=== PATIENT | male | born 1945 | race Caucasian/White ===

== ENCOUNTER 2017-08-14 16:03 | Inpatient (IN) ==
[2017-08-14] MEDS ORDERED: Ipratropium/Albuterol Neb 3 ML IH ONE (16:11)
--- NOTE | 2017-08-14 16:12 | Emergency Department Note ---
Disposition Clinical Impression: Elevated troponin Congestive heart failure Qualifiers: Congestive heart failure type: unspecified congestive heart failure type Congestive heart failure chronicity: acute Qualified Code(s): I50.9 - Heart failure, unspecified Dyspnea Qualifiers: Dyspnea type: unspecified Qualified Code(s): R06.00 - Dyspnea, unspecified Disposition: Admitted As Inpatient Condition: Fair Time of Disposition: 20:35 General Adult HPI - General Chief complaint: ED Shortness of Breath/Dyspnea Stated complaint: SOB Time Seen by Provider: 08/14/17 16:10 Nursing Notes Reviewed: Yes Vital Signs Reviewed: Yes - History of Present Illness HPI Narrative: 72-year-old male with past medical history of interstitial pulmonary fibrosis reports the emergency department worsening shortness of breath over the last few days. Patient denies any history of CHF or myocardial infarctions. Patient denies any chest pain pressure, or tightness. He does admit to worsening shortness of breath on exertion. Patient also states that he is having some pain behind his right eye that started when he was having issues with shortness of breath. Patient states that his dizzy I will bit blurry, but when he applied his oxygen, the blurriness of his vision went away. Patient also states that he is a chronic alcoholic. - Related Data Home Medications Medication Instructions Recorded Confirmed Aspirin 81 mg PO DAILY 05/23/17 08/14/17 Mv-Mn/FA/Vit K/Lycop/Lut/Coq10 1 tab PO DAILY 05/23/17 08/14/17 [Daily Multivitamin Capsule] Folic Acid 1 mg PO DAILY 08/14/17 08/14/17 Oxygen 4 l NS AD 08/14/17 08/14/17 Allergies Allergy/AdvReac Type Severity Reaction Status Date / Time No Known Allergies Allergy Verified 05/23/17 08:24 All systems ED: reviewed and negative except as stated. Review of Systems: As Per HPI Constitutional: Reports: fever Eyes: Reports: eye pain, vision change Cardiovascular: Reports: dyspnea on exertion. Denies: chest pain, syncope Respiratory: Reports: cough, dyspnea, sputum production Gastrointestinal: Denies: nausea Musculoskeletal: Denies: back pain Integumentary: Denies: rash Neurological: Reports: headache. Denies: weakness, numbness, paresthesias Past Medical History - Past Medical History Medical history: Reports: arthritis, GERD Surgical history: Reports: non-contributory Psychiatric history: Reports: no psych history - Social History Smoking Status: Former smoker Smokeless Tobacco Status: No Alcohol use: Reports: occasionally Drug use: Reports: none Physical Exam General: 72-year-old male on 4 L of oxygen via nasal cannula, appearing comfortably. Head: autraumatic, EOMI, no conjuncitval pallor, no scleral icterus, Mouth: oral mucous membranes moist, no tenderness to the right temporal artery Neck: neck soft, trachea midline Chest:: Equal chest wall rise Lungs: Diminished lung sounds bilaterally, no wheezes, no respiratory distress Heart: normal heart sounds, normal rate and rhythm, Abdomen: soft, non-tender, no rigidity, no guarding, no rebdound tenderness Lower Extremities: no pedal edema, calves non-tender Integumentary: Skin warm, dry, and intact Neuro: Alert and oriented to person place and time, GCS 15, cranial nerves II through XII grossly intact. Strength in the upper and lower extremities 5 out of 5 bilaterally. Sensory intact in the upper or lower extremities. Negative pronator drift. Psych: normal affect, normal mood Course Vital Signs Temperature 97.7 F 08/14/17 16:09 Pulse Rate 57 08/14/17 16:09 Respiratory Rate 14 08/14/17 16:09 Blood Pressure 137/78 08/14/17 16:09 O2 Sat by Pulse Oximetry 96 08/14/17 16:09 Temperature 97.7 F 08/14/17 16:09 Pulse Rate 63 08/14/17 20:22 Respiratory Rate 16 08/14/17 20:22 Blood Pressure 112/77 08/14/17 20:22 O2 Sat by Pulse Oximetry 100 08/14/17 20:22 Oxygen Delivery Oxygen Delivery Nasal Cannula Medical Decision Making - [facility] Narrative Medical decision making narrative: 72-year-old male presents to the emergency department with cough, shortness of breath, sputum production which is initially concerning for pneumonia. Patient is a chronic alcoholic. Electrocardiogram revealed new diffuse T-wave inversions that were not obtainable previous EKGs. Chest x-ray did not reveal evidence of pneumonia, but clinically, the patient's cough and sputum production were concerning for it. Due to patient's known history of alcoholism , there was concern for aspiration pneumonia. Patient was given vancomycin and Zosyn in the emergency department. Patient did have an elevated BNP of 873. Patient also had a troponin of 0.08. A repeat electrocardiogram was obtained, and a symptom recheck was also taken. Patient denied any chest pain, pressure, or tightness. Cardiology was consulted and they recommended to start a heparin drip. Due to the patient's elevated BNP, patient patient was given 40 mg of Lasix IV in the emergency department. Patient was complaining of having a headache behind his right eye. This was concerning for possibility of hemorrhagic stroke. CT scan of the head was negative for an acute intracranial abnormality. Patient was given Reglan, Benadryl in the emergency department. Patient was still complaining of headache after the administration of these medications. Given further analgesia. Temporal artery was palpated and was not tender. Intraocular pressures were obtained and they were 19 and 23 respectively. There was no evidence of glaucoma. We discussed admission with the hospitalist and he agreed to accept admission of the patient. All labs and tests were discussed with family members at bedside as well as patient. They agreed with the plan for admission. Heparin drip was started prior to admission to the floor. Chest X-Ray 08/14/17 16:11 IMPRESSION: 1. No acute cardiopulmonary abnormality. 2. Stable findings of chronic interstitial lung disease. D/ / Patrick Sandy MD / Patrick Sandy MD Interpreting Provider: Patrick Sandy MD Head CT 08/14/17 16:38 IMPRESSION: No acute intracranial abnormality. D/ / Patrick Sandy MD / Patrick Sandy MD Interpreting Provider: Patrick Sandy MD - Medical Records Medical records reviewed: Yes I reviewed the patient's medical records. - Lab Data Lab results reviewed: Yes I reviewed the patient's lab results. Result diagrams: 08/14/17 16:26 08/14/17 16:26 Lab Results 08/14/17 08/14/17 08/14/17 Range/Units 16:26 16:26 16:26 WBC 6.8 (4.3-11.1) K/mcL RBC 5.74 H (4.19-5.50) M/mcL Hgb 19.0 H (12.9-16.9) g/dL Hct 57.2 H (37.5-50.1) % MCV 99.7 (83.0-100.0) fL MCH 33.1 (28.0-33.3) pg MCHC 33.2 (31.6-35.5) g/dL RDW 13.3 (11.5-14.5) % Plt Count 135 L (140-400) K/mcL MPV 9.5 (9.4-12.4) fL Immature Gran % 0.3 (0-4) % Seg Neutrophils % 69.5 % Lymphocytes % 15.9 % Monocytes % 7.4 % Eosinophils % 6.0 % Basophils % 0.9 % Neutrophils # 4.7 (1.6-8.9) K/mcL Lymphocytes # 1.1 (0.6-4.6) K/mcL Monocytes # 0.5 (0.0-1.3) K/mcL Eosinophils # 0.4 (0.0-0.6) K/mcL Basophils # 0.1 (0.0-0.2) K/mcL Sodium 141 (136-145) mEq/L Potassium 4.3 (3.5-4.5) mEq/L Chloride 107 (98-109) mEq/L Carbon Dioxide 26 (19-29) mEq/L BUN 25 (8-26) mg/dL Creatinine 0.91 (0.72-1.25) mg/dL Est GFR ( Amer) > 60 (> 60) Est GFR (Non-Af Amer) > 60 (> 60) BUN/Creatinine Ratio 27 H (6-26) Glucose 91 (70-99) mg/dL Calculated Osmolality 296 (280-300) Calcium 9.3 (8.6-10.8) mg/dL Troponin I 0.08 H* (0-0.03) ng/mL B-Natriuretic Peptide (0-100) pg/mL 08/14/17 Range/Units 16:26 WBC (4.3-11.1) K/mcL RBC (4.19-5.50) M/mcL Hgb (12.9-16.9) g/dL Hct (37.5-50.1) % MCV (83.0-100.0) fL MCH (28.0-33.3) pg MCHC (31.6-35.5) g/dL RDW (11.5-14.5) % Plt Count (140-400) K/mcL MPV (9.4-12.4) fL Immature Gran % (0-4) % Seg Neutrophils % % Lymphocytes % % Monocytes % % Eosinophils % % Basophils % % Neutrophils # (1.6-8.9) K/mcL Lymphocytes # (0.6-4.6) K/mcL Monocytes # (0.0-1.3) K/mcL Eosinophils # (0.0-0.6) K/mcL Basophils # (0.0-0.2) K/mcL Sodium (136-145) mEq/L Potassium (3.5-4.5) mEq/L Chloride (98-109) mEq/L Carbon Dioxide (19-29) mEq/L BUN (8-26) mg/dL Creatinine (0.72-1.25) mg/dL Est GFR ( Amer) (> 60) Est GFR (Non-Af Amer) (> 60) BUN/Creatinine Ratio (6-26) Glucose (70-99) mg/dL Calculated Osmolality (280-300) Calcium (8.6-10.8) mg/dL Troponin I (0-0.03) ng/mL B-Natriuretic Peptide 873 H (0-100) pg/mL - Radiology Data Radiology results reviewed: Yes I reviewed the patient's radiology results. - EKG Data EKG #1 EKG attestation: Yes I reviewed and interpreted this EKG. EKG results narrative: EKG #1 16:23 Ventricular rate 69 bpm, ND interval 170 ms, QRS duration 120 ms, QTC 427 ms, QTC 446 ms, normal axis T-wave inversions in the inferior leads and anterior septal leads that are new from an electrocardiogram performed on September 19, 2013 18:52 EKG #2 This electrocardiogram is unchanged from the one performed at 16:23 today Critical Care Time Critical Care Time: Yes Total Critical Care Time: 35 Attestation: Critical care performed: Time is exclusive of separately billable procedures. Time includes: direct patient care, patient reassessment, coordination of patient care, interpretation of data (laboratory data, radiology data, and respiratory data), review of patient's medical records, medical consultation and documentation of patient care. Procedures included in critical care time: Procedures excluded from critical care time: Attestation Statement - Attestation Attestation: I, Flaco Cabrera DO, examined this patient [id number] and my medical decision-making was reviewed with Dr. Mynor Anderson, Resident Physician. I agree with the documented findings, disposition and treatment plan as described except to the extent set forth below. Please see my progress notes for details. 72-year-old male presents emergency room with shortness of breath. He has a long-standing history of pulmonary fibrosis and is on oxygen at home. Over the last several days she has had productive sputum sinus congestion and pain around his right eye similar to when he gets sinus infections. Currently is denying chest pain fevers chills nausea vomiting or diarrhea. Denies headache or vision change. He does have generalized myalgias diffusely across the body. EKG does show diffuse T-wave inversions and no specific signs of ST segment elevation or depression. His morphology appears to be stable. Patient had chest x-ray as well as laboratory workup completed looking for cardiac related issues as well as pulmonary infection. Concern is noted for infectious etiology based on the symptoms history and presentation. Patient also is a chronic alcoholic. Thiamine and folate will be given to him boluses here as well to help with symptom control on fluid hydration. Patient will most likely need admission to the hospital. His pulse ox is been stable here after receiving breathing treatments. Will continue monitoring his treatment course. Otherwise patient is resting in the bed with significant resolution of his increased work of breathing that he presented with. Patient is otherwise stable this time. Family is at the bedside and comfortable with our plan patient to get CT imaging of the head as well considering he had what he described as a focal vision change at the onset of the shortness of breath here today. Disposition to be completed. See detailed documentation of physical exam, medical intervention, medical decision-making and resident physician's note [id number] Chest x-ray shows changes and interstitial presentation concerning for pulmonary edema. BNP is elevated. Troponin is elevated. Patient also has cardiac strain secondary to fluid overload at this time. This could be causing shortness of breath. Otherwise EKG is stable except for diffuse T-wave inversion. Patient will be admitted for definitive evaluation treatment. He still complaining of the headache and pain on the right eye. She describes being on the right eye identical to all his other sinus infections. He has no acute changes in vision or extraocular muscle entrapment at this time. Intra- ocular pressure to be evaluated in the admission process to be completed. Multivitamin about covered with concern for aspiration as well as pulmonary coverage. 1800 Cardiology to be consult at this time at the request of the hospitalist. Patient does have diffuse T-wave inversions with possible depressions in 3, aVF , V1 to V3. Patient has continued to deny chest pain throughout the course of care here in the emergency room. 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 Patient denies any other symptoms this time. Repeat EKG to be collected at this time just for further evaluation. Admission to be completed at this point
[2017-08-14] MEDS ORDERED: Tetracaine 0.5% OPTH 80 DROP/4 ML BOTTLE RIGHT EYE ONE (16:24)
[2017-08-14 16:34] LABS: Basophils # 0.1 K/mcL (0.0-0.2); Basophils % 0.9 %; Eosinophils # 0.4 K/mcL (0.0-0.6); Immature Granulocytes % 0.3 % (0-4); Lymphocytes # 1.1 K/mcL (0.6-4.6); Lymphocytes % 15.9 %; Mean Corpuscular HGB Conc 33.2 g/dL (31.6-35.5); Mean Corpuscular Hemoglobin 33.1 pg (28.0-33.3); Mean Corpuscular Volume 99.7 fL (83.0-100.0); Mean Platelet Volume 9.5 fL (9.4-12.4); Monocytes # 0.5 K/mcL (0.0-1.3); Monocytes % 7.4 %; Neutrophils # 4.7 K/mcL (1.6-8.9); Platelet Count 135 K/mcL (140-400); Red Blood Count 5.74 M/mcL (4.19-5.50); Red Cell Distribution Width 13.3 % (11.5-14.5); Segmented Neutrophils % 69.5 %
[2017-08-14 16:42] LABS: Hematocrit 57.2 % (37.5-50.1)
[2017-08-14 17:05] LABS: BUN/Creatinine Ratio 27 (6-26); Blood Urea Nitrogen 25 mg/dL (8-26); Calcium 9.3 mg/dL (8.6-10.8); Carbon Dioxide 26 mEq/L (19-29); Chloride 107 mEq/L (98-109); Glucose 91 mg/dL (70-99); Osmolality,Calculated 296 (280-300); Potassium 4.3 mEq/L (3.5-4.5); Sodium 141 mEq/L (136-145); eGFR For African Americans > 60 (> 60); eGFR For Non-African Americans > 60 (> 60)
[2017-08-14] MEDS ORDERED: Vancomycin 1,250 MG in D5% in Water 250 ML IVPB ONE (17:38)
[2017-08-14] MEDS ORDERED: Piperacillin/Tazobactam 4.5 GM in D5% in Water (Mini-Bag+) 100 ML IVPB ONE (17:42)
[2017-08-14] MEDS ORDERED: Metoclopramide 10 MG/2 ML VIAL IVP ONE (17:53)
[2017-08-14] MEDS ORDERED: Aspirin 325 MG TABLET PO ONE (18:14)
[2017-08-14] MEDS ORDERED: Furosemide 40 MG/4 ML VIAL IVP ONE (18:15)
[2017-08-14] MEDS ORDERED: *HR* Heparin 5,000 UNIT/ML VIAL IVP ONE (18:25)
[2017-08-14] MEDS ORDERED: *HR* Heparin 5,000 UNIT/ML VIAL IVP PRN ×2 (18:25)
[2017-08-14] MEDS ORDERED: Heparin 25,000 UNIT/500 ML D5W 25,000 UNIT/500 ML MLS IVC SCH (18:30)
[2017-08-14] MEDS ORDERED: *HR* HYDROmorphone (PF) 1 MG/ML SYRINGE IVP ONE (19:31)
[2017-08-14 22:38] LABS: INR 1.5; Prothrombin Time 15.9 Seconds (9.4-12.1)
[2017-08-14 22:57] LABS: Activated Partial Thrombo Time 187.3 Seconds (26.0-36.0)
[2017-08-14] MEDS ORDERED: Naloxone 0.4 MG/ML INJ IVP PRN (22:57)
[2017-08-14] MEDS ORDERED: Ondansetron ODT 4 MG TAB.RAPDIS SL PRN (22:57)
[2017-08-14] MEDS ORDERED: Nitroglycerin 0.4 MG TAB.SUBL SL PRN (23:02)
[2017-08-14] MEDS ORDERED: Albuterol 2.5 MG/3 ML NEBULIZER IH PRN (23:02)
[2017-08-14 23:13] LABS: Heparin anti-factor XA UFH 0.82 IU/mL (0.30-0.70)
[2017-08-14] MEDS: Ipratropium/Albuterol Neb 3 ML IH SCH (23:14)
[2017-08-14] MEDS ORDERED: NON-FORMULARY MEDICATION 1 EACH EACH (Oxygen [Oxygen] 4 L) NS SCH (23:15)
[2017-08-15] MEDS: methylPREDNISolone 125 MG/2 ML VIAL IVP SCH ×2 (00:32→09:50)
[2017-08-15] MEDS: Furosemide 40 MG/4 ML VIAL IVP SCH ×3 (00:33→20:47)
[2017-08-15] MEDS: *HR* Morphine 2 MG/ML SYRINGE IVP PRN ×2 (00:37→09:50)
[2017-08-15] MEDS: Levofloxacin 500 MG/100 ML 500 MG/100 ML BAG IVPB SCH ×2 (00:38→22:56)
--- NOTE | 2017-08-15 03:24 | Internal Med History&Physical ---
Date of Encounter: 08/15/17 Time of Encounter: 21:00 Assessment and Plan (1) Pneumonia Current visit: Yes Status: Acute Blood culture drawn patient is on IV Levaquin Qualifiers: Pneumonia type: due to unspecified organism Laterality: unspecified laterality Lung location: unspecified part of lung Qualified Code(s): J18.9 - Pneumonia, unspecified organism (2) COPD (chronic obstructive pulmonary disease) Current visit: Yes Status: Acute Add IV steroid nebulizers S Mucinex Qualifiers: COPD type: COPD with acute exacerbation Qualified Code(s): J44.1 - Chronic obstructive pulmonary disease with (acute) exacerbation (3) Pulmonary fibrosis Current visit: Yes Status: Acute Known diagnosis 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 Patient has been started on IV Lasix and an echocardiogram ordered. Serial cardiac enzymes ordered as well as aspirin beta faustino will be started. Cardiology consult pending per cardiology recommendation patient is on IV nitroglycerin and heparin drip. Qualifiers: Congestive heart failure type: unspecified congestive heart failure type Congestive heart failure chronicity: unspecified congestive heart failure chronicity Qualified Code(s): I50.9 - Heart failure, unspecified Internal Medicine - H&P: HPI Chief complaint: sob Admitted From: Home Plans for Post Hospital Care: Home History of present illness: Mr. [place] is a 72 year old male past medical history significant for alcoholism, pulmonary fibrosis, COPD. Patient presented with cough and worsening dyspnea. However no chest pain. No fever chills headache neck pain abdominal pain nausea vomiting diarrhea dysuria urgency frequency hematuria medically Z hematemesis melena. In the ER EKG showed diffuse T-wave inversion with positive troponin. Cardiology was consulted who recommended IV nitroglycerin and IV heparin. Chest x-ray showed pneumonia and on clinical examination COPD exacerbation is present. Patient admits that he drinks regularly. Past Med Surg Social Fam HX - Past Medical History Medical history: arthritis, GERD Psychiatric history: no psych history - Past Surgical History Surgical History: non-contributory - Social History Smoking Status: Former smoker Smokeless Tobacco Status: No Alcohol use: occasionally Drug use: none - Family History Father Adopted: Yes Living Status: Hx Family Neuromuscular Disorders: Yes (CVA) Internal Medicine - H&P: Meds Aspirin 81 mg PO DAILY 05/23/17 [History] Mv-Mn/FA/Vit K/Lycop/Lut/Coq10 [Daily Multivitamin Capsule] 1 tab PO DAILY 05/23 [History] Folic Acid 1 mg PO DAILY 08/14/17 [History] Oxygen 4 l NS AD 08/14/17 [History] 3 Allergy/AdvReac Type Severity Reaction Status Date / Time No Known Allergies Allergy Verified 05/23/17 08:24 All Systems PM: A 10-system review of systems was performed and is negative for pertinent findings except as documented above in the HPI. - Constitutional Constitutional: no chills, no fever(s), no night sweats - EENT Eyes: no change in vision, no discharge, no pain, no photophobia Ears: no ear discharge, no ear pain, no tinnitus Nose, mouth and throat: no dysphagia, no nasal discharge, no neck pain, no sore throat - Cardiovascular Cardiovascular ROS IM: no chest pain, no diaphoresis, no dyspnea, no lightheadedness, no palpitations, no syncope - Respiratory Respiratory: cough, dyspnea, no wheezing, no excessive phlegm production - Gastrointestinal Gastrointestinal: no abdominal pain, no diarrhea, no hematemesis, no hematochezia, no melena, no nausea, no vomiting - Musculoskeletal Musculoskeletal ROS IM: no numbness, no tingling - Integumentary Integumentary IM: no rash, no unusual bruising - Neurological Neurological ROS: no confusion, no convulsions, no focal weakness, no numbness, no tingling, no tremor(s) - Hematologic/Lymphatic Hematologic/Lymphatic: no easy bruising - Constitutional Vitals: Temp Pulse Resp BP Pulse Ox 97.5 F L 61 16 99/65 99 08/14/17 23:55 08/14/17 23:55 08/14/17 23:55 08/14/17 23:55 08/14/17 23:55 General appearance: Present: A&O X 3, pleasant, no acute distress, answers questions appropriately - Head Head exam: Present: atraumatic, normocephalic - Eye Eye exam: Present: PERRL, conjuntiva pink, sclera anicteric Pupils: Present: PERRL - Neck Neck exam general surgery: Present: supple, trachea midline. Absent: lymphadenopathy - Respiratory Respiratory exam: Present: decreased breath sounds, wheezes. Absent: accessory muscle use, rales, rhonchi - Cardiovascular Cardiovascular exam: Present: RRR, +S1, +S2. Absent: diastolic murmur, gallop, rubs, systolic murmur - GI/Abdominal GI/Abdominal exam: Present: normal bowel sounds, soft, no peritoneal signs. Absent: distended, tenderness - Extremities Exam Extremities exam: Present: warm, radial pulses palpable and symmetrical. Absent : calf tenderness, cyanotic, pedal edema - Neurological Exam Neurological exam: Present: CN II-XII intact, oriented X3, no focal deficits. Absent: pronater drift, facial droop, speech deficit - Skin Skin exam: Present: dry, intact Internal Med - H&P Results - Labs CBC & Chem 7: 08/14/17 16:26 08/14/17 16:26 Labs: Cardiac Enzymes 08/14/17 Range/Units 23:44 Troponin I 0.11 H* (0-0.03) ng/mL
[2017-08-15] MEDS: Ipratropium/Albuterol Neb 3 ML IH SCH ×4 (04:14→21:31)
[2017-08-15 06:15] LABS: Basophils % 0.5 %; Eosinophils # 0.1 K/mcL (0.0-0.6); Eosinophils % 0.9 %; Hematocrit 55.3 % (37.5-50.1); Hemoglobin 18.3 g/dL (12.9-16.9); Immature Granulocytes % 0.4 % (0-4); Lymphocytes # 0.3 K/mcL (0.6-4.6); Lymphocytes % 5.9 %; Mean Corpuscular HGB Conc 33.1 g/dL (31.6-35.5); Mean Corpuscular Hemoglobin 32.9 pg (28.0-33.3); Mean Corpuscular Volume 99.3 fL (83.0-100.0); Mean Platelet Volume 9.8 fL (9.4-12.4); Monocytes # 0.1 K/mcL (0.0-1.3); Platelet Count 133 K/mcL (140-400); Red Blood Count 5.57 M/mcL (4.19-5.50); Red Cell Distribution Width 13.2 % (11.5-14.5); Segmented Neutrophils % 90.3 %
[2017-08-15 06:26] LABS: Alanine Aminotransferase 11 Units/L (0-55); Albumin 3.2 g/dL (3.5-5.0); Alkaline Phosphatase 92 Units/L (38-126); Aspartate Amino Transferase 22 Units/L (5-34); BUN/Creatinine Ratio 29 (6-26); Bilirubin,Total 1.4 mg/dL (0.2-1.2); Blood Urea Nitrogen 24 mg/dL (8-26); Calcium 9.1 mg/dL (8.6-10.8); Carbon Dioxide 26 mEq/L (19-29); Chloride 103 mEq/L (98-109); Globulin 3.3 g/dL (2.4-3.5); Glucose 143 mg/dL (70-99); Osmolality,Calculated 293 (280-300); Potassium 4.6 mEq/L (3.5-4.5); Sodium 138 mEq/L (136-145); Total Protein 6.5 g/dL (6.0-8.3); eGFR For African Americans > 60 (> 60); eGFR For Non-African Americans > 60 (> 60)
[2017-08-15] MEDS: Folic Acid 1 MG TABLET PO SCH (09:51)
[2017-08-15] MEDS: Multivit/Ca/Min/Fe/FA 1 TAB TABLET PO SCH (09:51)
[2017-08-15] MEDS: Aspirin 81 MG TAB.CHEW PO SCH (09:51)
--- NOTE | 2017-08-15 09:58 | Cardiology Consult Note ---
Date of Encounter: 08/15/17 Time of Encounter: 09:57 Assessment and Plan (1) Congestive heart failure Current Visit: Yes Status: Acute Most likley 2/2 pneumonia/COPD/Idiopathic pulmonary fibrosis vs possibly new diastolic CHF (HFpEF) w/ excessive chronic EtOH as a contributing factor. Patient has increased SOB on exertion, and inability to lay flat, but denies PND , chest pain or diaphoresis. Clinically dry and warm. CXR showed no acute cardiopulmonary abnormality. Trop 0.07, 011, and 0.08. BNP 873, with no hx or present renal dysfunction. echo from 2012 showed LVEF 55-60%. echo 08/15/2017 LVEF 50-55% mild MVP prolapse and mil-derate mitral regurg. Patient does not have a cardiac history. - Fluid restrictions <2L/day, and <2Na/day - continue lasix 40 BID, morphine PRN, Nitrates PRN, O2, and patient sitting up. - can stop heparin, at this time will hold off cardiac intervention - B-faustino hold for now due to decreased BP and HR - advised patient to quit drinking, as this is a contributive factor for CHF Qualifiers: Congestive heart failure type: unspecified congestive heart failure type Congestive heart failure chronicity: unspecified congestive heart failure chronicity Qualified Code(s): I50.9 - Heart failure, unspecified (2) Nevus Current Visit: Yes Status: Acute 3 cm left Nevus on ear, appears ulcerated. highly suspicious of basal Cell Carcinoma. Please setup follow up with breakfast supervisor on discharge. (3) Pneumonia Current Visit: Yes Status: Acute per management of medicine team Qualifiers: Pneumonia type: due to unspecified organism Laterality: unspecified laterality Lung location: unspecified part of lung Qualified Code(s): J18.9 - Pneumonia, unspecified organism (4) COPD (chronic obstructive pulmonary disease) Current Visit: Yes Status: Acute per management of medicine team Qualifiers: COPD type: COPD with acute exacerbation Qualified Code(s): J44.1 - Chronic obstructive pulmonary disease with (acute) exacerbation (5) Alcoholism Current Visit: Yes Status: Acute per management of medicine team Discussion w patient/family: The assessment and plan as outlined above was discussed with the patient and/or family members who expressed understanding and agreement. All questions were answered. Thank you for involving us in the care of your patient. Please call with any questions. History of Present Illness Consult date: 08/15/17 Requesting physician: Flaco Cabrera Consult reason: new CHF Chief complaint: SOB on exertion History of present illness: Mr. Canada is a 72 year old male who presented to the ED yesterday with increased SOB on exertion. Patient has a history of Interstitial lung disease diagnosed in 11/01, and COPD which he does not take medications at home for, and hx of chronic EtOH use. In ED patient was started on Vanc and zosyn to treat PNA and was switched to levaquin once admitted 2/2 hx of lung disease. BNP was found to be 873 and trop 0.08, and EKG with ST inversions. Patient was then started on nitro, heparin drip, O2, ASA81, and lasix 40 for treatment of CHF. When patient was seen today he reported "I feel awful" and "feels like i have the flu " because he ached all over. Patent denies chest pain or diaphoresis. He's had increasing difficulty laying flat and increased SOB on exertion. Patient denies PND. On chart review, patient had an echo in 2012 w/ LVEF of 55-60%, patient was unsure of the reason for echo. Patient denies any previous cardiac medical history. Past Med Surg Social Fam HX - Past Medical History Medical history: arthritis, GERD Psychiatric history: no psych history - Past Surgical History Surgical History: non-contributory - Social History Smoking Status: Former smoker Smokeless Tobacco Status: No Alcohol use: occasionally Drug use: none - Family History Father Adopted: Yes Living Status: Hx Family Neuromuscular Disorders: Yes (CVA) Medications and Allergies Aspirin 81 mg PO DAILY 05/23/17 [History] Mv-Mn/FA/Vit K/Lycop/Lut/Coq10 [Daily Multivitamin Capsule] 1 tab PO DAILY 05/23 [History] Folic Acid 1 mg PO DAILY 08/14/17 [History] Oxygen 4 l NS AD 08/14/17 [History] 3 Allergy/AdvReac Type Severity Reaction Status Date / Time No Known Allergies Allergy Verified 05/23/17 08:24 All Systems Review: A 10-system review of systems was performed and is negative for pertinent findings except as documented above in the HPI. - Constitutional Constitutional: malaise, weakness, no night sweats - EENT Eyes: no blurred vision, no loss of vision - Cardiovascular Cardiovascular: as per HPI - Respiratory Respiratory: cough, dyspnea (n exertion), no hemoptysis, no wheezing - Gastrointestinal Gastrointestinal: no abdominal pain, no coffee ground emesis, no constipation, no diarrhea, no dysphagia, no hematemesis, no hematochezia, no melena - Genitourinary Genitourinary: no dysuria, no hematuria, no nocturia - Musculoskeletal Musculoskeletal: muscle cramps, muscle weakness, no back pain - Neurological Neurological: no abnormal speech, no loss of vision, no memory loss, no numbness - Psychiatric Psychiatric: no anxiety, no depression, no hallucinations, no panic attacks - Hematological/Lymphatic Hematologic/Lymphatic: no easy bleeding, no easy bruising Physical Examination Vital Signs, Last 4 Hours Temp Pulse Resp BP Pulse Ox 08/15/17 06:46 97.5 F L 61 16 111/68 97 General: Conversant, No Apparent Distress HEENT: Atraumatic, Normocephaly, Mucus Membranes Moist Neck: No JVD, Normal carotid pulses, Other (no carotid bruits bilaterally) Cardiac: Reg Rate and Rhythm, Normal S1 and S2, No Murmur Lungs: Normal Breath Sounds, No Wheeze, Rales, Rhonchi Neuro: Alert and responsive, No focal deficits noted Abdomen: Soft, Non-Tender Skin: No rashes noted on visualized skin Musculoskeletal: No Chest Wall Tenderness Extremities: No Clubbing, No Cyanosis, No Edema (0/4 UE and LE bilaterally), Normal Pulses (radial, posterior tibia, and dorsalis pedis) Results 08/15/17 05:41 08/15/17 05:41 Lab Results 08/14/17 08/15/17 08/15/17 23:44 05:41 05:41 WBC 5.6 Hgb 18.3 H Hct 55.3 H Plt Count 133 L APTT Sodium 138 Potassium 4.6 H Chloride 103 Carbon Dioxide 26 BUN 24 Creatinine 0.84 Glucose 143 H Calcium 9.1 Total Bilirubin 1.4 H AST 22 ALT 11 Alkaline Phosphatase 92 Troponin I 0.11 H* 08/15/17 08/15/17 05:41 06:40 WBC Hgb Hct Plt Count APTT 34.9 D Sodium Potassium Chloride Carbon Dioxide BUN Creatinine Glucose Calcium Total Bilirubin AST ALT Alkaline Phosphatase Troponin I 0.07 H* Consult Discharge Plan - Plan Referrals: Jorge Ferrera MD [Primary Care Provider] -
[2017-08-15] MEDS: Acetaminophen 325 MG TABLET PO PRN (10:45)
[2017-08-15] MEDS ORDERED: *HR* LORazepam 2 MG/ML VIAL IVP PRN ×2 (12:02)
[2017-08-15] MEDS: *HR* LORazepam 2 MG/ML VIAL IVP PRN (12:34)
[2017-08-15] MEDS: MethylPREDNISolone 40 MG/ML VIAL IVP SCH (14:23)
--- NOTE | 2017-08-15 17:14 | Internal Med Progress Note ---
Date of Encounter: 08/15/17 Time of Encounter: 12:30 - Assessment and plan (1) Congestive heart failure Current Visit: Yes Status: Acute Assessment and plan: Patient admitted with shortness of breath and noted to have elevated BNP. Started on IV Lasix, continue urine output monitoring, fluid restriction, telemetry monitoring. Noted to have mild troponin elevation, flat around 0.1. Cardiology consult appreciated-agree with current management, unclear if his symptoms are all attributed to congestive heart failure, could be due to underlying pulmonary fibrosis. Followup Echocardiogram. Qualifiers: Congestive heart failure type: unspecified congestive heart failure type Congestive heart failure chronicity: acute on chronic Qualified Code(s): I50.9 - Heart failure, unspecified (2) Elevated troponin Current Visit: Yes Status: Acute Assessment and plan: continue Telemetry monitoring. Likely related to underlying hypoxia and respiratory failure. Plan as above. (3) Pulmonary fibrosis Current Visit: Yes Status: Chronic Assessment and plan: continue supplemental O2; follows with Pulmonology as outpatient; (4) Alcoholism Current Visit: Yes Status: Chronic Assessment and plan: Discussed alcohol abstinence. Continue supportive care and CIWA protocol. No overt signs of withdrawal at this time. - Subjective Interval history: Feels better. Reports no chest pain, shortness of breath, anxiety or tremors. No nausea or vomiting. Tolerates oral diet. - Constitutional Vitals: Temp Pulse Resp BP Pulse Ox 97.6 F 66 16 93/63 93 08/15/17 15:16 08/15/17 15:16 08/15/17 15:38 08/15/17 15:16 08/15/17 15:38 General appearance: Present: A&O X 3, answers questions appropriately - Respiratory Respiratory exam: Present: CTAB (Coarse breath sounds bilaterally), rales ( Bibasal crepts). Absent: accessory muscle use, rhonchi, wheezes - Cardiovascular Cardiovascular exam: Present: RRR, +S1, +S2. Absent: diastolic murmur, gallop, rubs, systolic murmur - GI/Abdominal GI/Abdominal exam: Present: normal bowel sounds, soft, no peritoneal signs. Absent: distended, tenderness - Extremities Exam Extremities exam: Present: full ROM, warm, radial pulses palpable and symmetrical. Absent: calf tenderness, cyanotic, pedal edema Internal Medicine: Result - Labs CBC & Chem 7: 08/15/17 05:41 08/15/17 05:41 Labs: Short CBC 08/15/17 Range/Units 05:41 WBC 5.6 (4.3-11.1) K/mcL Hgb 18.3 H (12.9-16.9) g/dL Hct 55.3 H (37.5-50.1) % Plt Count 133 L (140-400) K/mcL Neutrophils # 5.0 (1.6-8.9) K/mcL BMP 08/15/17 05:41 Sodium 138 Potassium 4.6 H Chloride 103 Carbon Dioxide 26 BUN 24 Creatinine 0.84 Glucose 143 H Calcium 9.1 Cardiac Enzymes 08/14/17 08/15/17 08/15/17 Range/Units 23:44 05:41 10:45 Troponin I 0.11 H* 0.07 H* 0.05 H* (0-0.03) ng/mL Liver Function 08/15/17 Range/Units 05:41 Total Bilirubin 1.4 H (0.2-1.2) mg/dL AST 22 (5-34) Units/L ALT 11 (0-55) Units/L Alkaline Phosphatase 92 (38-126) Units/L Albumin 3.2 L (3.5-5.0) g/dL - ABG Interpretation ABG results: PT/INR, D-dimer PT 15.9 Seconds (9.4-12.1) H 08/14/17 21:38 - Impressions Impressions Echocardiogram 08/15/17 23:22 Impressions: LVEF 50-55%. Mild left ventricular diastolic dysfunction. Normal right ventricular structure and function. Mild mitral valve bileaflet prolapse with mild-moderate mitral regurgitation. No pulmonary hypertension. Left Ventricular Wall Motion: Rest Echo Findings All wall segments showed normal motion. Findings: Study Quality * Technically adequate exam. ECG Findings * Normal sinus rhythm. Left Ventricle * Mild left ventricular diastolic dysfunction. * Normal LV size and wall thickness. * LVEF 50-55%. Right Ventricle * Normal right ventricular structure and function. Left Atrium * Moderate-severely dilated left atrium. Right Atrium * Normal right atrial size. Aortic Valve * No aortic regurgitation. * Trileaflet aortic valve. * No aortic stenosis. Tricuspid Valve * Normal tricuspid valve structure. * Trace tricuspid regurgitation. * Estimated RA pressure is 3 mmHg. * Estimated RVSP is 19 mmHg. * No pulmonary hypertension. Pulmonic Valve * Normal pulmonic valve structure. * No pulmonic stenosis. * Trace pulmonic regurgitation. Pulmonary Artery * Normal visualized portions of the main pulmonary artery. Aorta * Normally sized aortic root. Pericardium * There is no pericardial effusion present. Mitral Valve * Mild-moderate mitral regurgitation. * No mitral stenosis. * Mild bileaflet prolapse. Interatrial Septum * No evidence of PFO by color Doppler. IVC * Normal IVC dimensions and inspiratory collapse. Consult Discharge Plan - Plan Referrals: Jorge Ferrera MD [Primary Care Provider] -
--- NOTE | 2017-08-15 17:26 | Electrocardiograph Report ---
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
[2017-08-15] MEDS: Thiamine (B-1) 100 MG, Folic Acid 1 MG in 0.9 % Sodium Chloride 50 ML IVPB SCH (17:40)
[2017-08-15] MEDS ORDERED: Temazepam 15 MG CAPSULE PO ONE (22:15)
[2017-08-16] MEDS: MethylPREDNISolone 40 MG/ML VIAL IVP SCH ×2 (01:32→14:35)
[2017-08-16] MEDS: Ipratropium/Albuterol Neb 3 ML IH SCH ×4 (05:04→22:22)
--- NOTE | 2017-08-16 09:58 | Internal Med Progress Note ---
Date of Encounter: 08/16/17 Time of Encounter: 09:30 - Assessment and plan (1) Congestive heart failure Current Visit: Yes Status: Acute Assessment and plan: Patient admitted with shortness of breath and noted to have elevated BNP. Improving. We will change Lasix to by mouth Lasix twice daily. continue urine output monitoring, fluid restriction, telemetry monitoring. Noted to have mild troponin elevation, flat around 0.1. Cardiology consult appreciated-agree with current management, unclear if his symptoms are all attributed to congestive heart failure, could be due to underlying pulmonary fibrosis. Echocardiogram reviewed-shows 50-55% ejection fraction, mild left ventricular diastolic dysfunction, mild mitral valve bileaflet prolapse with mild to moderate mitral regurgitation. Qualifiers: Congestive heart failure type: unspecified congestive heart failure type Congestive heart failure chronicity: acute on chronic Qualified Code(s): I50.9 - Heart failure, unspecified (2) Elevated troponin Current Visit: Yes Status: Resolved (3) Pulmonary fibrosis Current Visit: Yes Status: Chronic Assessment and plan: Improving symptoms. Taper down IV steroids as tolerated. Oxygen requirements currently at baseline. continue supplemental O2; follows with Pulmonology as outpatient; (4) Alcoholism Current Visit: Yes Status: Chronic Assessment and plan: Discussed alcohol abstinence. Continue supportive care and CIWA protocol. No overt signs of withdrawal at this time. (5) Chronic respiratory failure with hypoxia Current Visit: Yes Status: Chronic Assessment and plan: Due to idiopathic pulmonary fibrosis. Continue supplemental oxygen. - Subjective Interval history: Feels better. No chest pain, shortness of breath, nausea, vomiting; tolerates oral diet; has good urine output; - Constitutional Vitals: Temp Pulse Resp BP Pulse Ox 97.6 F 70 16 96/60 96 08/16/17 07:50 08/16/17 07:50 08/16/17 07:50 08/16/17 07:50 08/16/17 07:50 General appearance: Present: A&O X 3 (flushed face), answers questions appropriately - Respiratory Respiratory exam: Present: rales (coarse crepts B/L). Absent: accessory muscle use, rhonchi, wheezes - Cardiovascular Cardiovascular exam: Present: RRR, +S1, +S2. Absent: diastolic murmur, gallop, rubs, systolic murmur - GI/Abdominal GI/Abdominal exam: Present: normal bowel sounds, soft, no peritoneal signs. Absent: distended, tenderness - Extremities Exam Extremities exam: Present: full ROM, warm, radial pulses palpable and symmetrical. Absent: calf tenderness, cyanotic, pedal edema - Neurological Exam Neurological exam: Present: CN II-XII intact, oriented X3, no focal deficits. Absent: pronater drift, facial droop, speech deficit Internal Medicine: Result - Labs CBC & Chem 7: 08/15/17 05:41 08/15/17 05:41 Labs: Cardiac Enzymes 08/15/17 Range/Units 10:45 Troponin I 0.05 H* (0-0.03) ng/mL - ABG Interpretation ABG results: PT/INR, D-dimer PT 15.9 Seconds (9.4-12.1) H 08/14/17 21:38 Consult Discharge Plan - Plan Referrals: Jorge Ferrera MD [Primary Care Provider] -
[2017-08-16] MEDS: Aspirin 81 MG TAB.CHEW PO SCH (11:21)
[2017-08-16] MEDS: Furosemide 40 MG/4 ML VIAL IVP SCH (11:21)
[2017-08-16] MEDS: Multivit/Ca/Min/Fe/FA 1 TAB TABLET PO SCH (11:21)
[2017-08-16] MEDS: Folic Acid 1 MG TABLET PO SCH (11:21)
[2017-08-16] MEDS: Acetaminophen 325 MG TABLET PO PRN (14:35)
[2017-08-16] MEDS: *HR* LORazepam 2 MG/ML VIAL IVP PRN (14:36)
[2017-08-16] MEDS: Thiamine (B-1) 100 MG, Folic Acid 1 MG in 0.9 % Sodium Chloride 50 ML IVPB SCH (18:31)
[2017-08-16] MEDS: Furosemide 40 MG TABLET PO SCH (18:32)
[2017-08-16] MEDS: *HR* Morphine 2 MG/ML SYRINGE IVP PRN (22:52)
[2017-08-16] MEDS: Levofloxacin 500 MG/100 ML 500 MG/100 ML BAG IVPB SCH (23:45)
[2017-08-17] MEDS: Ipratropium/Albuterol Neb 3 ML IH SCH ×2 (04:19→10:37)
[2017-08-17] MEDS: Furosemide 40 MG TABLET PO SCH (08:40)
[2017-08-17] MEDS: Folic Acid 1 MG TABLET PO SCH (08:40)
[2017-08-17] MEDS: Acetaminophen 325 MG TABLET PO PRN (08:40)
[2017-08-17] MEDS: Multivit/Ca/Min/Fe/FA 1 TAB TABLET PO SCH (08:40)
[2017-08-17] MEDS: Aspirin 81 MG TAB.CHEW PO SCH (08:40)
[2017-08-17] MEDS ORDERED: MethylPREDNISolone 40 MG/ML VIAL IVP SCH (09:00)
[2017-08-17 11:42] VITALS: BP 97/69
--- NOTE | 2017-08-17 12:40 | Discharge Summary ---
Date of Encounter: 08/17/17 Time of Encounter: 12:36 - Discharge Diagnosis (1) Congestive heart failure Priority: Primary Status: Acute Qualifiers: Congestive heart failure type: diastolic Congestive heart failure chronicity: acute on chronic Qualified Code(s): I50.33 - Acute on chronic diastolic (congestive) heart failure (2) Elevated troponin Priority: Primary Status: Resolved (3) Pulmonary fibrosis Priority: Secondary Status: Chronic (4) Alcoholism Priority: Secondary Status: Chronic (5) Acute on chronic respiratory failure Status: Acute - Discharge Medications Prescriptions: Furosemide [Lasix] 40 mg PO DAILY #30 tablet levoFLOXacin [Levaquin] 500 mg PO DAILY #5 tablet PredniSONE [Deltasone] 40 mg PO DAILY 5 Days tablet Home Medications: Aspirin 81 mg PO DAILY 05/23/17 [History] Mv-Mn/FA/Vit K/Lycop/Lut/Coq10 [Daily Multivitamin Capsule] 1 tab PO DAILY 05/23 [History] Folic Acid 1 mg PO DAILY 08/14/17 [History] Oxygen 4 l NS AD 08/14/17 [History] Furosemide [Lasix] 40 mg PO DAILY #30 tablet 08/17/17 [Rx] PredniSONE [Deltasone] 40 mg PO DAILY 5 Days tablet 08/17/17 [Rx] levoFLOXacin [Levaquin] 500 mg PO DAILY #5 tablet 08/17/17 [Rx] Allergies/Adverse Reactions: 3 Allergy/AdvReac Type Severity Reaction Status Date / Time No Known Allergies Allergy Verified 05/23/17 08:24 Procedures/tests Complete & Pending: Procedures Performed prior 72 hours Category Date Time Status EV echocardiogram Routine Y 08/15/17 23:22 Completed Date of admission: 08/14/17 22:57 Primary care physician: Jorge Ferrera MD Discharging clinician: Марина Portillo Anticipated date of discharge: 08/17/17 - Patient Status Disposition: Home, Self-Care Condition: Fair Functional capacity at discharge: independent ambulation Overall status at discharge: patient is progressing back to baseline - Discharge Instructions Instructions: Furosemide (By mouth), Prednisone (By mouth), Levofloxacin (By mouth), Heart Failure (DC), Chronic Obstructive Pulmonary Disease (DC), Pneumonia (DC) Follow Up With: Travis Kaplan MD [Partnered Physician] - 09/28/17 10:00 am Jorge Ferrera MD [Primary Care Provider] - 08/25/17 10:00 am Additional Instructions: F/up with Pulmonology as scheduled - Diet and Activity Activity: resume usual activities as tolerated, wear oxygen at all times Diet: low fat, low cholesterol, low salt diet Hospital course: Mr. Canada is a 72 year old male with idiopathic pulmonary fibrosis and alcohol abuse, was admitted with acute on chronic hypoxic respiratory failure and dyspnea. He was noted to have elevated BNP and slight Troponin leak and was treated for acute CHF with IV diuresis, fluid restriction, urine output monitoring. Cardiology was consulted and agreed with diuresis although his symptoms may have a significant component of pulmonary etiology. He does have 3- 4L/min home O2 and was continued on the same. Echocardiogram showed - Time Spent with Patient Total time spent providing and/or coordinating discharge services: Greater than 30 minutes (40 min) - Constitutional Vitals: Temp Pulse Resp BP Pulse Ox 97.8 F 59 18 97/69 95 08/17/17 11:42 08/17/17 11:42 08/17/17 11:42 08/17/17 11:42 08/17/17 11:42 General appearance: Present: A&O X 3, answers questions appropriately - Respiratory Respiratory exam: Present: CTAB, rales (bibasal fine crepts+). Absent: accessory muscle use, rhonchi, wheezes
[2017-08-17] MEDS ORDERED: Thiamine (B-1) 100 MG TABLET PO SCH (21:00)
== END 2017-08-17 17:14 | disposition home or self-care (01) | DRG 190 ==
LOC: EMEROO 16:03 → 2NENU 16:03 → SUATTDRO 22:57
PROVIDERS: ADMIT Internal Medicine; ATTEND Internal Medicine

== ENCOUNTER 2017-08-27 22:26 | Inpatient (IN) ==
--- NOTE | 2017-08-27 22:44 | Emergency Department Note ---
Disposition Clinical Impression: Dyspnea Qualifiers: Dyspnea type: unspecified Qualified Code(s): R06.00 - Dyspnea, unspecified Congestive heart failure Qualifiers: Congestive heart failure type: unspecified congestive heart failure type Congestive heart failure chronicity: unspecified congestive heart failure chronicity Qualified Code(s): I50.9 - Heart failure, unspecified Disposition: Admitted As Inpatient Condition: Good Time of Disposition: 01:55 SOB HPI - General Chief Complaint: ED Shortness of Breath/Dyspnea Stated Complaint: DWAYNE Time Seen by Provider: 08/27/17 22:28 Source: patient, family, EMS Limitations: no limitations Nursing Notes Reviewed: Yes Vital Signs Reviewed: Yes - History of Present Illness Pt Subjective Complaint: shortness of breath Onset (ago): hour(s) Context: recent illness Consistency/Duration: gradually worsening Improves with: nothing Worsens with: lying flat Known history of: recurrent pneumonia Associated symptoms: Reports: cough, sputum production, orthopnea, diaphoresis. Denies: chest pain, pain with inspiration, fever, wheezing, lower extremity pain, polyuria, polydipsia, parasthesias, palpitations, hemoptysis, nausea/ vomiting, syncope, abdominal pain, rash Treatment prior to arrival: oxygen Cough present: Yes Cough Description: Voluntary Cough Frequency: Intermittent Sputum production: Yes Sputum Amount: Scant - Related Data Home oxygen amount: 4 liters Home Medications Medication Instructions Recorded Confirmed Aspirin 81 mg PO DAILY 05/23/17 08/14/17 Mv-Mn/FA/Vit K/Lycop/Lut/Coq10 1 tab PO DAILY 05/23/17 08/14/17 [Daily Multivitamin Capsule] Folic Acid 1 mg PO DAILY 08/14/17 08/14/17 Oxygen 4 l NS AD 08/14/17 08/14/17 Previous Rx's Medication Instructions Recorded Furosemide [Lasix] 40 mg PO DAILY #30 tablet 08/17/17 PredniSONE [Deltasone] 40 mg PO DAILY 5 Days tablet 08/17/17 levoFLOXacin [Levaquin] 500 mg PO DAILY #5 tablet 08/17/17 Allergies Allergy/AdvReac Type Severity Reaction Status Date / Time No Known Allergies Allergy Verified 05/23/17 08:24 All systems ED: reviewed and negative except as stated. Constitutional: Reports: chills Eyes: Denies: eye discharge Cardiovascular: Reports: as per HPI Respiratory: Reports: as per HPI Gastrointestinal: Denies: abdominal pain Genitourinary: Denies: dysuria Musculoskeletal: Denies: back pain Integumentary: Denies: rash Neurological: Denies: headache Psychiatric: Denies: anxiety Endocrine: Denies: fatigue Hematological/Lymphatic: Denies: easy bleeding Allergic/Immunologic: Denies: facial swelling Past Medical History - Past Medical History Medical history: Reports: arthritis, GERD Surgical history: Reports: non-contributory Psychiatric history: Reports: no psych history - Social History Smoking Status: Former smoker Smokeless Tobacco Status: No Alcohol use: Reports: occasionally, heavy Drug use: Reports: none Physical Exam - General Limitations: no limitations General appearance: alert - Head Head exam: normocephalic - Eye Eye exam: Present: EOMI. Absent: conjunctival injection - ENT ENT exam: mucous membranes moist - Neck Neck exam: Present: full ROM - Chest Chest inspection: Present: normal inspection, symmetric chest wall rise - Respiratory Respiratory exam: Present: normal lung sounds bilaterally. Absent: respiratory distress, wheezes, stridor, accessory muscle use - Cardiovascular Cardiovascular exam: Present: regular rate, normal rhythm - Extremities Exam Extremities exam: Present: normal inspection, full ROM, normal capillary refill - Back Exam Back exam: Present: full ROM - Neurological Exam Neurological exam: Present: alert, oriented X3 - Psychiatric Psychiatric exam: Present: normal affect, normal mood - Skin Skin exam: Present: warm, dry, intact, normal color. Absent: rash, cyanosis, diaphoresis Course Course Narrative: 72-year-old male who arrives via squad with [place] dyspnea. He mentions a history of COPD, and normally utilizes 4 L of home oxygen on a condenser. He states approximately 2 hours prior to his arrival he had some worsening dyspnea while he was on the couch. Earlier today he he describes as hot flashes. He does describe the past few months, dyspnea worse with exertion. His dyspnea is worse when he lies down. Nothing is making it better. He denies any chest pain , nausea, vomiting, radiation to his neck or extremities. Patient seen and examined. currently on 4 L oxygen. Does not look in distress. Lungs clear to auscultation. Workup initiated. - Reevaluation(s) Reevaluation #1: Patient is becoming anxious, and Ativan has been ordered. Workup does show increased BNP. I discussed patient with Dr. Pierre also had face time with pt and agreed with admission for worsening dyspnea and CHF. Time: 00:13 Reevaluation #2: Pt discussed with and accepted by hospitalists Dr. Dunham Time: 01:55 Vital Signs Temperature 97.5 F L 08/27/17 22:33 Pulse Rate 61 08/27/17 22:33 Respiratory Rate 22 08/27/17 22:33 Blood Pressure 117/42 08/27/17 22:33 O2 Sat by Pulse Oximetry 93 08/27/17 22:33 Temperature 97.3 F L 08/28/17 02:55 Pulse Rate 55 08/28/17 02:55 Respiratory Rate 17 08/28/17 02:55 Blood Pressure 93/66 08/28/17 02:55 O2 Sat by Pulse Oximetry 96 08/28/17 02:55 Oxygen Delivery Oxygen Delivery Nasal Cannula Shortness of Breath/Dyspnea - MDM Narrative Medical decision making narrative: Patient is a 72-year-old male former smoker, with past medical history of idiopathic pulmonary fibrosis, COPD, and recent hospital admission for dyspnea , CHF, pneumonia. He presents tonight with worsening dyspnea. He denies any chest pain, nausea, diaphoresis. He has recently finished a course of prednisone and Levaquin, and is currently taking Lasix at home. Despite this as well as his home oxygen his dyspnea has been recently worsening. Workup tonight showed worsening of his CHF, with a increased BNP. No acute changes on EKG. Chest x-ray unremarkable. He was anxious upon his arrival, but responded well to Ativan. He is accompanied by family members, who describes patient does get anxious when at the hospital. Patient was discussed with Dr. Pierre, also face time patient and agreed with admission. Patient was accepted by the hospitalist for further inpatient evaluation and stabilization. - Lab Data Lab results reviewed: Yes I reviewed the patient's lab results. Result diagrams: 08/27/17 23:20 08/27/17 23:20 Lab Results 08/27/17 08/27/17 08/27/17 Range/Units 23:20 23:20 23:20 WBC 9.1 (4.3-11.1) K/mcL RBC 5.48 (4.19-5.50) M/mcL Hgb 18.1 H (12.9-16.9) g/dL Hct 52.7 H (37.5-50.1) % MCV 96.2 (83.0-100.0) fL MCH 33.0 (28.0-33.3) pg MCHC 34.3 (31.6-35.5) g/dL RDW 12.5 (11.5-14.5) % Plt Count 144 (140-400) K/mcL MPV 9.7 (9.4-12.4) fL Immature Gran % 0.3 (0-4) % Seg Neutrophils % 76.6 % Lymphocytes % 9.8 % Monocytes % 7.2 % Eosinophils % 5.5 % Basophils % 0.6 % Neutrophils # 7.0 (1.6-8.9) K/mcL Lymphocytes # 0.9 (0.6-4.6) K/mcL Monocytes # 0.7 (0.0-1.3) K/mcL Eosinophils # 0.5 (0.0-0.6) K/mcL Basophils # 0.1 (0.0-0.2) K/mcL Sodium 137 (136-145) mEq/L Potassium 4.0 (3.5-4.5) mEq/L Chloride 103 (98-109) mEq/L Carbon Dioxide 25 (19-29) mEq/L BUN 18 (8-26) mg/dL Creatinine 0.77 (0.72-1.25) mg/dL Est GFR ( Amer) > 60 (> 60) Est GFR (Non-Af Amer) > 60 (> 60) BUN/Creatinine Ratio 23 (6-26) Glucose 107 H (70-99) mg/dL Calculated Osmolality 286 (280-300) Calcium 9.1 (8.6-10.8) mg/dL Troponin I 0.04 H* (0-0.03) ng/mL B-Natriuretic Peptide (0-100) pg/mL 08/27/17 Range/Units 23:20 WBC (4.3-11.1) K/mcL RBC (4.19-5.50) M/mcL Hgb (12.9-16.9) g/dL Hct (37.5-50.1) % MCV (83.0-100.0) fL MCH (28.0-33.3) pg MCHC (31.6-35.5) g/dL RDW (11.5-14.5) % Plt Count (140-400) K/mcL MPV (9.4-12.4) fL Immature Gran % (0-4) % Seg Neutrophils % % Lymphocytes % % Monocytes % % Eosinophils % % Basophils % % Neutrophils # (1.6-8.9) K/mcL Lymphocytes # (0.6-4.6) K/mcL Monocytes # (0.0-1.3) K/mcL Eosinophils # (0.0-0.6) K/mcL Basophils # (0.0-0.2) K/mcL Sodium (136-145) mEq/L Potassium (3.5-4.5) mEq/L Chloride (98-109) mEq/L Carbon Dioxide (19-29) mEq/L BUN (8-26) mg/dL Creatinine (0.72-1.25) mg/dL Est GFR ( Amer) (> 60) Est GFR (Non-Af Amer) (> 60) BUN/Creatinine Ratio (6-26) Glucose (70-99) mg/dL Calculated Osmolality (280-300) Calcium (8.6-10.8) mg/dL Troponin I (0-0.03) ng/mL B-Natriuretic Peptide 1047 H (0-100) pg/mL - Radiology Data Radiology results reviewed: Yes I reviewed the patient's radiology results. - EKG Data EKG attestation: Yes I reviewed and interpreted this EKG.
[2017-08-27] MEDS ORDERED: Aspirin 81 MG TAB.CHEW PO ONE (23:01)
[2017-08-27 23:28] LABS: Basophils # 0.1 K/mcL (0.0-0.2); Basophils % 0.6 %; Eosinophils # 0.5 K/mcL (0.0-0.6); Eosinophils % 5.5 %; Hematocrit 52.7 % (37.5-50.1); Hemoglobin 18.1 g/dL (12.9-16.9); Immature Granulocytes % 0.3 % (0-4); Lymphocytes # 0.9 K/mcL (0.6-4.6); Lymphocytes % 9.8 %; Mean Corpuscular HGB Conc 34.3 g/dL (31.6-35.5); Mean Corpuscular Volume 96.2 fL (83.0-100.0); Mean Platelet Volume 9.7 fL (9.4-12.4); Monocytes # 0.7 K/mcL (0.0-1.3); Monocytes % 7.2 %; Platelet Count 144 K/mcL (140-400); Red Blood Count 5.48 M/mcL (4.19-5.50); Red Cell Distribution Width 12.5 % (11.5-14.5); Segmented Neutrophils % 76.6 %
[2017-08-27 23:41] LABS: BUN/Creatinine Ratio 23 (6-26); Blood Urea Nitrogen 18 mg/dL (8-26); Calcium 9.1 mg/dL (8.6-10.8); Carbon Dioxide 25 mEq/L (19-29); Chloride 103 mEq/L (98-109); Glucose 107 mg/dL (70-99); Osmolality,Calculated 286 (280-300); Sodium 137 mEq/L (136-145); eGFR For African Americans > 60 (> 60); eGFR For Non-African Americans > 60 (> 60)
[2017-08-27] MEDS ORDERED: *HR* LORazepam 2 MG/ML VIAL IVP ONE (23:58)
--- NOTE | 2017-08-28 00:14 | Emergency Department Note ---
Disposition Clinical Impression: Dyspnea, Congestive heart failure Disposition: Admitted As Inpatient Condition: Good General Adult HPI - General Chief complaint: ED Shortness of Breath/Dyspnea Stated complaint: DWAYNE Time Seen by Provider: 08/27/17 22:28 Source: patient, family, EMS Limitations: no limitations - History of Present Illness Pain Scale: 0 - Related Data Home Medications Medication Instructions Recorded Confirmed Aspirin 81 mg PO DAILY 05/23/17 08/14/17 Mv-Mn/FA/Vit K/Lycop/Lut/Coq10 1 tab PO DAILY 05/23/17 08/14/17 [Daily Multivitamin Capsule] Folic Acid 1 mg PO DAILY 08/14/17 08/14/17 Oxygen 4 l NS AD 08/14/17 08/14/17 Previous Rx's Medication Instructions Recorded Furosemide [Lasix] 40 mg PO DAILY #30 tablet 08/17/17 PredniSONE [Deltasone] 40 mg PO DAILY 5 Days tablet 08/17/17 levoFLOXacin [Levaquin] 500 mg PO DAILY #5 tablet 08/17/17 Allergies Allergy/AdvReac Type Severity Reaction Status Date / Time No Known Allergies Allergy Verified 05/23/17 08:24 Constitutional: Reports: chills Eyes: Denies: eye discharge Cardiovascular: Reports: as per HPI Respiratory: Reports: as per HPI Gastrointestinal: Denies: abdominal pain Genitourinary: Denies: dysuria Musculoskeletal: Denies: back pain Integumentary: Denies: rash Neurological: Denies: headache Psychiatric: Denies: anxiety Endocrine: Denies: fatigue Hematological/Lymphatic: Denies: easy bleeding Allergic/Immunologic: Denies: facial swelling Past Medical History - Past Medical History Medical history: Reports: arthritis, GERD Surgical history: Reports: non-contributory Psychiatric history: Reports: no psych history - Social History Smoking Status: Former smoker Smokeless Tobacco Status: No Alcohol use: Reports: occasionally, heavy Drug use: Reports: none Physical Exam - General Limitations: no limitations General appearance: alert Course Vital Signs Temperature 97.5 F L 08/27/17 22:33 Pulse Rate 61 08/27/17 22:33 Respiratory Rate 22 08/27/17 22:33 Blood Pressure 117/42 08/27/17 22:33 O2 Sat by Pulse Oximetry 93 08/27/17 22:33 Temperature 97.3 F L 08/28/17 02:55 Pulse Rate 55 08/28/17 02:55 Respiratory Rate 17 08/28/17 02:55 Blood Pressure 93/66 08/28/17 02:55 O2 Sat by Pulse Oximetry 96 08/28/17 02:55 Oxygen Delivery Oxygen Delivery Nasal Cannula Medical Decision Making - Lab Data Result diagrams: 08/27/17 23:20 08/27/17 23:20 Lab Results 08/27/17 08/27/17 08/27/17 Range/Units 23:20 23:20 23:20 WBC 9.1 (4.3-11.1) K/mcL RBC 5.48 (4.19-5.50) M/mcL Hgb 18.1 H (12.9-16.9) g/dL Hct 52.7 H (37.5-50.1) % MCV 96.2 (83.0-100.0) fL MCH 33.0 (28.0-33.3) pg MCHC 34.3 (31.6-35.5) g/dL RDW 12.5 (11.5-14.5) % Plt Count 144 (140-400) K/mcL MPV 9.7 (9.4-12.4) fL Immature Gran % 0.3 (0-4) % Seg Neutrophils % 76.6 % Lymphocytes % 9.8 % Monocytes % 7.2 % Eosinophils % 5.5 % Basophils % 0.6 % Neutrophils # 7.0 (1.6-8.9) K/mcL Lymphocytes # 0.9 (0.6-4.6) K/mcL Monocytes # 0.7 (0.0-1.3) K/mcL Eosinophils # 0.5 (0.0-0.6) K/mcL Basophils # 0.1 (0.0-0.2) K/mcL Sodium 137 (136-145) mEq/L Potassium 4.0 (3.5-4.5) mEq/L Chloride 103 (98-109) mEq/L Carbon Dioxide 25 (19-29) mEq/L BUN 18 (8-26) mg/dL Creatinine 0.77 (0.72-1.25) mg/dL Est GFR ( Amer) > 60 (> 60) Est GFR (Non-Af Amer) > 60 (> 60) BUN/Creatinine Ratio 23 (6-26) Glucose 107 H (70-99) mg/dL Calculated Osmolality 286 (280-300) Calcium 9.1 (8.6-10.8) mg/dL Troponin I 0.04 H* (0-0.03) ng/mL B-Natriuretic Peptide (0-100) pg/mL 08/27/17 Range/Units 23:20 WBC (4.3-11.1) K/mcL RBC (4.19-5.50) M/mcL Hgb (12.9-16.9) g/dL Hct (37.5-50.1) % MCV (83.0-100.0) fL MCH (28.0-33.3) pg MCHC (31.6-35.5) g/dL RDW (11.5-14.5) % Plt Count (140-400) K/mcL MPV (9.4-12.4) fL Immature Gran % (0-4) % Seg Neutrophils % % Lymphocytes % % Monocytes % % Eosinophils % % Basophils % % Neutrophils # (1.6-8.9) K/mcL Lymphocytes # (0.6-4.6) K/mcL Monocytes # (0.0-1.3) K/mcL Eosinophils # (0.0-0.6) K/mcL Basophils # (0.0-0.2) K/mcL Sodium (136-145) mEq/L Potassium (3.5-4.5) mEq/L Chloride (98-109) mEq/L Carbon Dioxide (19-29) mEq/L BUN (8-26) mg/dL Creatinine (0.72-1.25) mg/dL Est GFR ( Amer) (> 60) Est GFR (Non-Af Amer) (> 60) BUN/Creatinine Ratio (6-26) Glucose (70-99) mg/dL Calculated Osmolality (280-300) Calcium (8.6-10.8) mg/dL Troponin I (0-0.03) ng/mL B-Natriuretic Peptide 1047 H (0-100) pg/mL Attestation Statement - Attestation Attestation: For this encounter, I have reviewed the ELECTR[employer]ARDIOGRAPH REPAIRER or PA documentation, treatment plan, and medical decision making; and I have had face to face time with this patient. [id number] time provided Patient presented with dyspnea. History of CHF with recent admission. Appears in no acute distress at the time of my evaluation. I did review his EKG and labs
[2017-08-28] MEDS ORDERED: Furosemide 20 MG/2 ML VIAL IVP ONE (01:47)
[2017-08-28 06:17] LABS: Magnesium 1.6 mg/dL (1.6-2.6); Potassium 3.8 mEq/L (3.5-4.5)
[2017-08-28] MEDS ORDERED: Naloxone 0.4 MG/ML INJ IVP PRN (07:40)
[2017-08-28] MEDS ORDERED: NON-FORMULARY MEDICATION 1 EACH EACH (Oxygen [Oxygen] 4 L) NS SCH (07:45)
--- NOTE | 2017-08-28 07:49 | Internal Med History&Physical ---
Date of Encounter: 08/28/17 Time of Encounter: 07:49 Assessment and Plan (1) Elevated troponin Current visit: No Status: Resolved Patient is known to have elevated troponin which is likely secondary to his right-sided heart failure. Patient denies chest pain. Patient's echocardiogram which was done on 08/15/2017 is suggestive of a EF 50-55%. Mitral valve prolapse, mild mitral regurgitation. A ECHO did not reveal any evidence of pulmonary hypertension. First troponin was elevated but second troponin was negative. Patient's CK was within normal limits. This elevated troponin does not come from the heart. Patient was recently seen by cardiology. cardiology of opinion that the reason for elevated BNP/troponin is likely pulmonary. (2) COPD (chronic obstructive pulmonary disease) Current visit: No Status: Acute Patient has advanced COPD/interstitial fibrosis. Patient underwent bronchoscopy and transbronchial biopsy along with the bronchoalveolar lavage in a month of May. All the above tests were inconclusive in terms of diagnosis of interstitial fibrosis.. Qualifiers: COPD type: COPD with acute exacerbation Qualified Code(s): J44.1 - Chronic obstructive pulmonary disease with (acute) exacerbation (3) Pulmonary fibrosis Current visit: No Status: Chronic Please see above (4) Chronic respiratory failure with hypoxia Current visit: No Status: Chronic Patient is a chronic respiratory failure likely secondary to advanced pulmonary fibrosis. (5) DVT prophylaxis Current visit: Yes Status: Acute Heparin Medical decision making: This patient has a moderate to severe risk of worsening in spite of being on appropriate treatment due to the underlying complex comorbid conditions. Internal Medicine - H&P: HPI Chief complaint: Shortness of breath Admitted From: Emergency Dept Plans for Post Hospital Care: Home History of present illness: PCP: Jorge Mcknight HPI: Interstitial lung fibrosis, COPD hypertension, History of present medical illness: Is known to have a COPD. He usually was on a 4 L of oxygen. Last night, around midnight it was noted that patient has worsening shortness of breath. Patient also experiences that hot flashes. Patient described that he is having shortness of breath for past few months but in past couple of weeks it is getting worse. Noted that patient was recently hospitalized and discharged. Patient's dyspnea is getting worse since discharge. Last night patient failed that he had a choking sensation and he was extremely difficult to breathe in spite of his being on oxygen and that is the reason he decided to call EMS. Patient denies chest pain, nausea, vomiting, headache, abdominal pain, dizziness and diarrhea. Workup in the ER: Patient was evaluated in the emergency room chest x-ray was done which was suggestive of interstitial fibrosis. Basic labs were drawn. Noted that patient's troponin was mildly elevated. Patient's BNP is extremely elevated. Reason for hospitalization: Positive troponin/elevated BNP/CHF, right-sided heart failure. Family history: Noncontributory Past Med Surg Social Fam HX - Past Medical History Medical history: arthritis, GERD Psychiatric history: no psych history - Past Surgical History Surgical History: non-contributory - Social History Smoking Status: Former smoker Smokeless Tobacco Status: No Alcohol use: occasionally, heavy Drug use: none - Family History Father Adopted: Yes Living Status: Hx Family Neuromuscular Disorders: Yes (CVA) Internal Medicine - H&P: Meds Aspirin 81 mg PO DAILY 05/23/17 [History] Mv-Mn/FA/Vit K/Lycop/Lut/Coq10 [Daily Multivitamin Capsule] 1 tab PO DAILY 05/23 [History] Folic Acid 1 mg PO DAILY 08/14/17 [History] Oxygen 4 l NS AD 08/14/17 [History] Furosemide [Lasix] 40 mg PO DAILY #30 tablet 08/17/17 [Rx] 3 Allergy/AdvReac Type Severity Reaction Status Date / Time No Known Allergies Allergy Verified 08/28/17 07:35 All Systems PM: A 10-system review of systems was performed and is negative for pertinent findings except as documented above in the HPI. - Constitutional Constitutional: no chills, no fever(s), no night sweats - EENT Eyes: no change in vision, no discharge, no pain, no photophobia Ears: no ear discharge, no ear pain, no tinnitus Nose, mouth and throat: no dysphagia, no nasal discharge, no neck pain, no sore throat - Cardiovascular Cardiovascular ROS IM: diaphoresis, dyspnea, lightheadedness, no chest pain, no palpitations, no syncope - Respiratory Respiratory: no cough, no dyspnea, no wheezing, no excessive phlegm production - Gastrointestinal Gastrointestinal: no abdominal pain, no diarrhea, no hematemesis, no hematochezia, no melena, no nausea, no vomiting - Musculoskeletal Musculoskeletal ROS IM: no numbness, no tingling - Integumentary Integumentary IM: no rash, no unusual bruising - Neurological Neurological ROS: no confusion, no convulsions, no focal weakness, no numbness, no tingling, no tremor(s) - Hematologic/Lymphatic Hematologic/Lymphatic: no easy bruising - Constitutional Vitals: Temp Pulse Resp BP Pulse Ox 97.6 F 49 16 93/54 95 08/28/17 06:32 08/28/17 06:32 08/28/17 06:32 08/28/17 06:32 08/28/17 06:32 General appearance: Present: A&O X 3, pleasant, no acute distress, answers questions appropriately - Head Head exam: Present: atraumatic, normocephalic - Eye Eye exam: Present: PERRL, conjuntiva pink, sclera anicteric Pupils: Present: PERRL - Neck Neck exam general surgery: Present: supple, trachea midline. Absent: lymphadenopathy - Respiratory Respiratory exam: Present: CTAB. Absent: accessory muscle use, rales, rhonchi, wheezes - Cardiovascular Cardiovascular exam: Present: RRR, +S1, +S2. Absent: diastolic murmur, gallop, rubs, systolic murmur - GI/Abdominal GI/Abdominal exam: Present: normal bowel sounds, soft, no peritoneal signs. Absent: distended, tenderness - Extremities Exam Extremities exam: Present: warm, radial pulses palpable and symmetrical. Absent : calf tenderness, cyanotic, pedal edema - Neurological Exam Neurological exam: Present: CN II-XII intact, oriented X3, no focal deficits. Absent: pronater drift, facial droop, speech deficit - Skin Skin exam: Present: dry, intact Internal Med - H&P Results - Labs CBC & Chem 7: 08/27/17 23:20 08/28/17 05:50 Labs: BMP 08/28/17 05:50 Potassium 3.8 Cardiac Enzymes 08/28/17 Range/Units 05:50 Troponin I 0.02 (0-0.03) ng/mL
[2017-08-28] MEDS: Folic Acid 1 MG TABLET PO SCH (09:33)
[2017-08-28] MEDS: Aspirin 81 MG TAB.CHEW PO SCH (09:33)
[2017-08-28] MEDS: Furosemide 20 MG/2 ML VIAL IVP SCH ×2 (09:33→16:59)
[2017-08-28] MEDS: Acetaminophen 325 MG TABLET PO PRN ×2 (12:37→21:59)
--- NOTE | 2017-08-28 15:13 | Electrocardiograph Report ---
[address] [address] Test Date: 2017-08-27 Pat Name: Juan Canada Department: 103 Room: 3B41 Gender: M [employer] Installer: [facility] 1945 Requested By: Abraham Solo Order Number: [id number] Reading MD: Chaparro Sheikh MD Measurements Intervals [place] Rate: 62 P: 64 CO: 174 QRS: -11 QRSD: 117 T: -63 QT: 488 QTc: 494 Interpretive Statements SINUS RHYTHM WITH OCCASIONAL VENTRICULAR PREMATURE COMPLEXES WITH OCCASIONAL SUPRAVENTRICULAR PREMATURE COMPLEXES DIFFUSE ISCHEMIA, MOST PROMINENTLY ANTEROLATERAL Electronically Signed On 08-28-2017 15:11:39 EST by Chaparro Sheikh MD
[2017-08-28] MEDS: *HR* Heparin 5,000 UNIT/ML VIAL SQ SCH (16:59)
[2017-08-28] MEDS: Famotidine 20 MG TABLET PO SCH ×2 (17:04→22:14)
[2017-08-28] MEDS: clonazePAM 0.5 MG TABLET PO SCH (23:30)
[2017-08-29 00:53] LABS: Basophils # 0.1 K/mcL (0.0-0.2); Basophils % 0.9 %; Eosinophils # 0.4 K/mcL (0.0-0.6); Eosinophils % 7.6 %; Immature Granulocytes % 0.5 % (0-4); Lymphocytes # 0.8 K/mcL (0.6-4.6); Lymphocytes % 13.1 %; Mean Corpuscular HGB Conc 33.7 g/dL (31.6-35.5); Mean Corpuscular Hemoglobin 32.5 pg (28.0-33.3); Mean Corpuscular Volume 96.5 fL (83.0-100.0); Monocytes # 0.4 K/mcL (0.0-1.3); Monocytes % 7.4 %; Neutrophils # 4.1 K/mcL (1.6-8.9); Platelet Count 134 K/mcL (140-400); Red Blood Count 5.08 M/mcL (4.19-5.50); Red Cell Distribution Width 12.4 % (11.5-14.5); Segmented Neutrophils % 70.5 %
[2017-08-29 00:54] LABS: Hemoglobin 16.5 g/dL (12.9-16.9)
[2017-08-29 00:58] LABS: INR 1.2; Prothrombin Time 13.4 Seconds (9.4-12.1)
[2017-08-29 01:01] LABS: Activated Partial Thrombo Time 28.1 Seconds (26.0-36.0)
[2017-08-29 01:09] LABS: Alanine Aminotransferase 24 Units/L (0-55); Albumin 2.8 g/dL (3.5-5.0); Alkaline Phosphatase 96 Units/L (38-126); Aspartate Amino Transferase 27 Units/L (5-34); BUN/Creatinine Ratio 29 (6-26); Bilirubin,Total 0.6 mg/dL (0.2-1.2); Blood Urea Nitrogen 21 mg/dL (8-26); Calcium 9.1 mg/dL (8.6-10.8); Carbon Dioxide 26 mEq/L (19-29); Chloride 99 mEq/L (98-109); Globulin 2.9 g/dL (2.4-3.5); Glucose 135 mg/dL (70-99); Magnesium 1.3 mg/dL (1.6-2.6); Osmolality,Calculated 285 (280-300); Phosphorous 3.8 mg/dL (2.3-4.7); Potassium 3.4 mEq/L (3.5-4.5); Sodium 135 mEq/L (136-145); Total Protein 5.7 g/dL (6.0-8.3); eGFR For African Americans > 60 (> 60); eGFR For Non-African Americans > 60 (> 60)
[2017-08-29] MEDS: *HR* Heparin 5,000 UNIT/ML VIAL SQ SCH ×2 (05:39→18:38)
[2017-08-29] MEDS: Famotidine 20 MG TABLET PO SCH ×2 (09:59→23:00)
[2017-08-29] MEDS: Folic Acid 1 MG TABLET PO SCH (09:59)
[2017-08-29] MEDS: Aspirin 81 MG TAB.CHEW PO SCH (09:59)
[2017-08-29] MEDS: Furosemide 20 MG/2 ML VIAL IVP SCH (09:59)
--- NOTE | 2017-08-29 11:51 | Pulmonology Consult Note ---
Date of Encounter: 08/29/17 Time of Encounter: 11:51 Assessment and Plan (1) Pulmonary fibrosis Current Visit: No Status: Chronic In conclusion this is a 72-year-old, past medical history of pulmonary fibrosis COPD and chronic respiratory failure requiring 4LNC o2 who presents with acute on chronic dyspnea. I suspect that the etiology of his dyspnea is underlying pulmonary fibrosis which has progressed I do not think this represents an acute flare or COPD exacerbation I think this is complicated significantly by elevated left sided heart pressures (diastolic heart failure) and this is likely a reflection of underlying elevation in troponin and BNP. Unfortunately could not entirely exclude possibility of pulmonary embolus which could also presents a similar findings I think this is less likely but given the chronicity of presentation I would exclude this as a possibility. Radiographically his images are consistent with classic features of usual interstitial pneumonia which is the radiographic hallmark of IPF. Based on my discussion today I do not feel he has any exposures that would necessarily predispose him to developing scarring within the lungs however he has not had a full rheumatological workup although clinically he does not have a significant joint pain synovitis or rash. The treatment for his dyspnea will be challenging as if this is mostly related to his diastolic heart failure then the treatment would be blood pressure control which is already on the low side and diuresis as tolerated these symptoms are most likely pronounced with exertion which is notably difficult to treat and would likely need ongoing evaluation by cardiology for this. The standpoint of his underlying poorly fibrosis or measures that can improve his dyspnea outside of enrollment in pulmonary rehabilitation program and starting the anti-inflammatory medication such Pirfenidone and well this medication is not expected to cure the disease that can slow the rate of lung function loss. For underlying features of chronic bronchitis (COPD) I would prescribe a long- acting muscarinic antagonist. Of note based upon recent echocardiograms I do not see any clear evidence of right-sided heart failure as an explanation for his symptoms. Recs: -Start Spiriva 18mcg daily with LUCRECIA (albuterol) as needed. RT to show patient proper inhaler technique. -Rheumatological serologies including anti CCP, RF, ANNETTE, ANCA, CRP, ESR. -CTPE -Hold antibiotics and steroids acutely -cont supplemental O2 to keep 02 sat >88%-92% -PT/OT evaluation -Outpatient Pulmonary Rehab -Outpatient pulmonary f/u within 2-4 weeks at discharge. Pulmonary will cont to follow. (2) (HFpEF) heart failure with preserved ejection fraction Current Visit: Yes Status: Acute (3) Elevated troponin Current Visit: No Status: Resolved (4) Pneumonia Current Visit: No Status: Acute Qualifiers: Pneumonia type: due to unspecified organism Laterality: unspecified laterality Lung location: unspecified part of lung Qualified Code(s): J18.9 - Pneumonia, unspecified organism (5) COPD (chronic obstructive pulmonary disease) Current Visit: No Status: Acute Qualifiers: COPD type: COPD with acute exacerbation Qualified Code(s): J44.1 - Chronic obstructive pulmonary disease with (acute) exacerbation (6) Chronic respiratory failure with hypoxia Current Visit: No Status: Chronic History of Present Illness Consult date: 08/29/17 Requesting physician: Emily Kirkpatrick Reason for consult: pulmonary fibrosis Chief complaint: Shortness of Breath History of present illness: This is a 72-year-old woman with a past medical history of recent diagnosed pulmonary fibrosis thought to be idiopathic he has been in 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 Patient has chronic features of productive cough that has not been worse than baseline denies any wheezing he does notice shortness of breath especially with exertion such as walking or going up hills he is been admitted twice in last 2 weeks for similar symptoms on both occasions troponin has been elevated modestly and BNP has also been elevated. Such with a case on this admission. He denies any active chest pain when he is walking about he has been seen by cardiology in the past and thought this might be related to some underlying diastolic dysfunction and elevated right-sided heart pressures He smoked from the age of 19 up until about 25 years ago but only smoked about a quarter of a pack a day. 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 Possible exposure to asbestos and possible but less likely exposure to agent orange in [employer]. He denies any exotic pets although he does keep Adoxa and he does not have any hobbies that would result in significant exposures No family history of pulmonary fibrosis that he knows of No recent sick contacts or travel He is joined by his at bedside Data: WBC WNL Trop 0.04 BNP 1047 CXR: Chronic interstitial changes without evidence of pneumonia CT peripheral based honeycombing with reticulations traction bronchiectasis predominantly lower lobe some underlying emphysematous changes. PFTs Moderate Reduction in TLC and marked reduction in DLCO Past Med Surg Social Fam HX - Past Medical History Medical history: arthritis, GERD Psychiatric history: no psych history - Past Surgical History Surgical History: non-contributory - Social History Smoking Status: Former smoker Smokeless Tobacco Status: No Alcohol use: occasionally, heavy Drug use: none - Family History Father Adopted: Yes Living Status: Hx Family Neuromuscular Disorders: Yes (CVA) Medications and Allergies Aspirin 81 mg PO DAILY 05/23/17 [History] Mv-Mn/FA/Vit K/Lycop/Lut/Coq10 [Daily Multivitamin Capsule] 1 tab PO DAILY 05/23 [History] Folic Acid 1 mg PO DAILY 08/14/17 [History] Oxygen 4 l NS AD 08/14/17 [History] Furosemide [Lasix] 40 mg PO DAILY #30 tablet 08/17/17 [Rx] clonazePAM [Klonopin] 0.5 mg PO HS 08/28/17 [History] 3 Allergy/AdvReac Type Severity Reaction Status Date / Time No Known Allergies Allergy Verified 08/28/17 07:35 All Systems: A 10-system review of systems was performed and is negative for pertinent findings except as documented above in the HPI. Physical Examination Vital Signs: Vital Signs, Last 4 Hours Temp Pulse Resp BP Pulse Ox 08/29/17 11:40 98.1 F 62 17 91/58 96 08/29/17 07:58 97.7 F 52 16 97/60 95 General appearance: no acute distress Eyes: nonicteric ENT: oropharynx moist Neck: supple Auscultation: bilateral: rales (Coarse inspiratory crackles) Cardiovascular: regular rate and rhythm Gastrointestinal: normoactive bowel sounds Integumentary: normal Extremities: no cyanosis, no edema Musculoskeletal: no deformities normal mental status, non-focal exam mood appropriate Results - Laboratory Findings CBC and BMP: 08/29/17 00:20 08/29/17 00:20 PT/INR, D-dimer PT 13.4 Seconds (9.4-12.1) H 08/29/17 00:20 Abnormal lab findings: Abnormal lab results Plt Count 134 K/mcL (140-400) L 08/29/17 00:20 PT 13.4 Seconds (9.4-12.1) H 08/29/17 00:20 Sodium 135 mEq/L (136-145) L 08/29/17 00:20 Potassium 3.4 mEq/L (3.5-4.5) L 08/29/17 00:20 BUN/Creatinine Ratio 29 (6-26) H 08/29/17 00:20 Glucose 135 mg/dL (70-99) H 08/29/17 00:20 POC Glucose 96 (58-89) H 08/28/17 19:59 Magnesium 1.3 mg/dL (1.6-2.6) L 08/29/17 00:20 Creatine Kinase 17 Units/L (30-200) L 08/28/17 05:50 B-Natriuretic Peptide 320 pg/mL (0-100) H 08/29/17 00:20 Serum Total Protein 5.7 g/dL (6.0-8.3) L 08/29/17 00:20 Albumin 2.8 g/dL (3.5-5.0) L 08/29/17 00:20 Albumin/Globulin Ratio 1.0 (1.1-2.2) L 08/29/17 00:20 - Diagnostic Findings Chest x-ray: report reviewed, image reviewed CT scan - chest: report reviewed, image reviewed PFT's: report reviewed - Clinical Findings Intake & Output: Intake & Output 08/28/17 08/29/17 08/29/17 23:59 07:59 15:59 Intake Total 360 / 360 Balance 360 / 360 Weight 71.7 kg Consult Discharge Plan - Plan Referrals: Jorge Ferrera MD [Primary Care Provider] -
[2017-08-29] MEDS ORDERED: methylPREDNISolone 125 MG/2 ML VIAL IVP ONE (16:58)
--- NOTE | 2017-08-29 17:20 | Internal Med Progress Note ---
Date of Encounter: 08/29/17 Time of Encounter: 10:00 - Assessment and plan (1) COPD (chronic obstructive pulmonary disease) Current Visit: No Status: Acute Assessment and plan: Juan Canada is a 72-year-old male with past medical history COPD on home O2 and pulmonary fibrosis presented to [facility] on 08/28/2017 with complaints of worsening shortness of breath. He was placed in observation status for further workup and treatment. 1. Idiopathic pulmonary fibrosis: Per history. Recently established care with pulmonology. Now with intermittent, worsening dyspnea. Chest CTA with mild dilation of pulmonary artery, stable interstitial opacities, and unchanged mediastinal lymphadenopathy. Evaluated by pulmonology who noted chronic dyspnea likely secondary to underlying pulmonary fibrosis. Start Spiriva, PRN LUCRECIA. Rheumatological serologies. Was going to initially hold on steroids however he appeared more dyspneic in the evening. Trial one-time dose IV Solu- Medrol. 2. Elevated BNP: BNP 1000 which is increased from baseline. Recent echo with EF 50-55%, diastolic dysfunction. Initially diuresed with IV Lasix. We will stop Lasix at this time as BP is soft borderline and shortness of breath improved. 3. Elevated troponin: Troponin peaked at 0.04 and normalized. His only hospitalized for similar symptoms and troponin elevated at that time. TTE 08/15: LVEF 50-55%. No segmental wall motion abnormalities. Mild diastolic dysfunction. Mild mitral valve bileaflet prolapse with mild to moderate mitral regurgitation. No pulmonary hypertension. Evaluated by cardiology during that hospitalization who noted mild, flat elevation in troponin likely secondary to respiratory insufficiency. Denies chest pain. Continue treating respiratory etiology as noted above. 4. COPD: Per history. Wears O2 at 4 L [id number] home. No increased oxygen needs, no wheezing, no evidence of exacerbation. Continue inhalers as noted above. 5. DVT prophylaxis: heparin Qualifiers: COPD type: COPD with acute exacerbation Qualified Code(s): J44.1 - Chronic obstructive pulmonary disease with (acute) exacerbation (2) Elevated troponin Current Visit: No Status: Resolved (3) Pulmonary fibrosis Current Visit: No Status: Chronic - Subjective Interval history: Seen and examined at bedside. Patient is new to me. Information obtained from chart review and patient report. Patient says he still short of breath was significantly improved. Shortness of breath worse with activity, relieved with rest and breathing treatments. No chest pain. - Constitutional Vitals: Temp Pulse Resp BP Pulse Ox 97.7 F 66 15 98/57 96 08/29/17 16:00 08/29/17 16:00 08/29/17 16:00 08/29/17 16:00 08/29/17 16:00 General appearance: Present: mild distress, A&O X 3, pleasant, no acute distress , answers questions appropriately - Head Head exam: Present: atraumatic, normocephalic - Eye Eye exam: Present: PERRL, conjuntiva pink, sclera anicteric Pupils: Present: PERRL - Neck Neck exam general surgery: Present: supple, trachea midline. Absent: lymphadenopathy - Respiratory Respiratory exam: Present: accessory muscle use. Absent: rales, rhonchi, wheezes Additional comments: To be a nasal cannula. Appears mildly dyspneic. - Cardiovascular Cardiovascular exam: Present: RRR, +S1, +S2. Absent: diastolic murmur, gallop, rubs, systolic murmur - GI/Abdominal GI/Abdominal exam: Present: normal bowel sounds, soft, no peritoneal signs. Absent: distended, tenderness - Extremities Exam Extremities exam: Present: warm, radial pulses palpable and symmetrical. Absent : calf tenderness, cyanotic, pedal edema - Neurological Exam Neurological exam: Present: CN II-XII intact, oriented X3, no focal deficits. Absent: pronater drift, facial droop, speech deficit - Skin Skin exam: Present: dry, intact Internal Medicine: Result - Labs CBC & Chem 7: 08/29/17 00:20 08/29/17 00:20 Labs: Short CBC 08/29/17 Range/Units 00:20 WBC 5.8 (4.3-11.1) K/mcL Hgb 16.5 D (12.9-16.9) g/dL Hct 49.0 (37.5-50.1) % Plt Count 134 L (140-400) K/mcL Neutrophils # 4.1 (1.6-8.9) K/mcL BMP 08/29/17 00:20 Sodium 135 L Potassium 3.4 L Chloride 99 Carbon Dioxide 26 BUN 21 Creatinine 0.73 Glucose 135 H Calcium 9.1 Cardiac Enzymes 08/28/17 08/29/17 Range/Units 17:54 00:20 Troponin I 0.02 0.02 (0-0.03) ng/mL Liver Function 08/29/17 Range/Units 00:20 Total Bilirubin 0.6 (0.2-1.2) mg/dL AST 27 (5-34) Units/L ALT 24 (0-55) Units/L Alkaline Phosphatase 96 (38-126) Units/L Albumin 2.8 L (3.5-5.0) g/dL - ABG Interpretation ABG results: PT/INR, D-dimer PT 13.4 Seconds (9.4-12.1) H 08/29/17 00:20 - Impressions Impressions Chest CTA 08/29/17 15:00 IMPRESSION: 1. No evidence of pulmonary embolism. 2. Mild dilation of the main pulmonary artery, which can be seen with elevated pulmonary arterial pressures. 3. Stable appearance of diffuse subpleural and basilar interstitial opacities, consistent with pulmonary fibrosis such as UIP. Superimposed mild emphysematous changes are suspected. 4. Coronary atherosclerosis. 5. Unchanged mild mediastinal lymphadenopathy. 6. Gallstones. D/ / 08/29/2017 16:24:56 Steve Aparicio MD / suzette Interpreting Provider: Steve Aparicio MD Consult Discharge Plan - Plan Referrals: Jorge Ferrera MD [Primary Care Provider] -
[2017-08-29] MEDS: Acetaminophen 325 MG TABLET PO PRN (20:34)
[2017-08-29] MEDS: clonazePAM 0.5 MG TABLET PO SCH (23:00)
[2017-08-30] MEDS: *HR* Heparin 5,000 UNIT/ML VIAL SQ SCH (05:56)
[2017-08-30 06:02] LABS: Hematocrit 51.8 % (37.5-50.1); Hemoglobin 17.6 g/dL (12.9-16.9); Mean Corpuscular Hemoglobin 32.5 pg (28.0-33.3); Mean Corpuscular Volume 95.6 fL (83.0-100.0); Mean Platelet Volume 10.1 fL (9.4-12.4); Platelet Count 171 K/mcL (140-400); Red Blood Count 5.42 M/mcL (4.19-5.50); Red Cell Distribution Width 12.3 % (11.5-14.5)
[2017-08-30 06:19] LABS: BUN/Creatinine Ratio 23 (6-26); Blood Urea Nitrogen 16 mg/dL (8-26); Calcium 9.2 mg/dL (8.6-10.8); Carbon Dioxide 26 mEq/L (19-29); Chloride 102 mEq/L (98-109); Glucose 171 mg/dL (70-99); Osmolality,Calculated 287 (280-300); Sodium 136 mEq/L (136-145); eGFR For African Americans > 60 (> 60); eGFR For Non-African Americans > 60 (> 60)
[2017-08-30 06:23] LABS: Potassium 4.5 mEq/L (3.5-4.5)
--- NOTE | 2017-08-30 06:42 | Pulmonology Progress Note ---
Date of Encounter: 08/30/17 Time of Encounter: 06:42 Assessment and Plan (1) Chronic respiratory failure with hypoxia Current Visit: No Status: Chronic In conclusion this is a 72-year-old gentleman with past medical history of pulmonary fibrosis who presented with worsening dyspnea noted to have elevated troponin and BNP CTA was performed which was negative for filling defect. My impression in this case is that he likely does have elevated right-sided heart pressures although echocardiogram 2 has not shown any overt signs of pulmonary hypertension and right ventricular dysfunction. While echocardiogram is an excellent screening modality for pulmonary hypertension the gold standard for diagnosing this condition is pulmonary artery catheterization but I suspect that he does have elevated right-sided pressures likely from his underlying hypoxemic respiratory failure or what could be described as WHO group 3 pulmonary hypertension. This does not exclude the combined likelihood that he also has elevated left- sided filling pressures from diastolic heart failure this in combination with underlying pulmonary fibrosis and some component of COPD is can attribute to his underlying dyspnea unfortunately none of these diagnoses are easily treated and symptom management can be challenging at best. The underlying possibility of pulmonary hypertension I do not recommend further invasive workup the mainstay of therapy is can be treatment of underlying hypoxia. Part of this evaluation should be a polysomnogram to evaluate for sleep disordered breathing this can be done as an outpatient. For treatment of underlying pulmonary fibrosis he would need further outpatient management and the possibility of anti-inflammatory medication such as Pirfenidone and will likely could be as beneficial as anything would be enrollment in pulmonary rehabilitation. For underlying COPD he is not on a permanent inhaler regimen but this would be advisable reasonable choices to start with Spiriva 18 g which should be given to the patient prior to discharge and he should be instructed in its use by the respiratory therapist. For Mangagment of HFpEF blood pressure appears to be well controlled he is not overtly volume overloaded at present he will need ongoing management. It is crucial that patient wears supplemental oxygen at all times and the oxygen saturation should greater than 88% at all times From pulmonary perspective he appears to be near baseline further workup would could be completed outpatient basis and pulmonary will sign off please call with any questions and we appreciate this consultation (2) Pulmonary fibrosis Current Visit: No Status: Chronic (3) (HFpEF) heart failure with preserved ejection fraction Current Visit: Yes Status: Acute (4) Pneumonia Current Visit: No Status: Acute Qualifiers: Pneumonia type: due to unspecified organism Laterality: unspecified laterality Lung location: unspecified part of lung Qualified Code(s): J18.9 - Pneumonia, unspecified organism (5) COPD (chronic obstructive pulmonary disease) Current Visit: No Status: Acute Qualifiers: COPD type: COPD with acute exacerbation Qualified Code(s): J44.1 - Chronic obstructive pulmonary disease with (acute) exacerbation Subjective Principal diagnosis: Dyspnea Interval history: Mr. Canada states that he slept well overnight and that breathing is near baseline. Objective PUL Vital signs: Last Vital Signs Temp 98.1 F 08/30/17 03:00 Pulse 64 08/30/17 03:00 Resp 16 08/30/17 03:00 BP 95/49 08/30/17 03:00 Pulse Ox 96 08/30/17 03:00 General appearance: no acute distress Auscultation: bilateral: rales Cardiovascular: regular rate and rhythm Extremities: no cyanosis, no edema, no clubbing normal mental status, non-focal exam Results - Laboratory Findings CBC and BMP: 08/30/17 05:08 08/30/17 05:08 PT/INR, D-dimer PT 13.4 Seconds (9.4-12.1) H 08/29/17 00:20 Abnormal lab findings: Abnormal lab results Hgb 17.6 g/dL (12.9-16.9) H 08/30/17 05:08 Hct 51.8 % (37.5-50.1) H 08/30/17 05:08 PT 13.4 Seconds (9.4-12.1) H 08/29/17 00:20 Creatinine 0.69 mg/dL (0.72-1.25) L 08/30/17 05:08 Glucose 171 mg/dL (70-99) H 08/30/17 05:08 POC Glucose 96 (58-89) H 08/28/17 19:59 Magnesium 1.3 mg/dL (1.6-2.6) L 08/29/17 00:20 Creatine Kinase 17 Units/L (30-200) L 08/28/17 05:50 B-Natriuretic Peptide 320 pg/mL (0-100) H 08/29/17 00:20 Serum Total Protein 5.7 g/dL (6.0-8.3) L 08/29/17 00:20 Albumin 2.8 g/dL (3.5-5.0) L 08/29/17 00:20 Albumin/Globulin Ratio 1.0 (1.1-2.2) L 08/29/17 00:20 - Diagnostic Findings CT scan - chest: report reviewed, image reviewed - Clinical Findings Intake & Output: Intake & Output 08/29/17 08/29/17 08/30/17 15:59 23:59 07:59 Intake Total 480 / 480 Balance 480 / 480 Consult Discharge Plan - Plan Referrals: Jorge Ferrera MD [Primary Care Provider] -
[2017-08-30 07:20] LABS: CK Total (Ck Isoenzymes) 22 U/L (20-200)
[2017-08-30] MEDS: Folic Acid 1 MG TABLET PO SCH (08:48)
[2017-08-30] MEDS: Famotidine 20 MG TABLET PO SCH (08:48)
[2017-08-30] MEDS: Aspirin 81 MG TAB.CHEW PO SCH (08:48)
--- NOTE | 2017-08-30 10:40 | Discharge Summary ---
Date of Encounter: 08/30/17 Time of Encounter: 09:00 - Discharge Diagnosis (1) COPD (chronic obstructive pulmonary disease) Priority: Primary Status: Acute Comments: Juan Canada is a 72-year-old male with past medical history COPD on home O2 and pulmonary fibrosis presented to [facility] on 08/28/2017 with complaints of worsening shortness of breath. He was admitted for further workup and treatment. 1. Idiopathic pulmonary fibrosis: Per history. Now with progressive, worsening dyspnea. Chest CTA with mild dilation of pulmonary artery, stable interstitial opacities, and unchanged mediastinal lymphadenopathy. Evaluated by Pulmonology who suspects chronic dyspnea likely secondary to underlying pulmonary fibrosis. Respiratory status returned to baseline at time of discharge. Patient advised to wear oxygen at all times. Will need to follow up with Pulmonology outpatient for pulmonary rehabilitation 2. Acute on chronic diastolic dysfunction: presented with worsening SOB. 2016 TTE with EF 50% and mild diastolic dysfunction. BNP 1000, CXR with evidence of interstitial lung disease, otherwise non-acute. SOB improved with small dose IV Lasix. Continue home Lasix, ASA at discharge. Follow-up with primary [employer] as previously planned. 3. Elevated troponin: appears to be chronic. Evaluated by cardiology during 2016 hospitalization who noted mild, flat elevation in troponin likely secondary to respiratory insufficiency. Asymptomatic. Denied chest pain. EKG without acute ST changes. Pulmonology suspects underlying pulmonary hypertension and recommends outpatient right heart catheterization and sleep study. 4. COPD: Per history. Wears O2 at 4 L [id number] home. No increased oxygen needs, no wheezing, no evidence of exacerbation. Not on home inhaler regimen. Spiriva started per Pulmonology recommendations. Qualifiers: COPD type: COPD with acute exacerbation Qualified Code(s): J44.1 - Chronic obstructive pulmonary disease with (acute) exacerbation (2) Elevated troponin Priority: Primary Status: Resolved (3) Pulmonary fibrosis Priority: Primary Status: Acute - Discharge Medications Prescriptions: Tiotropium [Spiriva] 18 mcg IH DAILY #30 capsule Home Medications: Aspirin 81 mg PO DAILY 05/23/17 [History] Mv-Mn/FA/Vit K/Lycop/Lut/Coq10 [Daily Multivitamin Capsule] 1 tab PO DAILY 05/23 [History] Folic Acid 1 mg PO DAILY 08/14/17 [History] Oxygen 4 l NS AD 08/14/17 [History] Furosemide [Lasix] 40 mg PO DAILY #30 tablet 08/17/17 [Rx] clonazePAM [Klonopin] 0.5 mg PO HS 08/28/17 [History] Tiotropium [Spiriva] 18 mcg IH DAILY #30 capsule 08/30/17 [Rx] Allergies/Adverse Reactions: 3 Allergy/AdvReac Type Severity Reaction Status Date / Time No Known Allergies Allergy Verified 08/28/17 07:35 Procedures/tests Complete & Pending: Procedures Performed prior 72 hours Category Date Time Status CTA chest [CT angio chest] [CT] Routine Cat Scan 08/29/17 15:00 Draft Date of admission: 08/28/17 07:40 Primary care physician: Jorge Ferrera MD Consults: 08/28/17 11:43 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 [CONS] Routine Reason for SW Consult: d/c needs 08/29/17 11:29 Consult to Pulmonology [CONS] Routine Consulting Provider: [facility] Reason for Consult: Idiopathic pulmonary fibrosis with persistent shortness of breath and 2 admissions in the past 2 weeks Call Completed: Yes Discharging clinician: Emily Kirkpatrick Anticipated date of discharge: 08/30/17 - Patient Status Disposition: Home, Self-Care Condition: Fair Functional capacity at discharge: independent ambulation Overall status at discharge: patient is back to baseline - Discharge Instructions Instructions: Chronic Obstructive Pulmonary Disease (DC), Pulmonary Fibrosis ( DC), Pulmonary Arterial Hypertension (DC), Using Oxygen at Home (DC), Tiotropium (By breathing) Follow Up With: Jorge Ferrera MD [Primary Care Provider] - Additional Instructions: Please follow-up with your family doctor, [employer] and Pulmonlogist as scheduled Return to ER if you experience worsening SOB or CP - Diet and Activity Activity: increase activity as tolerated Diet: advance to your usual diet Interval History: Seen and examined at bedside, patient says he feels better and wants to go home. Still has SOB (worse with activity and better with rest) but says he is back to baseline. Denies CP. Patient was advised to wear O2 ATC. Hospital course: See assessment and plan for hospital course Time spent discussing smoking cessation with patient: more than 10 minutes (38 minutes spent on discharge) - Time Spent with Patient Total time spent providing and/or coordinating discharge services: - Constitutional Vitals: Temp Pulse Resp BP Pulse Ox 97.6 F 65 16 97/60 94 08/30/17 07:38 08/30/17 07:38 08/30/17 07:38 08/30/17 07:38 08/30/17 07:38 General appearance: Present: mild distress, A&O X 3, pleasant, no acute distress , answers questions appropriately - Head Head exam: Present: atraumatic, normocephalic - Eye Eye exam: Present: PERRL, conjuntiva pink, sclera anicteric Pupils: Present: PERRL - Neck Neck exam general surgery: Present: supple, trachea midline. Absent: lymphadenopathy - Respiratory Respiratory exam: Present: CTAB. Absent: accessory muscle use, rales, rhonchi, wheezes Additional comments: Appears mildly dyspenic - Cardiovascular Cardiovascular exam: Present: RRR, +S1, +S2. Absent: diastolic murmur, gallop, rubs, systolic murmur - GI/Abdominal GI/Abdominal exam: Present: normal bowel sounds, soft, no peritoneal signs. Absent: distended, tenderness - Extremities Exam Extremities exam: Present: warm, radial pulses palpable and symmetrical. Absent : calf tenderness, cyanotic, pedal edema - Neurological Exam Neurological exam: Present: CN II-XII intact, oriented X3, no focal deficits. Absent: pronater drift, facial droop, speech deficit - Skin Skin exam: Present: dry, intact
[2017-08-30 11:06] VITALS: BP 105/61
== END 2017-08-30 14:31 | disposition home or self-care (01) | DRG 190 ==
LOC: EMEROO 22:26 → 3BNU 22:26
PROVIDERS: ADMIT Hospitalist; ATTEND Registered Nurse

== ENCOUNTER 2017-10-21 22:27 | Observation (INO) ==
--- NOTE | 2017-10-21 22:45 | Emergency Department Note ---
Disposition Clinical Impression: Acute exacerbation of chronic obstructive airways disease Disposition: Admitted As Inpatient Condition: Fair Referrals: Jroge Ferrera MD [Primary Care Provider] - Forms: ED Satisfaction Letter Time of Disposition: 23:50 SOB HPI - General Chief Complaint: ED Shortness of Breath/Dyspnea Stated Complaint: DWAYNE Time Seen by Provider: 10/21/17 22:34 Source: family Limitations: no limitations Nursing Notes Reviewed: Yes Vital Signs Reviewed: Yes - History of Present Illness 72-year-old with a history COPD pulmonary fibrosis comes in with worsening shortness of breath. He also is had some tingling in his left arm. Also complains of a severe headache. Some hemoptysis Pt Subjective Complaint: shortness of breath, cough Onset (ago): [employer] Severity: moderate Consistency/Duration: constant Improves with: nothing Worsens with: exertion Known history of: COPD Associated symptoms: Reports: cough Treatment prior to arrival: bronchodilator Cough present: Yes Cough Description: Involuntary Cough Frequency: Intermittent - Related Data Home Medications Medication Instructions Recorded Confirmed Aspirin 81 mg PO DAILY 05/23/17 08/28/17 Mv-Mn/FA/Vit K/Lycop/Lut/Coq10 1 tab PO DAILY 05/23/17 08/28/17 [Daily Multivitamin Capsule] Folic Acid 1 mg PO DAILY 08/14/17 08/28/17 Oxygen 4 l NS AD 08/14/17 08/28/17 clonazePAM [Klonopin] 0.5 mg PO HS 08/28/17 08/28/17 Previous Rx's Medication Instructions Recorded Furosemide [Lasix] 40 mg PO DAILY #30 tablet 08/17/17 Tiotropium [Spiriva] 18 mcg IH DAILY #30 capsule 08/30/17 Allergies Allergy/AdvReac Type Severity Reaction Status Date / Time No Known Allergies Allergy Verified 08/28/17 07:35 All systems ED: reviewed and negative except as stated. Constitutional: Denies: fever, chills, weakness, weight change Eyes: Denies: eye pain, eye discharge, vision change ENT ED: Denies: ear pain, throat pain, dental pain, hearing loss, epistaxis, congestion, dysphagia Cardiovascular: Denies: chest pain, palpitations, dyspnea on exertion, edema, syncope Respiratory: Reports: cough, dyspnea, wheezes. Denies: hemoptysis, stridor Gastrointestinal: Denies: abdominal pain, nausea, vomiting, diarrhea, constipation, hematemesis, melena, hematochezia Genitourinary: Denies: urgency, dysuria, frequency, hematuria Musculoskeletal: Denies: back pain, neck pain, arthralgia, myalgia Integumentary: Denies: rash, abrasion, lesions Neurological: Reports: headache, paresthesias (Left hand left leg). Denies: weakness, numbness, confusion, abnormal gait, vertigo Psychiatric: Denies: anxiety, depression, suicidal thoughts, homicidal thoughts , auditory hallucinations, visual hallucinations Endocrine: Denies: fatigue Hematological/Lymphatic: Denies: easy bleeding, easy bruising Allergic/Immunologic: Denies: facial swelling, urticaria Past Medical History - Past Medical History Medical history: Reports: arthritis, COPD, GERD Surgical history: Reports: non-contributory Psychiatric history: Reports: no psych history - Social History Smoking Status: Former smoker Smokeless Tobacco Status: No Alcohol use: Reports: occasionally Drug use: Reports: none Physical Exam - General Limitations: no limitations General appearance: alert, anxious - Head Head exam: atraumatic, normocephalic, normal inspection - Eye Eye exam: Present: normal appearance, PERRL, EOMI - Neck Neck exam: Present: normal inspection, full ROM, trachea midline - Chest Chest inspection: Present: normal inspection - Respiratory Respiratory exam: Present: wheezes, prolonged expiratory phase - Cardiovascular Cardiovascular exam: Present: regular rate, normal rhythm, normal heart sounds - Abdominal Exam Abdominal exam: Present: soft, Non-Tender. Absent: tenderness, distention, guarding, rebound, rigidity - Extremities Exam Extremities exam: Present: normal inspection, full ROM. Absent: tenderness, pedal edema - Expanded Lower Extremity Exam Neurovascular/Tendon exam: Absent: motor deficit, sensory deficit, tendon deficit - Back Exam Back exam: Present: normal inspection, full ROM. Absent: tenderness - Neurological Exam Neurological exam: Present: alert, oriented X3 - Psychiatric Psychiatric exam: Present: normal affect, normal mood - Skin Skin exam: Present: warm, dry, intact, normal color Course - Reevaluation(s) Reevaluation #1: 72-year-old male who comes in complaining of increasing shortness of breath tingling in his left arm. Patient has a history of pulmonary fibrosis. Workup here included a chest x-ray which was concerning for some evidence of congestive heart failure with an elevated BNP of 429. The head was obtained that shows a stroke that appears to be old however it's new since July 2017. NIH is 0. Patient does not meet criteria for TPA. Time: 23:44 - Consultations Consultation #1: Consultation with Dr. Pabon neurology he will see the patient consult not a TPA candidate Time: 23:50 Consultation #2: Discussed with Dr. Nuno Time: 23:50 Vital Signs Temperature 97.7 F 10/21/17 22:29 Pulse Rate 68 10/21/17 22:29 Respiratory Rate 16 10/21/17 22:29 Blood Pressure 127/92 10/21/17 22:29 O2 Sat by Pulse Oximetry 92 10/21/17 22:29 Temperature 97.7 F 10/21/17 22:29 Pulse Rate 64 10/21/17 23:31 Respiratory Rate 16 10/21/17 23:31 Blood Pressure 107/66 10/21/17 23:31 O2 Sat by Pulse Oximetry 99 10/21/17 23:31 Oxygen Delivery Oxygen Delivery Room Air Shortness of Breath/Dyspnea - Lab Data Result diagrams: 10/21/17 22:53 10/21/17 22:53 Lab Results 10/21/17 10/21/17 10/21/17 Range/Units 22:53 22:53 22:53 WBC 9.7 (4.3-11.1) K/mcL RBC 4.68 (4.19-5.50) M/mcL Hgb 14.6 (12.9-16.9) g/dL Hct 43.7 (37.5-50.1) % MCV 93.4 (83.0-100.0) fL MCH 31.2 (28.0-33.3) pg MCHC 33.4 (31.6-35.5) g/dL RDW 13.9 (11.5-14.5) % Plt Count 197 (140-400) K/mcL MPV 9.3 L (9.4-12.4) fL Immature Gran % 1.1 (0-4) % Seg Neutrophils % 80.1 % Lymphocytes % 13.1 % Monocytes % 4.6 % Eosinophils % 0.8 % Basophils % 0.3 % Neutrophils # 7.8 (1.6-8.9) K/mcL Lymphocytes # 1.3 (0.6-4.6) K/mcL Monocytes # 0.5 (0.0-1.3) K/mcL Eosinophils # 0.1 (0.0-0.6) K/mcL Basophils # 0.0 (0.0-0.2) K/mcL PT 12.2 H (9.4-12.1) Seconds INR 1.1 APTT 26.5 (26.0-36.0) Seconds Sample Site ABG pH (7.32-7.45) pH Units ABG pCO2 (35-45) mmHg ABG pO2 (85-104) mmHg ABG HCO3 (21-27) mEq/L ABG Total CO2 (20-26) mEq/L ABG O2 Saturation (95-98) % ABG Base Excess (-2 to 3) mEq/L Thang Test O2 Delivery Device Inspired O2 (1-15=lpm [id number]=%) Sodium 137 (136-145) mEq/L Potassium 4.4 (3.5-5.1) mEq/L Chloride 102 (98-107) mEq/L Carbon Dioxide 28 (23-29) mEq/L BUN 21 (8-23) mg/dL Creatinine 0.63 L (0.70-1.30) mg/dL Est GFR ( Amer) > 60 (> 60) Est GFR (Non-Af Amer) > 60 (> 60) BUN/Creatinine Ratio 33 H (6-26) Glucose 122 H (70-105) mg/dL Calculated Osmolality 288 (280-300) Lactic Acid (0.5-2.2) mmol/L Calcium 9.6 (8.6-10.3) mg/dL Troponin I (< 0.04) ng/mL B-Natriuretic Peptide (Less than 100) pg/mL 10/21/17 10/21/17 10/21/17 Range/Units 22:53 22:53 22:53 WBC (4.3-11.1) K/mcL RBC (4.19-5.50) M/mcL Hgb (12.9-16.9) g/dL Hct (37.5-50.1) % MCV (83.0-100.0) fL MCH (28.0-33.3) pg MCHC (31.6-35.5) g/dL RDW (11.5-14.5) % Plt Count (140-400) K/mcL MPV (9.4-12.4) fL Immature Gran % (0-4) % Seg Neutrophils % % Lymphocytes % % Monocytes % % Eosinophils % % Basophils % % Neutrophils # (1.6-8.9) K/mcL Lymphocytes # (0.6-4.6) K/mcL Monocytes # (0.0-1.3) K/mcL Eosinophils # (0.0-0.6) K/mcL Basophils # (0.0-0.2) K/mcL PT (9.4-12.1) Seconds INR APTT (26.0-36.0) Seconds Sample Site ABG pH (7.32-7.45) pH Units ABG pCO2 (35-45) mmHg ABG pO2 (85-104) mmHg ABG HCO3 (21-27) mEq/L ABG Total CO2 (20-26) mEq/L ABG O2 Saturation (95-98) % ABG Base Excess (-2 to 3) mEq/L Thang Test O2 Delivery Device Inspired O2 (1-15=lpm [id number]=%) Sodium (136-145) mEq/L Potassium (3.5-5.1) mEq/L Chloride (98-107) mEq/L Carbon Dioxide (23-29) mEq/L BUN (8-23) mg/dL Creatinine (0.70-1.30) mg/dL Est GFR ( Amer) (> 60) Est GFR (Non-Af Amer) (> 60) BUN/Creatinine Ratio (6-26) Glucose (70-105) mg/dL Calculated Osmolality (280-300) Lactic Acid 3.0 H (0.5-2.2) mmol/L Calcium (8.6-10.3) mg/dL Troponin I < 0.03 (< 0.04) ng/mL B-Natriuretic Peptide 429 H (Less than 100) pg/mL 10/21/17 Range/Units 23:01 WBC (4.3-11.1) K/mcL RBC (4.19-5.50) M/mcL Hgb (12.9-16.9) g/dL Hct (37.5-50.1) % MCV (83.0-100.0) fL MCH (28.0-33.3) pg MCHC (31.6-35.5) g/dL RDW (11.5-14.5) % Plt Count (140-400) K/mcL MPV (9.4-12.4) fL Immature Gran % (0-4) % Seg Neutrophils % % Lymphocytes % % Monocytes % % Eosinophils % % Basophils % % Neutrophils # (1.6-8.9) K/mcL Lymphocytes # (0.6-4.6) K/mcL Monocytes # (0.0-1.3) K/mcL Eosinophils # (0.0-0.6) K/mcL Basophils # (0.0-0.2) K/mcL PT (9.4-12.1) Seconds INR APTT (26.0-36.0) Seconds Sample Site Art Line ABG pH 7.49 H (7.32-7.45) pH Units ABG pCO2 37 (35-45) mmHg ABG pO2 67 L (85-104) mmHg ABG HCO3 28 H (21-27) mEq/L ABG Total CO2 29 H (20-26) mEq/L ABG O2 Saturation 95 (95-98) % ABG Base Excess 4 H (-2 to 3) mEq/L Thang Test Positive O2 Delivery Device Cannula Inspired O2 4.0 (1-15=lpm [id number]=%) Sodium (136-145) mEq/L Potassium (3.5-5.1) mEq/L Chloride (98-107) mEq/L Carbon Dioxide (23-29) mEq/L BUN (8-23) mg/dL Creatinine (0.70-1.30) mg/dL Est GFR ( Amer) (> 60) Est GFR (Non-Af Amer) (> 60) BUN/Creatinine Ratio (6-26) Glucose (70-105) mg/dL Calculated Osmolality (280-300) Lactic Acid (0.5-2.2) mmol/L Calcium (8.6-10.3) mg/dL Troponin I (< 0.04) ng/mL B-Natriuretic Peptide (Less than 100) pg/mL - Radiology Data Radiology results reviewed: Yes I reviewed the patient's radiology results. Chest X-Ray 10/21/17 22:39 IMPRESSION: Increased diffuse airspace disease and diffuse prominent markings. Findings suggest pulmonary edema. Underlying fibrosis would be difficult to exclude D/ / Lele Sarabia / Lele Sarabia Interpreting Provider: Lele Sarabia Head CT 10/21/17 22:55 IMPRESSION: No acute intracranial abnormality. Low-attenuation within the right occipital and temporal lobes suggesting prior infarct which appears be remote but new since the prior study. MRI may be helpful if indicated. D/ / Loyda Chavis Cha, MD / Loyda Chavis Cha, MD Interpreting Provider: Loyda Chavis Cha, MD - EKG Data EKG attestation: Yes I reviewed and interpreted this EKG. EKG shows normal: Reports: sinus rhythm Rate: Reports: normal Rhythm: Reports: NSR T wave inversions noted in: Reports: II, III, aVF, v1, v2, v3, v4 When compared to previous EKG there are: no significant changes (08/27/2017) NIH Stroke Scale - Level of Consciousness LOC: Alert - LOC Questions LOC Questions: Answers both correctly - LOC Commands LOC Commands: Performs both correctly - Best Gaze Best Gaze: Normal - Visual Visual: No visual loss - Facial Palsy Facial Palsy: Normal - Motor Arms Motor Arm-Left: No drift for 10 seconds Motor Arm-Right: No drift for 10 seconds - Motor Legs Motor Leg-Left: No drift for 5 seconds Motor Leg-Right: No drift for 5 seconds - Limb Ataxia Limb Ataxia: Normal, No Ataxia - Sensory Sensory: Normal - Best Language Best Language: No aphasia - Dysarthria Dysarthria: Normal - Extinction and Inattention Extinction and Inattention: Normal - NIHSS Total Score NIHSS Total Score: 0
[2017-10-21 23:05] LABS: ABG Base Excess 4 mEq/L (-2 to 3); ABG HCO3 28 mEq/L (21-27); ABG Oxygen Saturation 95 % (95-98); ABG PCO2 37 mmHg (35-45); ABG PH 7.49 pH Units (7.32-7.45); ABG PO2 67 mmHg (85-104); ABG TCO2 29 mEq/L (20-26)
[2017-10-21 23:05] LABS: Basophils % 0.3 %; Eosinophils # 0.1 K/mcL (0.0-0.6); Eosinophils % 0.8 %; Hematocrit 43.7 % (37.5-50.1); Hemoglobin 14.6 g/dL (12.9-16.9); Immature Granulocytes % 1.1 % (0-4); Lymphocytes # 1.3 K/mcL (0.6-4.6); Lymphocytes % 13.1 %; Mean Corpuscular HGB Conc 33.4 g/dL (31.6-35.5); Mean Corpuscular Hemoglobin 31.2 pg (28.0-33.3); Mean Corpuscular Volume 93.4 fL (83.0-100.0); Mean Platelet Volume 9.3 fL (9.4-12.4); Monocytes # 0.5 K/mcL (0.0-1.3); Monocytes % 4.6 %; Neutrophils # 7.8 K/mcL (1.6-8.9); Platelet Count 197 K/mcL (140-400); Red Blood Count 4.68 M/mcL (4.19-5.50); Red Cell Distribution Width 13.9 % (11.5-14.5); Segmented Neutrophils % 80.1 %
[2017-10-21 23:09] LABS: INR 1.1; Prothrombin Time 12.2 Seconds (9.4-12.1)
[2017-10-21 23:12] LABS: Activated Partial Thrombo Time 26.5 Seconds (26.0-36.0)
[2017-10-21] MEDS ORDERED: Ipratropium/Albuterol Neb 3 ML ONE (23:13)
[2017-10-21 23:24] LABS: BUN/Creatinine Ratio 33 (6-26); Blood Urea Nitrogen 21 mg/dL (8-23); Calcium 9.6 mg/dL (8.6-10.3); Carbon Dioxide 28 mEq/L (23-29); Chloride 102 mEq/L (98-107); Glucose 122 mg/dL (70-105); Osmolality,Calculated 288 (280-300); Potassium 4.4 mEq/L (3.5-5.1); Sodium 137 mEq/L (136-145); eGFR For African Americans > 60 (> 60); eGFR For Non-African Americans > 60 (> 60)
[2017-10-21] MEDS ORDERED: Furosemide 40 MG/4 ML VIAL IVP ONE (23:38)
[2017-10-22] MEDS ORDERED: Acetaminophen 325 MG TABLET PO PRN (01:33)
[2017-10-22] MEDS ORDERED: *HR* Morphine 2 MG/ML SYRINGE IVP PRN (01:39)
[2017-10-22] MEDS ORDERED: Ondansetron 4 MG/2 ML VIAL IVP PRN (01:39)
[2017-10-22] MEDS ORDERED: Naloxone 0.4 MG/ML INJ IVP PRN (01:39)
--- NOTE | 2017-10-22 01:45 | Internal Med History&Physical ---
Date of Encounter: 10/22/17 Time of Encounter: 01:43 Assessment and Plan (1) Acute pulmonary edema Current visit: Yes Status: Acute Acute hypoxic respiratory failure secondary to acute pulmonary edema from acute diastolic CHF exacerbation in combination with possible early community- acquired pneumonia Lactic acidosis Chest x-ray showed pulmonary edema and diffuse opacities at bases Start cefepime, continue prednisone 10 g daily Lasix IV 40 mg twice a day, strict I's and O's and daily weight Omeprazole for GI prophylaxis and subcutaneous heparin for DVT prophylaxis. Patient will be admitted as inpatient, expected to stay more than 2 midnights. Full code. Time spent on this admission 40 minutes (2) CVA (cerebral vascular accident) Current visit: Yes Status: Acute New CVA found, no focal deficits Continue aspirin, start statin, check lipid panel Neurology consulted by the ER. Check limited echocardiogram and carotid ultrasound, consider MRI after neurology consult Qualifiers: CVA mechanism: unspecified Qualified Code(s): I63.9 - Cerebral infarction, unspecified (3) Congestive heart failure Current visit: No Status: Acute Qualifiers: Congestive heart failure type: unspecified congestive heart failure type Congestive heart failure chronicity: unspecified congestive heart failure chronicity Qualified Code(s): I50.9 - Heart failure, unspecified (4) COPD (chronic obstructive pulmonary disease) Current visit: No Status: Acute No exacerbation Qualifiers: COPD type: COPD with acute exacerbation Qualified Code(s): J44.1 - Chronic obstructive pulmonary disease with (acute) exacerbation (5) Pulmonary fibrosis Current visit: No Status: Acute (6) Acute on chronic respiratory failure Current visit: No Status: Acute Qualifiers: Respiratory failure complication: hypoxia Qualified Code(s): J96.21 - Acute and chronic respiratory failure with hypoxia Internal Medicine - H&P: HPI Chief complaint: Shortness of breath Admitted From: Emergency Dept History of present illness: Mr. Canada is a 72 year old male with a past medical history of idiopathic pulmonary fibrosis, COPD oxygen dependent using 4 L, diastolic CHF and no prior CVAs, came to the emergency room complaining of difficulty breathing worsen the past few days accompanied by headaches and some hemoptysis/seek and sputum. Chest x-ray showed acute pulmonary edema, the patient has been feeling dizzy, BNP is 429. CT scan of the head was performed showing an old right occipital and temporal infarct that was not present back in July of last year, she denies any deficits. ABG shows a pH of 7.49 a PCO2 of 37 and a PO2 of 67. Lactic acid was 3 and has come down to 2.3. Is a still feeling very short of breath, denies any sick contacts Past Med Surg Social Fam HX - Past Medical History Medical history: arthritis, CHF (Diastolic), COPD (Oxygen dependent using 4 L at home, idiopathic pulmonary fibrosis), CVA, GERD, hyperlipidemia, other ( Osteoarthritis, alcohol abuse according to prior records, history of herpetic neuralgia, cholelithiasis, cervical radiculopathy) Psychiatric history: no psych history - Past Surgical History Surgical History: other (Left ear cyst removal, possible skin cancer) - Social History Smoking Status: Former smoker Smokeless Tobacco Status: No Alcohol use: occasionally ( 3 drinks up to a month ago) Drug use: none - Family History Father Adopted: Yes Living Status: Hx Family Neuromuscular Disorders: Yes (CVA) - Additional Family History Additional family history: Brother with Parkinson's, father with CVA, mother with diabetes, hypertension and CVA Internal Medicine - H&P: Meds Aspirin 81 mg PO DAILY 05/23/17 [History] Mv-Mn/FA/Vit K/Lycop/Lut/Coq10 [Daily Multivitamin Capsule] 1 tab PO DAILY 05/23 [History] Folic Acid 1 mg PO DAILY 08/14/17 [History] Oxygen 4 l NS AD 08/14/17 [History] Furosemide [Lasix] 40 mg PO DAILY #30 tablet 08/17/17 [Rx] clonazePAM [Klonopin] 0.5 mg PO HS 08/28/17 [History] Tiotropium [Spiriva] 18 mcg IH DAILY #30 capsule 08/30/17 [Rx] Keflex 10/22/17 [History] Prednisone 10/22/17 [History] 3 Allergy/AdvReac Type Severity Reaction Status Date / Time No Known Allergies Allergy Verified 08/28/17 07:35 All Systems PM: A 10-system review of systems was performed and is negative for pertinent findings except as documented above in the HPI. Review of systems: Constant cough, other systems out of the 10 reviewed were negative - Constitutional Vitals: Temp Pulse Resp BP Pulse Ox 97.5 F L 73 18 110/70 96 10/22/17 01:01 10/22/17 01:01 10/22/17 01:01 10/22/17 01:01 10/22/17 01:01 General appearance: Present: A&O X 3 (Small area of skin excision close to the left ear) - Head Head exam: Present: atraumatic, normocephalic - Eye Eye exam: Present: PERRL, conjuntiva pink, sclera anicteric Pupils: Present: PERRL - Neck Neck exam general surgery: Present: supple, trachea midline. Absent: lymphadenopathy - Respiratory Respiratory exam: Present: CTAB, rales (Diffuse crackles). Absent: accessory muscle use, rhonchi, wheezes - Cardiovascular Cardiovascular exam: Present: RRR, +S1, +S2. Absent: diastolic murmur, gallop, rubs, systolic murmur - GI/Abdominal GI/Abdominal exam: Present: normal bowel sounds, soft, no peritoneal signs. Absent: distended, tenderness - Extremities Exam Extremities exam: Present: warm, radial pulses palpable and symmetrical. Absent : calf tenderness, cyanotic, pedal edema - Neurological Exam Neurological exam: Present: CN II-XII intact, oriented X3, no focal deficits. Absent: pronater drift, facial droop, speech deficit - Skin Skin exam: Present: dry, intact Internal Med - H&P Results - Labs CBC & Chem 7: 10/21/17 22:53 10/21/17 22:53
[2017-10-22] MEDS: clonazePAM 0.5 MG TABLET PO SCH ×2 (02:30→21:26)
[2017-10-22] MEDS: *HR* OxyCODONE Immed Rel 5 MG TABLET PO PRN ×3 (02:30→21:27)
[2017-10-22] MEDS: Cefepime HCl 1,000 MG in Water for inj. (sterile) 10 ML IVP SCH ×3 (02:30→18:20)
[2017-10-22] MEDS: Ipratropium/Albuterol Neb 3 ML IH SCH ×5 (03:25→21:48)
[2017-10-22] MEDS: *HR* Heparin 5,000 UNIT/ML VIAL SQ SCH ×3 (05:55→21:26)
[2017-10-22] MEDS ORDERED: Furosemide 40 MG/4 ML VIAL IVP SCH (08:00)
[2017-10-22] MEDS: predniSONE 10 MG TABLET PO SCH (09:41)
[2017-10-22] MEDS: Folic Acid 1 MG TABLET PO SCH (09:41)
[2017-10-22] MEDS: Aspirin 81 MG TAB.CHEW PO SCH (09:41)
--- NOTE | 2017-10-22 12:56 | Event Note ---
Date of Encounter: 10/22/17 Time of Encounter: 12:50 Patient is a 72y/o male admitted for acute respiratory failure with hypoxia secondary to acute pulmonary edema from acute Diastolic CHF exacerbation in combination with possible healthcare acquired pneumonia in the setting of IPF and COPD. Pt clinically improving Lactic acidosis resolved saturating well on 2L NC no neurology deficits noted, however given the new findings on CT head, will obtain 2D echo, carotid dopplers. Neurology evaluation has been requested. Labs and vitals reviewed will continue empiric abx (Vanco and Cefepime) f/u blood culture reports will obtain respiratory viral panel continue IV diuresis monitor I/Os, daily weights, fluid restriction diet heparin sq for DVT ppx
--- NOTE | 2017-10-22 13:54 | Neurology - Consult Note ---
Date of Encounter: 10/22/17 Time of Encounter: 13:51 Assessment and Plan (1) Paresthesias Current Visit: Yes Status: Acute Patient has recent onset of headaches, with paresthesias of the left arm and leg. 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 He is already on aspirin 81 mg daily which I think we should maintain pending further testing. Stroke protocol orders should be implemented. I anticipate an MRI scan of the head. Neurologically stable at the time. He is not a candidate for TPA. He is claustrophobic during the Valium prior to the MRI testing tomorrow. History of Present Illness HPI: Mr. Canada is a 72 year old male with a history of pulmonary fibrosis admitted for 2 respiratory failure with hypoxemia pain syndrome for neurologic consultation secondary to headache, paresthesias of the left arm and leg, and an abnormal CT scan of the head. Currently he is resting comfortably in his bed. He had a recent CT scan of the head completed sometime in July which was unremarkable however the CT scan completed during this admission reveals infarction in the right temporal occipital region. This was not present on the previous CT. Currently he denies paresthesias feels as though his and his neurologic baseline. He does have a history of hyperlipidemia prior history of ethanol abuse. He denies diabetes denies hypertension, and fact his blood pressures have been on the low side since been admitted. He reports having had a skin cancer removed from the left ear Monday of this week. He feels that his headaches are associated with that. Past Med Surg Social Fam HX - Past Medical History Medical history: arthritis, CHF (Diastolic), COPD (Oxygen dependent using 4 L at home, idiopathic pulmonary fibrosis), CVA, GERD, hyperlipidemia, other ( Osteoarthritis, alcohol abuse according to prior records, history of herpetic neuralgia, cholelithiasis, cervical radiculopathy) Psychiatric history: no psych history - Past Surgical History Surgical History: other (Left ear cyst removal, possible skin cancer) - Social History Smoking Status: Former smoker Smokeless Tobacco Status: No Alcohol use: occasionally ( 3 drinks up to a month ago) Drug use: none - Family History Father Adopted: Yes Living Status: Hx Family Neuromuscular Disorders: Yes (CVA) Medications and Allergies Aspirin 81 mg PO DAILY 05/23/17 [History] Mv-Mn/FA/Vit K/Lycop/Lut/Coq10 [Daily Multivitamin Capsule] 1 tab PO DAILY 05/23 [History] Folic Acid 1 mg PO DAILY 08/14/17 [History] Oxygen 4 l NS AD 08/14/17 [History] Furosemide [Lasix] 40 mg PO DAILY #30 tablet 08/17/17 [Rx] clonazePAM [Klonopin] 0.5 mg PO HS 08/28/17 [History] Tiotropium [Spiriva] 18 mcg IH DAILY #30 capsule 08/30/17 [Rx] Keflex 10/22/17 [History] Prednisone 10/22/17 [History] 3 Allergy/AdvReac Type Severity Reaction Status Date / Time No Known Allergies Allergy Verified 08/28/17 07:35 All Systems: A 10-system review of systems was performed and is negative for pertinent findings except as documented above in the HPI. Review of Systems: 10 point review of systems is consistent with a history of present illness and otherwise negative. Physical Examination - Vital Signs Vital Signs: Initial Vital Signs Temp Pulse Resp BP Pulse Ox 97.7 F 68 16 127/92 92 10/21/17 22:29 10/21/17 22:29 10/21/17 22:29 10/21/17 22:29 10/21/17 22:29 - Neurologic Detailed motor examination: grossly full strength in all extremities Detailed sensory examination: intact Mental Status Examination: awake, alert, oriented to person, oriented to place, oriented to time, follows commands appropriately, answers questions appropriately, no agnosia, no aphasia, no aproxia Cranial nerve examination: PERRL, EOMI, visual collins intact, corneal reflexes brisk symmetrically, sensory to face intact, mastication intact, no facial asymmetry is present, no dysarthria, hearing is intact symmetrically, soft palate elevates bilaterally upon phonation, gag reflex intact, flexes SCM and trapezius muscles symmetrically with full power, tongue protrudes midline, no atrophy or facial fasiculations present Cerebellar examination: no dysmetria, performs finger to nose and heel to root symmetrically without ataxia, no gait ataxia, no truncal ataxia, no difficulty with rapid alternating movements Results - Laboratory Findings CBC and BMP: 10/21/17 22:53 10/21/17 22:53 Abnormal lab findings: Abnormal lab results MPV 9.3 fL (9.4-12.4) L 10/21/17 22:53 PT 12.2 Seconds (9.4-12.1) H 10/21/17 22:53 ABG pH 7.49 pH Units (7.32-7.45) H 10/21/17 23:01 ABG pO2 67 mmHg (85-104) L 10/21/17 23:01 ABG HCO3 28 mEq/L (21-27) H 10/21/17 23:01 ABG Total CO2 29 mEq/L (20-26) H 10/21/17 23:01 ABG Base Excess 4 mEq/L (-2 to 3) H 10/21/17 23:01 Creatinine 0.63 mg/dL (0.70-1.30) L 10/21/17 22:53 BUN/Creatinine Ratio 33 (6-26) H 10/21/17 22:53 Glucose 122 mg/dL (70-105) H 10/21/17 22:53 B-Natriuretic Peptide 429 pg/mL (Less than 100) H 10/21/17 22:53 Cholesterol 210 mg/dL (< 200) H 10/22/17 05:08 LDL Cholesterol, Calc 134 mg/dL (0-99) H 10/22/17 05:08 Consult Discharge Plan - Plan Referrals: Jorge Ferrera MD [Primary Care Provider] -
[2017-10-22] MEDS: Furosemide 40 MG/4 ML VIAL IVP SCH (17:30)
[2017-10-22] MEDS ORDERED: Vancomycin 1,250 MG in D5% in Water 250 ML IVPB SCH (18:00)
[2017-10-22 20:14] LABS: Adenovirus Not Detected (Not Detect); Coronavirus 229E Not Detected (Not Detect); Coronavirus HKU1 Not Detected (Not Detect); Coronavirus NL63 ***DETECTED*** (Not Detect)
[2017-10-22 20:15] LABS: Bordetella Pertussis Not Detected (Not Detect); Chlamydophila pneumoniae Not Detected (Not Detect); Coronavirus OC43 Not Detected (Not Detect); Human Metapneumovirus Not Detected (Not Detect); Human Rhinovirus/Enterovirus Not Detected (Not Detect); Influenza A Subtype 2009 H1 Not Detected (Not Detect); Influenza A Untypeable Not Detected (Not Detect); Influenza B Not Detected (Not Detect); Mycoplasma pneumoniae Not Detected (Not Detect); Parainfluenza Virus 1 Not Detected (Not Detect); Parainfluenza Virus 2 Not Detected (Not Detect); Parainfluenza Virus 3 Not Detected (Not Detect); Parainfluenza Virus 4 Not Detected (Not Detect); Respiratory Syncytial Virus Not Detected (Not Detect)
[2017-10-23] MEDS: Ipratropium/Albuterol Neb 3 ML IH SCH ×4 (04:03→21:37)
[2017-10-23 04:37] LABS: Basophils % 0.4 %; Eosinophils # 0.2 K/mcL (0.0-0.6); Eosinophils % 2.2 %; Immature Granulocytes % 1.4 % (0-4); Lymphocytes # 1.4 K/mcL (0.6-4.6); Lymphocytes % 19.6 %; Mean Corpuscular HGB Conc 33.9 g/dL (31.6-35.5); Mean Corpuscular Hemoglobin 31.2 pg (28.0-33.3); Mean Corpuscular Volume 91.8 fL (83.0-100.0); Mean Platelet Volume 9.4 fL (9.4-12.4); Monocytes # 0.6 K/mcL (0.0-1.3); Monocytes % 7.6 %; Platelet Count 158 K/mcL (140-400); Red Blood Count 4.14 M/mcL (4.19-5.50); Red Cell Distribution Width 13.8 % (11.5-14.5); Segmented Neutrophils % 68.8 %
[2017-10-23 04:38] LABS: Hemoglobin 12.9 g/dL (12.9-16.9)
[2017-10-23 04:43] LABS: BUN/Creatinine Ratio 33 (6-26); Blood Urea Nitrogen 21 mg/dL (8-23); Calcium 9.1 mg/dL (8.6-10.3); Carbon Dioxide 33 mEq/L (23-29); Chloride 99 mEq/L (98-107); Glucose 101 mg/dL (70-105); Osmolality,Calculated 289 (280-300); Potassium 3.6 mEq/L (3.5-5.1); Sodium 138 mEq/L (136-145); eGFR For African Americans > 60 (> 60); eGFR For Non-African Americans > 60 (> 60)
[2017-10-23 04:45] LABS: Magnesium 1.8 mg/dL (1.6-2.6); Phosphorous 4.6 mg/dL (2.7-4.5)
[2017-10-23] MEDS ORDERED: Vancomycin 1,250 MG in D5% in Water 250 ML IVPB SCH (06:00)
[2017-10-23] MEDS: Cefepime HCl 1,000 MG in Water for inj. (sterile) 10 ML IVP SCH ×2 (06:27→17:24)
[2017-10-23] MEDS: *HR* Heparin 5,000 UNIT/ML VIAL SQ SCH ×3 (06:28→21:56)
--- NOTE | 2017-10-23 08:01 | Neurology Progress Note ---
Date of Encounter: 10/23/17 Time of Encounter: 07:59 Assessment and Plan (1) Paresthesias Current Visit: Yes Status: Acute Paresthesias have resolved. MRI scan of the head is pending. Further examinations will be made upon completion of the MRI study. Until then stroke protocol orders should remain in place. Subjective Interval history: The chart was reviewed, the patient was seen and examined. He is sleeping upon my entering the room, he was easily aroused to voice. He denies any headaches denies any numbness tingling or paresthesias this morning. He voices no complaints. He is scheduled to have an MRI scan of the brain today. Objective - Constitutional Vitals: Temp Pulse Resp BP Pulse Ox 97.8 F 60 15 95/52 94 10/23/17 07:03 10/23/17 07:03 10/23/17 07:03 10/23/17 07:03 10/23/17 07:03 - Neurological Exam Motor Examination: Present: grossly full strength in all extremities Sensation intact: Present: intact Mental Status Examination: Present: awake, alert, oriented to person, oriented to place, oriented to time, follows commands appropriately, answers questions appropriately, no agnosia, no aphasia, no aproxia Cranial nerve examination: Present: PERRL, EOMI, visual collins intact, corneal reflexes brisk symmetrically, sensory to face intact, mastication intact, no facial asymmetry is present, no dysarthria, hearing is intact symmetrically, soft palate elevates bilaterally upon phonation, gag reflex intact, flexes SCM and trapezius muscles symmetrically with full power, tongue protrudes midline, no atrophy or facial fasiculations present Cerebellar examination: Present: no dysmetria, performs finger to nose and heel to root symmetrically without ataxia, no gait ataxia, no truncal ataxia, no difficulty with rapid alternating movements Results - Laboratory Findings CBC and BMP: 10/23/17 03:36 10/23/17 03:36 Abnormal lab findings: Abnormal lab results RBC 4.14 M/mcL (4.19-5.50) L 10/23/17 03:36 PT 12.2 Seconds (9.4-12.1) H 10/21/17 22:53 ABG pH 7.49 pH Units (7.32-7.45) H 10/21/17 23:01 ABG pO2 67 mmHg (85-104) L 10/21/17 23:01 ABG HCO3 28 mEq/L (21-27) H 10/21/17 23:01 ABG Total CO2 29 mEq/L (20-26) H 10/21/17 23:01 ABG Base Excess 4 mEq/L (-2 to 3) H 10/21/17 23:01 Carbon Dioxide 33 mEq/L (23-29) H 10/23/17 03:36 Creatinine 0.64 mg/dL (0.70-1.30) L 10/23/17 03:36 BUN/Creatinine Ratio 33 (6-26) H 10/23/17 03:36 POC Glucose 104 (58-89) H 10/22/17 21:20 Phosphorus 4.6 mg/dL (2.7-4.5) H 10/23/17 03:36 B-Natriuretic Peptide 429 pg/mL (Less than 100) H 10/21/17 22:53 Cholesterol 210 mg/dL (< 200) H 10/22/17 05:08 LDL Cholesterol, Calc 134 mg/dL (0-99) H 10/22/17 05:08 Coronavirus NL63 (PCR) DETECTED (Not Detect) A 10/22/17 18:50 Consult Discharge Plan - Plan Referrals: Jorge Ferrera MD [Primary Care Provider] -
[2017-10-23] MEDS: predniSONE 10 MG TABLET PO SCH (09:46)
[2017-10-23] MEDS: Aspirin 81 MG TAB.CHEW PO SCH (09:46)
[2017-10-23] MEDS: Folic Acid 1 MG TABLET PO SCH (09:46)
[2017-10-23] MEDS: Tiotropium 18 MCG inhalation IH SCH ×2 (11:11→11:13)
[2017-10-23] MEDS ORDERED: diazePAM 5 MG TABLET PO ONE (12:00)
--- NOTE | 2017-10-23 12:06 | Internal Med Progress Note ---
Date of Encounter: 10/23/17 Time of Encounter: 12:04 - Assessment and plan (1) Acute on chronic respiratory failure Current Visit: No Status: Acute Assessment and plan: Secondary to CHF exacerbation and HCAP continue IV diuretics monitor I/Os, daily weight fluid restriction diet continue broad spectrum IV abx f/u official blood cx report(prelim: no growth) O2 supplementation and bipap support as needed Qualifiers: Respiratory failure complication: hypoxia Qualified Code(s): J96.21 - Acute and chronic respiratory failure with hypoxia (2) CHF exacerbation Current Visit: Yes Status: Acute Assessment and plan: as listed above Qualifiers: Congestive heart failure type: unspecified Qualified Code(s): I50.9 - Heart failure, unspecified (3) HCAP (healthcare-associated pneumonia) Current Visit: Yes Status: Acute Assessment and plan: as listed above (4) Carotid stenosis, right Current Visit: Yes Status: Acute Assessment and plan: Right ICA severe stenosis 60-79% reported vascular surgery consultation requested (5) COPD (chronic obstructive pulmonary disease) Current Visit: No Status: Acute Assessment and plan: not in acute exacerbation continue home meds Qualifiers: COPD type: unspecified COPD Qualified Code(s): J44.9 - Chronic obstructive pulmonary disease, unspecified (6) CVA (cerebral vascular accident) Current Visit: Yes Status: Acute Assessment and plan: Neurology on board and consultation appreciated awaiting MRI head carotid doppler reported right ICA severe stenosis continue ASA and statin Qualifiers: CVA mechanism: unspecified Qualified Code(s): I63.9 - Cerebral infarction, unspecified (7) DVT prophylaxis Current Visit: No Status: Acute Assessment and plan: Heparin SQ - Subjective Interval history: Pt seen and examined with family present at bedside. Pt reports of feeling mildly better from previous day. Saturating well on 4L O2 mask Pt's carotid doppler reported Right Mid ICA 60-79% severe stenosis, given CT head findings and concern for CVA, will obtain vascular surgery evaluation. - Constitutional Vitals: Temp Pulse Resp BP Pulse Ox 97.5 F L 69 15 96/67 94 10/23/17 11:26 10/23/17 11:26 10/23/17 11:26 10/23/17 11:26 10/23/17 11:26 General appearance: Present: A&O X 3 (Small area of skin excision close to the left ear), no acute distress - Head Head exam: Present: atraumatic, normocephalic - Eye Eye exam: Present: conjuntiva pink, sclera anicteric - Respiratory Respiratory exam: Absent: respiratory distress, wheezes (equal air entry bilaterally, coarse breath sounds ) - Cardiovascular Cardiovascular exam: Present: RRR, +S1, +S2. Absent: diastolic murmur, gallop, rubs, systolic murmur - GI/Abdominal GI/Abdominal exam: Present: normal bowel sounds, soft, no peritoneal signs. Absent: distended, tenderness - Extremities Exam Extremities exam: Present: warm, radial pulses palpable and symmetrical. Absent : calf tenderness - Neurological Exam Neurological exam: Present: alert, oriented X3. Absent: pronater drift, facial droop, speech deficit - Psychiatric Psychiatric exam: Present: normal affect, normal mood Internal Medicine: Result - Labs CBC & Chem 7: 10/23/17 03:36 10/23/17 03:36 Labs: Short CBC 10/23/17 Range/Units 03:36 WBC 7.2 (4.3-11.1) K/mcL Hgb 12.9 D (12.9-16.9) g/dL Hct 38.0 (37.5-50.1) % Plt Count 158 (140-400) K/mcL Neutrophils # 5.0 (1.6-8.9) K/mcL BMP 10/23/17 03:36 Sodium 138 Potassium 3.6 Chloride 99 Carbon Dioxide 33 H BUN 21 Creatinine 0.64 L Glucose 101 Calcium 9.1 - ABG Interpretation ABG results: ABG ABG pH 7.49 pH Units (7.32-7.45) H 10/21/17 23:01 ABG pCO2 37 mmHg (35-45) 10/21/17 23:01 ABG pO2 67 mmHg (85-104) L 10/21/17 23:01 ABG O2 Saturation 95 % (95-98) 10/21/17 23:01 PT/INR, D-dimer PT 12.2 Seconds (9.4-12.1) H 10/21/17 22:53 - Impressions Impressions Echocardiogram Limited Views 10/22/17 01:35 Impressions: LVEF 55%. Normal right ventricular structure and function. No evidence of PFO with agitated saline contrast. Left Ventricular Wall Motion: Rest Echo Findings All wall segments showed normal motion. Findings: Study Quality * Technically adequate exam. ECG Findings * Normal sinus rhythm. Left Ventricle * LVEF 55%. * Asymmetric septal hypertrophy. Right Ventricle * Normal right ventricular structure and function. Interatrial Septum * No evidence of PFO with agitated saline contrast. Consult Discharge Plan - Plan Referrals: Jorge Ferrera MD [Primary Care Provider] -
[2017-10-23] MEDS: *HR* OxyCODONE Immed Rel 5 MG TABLET PO PRN ×2 (13:39→22:10)
[2017-10-23] MEDS ORDERED: *HR* Morphine 2 MG/ML SYRINGE IVP PRN (15:27)
[2017-10-23] MEDS: Furosemide 40 MG/4 ML VIAL IVP SCH ×2 (15:53→17:26)
--- NOTE | 2017-10-23 16:43 | Vascular/Endovasc Consult Note ---
Date of Encounter: 10/23/17 Time of Encounter: 16:20 Assessment and Plan (1) Carotid stenosis, right Current Visit: Yes Status: Chronic The pathophysiology and natural history of carotid stenosis was discussed with the patient and all questions were answered. The patient has a 60-79% right internal carotid artery stenosis by carotid duplex. His velocities are at the lower end of the range. He reports chronic left sided parasthesias. His CT scan reveals a prior right hemispheric CVA. He has no new motor deficits. At this time, continue with ASA and statin. If MRI reveals an acute right hemispheic infarct, the patient may benefit from a right carotid intervention. Given his comorbidities, he is a poor candidate for endarterectomy, but may be a candidate for carotid stenting. Will discuss patient further will Neurology. (2) Pneumonia Current Visit: Yes Status: Acute Qualifiers: Pneumonia type: due to unspecified organism Laterality: unspecified laterality Lung location: unspecified part of lung Qualified Code(s): J18.9 - Pneumonia, unspecified organism (3) Pulmonary fibrosis Current Visit: Yes Status: Chronic - History of Present Illness Consult date: 10/23/17 Requesting physician: Jayleen Berg Consult reason: Carotid stenosis Chief complaint: Carotid stenosis History of present illness: Mr. Canada is a 72 year old male with a history of pulmonary fibrosis and hyperlipidemia who was admitted to [facility] with pulmonary edema and pneumonia. The patient reported left sided parasthesias and as part of his evaluation he underwent a CT of the head. This revealed a chronic infarct that was not present on CT in 2017. The patient was seen by Neurology and a carotid duplex was ordered. The duplex revealed significant stenosis and vascular surgery was consulted for further evaluation. The patient does not recall a prior episode of CVA. However, his family reports an episodes of agitation and confusion that happened in August 2017. The patient denies any other signs or symptoms of CVA, TIA or amaurosis fugax. He denies chest pain. He reports chronic shortness of breath. Past Med Surg Social Fam HX - Past Medical History Medical history: arthritis, CHF (Diastolic), COPD (Oxygen dependent using 4 L at home, idiopathic pulmonary fibrosis), CVA, GERD, hyperlipidemia, other ( Osteoarthritis, alcohol abuse according to prior records, history of herpetic neuralgia, cholelithiasis, cervical radiculopathy) Psychiatric history: no psych history - Past Surgical History Surgical History: other (Left ear cyst removal, possible skin cancer) - Social History Smoking Status: Former smoker Smokeless Tobacco Status: No Alcohol use: occasionally ( 3 drinks up to a month ago) Drug use: none - Family History Father Adopted: Yes Living Status: Hx Family Neuromuscular Disorders: Yes (CVA) Medications and Allergies Aspirin 81 mg PO DAILY 05/23/17 [History] Mv-Mn/FA/Vit K/Lycop/Lut/Coq10 [Daily Multivitamin Capsule] 1 tab PO DAILY 05/23 [History] Folic Acid 1 mg PO DAILY 08/14/17 [History] Oxygen 4 l NS AD 08/14/17 [History] Furosemide [Lasix] 40 mg PO DAILY #30 tablet 08/17/17 [Rx] clonazePAM [Klonopin] 0.5 mg PO HS 08/28/17 [History] Tiotropium [Spiriva] 18 mcg IH DAILY #30 capsule 08/30/17 [Rx] predniSONE [PredniSONE] 10 mg PO DAILY 10/22/17 [History] 3 Allergy/AdvReac Type Severity Reaction Status Date / Time No Known Allergies Allergy Verified 08/28/17 07:35 All Systems Review: A 10-system review of systems was performed and is negative for pertinent findings except as documented above in the HPI. Exam General: Present: Conversant, No Apparent Distress HEENT: Present: Atraumatic, Pupils equal Neck: Present: Right Carotid bruit. Absent: JVD, Lymphadenopathy, Left Carotid bruit Cardiac: Present: Reg Rate and Rhythm Lungs: Present: Normal Breath Sounds, No Wheeze, Rales, Rhonchi Neuro: Present: Alert and responsive, Cranial nerves grossly intact, Motor nerves grossly intact, Sensory nerves grossly intact Abdomen: Present: Soft, Non-tender. Absent: Masses Vascular: Present: Normal capillary refill. Absent: Cyanosis, Edema Skin: Present: No rashes noted on visualized skin Consult Discharge Plan - Plan Referrals: Jorge Ferrera MD [Primary Care Provider] -
[2017-10-23] MEDS: clonazePAM 0.5 MG TABLET PO SCH (21:56)
[2017-10-24 03:25] LABS: Acinetobacter baumannii by PCR Not Detected (Not Detect); Enterococcus by PCR Not Detected (Not Detect); Staphylococcus aureus by PCR Not Detected (Not Detect); Streptococcus agalactiae(B)PCR Not Detected (Not Detect); Streptococcus by PCR Not Detected (Not Detect); Streptococcus pneumoniae PCR Not Detected (Not Detect); Streptococcus pyogenes (A) PCR Not Detected (Not Detect)
[2017-10-24 03:26] LABS: Candida albicans by PCR Not Detected (Not Detect); Candida glabrata by PCR Not Detected (Not Detect); Candida krusei by PCR Not Detected (Not Detect); Candida parapsilosis by PCR Not Detected (Not Detect); Candida tropicalis by PCR Not Detected (Not Detect); Escherichia coli by PCR Not Detected (Not Detect); Klebsiella oxytoca by PCR Not Detected (Not Detect); Klebsiella pneumoniae by PCR Not Detected (Not Detect); Pseudomonas aeruginosa by PCR Not Detected (Not Detect); Serratia marcescens by PCR Not Detected (Not Detect)
[2017-10-24] MEDS: Ipratropium/Albuterol Neb 3 ML IH SCH ×4 (03:50→21:54)
[2017-10-24 04:33] LABS: Basophils % 0.3 %; Eosinophils # 0.2 K/mcL (0.0-0.6); Eosinophils % 2.6 %; Hematocrit 37.3 % (37.5-50.1); Hemoglobin 12.3 g/dL (12.9-16.9); Lymphocytes # 1.7 K/mcL (0.6-4.6); Lymphocytes % 27.8 %; Mean Corpuscular Hemoglobin 30.7 pg (28.0-33.3); Mean Platelet Volume 9.3 fL (9.4-12.4); Monocytes # 0.4 K/mcL (0.0-1.3); Neutrophils # 3.8 K/mcL (1.6-8.9); Platelet Count 144 K/mcL (140-400); Red Blood Count 4.01 M/mcL (4.19-5.50); Segmented Neutrophils % 61.3 %
[2017-10-24 04:57] LABS: BUN/Creatinine Ratio 40 (6-26); Blood Urea Nitrogen 22 mg/dL (8-23); Carbon Dioxide 31 mEq/L (23-29); Chloride 101 mEq/L (98-107); Glucose 98 mg/dL (70-105); Magnesium 1.8 mg/dL (1.6-2.6); Osmolality,Calculated 287 (280-300); Phosphorous 4.3 mg/dL (2.7-4.5); Potassium 3.6 mEq/L (3.5-5.1); Sodium 137 mEq/L (136-145); eGFR For African Americans > 60 (> 60); eGFR For Non-African Americans > 60 (> 60)
[2017-10-24] MEDS: Cefepime HCl 1,000 MG in Water for inj. (sterile) 10 ML IVP SCH ×2 (06:13→21:27)
[2017-10-24] MEDS: *HR* Heparin 5,000 UNIT/ML VIAL SQ SCH ×3 (06:14→21:27)
[2017-10-24] MEDS: Vancomycin 1,250 MG in D5% in Water 250 ML IVPB SCH (06:16)
--- NOTE | 2017-10-24 08:48 | Neurology Progress Note ---
Date of Encounter: 10/24/17 Assessment and Plan (1) Paresthesias Current Visit: Yes Status: Acute Subjective Interval history: The chart was reviewed, the patient was seen and examined. He is sleeping upon my entering the room, he was easily aroused to voice. He denies any headaches denies any numbness tingling or paresthesias this morning. He voices no complaints. He is scheduled to have an MRI scan of the brain today. Objective - Constitutional Vitals: Temp Pulse Resp BP Pulse Ox 97.6 F 71 12 97/61 93 10/24/17 07:23 10/24/17 07:23 10/24/17 07:23 10/24/17 07:23 10/24/17 07:23 - Neurological Exam Motor Examination: Present: grossly full strength in all extremities Sensation intact: Present: intact Mental Status Examination: Present: awake, alert, oriented to person, oriented to place, oriented to time, follows commands appropriately, answers questions appropriately, no agnosia, no aphasia, no aproxia Cranial nerve examination: Present: PERRL, EOMI, visual collins intact, corneal reflexes brisk symmetrically, sensory to face intact, mastication intact, no facial asymmetry is present, no dysarthria, hearing is intact symmetrically, soft palate elevates bilaterally upon phonation, gag reflex intact, flexes SCM and trapezius muscles symmetrically with full power, tongue protrudes midline, no atrophy or facial fasiculations present Cerebellar examination: Present: no dysmetria, performs finger to nose and heel to root symmetrically without ataxia, no gait ataxia, no truncal ataxia, no difficulty with rapid alternating movements Results - Laboratory Findings CBC and BMP: 10/24/17 04:06 10/24/17 04:06 Abnormal lab findings: Abnormal lab results RBC 4.01 M/mcL (4.19-5.50) L 10/24/17 04:06 Hgb 12.3 g/dL (12.9-16.9) L 10/24/17 04:06 Hct 37.3 % (37.5-50.1) L 10/24/17 04:06 MPV 9.3 fL (9.4-12.4) L 10/24/17 04:06 PT 12.2 Seconds (9.4-12.1) H 10/21/17 22:53 ABG pH 7.49 pH Units (7.32-7.45) H 10/21/17 23:01 ABG pO2 67 mmHg (85-104) L 10/21/17 23:01 ABG HCO3 28 mEq/L (21-27) H 10/21/17 23:01 ABG Total CO2 29 mEq/L (20-26) H 10/21/17 23:01 ABG Base Excess 4 mEq/L (-2 to 3) H 10/21/17 23:01 Carbon Dioxide 31 mEq/L (23-29) H 10/24/17 04:06 Creatinine 0.55 mg/dL (0.70-1.30) L 10/24/17 04:06 BUN/Creatinine Ratio 40 (6-26) H 10/24/17 04:06 POC Glucose 104 (58-89) H 10/22/17 21:20 B-Natriuretic Peptide 429 pg/mL (Less than 100) H 10/21/17 22:53 Cholesterol 210 mg/dL (< 200) H 10/22/17 05:08 LDL Cholesterol, Calc 134 mg/dL (0-99) H 10/22/17 05:08 Coronavirus NL63 (PCR) DETECTED (Not Detect) A 10/22/17 18:50 Consult Discharge Plan - Plan Referrals: Jorge Ferrera MD [Primary Care Provider] -
--- NOTE | 2017-10-24 08:51 | Neurology Progress Note ---
Date of Encounter: 10/24/17 Time of Encounter: 08:48 Assessment and Plan (1) Paresthesias Current Visit: Yes Status: Acute (2) Carotid stenosis, right Current Visit: Yes Status: Acute I feel that it is reasonable to believe that this most recent event consisting of left upper and lower extremity paresthesias is due to the right internal carotid artery stenosis. Ideally one would recommend either carotid endarterectomy or stenting. However this gentleman also has other complicating medical issues. He wishes to further contemplate the matter. I would therefore recommend switching from aspirin to Plavix 75 mg daily. I would also recommend increasing his level of activity to tolerance. To determine whether or not he will need physical therapy over that he will be able to go home. Subjective Interval history: Chart was reviewed, patient was seen and examined. He was sleeping soundly upon my entering the room. He was easily aroused to voice. Upon arousal he is alert and oriented. He denies any events overnight. Denies any additional weakness of the left upper and left lower extremities. Carotid duplex Doppler study does reveal a 60-79% stenosis of the right internal carotid artery. An MRI scan of the brain reveals old right temporal occipital lobe hemorrhagic infarct. Currently he is on aspirin 81 mg daily. 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, 5/5: hip flexors, quadriceps, tibialis Anterior, toe extension (EHL), plantarflexion Sensation intact: Present: intact Mental Status Examination: Present: awake, alert, oriented to person, oriented to place, oriented to time, follows commands appropriately, answers questions appropriately, no agnosia, no aphasia, no aproxia Cranial nerve examination: Present: PERRL, EOMI, visual collins intact, corneal reflexes brisk symmetrically, sensory to face intact, mastication intact, no facial asymmetry is present, no dysarthria, hearing is intact symmetrically, soft palate elevates bilaterally upon phonation, gag reflex intact, flexes SCM and trapezius muscles symmetrically with full power, tongue protrudes midline, no atrophy or facial fasiculations present Cerebellar examination: Present: no dysmetria, performs finger to nose and heel to root symmetrically without ataxia, no gait ataxia, no truncal ataxia, no difficulty with rapid alternating movements Results - Laboratory Findings CBC and BMP: 10/24/17 04:06 10/24/17 04:06 Abnormal lab findings: Abnormal lab results RBC 4.01 M/mcL (4.19-5.50) L 10/24/17 04:06 Hgb 12.3 g/dL (12.9-16.9) L 10/24/17 04:06 Hct 37.3 % (37.5-50.1) L 10/24/17 04:06 MPV 9.3 fL (9.4-12.4) L 10/24/17 04:06 PT 12.2 Seconds (9.4-12.1) H 10/21/17 22:53 ABG pH 7.49 pH Units (7.32-7.45) H 10/21/17 23:01 ABG pO2 67 mmHg (85-104) L 10/21/17 23:01 ABG HCO3 28 mEq/L (21-27) H 10/21/17 23:01 ABG Total CO2 29 mEq/L (20-26) H 10/21/17 23:01 ABG Base Excess 4 mEq/L (-2 to 3) H 10/21/17 23:01 Carbon Dioxide 31 mEq/L (23-29) H 10/24/17 04:06 Creatinine 0.55 mg/dL (0.70-1.30) L 10/24/17 04:06 BUN/Creatinine Ratio 40 (6-26) H 10/24/17 04:06 POC Glucose 104 (58-89) H 10/22/17 21:20 B-Natriuretic Peptide 429 pg/mL (Less than 100) H 10/21/17 22:53 Cholesterol 210 mg/dL (< 200) H 10/22/17 05:08 LDL Cholesterol, Calc 134 mg/dL (0-99) H 10/22/17 05:08 Coronavirus NL63 (PCR) DETECTED (Not Detect) A 10/22/17 18:50 Consult Discharge Plan - Plan Referrals: Jorge Ferrera MD [Primary Care Provider] -
[2017-10-24] MEDS: Aspirin 81 MG TAB.CHEW PO SCH (09:28)
[2017-10-24] MEDS: Folic Acid 1 MG TABLET PO SCH (09:28)
[2017-10-24] MEDS: predniSONE 10 MG TABLET PO SCH (09:28)
--- NOTE | 2017-10-24 12:54 | Internal Med Progress Note ---
Date of Encounter: 10/24/17 Time of Encounter: 12:52 - Assessment and plan (1) Bacteremia Current Visit: Yes Status: Acute Assessment and plan: Gram-positive cocci in one of the blood cultures. Possibly contaminant. Patient is on Vanco and cefepime. We will continue those for now. Follow up on final cultures. I have ordered repeat blood cultures. Patient is hematologically stable. If repeat blood cultures are negative, patient can be discharged over next couple of days if no plans for surgeries. (2) COPD (chronic obstructive pulmonary disease) Current Visit: No Status: Acute Assessment and plan: not in acute exacerbation continue home meds Qualifiers: COPD type: unspecified COPD Qualified Code(s): J44.9 - Chronic obstructive pulmonary disease, unspecified (3) Acute on chronic respiratory failure Current Visit: No Status: Acute Assessment and plan: Secondary to CHF exacerbation and HCAP continue IV diuretics monitor I/Os, daily weight fluid restriction diet continue broad spectrum IV abx f/u on final blood cultures. Wean down on oxygen as tolerated. He is on chronic O2 4L. Qualifiers: Respiratory failure complication: hypoxia Qualified Code(s): J96.21 - Acute and chronic respiratory failure with hypoxia (4) CVA (cerebral vascular accident) Current Visit: Yes Status: Acute Assessment and plan: Neurology on board and consultation appreciated MRI with no acute findings. Neurology is recommending switching aspirin to Plavix which I will do so. Continue statin. Vascular is following for his carotid artery findings. carotid doppler reported right ICA severe stenosis Qualifiers: CVA mechanism: unspecified Qualified Code(s): I63.9 - Cerebral infarction, unspecified (5) HCAP (healthcare-associated pneumonia) Current Visit: Yes Status: Acute Assessment and plan: as listed above (6) Carotid stenosis, right Current Visit: Yes Status: Chronic Assessment and plan: Right ICA severe stenosis 60-79% reported. vascular is following. Possible plans for surgery pending patient's decision but the patient is telling me he is not interested in one and wants to get by with the plavix and statin. Change aspirin to Plavix per neurology's recommendations. (7) CHF exacerbation Current Visit: Yes Status: Chronic Assessment and plan: as listed above Qualifiers: Congestive heart failure type: unspecified Qualified Code(s): I50.9 - Heart failure, unspecified (8) DVT prophylaxis Current Visit: No Status: Acute Assessment and plan: Heparin SQ - Subjective Interval history: Acute events. The patient is still requiring higher than his normal needs for oxygen. He is about 6 L high flow. He has been afebrile. - Constitutional Vitals: Temp Pulse Resp BP Pulse Ox 97.6 F 67 12 126/59 92 10/24/17 11:07 10/24/17 11:07 10/24/17 11:07 10/24/17 11:07 10/24/17 11:07 General appearance: Present: A&O X 3 (Small area of skin excision close to the left ear), no acute distress Exam: GEN: NAD CVS: RRR. S1, S2, No m/r/g RESP: CTAB ABD: Soft, NT, ND, +BS EXT: No edema. 2+ DP. No rashes NEURO: Nonfocal Internal Medicine: Result - Labs CBC & Chem 7: 10/24/17 04:06 10/24/17 04:06 Labs: Short CBC 10/24/17 Range/Units 04:06 WBC 6.2 (4.3-11.1) K/mcL Hgb 12.3 L (12.9-16.9) g/dL Hct 37.3 L (37.5-50.1) % Plt Count 144 (140-400) K/mcL Neutrophils # 3.8 (1.6-8.9) K/mcL BMP 10/24/17 04:06 Sodium 137 Potassium 3.6 Chloride 101 Carbon Dioxide 31 H BUN 22 Creatinine 0.55 L Glucose 98 Calcium 9.0 - ABG Interpretation ABG results: ABG ABG pH 7.49 pH Units (7.32-7.45) H 10/21/17 23:01 ABG pCO2 37 mmHg (35-45) 10/21/17 23:01 ABG pO2 67 mmHg (85-104) L 10/21/17 23:01 ABG O2 Saturation 95 % (95-98) 10/21/17 23:01 PT/INR, D-dimer PT 12.2 Seconds (9.4-12.1) H 10/21/17 22:53 - Impressions Impressions Brain MRI 10/23/17 14:05 IMPRESSION: 1. No acute intracranial abnormality. No acute infarct. 2. Mild global parenchymal volume loss with minimal chronic microvascular ischemic change. 3. Sequelae of a prior hemorrhagic infarct involving the right temporal/occipital lobe. D/ / Danny Barr MD / Danny Barr MD Interpreting Provider: Danny Barr MD Consult Discharge Plan - Plan Referrals: Jorge Ferrera MD [Primary Care Provider] -
[2017-10-24] MEDS: *HR* OxyCODONE Immed Rel 5 MG TABLET PO PRN ×2 (16:31→23:24)
[2017-10-24] MEDS: Furosemide 40 MG/4 ML VIAL IVP SCH ×2 (16:32→21:23)
[2017-10-24] MEDS: clonazePAM 0.5 MG TABLET PO SCH (21:27)
[2017-10-25] MEDS: Ipratropium/Albuterol Neb 3 ML IH SCH ×4 (03:56→21:55)
[2017-10-25] MEDS: *HR* Heparin 5,000 UNIT/ML VIAL SQ SCH ×3 (05:21→21:38)
[2017-10-25] MEDS: Vancomycin 1,250 MG in D5% in Water 250 ML IVPB SCH (05:21)
[2017-10-25 07:15] LABS: Basophils # 0.1 K/mcL (0.0-0.2); Basophils % 0.8 %; Eosinophils # 0.2 K/mcL (0.0-0.6); Hematocrit 36.1 % (37.5-50.1); Immature Granulocytes % 1.7 % (0-4); Lymphocytes # 1.1 K/mcL (0.6-4.6); Lymphocytes % 18.4 %; Mean Corpuscular HGB Conc 33.2 g/dL (31.6-35.5); Mean Corpuscular Hemoglobin 31.1 pg (28.0-33.3); Mean Corpuscular Volume 93.5 fL (83.0-100.0); Mean Platelet Volume 9.2 fL (9.4-12.4); Monocytes # 0.5 K/mcL (0.0-1.3); Monocytes % 7.5 %; Neutrophils # 4.1 K/mcL (1.6-8.9); Platelet Count 137 K/mcL (140-400); Red Blood Count 3.86 M/mcL (4.19-5.50); Red Cell Distribution Width 14.1 % (11.5-14.5); Segmented Neutrophils % 68.6 %
[2017-10-25 07:41] LABS: BUN/Creatinine Ratio 37 (6-26); Blood Urea Nitrogen 20 mg/dL (8-23); Calcium 8.8 mg/dL (8.6-10.3); Carbon Dioxide 32 mEq/L (23-29); Chloride 103 mEq/L (98-107); Potassium 3.8 mEq/L (3.5-5.1); Sodium 139 mEq/L (136-145); eGFR For African Americans > 60 (> 60); eGFR For Non-African Americans > 60 (> 60)
--- NOTE | 2017-10-25 08:08 | Vascular/[facility] Progress Note ---
Date of Encounter: 10/24/17 Time of Encounter: 19:15 - Assessment and plan (1) Carotid stenosis, right Current Visit: Yes Status: Chronic The patient has a 60-79% right internal carotid artery stenosis by carotid duplex. He has had a prior right hemispheric CVA by CT scan. This has occurred during the last few months. He reports chronic left sided parasthesias. He is a poor candidate for endarterectomy.He will be referred for consultation regarding possible carotid stenting. Continue with Plavix and Statin. (2) Pneumonia Current Visit: Yes Status: Acute Qualifiers: Pneumonia type: due to unspecified organism Laterality: unspecified laterality Lung location: unspecified part of lung Qualified Code(s): J18.9 - Pneumonia, unspecified organism (3) Pulmonary fibrosis Current Visit: Yes Status: Chronic - Subjective Interval history: The patient is comfortable and alert. He has no new complaints. He denies any new symptoms of CVA, TIA or amaurosis fugax. Vital Signs, Last 4 Hours Temp Pulse Resp BP Pulse Ox 10/25/17 06:46 97.7 F 58 16 99/69 98 10/25/17 05:47 98 F 63 18 99/58 97 - Physical Examination General: Present: Conversant, No Apparent Distress HEENT: Present: Atraumatic, Pupils equal Neck: Absent: JVD Cardiac: Present: Normal S1 and S2 Lungs: Present: Decreased breath sounds Neuro: Present: Alert and responsive, No focal deficits noted Vascular: Present: Normal capillary refill. Absent: Cyanosis, Edema Abdomen: Present: Soft, Non-tender Skin: Present: No rashes noted on visualized skin Results 10/25/17 06:56 10/25/17 06:56 Lab Results, Last 24 hours 10/25/17 10/25/17 06:56 06:56 WBC 6.0 Hgb 12.0 L Hct 36.1 L Plt Count 137 L Sodium 139 Potassium 3.8 Chloride 103 Carbon Dioxide 32 H BUN 20 Creatinine 0.54 L Calcium 8.8 - Imaging / Other Tests MRI/MRA: report reviewed Consult Discharge Plan - Plan Instructions: Sulfamethoxazole/Trimethoprim (By mouth), Simvastatin (By mouth) , Clopidogrel (By mouth), Heart Failure (DC), Peripheral Vascular Disorders (DC) , Chronic Obstructive Pulmonary Disease (DC), Pneumonia (DC) Additional Instructions: Follow-up with primary care physician within the next 7 days. Follow-up with pulmonary service within 2 weeks. Continue Bactrim, continue prednisone, increase Lasix. Vascular surgery will refer him to have a carotid stent placed. Stop aspirin and start Plavix Referrals: Lele Fulton MD [Partnered Physician] - (requested an appointment ) Jorge Ferrera MD [Primary Care Provider] - Prescriptions: OxyCODONE Immed Rel [Roxicodone 5 MG] 5 mg PO Q6HR PRN #20 tablet PRN Reason: Moderate Pain (4-6) Clopidogrel [Plavix] 75 mg PO DAILY #30 tablet Furosemide [Lasix] 40 mg PO DAILY 30 Days tablet Simvastatin [Zocor] 40 mg PO HS #30 tablet Sulfamethoxazole/Trimeth DS [Bactrim DS] 1 each PO BID #10 tablet
[2017-10-25] MEDS ORDERED: Aminoglycoside Consult 1 EACH MC ONE (08:26)
[2017-10-25 08:33] LABS: Glucose 115 mg/dL (70-105); Osmolality,Calculated 292 (280-300)
[2017-10-25] MEDS: predniSONE 10 MG TABLET PO SCH (08:45)
[2017-10-25] MEDS: Cefepime HCl 1,000 MG in Water for inj. (sterile) 10 ML IVP SCH ×2 (08:45→19:30)
[2017-10-25] MEDS: Folic Acid 1 MG TABLET PO SCH (08:45)
--- NOTE | 2017-10-25 12:35 | Discharge Summary ---
Date of Encounter: 10/25/17 Time of Encounter: 12:34 - Discharge Diagnosis (1) Acute pulmonary edema Priority: Primary Status: Acute Comments: Acute on chronic hypoxic respiratory failure secondary to acute pulmonary edema triggered by coronavirus NL63 and acute diastolic CHF exacerbation in combination with possible early community-acquired pneumonia in the setting of idiopathic pulmonary fibrosis and COPD (2) CVA (cerebral vascular accident) Priority: Secondary Status: Acute Qualifiers: CVA mechanism: unspecified Qualified Code(s): I63.9 - Cerebral infarction, unspecified (3) Congestive heart failure Priority: Secondary Status: Acute Qualifiers: Congestive heart failure type: unspecified congestive heart failure type Congestive heart failure chronicity: unspecified congestive heart failure chronicity Qualified Code(s): I50.9 - Heart failure, unspecified (4) COPD (chronic obstructive pulmonary disease) Priority: Secondary Status: Acute Qualifiers: COPD type: unspecified COPD Qualified Code(s): J44.9 - Chronic obstructive pulmonary disease, unspecified (5) Pulmonary fibrosis Priority: Secondary Status: Chronic (6) Acute on chronic respiratory failure Priority: Secondary Status: Acute Qualifiers: Respiratory failure complication: hypoxia Qualified Code(s): J96.21 - Acute and chronic respiratory failure with hypoxia (7) Carotid stenosis, right Priority: Secondary Status: Chronic - Discharge Medications Prescriptions: OxyCODONE Immed Rel [Roxicodone 5 MG] 5 mg PO Q6HR PRN #20 tablet PRN Reason: Moderate Pain (4-6) Clopidogrel [Plavix] 75 mg PO DAILY #30 tablet Furosemide [Lasix] 40 mg PO DAILY 30 Days tablet Simvastatin [Zocor] 40 mg PO HS #30 tablet Sulfamethoxazole/Trimeth DS [Bactrim DS] 1 each PO BID #10 tablet Home Medications: Mv-Mn/FA/Vit K/Lycop/Lut/Coq10 [Daily Multivitamin Capsule] 1 tab PO DAILY 05/23 [History] Folic Acid 1 mg PO DAILY 08/14/17 [History] Oxygen 4 l NS AD 08/14/17 [History] clonazePAM [Klonopin] 0.5 mg PO HS 08/28/17 [History] Tiotropium [Spiriva] 18 mcg IH DAILY #30 capsule 08/30/17 [Rx] predniSONE [PredniSONE] 10 mg PO DAILY 10/22/17 [History] Clopidogrel [Plavix] 75 mg PO DAILY #30 tablet 10/25/17 [Rx] Furosemide [Lasix] 40 mg PO DAILY 30 Days tablet 10/25/17 [Rx] OxyCODONE Immed Rel [Roxicodone 5 MG] 5 mg PO Q6HR PRN #20 tablet 10/25/17 [Rx] Simvastatin [Zocor] 40 mg PO HS #30 tablet 10/25/17 [Rx] Sulfamethoxazole/Trimeth DS [Bactrim DS] 1 each PO BID #10 tablet 10/25/17 [Rx] Allergies/Adverse Reactions: 3 Allergy/AdvReac Type Severity Reaction Status Date / Time No Known Allergies Allergy Verified 08/28/17 07:35 Procedures/tests Complete & Pending: Procedures Performed prior 72 hours Category Date Time Status MR head/brain wo con [MR] Routine MRI 10/23/17 14:05 Completed Date of admission: 10/22/17 00:51 Primary care physician: Jorge Ferrera MD Consults: 10/23/17 11:58 Consult to Vascular Surgery [CONS] Routine Consulting Provider: Vascular Surgery Anne Reason for Consult: severe carotid stenosis Call Completed: Yes - Patient Status Disposition: Home, Self-Care Condition: Good Overall status at discharge: patient is back to baseline - Discharge Instructions Follow Up With: Jorge Ferrera MD [Primary Care Provider] - Additional Instructions: Follow-up with primary care physician within the next 7 days. Follow-up with pulmonary service within 2 weeks. Continue Bactrim, continue prednisone, increase Lasix. Vascular surgery will refer him to have a carotid stent placed. Stop aspirin and start Plavix - Diet and Activity Activity: as per physical therapy Diet: low fat, low cholesterol Hospital course: Mr. Canada is a 72 year old male with a past medical history of arthritis, CHF ( Diastolic), MRSA in sputum, COPD (Oxygen dependent using 4 L at home, idiopathic pulmonary fibrosis), CVA, GERD, hyperlipidemia, other (Osteoarthritis , alcohol abuse according to prior records, history of herpetic neuralgia, cholelithiasis, cervical radiculopathy , came to the emergency room complaining of difficulty breathing worsened in the past few days prior to admission accompanied by headaches and some hemoptysis. Chest x-ray showed acute pulmonary edema, the patient was feeling dizzy, BNP was 429. CT scan of the head was performed showing an old right occipital and temporal infarct that was not present back in July of last year , he denied any deficits. ABG showed a pH of 7.49 a PCO2 of 37 and a PO2 of 67. Lactic acid was 3 and has come down to 2.3. Was started on Cefepime and Vancomycin due to Hx of MRSA. Was positive for coronavirus. Improved on Lasix. Was maintained on his home dose of10 mg of prednisone. Neurology and vascular surgery were consulted. MRI of the brain showed 1. No acute intracranial abnormality. No acute infarct. 2. Mild global parenchymal volume loss with minimal chronic microvascular ischemic change. 3. Sequelae of a prior hemorrhagic infarct involving the right temporal/occipital lobe Neurology recommended to switch aspirin for Plavix. The patient has a 60-79% right internal carotid artery stenosis by carotid duplex. He has had a prior right hemispheric CVA by CT scan. This has occurred during the last few months. He reported chronic left sided parasthesias. He is a poor candidate for endarterectomy. He will be referred for consultation regarding possible carotid stenting. Continue with Plavix and Statin. Blood culture just became positive for gram positive cocci which is most likely a contaminant as only 1 out of 2 bottles is positive. Back in May the patient was positive for Serratia and MRSA in sputum both were sensitive to Bactrim. He has agreed to be discharged on this antibiotic. He was offered a the option to stay another day but prefers to go home at this point. - Time Spent with Patient Total time spent providing and/or coordinating discharge services: Greater than 30 minutes (40 min) - Constitutional Vitals: Temp Pulse Resp BP Pulse Ox 97.9 F 69 16 93/55 94 10/25/17 11:36 10/25/17 11:36 10/25/17 11:36 10/25/17 11:36 10/25/17 11:36 General appearance: Present: A&O X 3 (Small area of skin excision close to the left ear), no acute distress - Head Head exam: Present: atraumatic, normocephalic - Eye Eye exam: Present: PERRL, conjuntiva pink, sclera anicteric Pupils: Present: PERRL - Neck Neck exam general surgery: Present: supple, trachea midline. Absent: lymphadenopathy - Respiratory Respiratory exam: Present: CTAB. Absent: accessory muscle use, rales, rhonchi, wheezes - Cardiovascular Cardiovascular exam: Present: RRR, +S1, +S2. Absent: diastolic murmur, gallop, rubs, systolic murmur - GI/Abdominal GI/Abdominal exam: Present: normal bowel sounds, soft, no peritoneal signs. Absent: distended, tenderness - Extremities Exam Extremities exam: Present: warm, radial pulses palpable and symmetrical. Absent : calf tenderness, cyanotic, pedal edema - Neurological Exam Neurological exam: Present: CN II-XII intact, oriented X3, no focal deficits. Absent: pronater drift, facial droop, speech deficit - Skin Skin exam: Present: dry, intact
--- NOTE | 2017-10-25 12:58 | Physician Discharge Referral ---
Home Health/Hosp Referral Info Transfer to: Home Health Provider in Charge Post Discharge: PCP - Diagnosis (1) Acute pulmonary edema Status: Acute (2) CVA (cerebral vascular accident) Status: Acute (3) Congestive heart failure Status: Acute (4) COPD (chronic obstructive pulmonary disease) Status: Acute (5) Pulmonary fibrosis Status: Chronic (6) Acute on chronic respiratory failure Status: Acute (7) Carotid stenosis, right Status: Chronic - Respiratory Orders Smoking Cessation: Smoking cessation has been advised. For more information, call the [place] Tobacco Quit Line at 8-838-KXSD-NOW. - Diet/Nutrition Diet/Nutrition Orders: No Added Salt (ERIN) Other Treatments: Follow-up with primary care physician within the next 7 days. Follow-up with pulmonary service within 2 weeks. Continue Bactrim, continue prednisone, increase Lasix. Vascular surgery will refer him to have a carotid stent placed. Stop aspirin and start Plavix - Transfer Medications Prescriptions: OxyCODONE Immed Rel [Roxicodone 5 MG] 5 mg PO Q6HR PRN #20 tablet PRN Reason: Moderate Pain (4-6) Clopidogrel [Plavix] 75 mg PO DAILY #30 tablet Furosemide [Lasix] 40 mg PO DAILY 30 Days tablet Simvastatin [Zocor] 40 mg PO HS #30 tablet Sulfamethoxazole/Trimeth DS [Bactrim DS] 1 each PO BID #10 tablet Home Medications: Mv-Mn/FA/Vit K/Lycop/Lut/Coq10 [Daily Multivitamin Capsule] 1 tab PO DAILY 05/23 [History] Folic Acid 1 mg PO DAILY 08/14/17 [History] Oxygen 4 l NS AD 08/14/17 [History] clonazePAM [Klonopin] 0.5 mg PO HS 08/28/17 [History] Tiotropium [Spiriva] 18 mcg IH DAILY #30 capsule 08/30/17 [Rx] predniSONE [PredniSONE] 10 mg PO DAILY 10/22/17 [History] Clopidogrel [Plavix] 75 mg PO DAILY #30 tablet 10/25/17 [Rx] Furosemide [Lasix] 40 mg PO DAILY 30 Days tablet 10/25/17 [Rx] OxyCODONE Immed Rel [Roxicodone 5 MG] 5 mg PO Q6HR PRN #20 tablet 10/25/17 [Rx] Simvastatin [Zocor] 40 mg PO HS #30 tablet 10/25/17 [Rx] Sulfamethoxazole/Trimeth DS [Bactrim DS] 1 each PO BID #10 tablet 10/25/17 [Rx] Allergies/Adverse Reactions: 3 Allergy/AdvReac Type Severity Reaction Status Date / Time No Known Allergies Allergy Verified 08/28/17 07:35 Certification: Further, I certify that my clinical findings support that this patient is homebound (i.e. absences from home require considerable and taxing effort and are for medical reasons or restorationist services or infrequently or short duration when for other reasons) because: Homebound Reason: Patient requires assistance of a person or device to safely leave home Attestation: My signature below is to certify that this patient is under my care and that I, or nurse practitioner, or a physician's assistant floor covering printer working with me, has a face-to -face encounter with this patient.
[2017-10-25] MEDS: Furosemide 40 MG/4 ML VIAL IVP SCH ×2 (14:45→18:20)
[2017-10-25] MEDS: *HR* OxyCODONE Immed Rel 5 MG TABLET PO PRN (18:24)
[2017-10-25] MEDS: clonazePAM 0.5 MG TABLET PO SCH (19:31)
[2017-10-26] MEDS: Ipratropium/Albuterol Neb 3 ML IH SCH ×2 (03:32→10:03)
[2017-10-26] MEDS: *HR* Heparin 5,000 UNIT/ML VIAL SQ SCH (05:23)
[2017-10-26 07:30] VITALS: BP 89/61
[2017-10-26] MEDS: Cefepime HCl 1,000 MG in Water for inj. (sterile) 10 ML IVP SCH (07:50)
[2017-10-26] MEDS: Folic Acid 1 MG TABLET PO SCH (07:50)
[2017-10-26] MEDS: predniSONE 10 MG TABLET PO SCH (07:50)
--- NOTE | 2017-10-26 10:36 | Internal Med Progress Note ---
Date of Encounter: 10/26/17 Time of Encounter: 10:33 - Assessment and plan (1) Acute pulmonary edema Current Visit: Yes Status: Acute Assessment and plan: Acute on chronic hypoxic respiratory failure secondary to acute pulmonary edema triggered by coronavirus NL63 and acute diastolic CHF exacerbation in combination with possible early community-acquired pneumonia in the setting of idiopathic pulmonary fibrosis and COPD History of Serratia and MRSA in sputum both sensitive to Bactrim Discontinued vancomycin and cefepime and started Bactrim Continue low dose prednisone 10 mg daily Oxygen therapy (2) CVA (cerebral vascular accident) Current Visit: Yes Status: Acute Assessment and plan: Neurology on board MRI with no acute findings. Neurology and vascular surgery were consulted. MRI of the brain showed 1. No acute intracranial abnormality. No acute infarct. 2. Mild global parenchymal volume loss with minimal chronic microvascular ischemic change. 3. Sequelae of a prior hemorrhagic infarct involving the right temporal/occipital lobe Neurology recommended to switch aspirin for Plavix. The patient has a 60-79% right internal carotid artery stenosis by carotid duplex. He has had a prior right hemispheric CVA by CT scan. This has occurred during the last few months. He reported chronic left sided parasthesias. He is a poor candidate for endarterectomy. He will be referred for consultation regarding possible carotid stenting. Continue with Plavix and Statin. Qualifiers: CVA mechanism: unspecified Qualified Code(s): I63.9 - Cerebral infarction, unspecified (3) Congestive heart failure Current Visit: No Status: Acute Assessment and plan: Continue Lasix Qualifiers: Congestive heart failure type: unspecified congestive heart failure type Congestive heart failure chronicity: unspecified congestive heart failure chronicity Qualified Code(s): I50.9 - Heart failure, unspecified (4) COPD (chronic obstructive pulmonary disease) Current Visit: No Status: Acute Assessment and plan: not in acute exacerbation continue home meds Qualifiers: COPD type: unspecified COPD Qualified Code(s): J44.9 - Chronic obstructive pulmonary disease, unspecified (5) Pulmonary fibrosis Current Visit: Yes Status: Chronic (6) Acute on chronic respiratory failure Current Visit: No Status: Acute Assessment and plan: Secondary to CHF exacerbation and HCAP continue IV diuretics monitor I/Os, daily weight fluid restriction diet continue broad spectrum IV abx f/u on final blood cultures. Wean down on oxygen as tolerated. He is on chronic O2 4L. Qualifiers: Respiratory failure complication: hypoxia Qualified Code(s): J96.21 - Acute and chronic respiratory failure with hypoxia (7) Carotid stenosis, right Current Visit: Yes Status: Chronic Assessment and plan: Right ICA severe stenosis 60-79% reported. As stated above - Subjective Interval history: was feeling SOB after coughing yesterday and preferred not to be discharged. Denies any CP , feel less SOB, no fever, no abdominal pain or dysuria - Constitutional Vitals: Temp Pulse Resp BP Pulse Ox 97.7 F 62 18 89/61 90 10/26/17 07:26 10/26/17 07:26 10/26/17 10:05 10/26/17 07:26 10/26/17 10:05 General appearance: Present: A&O X 3 (Small area of skin excision close to the left ear), no acute distress Exam: Head Head exam: Present: atraumatic, normocephalic - Eye Eye exam: Present: PERRL, conjuntiva pink, sclera anicteric Pupils: Present: PERRL - Neck Neck exam general surgery: Present: supple, trachea midline. Absent: lymphadenopathy - Respiratory Respiratory exam: Present: CTAB. Absent: accessory muscle use, rales, rhonchi, wheezes - Cardiovascular Cardiovascular exam: Present: RRR, +S1, +S2. Absent: diastolic murmur, gallop, rubs, systolic murmur - GI/Abdominal GI/Abdominal exam: Present: normal bowel sounds, soft, no peritoneal signs. Absent: distended, tenderness - Extremities Exam Extremities exam: Present: warm, radial pulses palpable and symmetrical. Absent : calf tenderness, cyanotic, pedal edema - Neurological Exam Neurological exam: Present: CN II-XII intact, oriented X3, no focal deficits. Absent: pronater drift, facial droop, speech deficit - Skin Skin exam: Present: dry, intact Internal Medicine: Result - Labs CBC & Chem 7: 10/25/17 06:56 10/25/17 06:56 - ABG Interpretation ABG results: ABG ABG pH 7.49 pH Units (7.32-7.45) H 10/21/17 23:01 ABG pCO2 37 mmHg (35-45) 10/21/17 23:01 ABG pO2 67 mmHg (85-104) L 10/21/17 23:01 ABG O2 Saturation 95 % (95-98) 10/21/17 23:01 PT/INR, D-dimer PT 12.2 Seconds (9.4-12.1) H 10/21/17 22:53 Consult Discharge Plan - Plan Instructions: Sulfamethoxazole/Trimethoprim (By mouth), Simvastatin (By mouth) , Clopidogrel (By mouth), Heart Failure (DC), Peripheral Vascular Disorders (DC) , Chronic Obstructive Pulmonary Disease (DC), Pneumonia (DC) Additional Instructions: Follow-up with primary care physician within the next 7 days. Follow-up with pulmonary service within 2 weeks. Continue Bactrim, continue prednisone, increase Lasix. Vascular surgery will refer him to have a carotid stent placed. Stop aspirin and start Plavix Referrals: Lele Fulton MD [Partnered Physician] - (requested an appointment ) Jorge Ferrera MD [Primary Care Provider] - Prescriptions: OxyCODONE Immed Rel [Roxicodone 5 MG] 5 mg PO Q6HR PRN #20 tablet PRN Reason: Moderate Pain (4-6) Clopidogrel [Plavix] 75 mg PO DAILY #30 tablet Furosemide [Lasix] 40 mg PO DAILY 30 Days tablet Simvastatin [Zocor] 40 mg PO HS #30 tablet Sulfamethoxazole/Trimeth DS [Bactrim DS] 1 each PO BID #10 tablet
[2017-10-26] MEDS ORDERED: Sulfamethoxazole/Trimeth DS 1 EACH TABLET PO SCH (10:45)
== END 2017-10-26 13:30 | disposition home or self-care (01) | DRG 291 ==
LOC: 2NENU 22:27 → EMEROO 22:27 → 2NENU 10-22 00:46 → SUATTDRO 10-22 00:51
PROVIDERS: ADMIT Internal Medicine; ATTEND Internal Medicine

== ENCOUNTER 2017-11-29 15:06 | Inpatient (IN) ==
[2017-11-29] MEDS ORDERED: Ipratropium/Albuterol Neb 3 ML IH ONE (15:20)
[2017-11-29] MEDS ORDERED: methylPREDNISolone 125 MG/2 ML VIAL IVP ONE (15:20)
--- NOTE | 2017-11-29 15:28 | Emergency Department Note ---
Disposition Clinical Impression: COPD exacerbation, Hypoxia, Abnormal sputum Disposition: Admitted As Inpatient Condition: Fair Time of Disposition: 18:05 SOB HPI - General Chief Complaint: ED Shortness of Breath/Dyspnea Stated Complaint: "sob, difficult to breathe" Source: EMS Limitations: physical limitation, age Nursing Notes Reviewed: Yes Vital Signs Reviewed: Yes - History of Present Illness 72-year-old male complains of extreme shortness of breath and coughing has gotten worse over the past 3 days. Patient states sputum is change to Dr. Cummins dark red. Patient denies any chest pain. Patient is on home O2 at 4-6 L but states she has had to put it up to 20 when he gets up and walks anywhere or when he uses the bathroom. Patient states he has a history of COPD and idiopathic pulmonary fibrosis for which she sees Dr. Arthur of pulmonology. Patient also has a history of CHF and is on Lasix 60 mg daily, 40 in the morning , 20 in the evening. Patient has been having frequent repeated bouts of pneumonia and is being treated on multiple different antibiotics secondary to medication failure. Patient lives at home with his . - Related Data Home Medications Medication Instructions Recorded Confirmed Mv-Mn/FA/Vit K/Lycop/Lut/Coq10 1 tab PO DAILY 05/23/17 11/29/17 [Daily Multivitamin Capsule] Folic Acid 1 mg PO DAILY 08/14/17 11/29/17 Oxygen 4 l NS AD 08/14/17 11/29/17 clonazePAM [Klonopin] 0.5 mg PO HS 08/28/17 11/29/17 predniSONE [PredniSONE] 10 mg PO DAILY 10/22/17 11/29/17 Budesonide/Formoterol 160/4.5 2 puff IH BIDR 11/29/17 11/29/17 [Symbicort 160/4.5] Esomeprazole Magnesium [Nexium] 20 mg PO DAILY 11/29/17 11/29/17 Famotidine [Pepcid] 40 mg PO DAILY 11/29/17 11/29/17 Furosemide [Lasix] 20 mg PO QPM 11/29/17 11/29/17 Furosemide [Lasix] 40 mg PO QAM 11/29/17 11/29/17 Ipratropium/Albuterol Neb [Duoneb] 3 ml IH Q6H PRN 11/29/17 11/29/17 Lidocaine Jelly 2% 1 appl TP TID PRN 11/29/17 11/29/17 Nitroglycerin [Nitrostat] 0.4 mg SL Q5M PRN 11/29/17 11/29/17 Pirfenidone [Esbriet] 801 mg PO TID 11/29/17 11/29/17 Tramadol HCl [Ultram] 50 mg PO TID PRN 11/29/17 11/29/17 Previous Rx's Medication Instructions Recorded Clopidogrel [Plavix] 75 mg PO DAILY #30 tablet 10/25/17 Simvastatin [Zocor] 40 mg PO HS #30 tablet 10/25/17 Allergies Allergy/AdvReac Type Severity Reaction Status Date / Time No Known Allergies Allergy Verified 08/28/17 07:35 All systems ED: reviewed and negative except as stated. Review of Systems: As Per HPI Constitutional: Denies: fever, chills, weakness ENT ED: Reports: congestion Cardiovascular: Denies: chest pain, palpitations Respiratory: Reports: cough, dyspnea, sputum production. Denies: wheezes, hemoptysis Gastrointestinal: Denies: abdominal pain, nausea, vomiting, diarrhea Past Medical History - Past Medical History Attestation: Yes The following information was validated with the patient. Source: patient, nursing notes reviewed Medical history: Reports: arthritis, CHF, COPD, CVA, GERD, hyperlipidemia, other Surgical history: Reports: other (Left ear cyst removal, possible skin cancer) Psychiatric history: Reports: no psych history - Social History Smoking Status: Former smoker Smokeless Tobacco Status: No Alcohol use: Reports: occasionally Drug use: Reports: none Physical Exam Vital Signs Temperature 98.1 F 11/29/17 15:09 Pulse Rate 72 11/29/17 15:09 Respiratory Rate 28 11/29/17 15:09 Blood Pressure 114/70 11/29/17 15:09 O2 Sat by Pulse Oximetry 97 11/29/17 15:09 Temperature 98.1 F 11/29/17 15:09 Pulse Rate 72 11/29/17 15:09 Respiratory Rate 28 11/29/17 15:09 Blood Pressure 114/70 11/29/17 15:09 O2 Sat by Pulse Oximetry 97 11/29/17 15:09 Oxygen Delivery Oxygen Delivery Venti Mask CONSTITUTIONAL: 72-year-old male who is A&O X 3, patient's enough in the bed with increased work of breathing and has conversational dyspnea unable to speak 2-3 words before after taking a breath. Patient currently having a breathing treatment on 10 L nonrebreather and not in extremis HEAD: Normocephalic; atraumatic EYES: PERRL, no scleral icterus NOSE: The nose is normal in appearance without rhinorrhea NECK: No JVD or distended neck veins RESP: Lung sounds and bibasilar rales and diminished right middle lobe. CARD: Regular rhythm, without murmurs, rub or gallop ABD: Non-distended; non-tender, soft, without rigidity, rebound or guarding,no pulsatile mass CHEST: No pain with palpation SKIN: Normal for age and race; warm and dry without diaphoresis ; no apparent lesions EXTREMITIES: Pulses are 2 plus and equal times 4 extremities, no peripheral edema or calf muscle pain, swelling to bilateral pad's of his feet with purplish discoloration, but nontender to palpation - General Limitations: age General appearance: alert Course - Reevaluation(s) Reevaluation #1: Sensation states he is feeling anxious. He has a history of claustrophobia. 0.5 mg IV Ativan ordered Time: 17:44 Reevaluation #2: Patient sitting up in bed calm. He is breathing easy on the nasal cannula at 6 L/m. Patient did have a brief moment of anxiety that lasts a few minutes but resolved the patient's and well. Repeat albuterol nebulizer ordered. Time: 18:48 Reevaluation #3: Pt is still doing well. Time: 20:28 - Consultations Consultation #1: Garrison Day the hospitalist as accepted patient for admission in stable condition to telemetry bed Time: 18:48 Vital Signs Temperature 98.1 F 11/29/17 15:09 Pulse Rate 72 11/29/17 15:09 Respiratory Rate 28 11/29/17 15:09 Blood Pressure 114/70 11/29/17 15:09 O2 Sat by Pulse Oximetry 97 11/29/17 15:09 Temperature 97.5 F L 11/29/17 21:17 Pulse Rate 74 11/29/17 21:17 Respiratory Rate 16 11/29/17 21:17 Blood Pressure 96/60 11/29/17 21:17 O2 Sat by Pulse Oximetry 95 11/29/17 21:17 Oxygen Delivery Oxygen Delivery Nasal Cannula Shortness of Breath/Dyspnea - MDM Narrative Medical decision making narrative: COPD exacerbation and possible CHF exacerbation with possible underlying pneumonia. Chest x-ray ordered, CBC, BMP, BNP, troponin, lactate, cultures. Patient has had previous bouts of pneumonia with the last times one month ago and currently finished Bactrim. Patient was placed on Keflex prior to the Bactrim. Dr. Arthur of pulmonology has seen the patient in office, and requests to be consulted when patient is admitted. Patient is doing well after DuoNeb and albuterol treatments. Patient was administered 125 of Solu-Medrol IV. Patient's VBG shows CO2 retention one point over upper limit of normal for his elevation of bicarbonate. Lactic acid is negative, patient's BNP lower previous measurement. Chest x-ray per radiology: Cardiomegaly with stable chronic interstitial lung disease. Patient was given 0.5 Ativan for anxiety, but otherwise doing well and stable condition. Current plan is for admission. Patient understands and agrees to treatment and plan for admission. Repeat dose of albuterol 7.5 mg have been ordered for the patient. 500cc bolus of IV normal saline ordered as well. Garrison Day the hospitalist as accepted patient for admission in stable condition to telemetry bed - Lab Data Lab results reviewed: Yes I reviewed the patient's lab results. Lab results narrative: Short CBC 11/29/17 Range/Units 16:09 WBC 6.2 (4.3-11.1) K/mcL Hgb 12.8 L (12.9-16.9) g/dL Hct 39.7 (37.5-50.1) % Plt Count 151 (140-400) K/mcL Neutrophils # 4.7 (1.6-8.9) K/mcL BMP 11/29/17 Range/Units 16:09 Sodium 142 (136-145) mEq/L Potassium 3.3 L (3.5-5.1) mEq/L Chloride 102 (98-107) mEq/L Carbon Dioxide 32 H (23-29) mEq/L BUN 19 (8-23) mg/dL Creatinine 0.68 L (0.70-1.30) mg/dL Glucose 134 H (70-105) mg/dL Calcium 9.1 (8.6-10.3) mg/dL Cardiac Enzymes 11/29/17 Range/Units 16:09 Troponin I < 0.03 (< 0.04) ng/mL Result diagrams: 11/29/17 16:09 11/29/17 16:09 Lab Results 11/29/1718 11/29/17 Range/Units 16:09 16:09 16:09 WBC 6.2 (4.3-11.1) K/mcL RBC 4.06 L (4.19-5.50) M/mcL Hgb 12.8 L (12.9-16.9) g/dL Hct 39.7 (37.5-50.1) % MCV 97.8 (83.0-100.0) fL MCH 31.5 (28.0-33.3) pg MCHC 32.2 (31.6-35.5) g/dL RDW 13.5 (11.5-14.5) % Plt Count 151 (140-400) K/mcL MPV 9.4 (9.4-12.4) fL Immature Gran % 0.5 (0-4) % Seg Neutrophils % 76.5 % Lymphocytes % 16.6 % Monocytes % 5.0 % Eosinophils % 0.8 % Basophils % 0.6 % Neutrophils # 4.7 (1.6-8.9) K/mcL Lymphocytes # 1.0 (0.6-4.6) K/mcL Monocytes # 0.3 (0.0-1.3) K/mcL Eosinophils # 0.1 (0.0-0.6) K/mcL Basophils # 0.0 (0.0-0.2) K/mcL VBG pH (7.32-7.42) pH Units VBG pCO2 (41-51) mmHg VBG pO2 (25-50) mmHg VBG HCO3 (21-27) mEq/L Sodium 142 (136-145) mEq/L Potassium 3.3 L (3.5-5.1) mEq/L Chloride 102 (98-107) mEq/L Carbon Dioxide 32 H (23-29) mEq/L BUN 19 (8-23) mg/dL Creatinine 0.68 L (0.70-1.30) mg/dL Est GFR ( Amer) > 60 (> 60) Est GFR (Non-Af Amer) > 60 (> 60) BUN/Creatinine Ratio 28 H (6-26) Glucose 134 H (70-105) mg/dL Calculated Osmolality 298 (280-300) Lactic Acid 2.1 (0.5-2.2) mmol/L Calcium 9.1 (8.6-10.3) mg/dL Troponin I (< 0.04) ng/mL B-Natriuretic Peptide (Less than 100) pg/mL 11/29/17 11/29/17 11/29/17 Range/Units 16:09 16:09 16:39 WBC (4.3-11.1) K/mcL RBC (4.19-5.50) M/mcL Hgb (12.9-16.9) g/dL Hct (37.5-50.1) % MCV (83.0-100.0) fL MCH (28.0-33.3) pg MCHC (31.6-35.5) g/dL RDW (11.5-14.5) % Plt Count (140-400) K/mcL MPV (9.4-12.4) fL Immature Gran % (0-4) % Seg Neutrophils % % Lymphocytes % % Monocytes % % Eosinophils % % Basophils % % Neutrophils # (1.6-8.9) K/mcL Lymphocytes # (0.6-4.6) K/mcL Monocytes # (0.0-1.3) K/mcL Eosinophils # (0.0-0.6) K/mcL Basophils # (0.0-0.2) K/mcL VBG pH 7.35 (7.32-7.42) pH Units VBG pCO2 62 H (41-51) mmHg VBG pO2 35 (25-50) mmHg VBG HCO3 34 H (21-27) mEq/L Sodium (136-145) mEq/L Potassium (3.5-5.1) mEq/L Chloride (98-107) mEq/L Carbon Dioxide (23-29) mEq/L BUN (8-23) mg/dL Creatinine (0.70-1.30) mg/dL Est GFR ( Amer) (> 60) Est GFR (Non-Af Amer) (> 60) BUN/Creatinine Ratio (6-26) Glucose (70-105) mg/dL Calculated Osmolality (280-300) Lactic Acid (0.5-2.2) mmol/L Calcium (8.6-10.3) mg/dL Troponin I < 0.03 (< 0.04) ng/mL B-Natriuretic Peptide 241 H (Less than 100) pg/mL - Radiology Data Radiology results reviewed: Yes I reviewed the patient's radiology results. Chest X-Ray 11/29/17 15:21 IMPRESSION: Cardiomegaly with stable chronic interstitial lung disease. D/ / 11/29/2017 16:08:22 Hu Quintana MD / [email or web address] Interpreting Provider: Hu Quintana MD - EKG Data EKG attestation: Yes I reviewed and interpreted this EKG. EKG results narrative: EKG taken at 11/29/2017 at 1549 hrs. shows a sinus rhythm and rate of [address] elevations in leads, the patient has ST depressions across V2, V2 V3, which are nontender and seen on previous EKG taken 10/21/2017. Attestation Statement - Attestation Attestation: I examined this patient and my medical decision-making was reviewed with the Resident Physician. I agree with the documented findings, disposition and treatment plan as described except to the extent set forth below. Clinically fairly obvious COPD exacerbation. Minimal symptomatic improvement with treatment in ED. Agree w admission.
[2017-11-29] MEDS ORDERED: Ipratropium/Albuterol Neb 3 ML ONE ×2 (15:30→21:24)
[2017-11-29] MEDS ORDERED: Albuterol 2.5 MG/3 ML NEBULIZER IH ONE ×2 (16:20→19:02)
[2017-11-29 16:25] LABS: Basophils % 0.6 %; Eosinophils # 0.1 K/mcL (0.0-0.6); Eosinophils % 0.8 %; Hematocrit 39.7 % (37.5-50.1); Hemoglobin 12.8 g/dL (12.9-16.9); Immature Granulocytes % 0.5 % (0-4); Lymphocytes % 16.6 %; Mean Corpuscular HGB Conc 32.2 g/dL (31.6-35.5); Mean Corpuscular Hemoglobin 31.5 pg (28.0-33.3); Mean Corpuscular Volume 97.8 fL (83.0-100.0); Mean Platelet Volume 9.4 fL (9.4-12.4); Monocytes # 0.3 K/mcL (0.0-1.3); Neutrophils # 4.7 K/mcL (1.6-8.9); Platelet Count 151 K/mcL (140-400); Red Blood Count 4.06 M/mcL (4.19-5.50); Red Cell Distribution Width 13.5 % (11.5-14.5); Segmented Neutrophils % 76.5 %
[2017-11-29 16:42] LABS: VBG HCO3 34 mEq/L (21-27); VBG PCO2 62 mmHg (41-51); VBG PH 7.35 pH Units (7.32-7.42); VBG PO2 35 mmHg (25-50)
[2017-11-29 16:58] LABS: Calcium 9.1 mg/dL (8.6-10.3); Carbon Dioxide 32 mEq/L (23-29); Chloride 102 mEq/L (98-107); Potassium 3.3 mEq/L (3.5-5.1); Sodium 142 mEq/L (136-145)
[2017-11-29 17:04] LABS: BUN/Creatinine Ratio 28 (6-26); Blood Urea Nitrogen 19 mg/dL (8-23); Glucose 134 mg/dL (70-105); Osmolality,Calculated 298 (280-300); eGFR For African Americans > 60 (> 60); eGFR For Non-African Americans > 60 (> 60)
[2017-11-29] MEDS ORDERED: *HR* LORazepam 2 MG/ML VIAL IVP ONE (17:43)
[2017-11-29] MEDS ORDERED: 0.9 % Sodium Chloride 500 ML IVC ONE (18:40)
[2017-11-29] MEDS ORDERED: Naloxone 0.4 MG/ML INJ IVP PRN (20:49)
[2017-11-29] MEDS ORDERED: Ipratropium/Albuterol Neb 3 ML IH PRN (20:53)
[2017-11-29] MEDS ORDERED: Nitroglycerin 0.4 MG TAB.SUBL SL PRN (20:54)
[2017-11-29] MEDS ORDERED: clonazePAM 0.5 MG TABLET PO SCH (21:00)
--- NOTE | 2017-11-29 21:45 | Internal Med History&Physical ---
Date of Encounter: 11/29/17 Time of Encounter: 20:00 Assessment and Plan (1) COPD exacerbation Current visit: Yes Status: Acute Pt has increased SOB and cough. Respond to Duoneb, steroid and Mg. Consider COPD exacerbation. Hx of IPF makes tis case more complicated. - Place pt on cont oximetry monitoring - Place pt on abx, steroid and bronchidilator - Check Flu test to r/o Flu - Place pt on BiPAP tonight as he has labor breathing. - Pulmonology consult called by ER. (2) Congestive heart failure Current visit: No Status: Acute Appears euvolemic now. Previous Echo reviewed, LVEF 55%. Qualifiers: Qualified Code(s): I50.9 - Heart failure, unspecified (3) DVT prophylaxis Current visit: No Status: Acute Heparin SC (4) Pulmonary fibrosis Current visit: No Status: Chronic Cont home meds Esbreit, pt is chronically on prednisone, now place him on solumendral 60mg iv q 8 hrs. Pulmonology consult for further management. Internal Medicine - H&P: HPI Chief complaint: SOB Admitted From: Home Plans for Post Hospital Care: Home History of present illness: Mr. Canada is a 72 year old male with Hx of IPF, COPD, CHF, carotid artery stenosis present to ER for increased SOB since today. Pt also has increased cough and relative low BP at 88/56. Pt uses NC 4-6L/min at home but now need 6 L /Min. Pt denies fever. He denies chest pain or nausea/vomiting. CXR shows no infiltrate. In ER, he was treated with Duoneb, Mg, and solumendral and feels better. Pt was admitted for further management. Past Med Surg Social Fam HX - Past Medical History Medical history: arthritis, CHF, COPD, CVA, GERD, hyperlipidemia, other Psychiatric history: no psych history - Past Surgical History Surgical History: other (Left ear cyst removal, possible skin cancer) - Social History Smoking Status: Former smoker Smokeless Tobacco Status: No Alcohol use: occasionally Drug use: none - Family History Father Adopted: Yes Living Status: Hx Family Neuromuscular Disorders: Yes (CVA) Internal Medicine - H&P: Meds Mv-Mn/FA/Vit K/Lycop/Lut/Coq10 [Daily Multivitamin Capsule] 1 tab PO DAILY 05/23 [History] Folic Acid 1 mg PO DAILY 08/14/17 [History] Oxygen 4 l NS AD 08/14/17 [History] clonazePAM [Klonopin] 0.5 mg PO HS 08/28/17 [History] predniSONE [PredniSONE] 10 mg PO DAILY 10/22/17 [History] Clopidogrel [Plavix] 75 mg PO DAILY #30 tablet 10/25/17 [Rx] Simvastatin [Zocor] 40 mg PO HS #30 tablet 10/25/17 [Rx] Budesonide/Formoterol 160/4.5 [Symbicort 160/4.5] 2 puff IH BIDR 11/29/17 [ History] Esomeprazole Magnesium [Nexium] 20 mg PO DAILY 11/29/17 [History] Famotidine [Pepcid] 40 mg PO DAILY 11/29/17 [History] Furosemide [Lasix] 20 mg PO QPM 11/29/17 [History] Furosemide [Lasix] 40 mg PO QAM 11/29/17 [History] Ipratropium/Albuterol Neb [Duoneb] 3 ml IH Q6H PRN 11/29/17 [History] Lidocaine Jelly 2% 1 appl TP TID PRN 11/29/17 [History] Nitroglycerin [Nitrostat] 0.4 mg SL Q5M PRN 11/29/17 [History] Pirfenidone [Esbriet] 801 mg PO TID 11/29/17 [History] Tramadol HCl [Ultram] 50 mg PO TID PRN 11/29/17 [History] 3 Allergy/AdvReac Type Severity Reaction Status Date / Time No Known Allergies Allergy Verified 08/28/17 07:35 All Systems PM: A 10-system review of systems was performed and is negative for pertinent findings except as documented above in the HPI. - Constitutional Vitals: Temp Pulse Resp BP Pulse Ox 97.5 F L 74 16 96/60 95 11/29/17 21:17 11/29/17 21:17 11/29/17 21:17 11/29/17 21:17 11/29/17 21:17 General appearance: Present: mild distress, A&O X 3, answers questions appropriately - Head Head exam: Present: atraumatic, normocephalic - Eye Eye exam: Present: PERRL, conjuntiva pink, sclera anicteric Pupils: Present: PERRL - Neck Neck exam general surgery: Present: supple, trachea midline. Absent: lymphadenopathy - Respiratory Respiratory exam: Present: CTAB. Absent: accessory muscle use, rales, rhonchi, wheezes Additional comments: Coarse breath sound B/L - Cardiovascular Cardiovascular exam: Present: RRR, +S1, +S2. Absent: diastolic murmur, gallop, rubs, systolic murmur - GI/Abdominal GI/Abdominal exam: Present: normal bowel sounds, soft, no peritoneal signs. Absent: distended, tenderness - Extremities Exam Extremities exam: Present: warm, radial pulses palpable and symmetrical. Absent : calf tenderness, cyanotic, pedal edema - Neurological Exam Neurological exam: Present: CN II-XII intact, oriented X3, no focal deficits. Absent: pronater drift, facial droop, speech deficit - Skin Skin exam: Present: dry, intact Internal Med - H&P Results - Labs CBC & Chem 7: 11/29/17 16:09 11/29/17 16:09 - EKG Data -: EKG Interpreted by Myself EKG shows normal: sinus rhythm Rate: normal
[2017-11-29] MEDS: Levofloxacin 750 MG/150 ML 750 MG/150 ML BAG IVPB SCH (22:36)
[2017-11-29] MEDS: Ipratropium/Albuterol Neb 3 ML IH SCH (23:19)
[2017-11-29] MEDS: Budesonide/Formoterol 160/4.5 MDI IH SCH (23:19)
[2017-11-29] MEDS: (Pirfenidone [Esbriet] 801 MG) PO SCH (23:23)
[2017-11-30] MEDS ORDERED: Haloperidol Lactate 5 MG/ML VIAL IVP ONE (00:42)
[2017-11-30] MEDS: Famotidine 20 MG TABLET PO SCH ×2 (00:52→20:53)
[2017-11-30] MEDS: methylPREDNISolone 125 MG/2 ML VIAL IVP SCH ×3 (00:52→18:05)
[2017-11-30] MEDS: Saline Nasal Spray 44 ML BOTTLE NS PRN ×2 (01:02→12:49)
[2017-11-30 02:26] LABS: Hematocrit 38.1 % (37.5-50.1); Hemoglobin 12.5 g/dL (12.9-16.9); Immature Granulocytes % 0.4 % (0-4); Lymphocytes # 0.1 K/mcL (0.6-4.6); Lymphocytes % 1.9 %; Mean Corpuscular HGB Conc 32.8 g/dL (31.6-35.5); Mean Corpuscular Hemoglobin 31.3 pg (28.0-33.3); Mean Corpuscular Volume 95.5 fL (83.0-100.0); Mean Platelet Volume 9.7 fL (9.4-12.4); Monocytes # 0.2 K/mcL (0.0-1.3); Monocytes % 2.1 %; Platelet Count 187 K/mcL (140-400); Red Blood Count 3.99 M/mcL (4.19-5.50); Red Cell Distribution Width 13.6 % (11.5-14.5); Segmented Neutrophils % 95.6 %
[2017-11-30 02:42] LABS: BUN/Creatinine Ratio 33 (6-26); Blood Urea Nitrogen 21 mg/dL (8-23); Calcium 9.2 mg/dL (8.6-10.3); Carbon Dioxide 27 mEq/L (23-29); Chloride 103 mEq/L (98-107); Glucose 159 mg/dL (70-105); Magnesium 2.2 mg/dL (1.6-2.6); Osmolality,Calculated 298 (280-300); Potassium 3.5 mEq/L (3.5-5.1); Sodium 141 mEq/L (136-145); eGFR For African Americans > 60 (> 60); eGFR For Non-African Americans > 60 (> 60)
[2017-11-30 03:58] LABS: Platelet Estimate Normal (Normal)
[2017-11-30] MEDS: traMADol 50 MG TABLET PO PRN ×2 (04:01→21:00)
[2017-11-30] MEDS: Ipratropium/Albuterol Neb 3 ML IH SCH ×4 (04:18→22:39)
[2017-11-30] MEDS ORDERED: clonazePAM 0.5 MG TABLET PO ONE (05:22)
[2017-11-30] MEDS: *HR* Heparin 5,000 UNIT/ML VIAL SQ SCH ×2 (06:25→18:05)
[2017-11-30] MEDS: Levofloxacin 750 MG/150 ML 750 MG/150 ML BAG IVPB SCH (09:07)
[2017-11-30] MEDS: Folic Acid 1 MG TABLET PO SCH (09:07)
[2017-11-30] MEDS: Multivit/Ca/Min/Fe/FA 1 TAB TABLET PO SCH (09:07)
[2017-11-30] MEDS: (Pirfenidone [Esbriet] 801 MG) PO SCH ×3 (09:07→20:54)
[2017-11-30] MEDS: Budesonide/Formoterol 160/4.5 MDI IH SCH ×2 (10:59→22:41)
[2017-11-30] MEDS: clonazePAM 1 MG TABLET PO PRN ×2 (13:13→20:53)
--- NOTE | 2017-11-30 14:15 | Pulmonology Consult Note ---
Date of Encounter: 11/30/17 Time of Encounter: 13:00 Assessment and Plan (1) Anxiety Current Visit: Yes Status: Chronic I have explained to the patient this is making it very difficult to know for sure whether his underlying lung disease is the reason for his dyspnea or anxiety is an anxiety, however in my opinion with his lung exam and since he is responding to Klonopin it is playing a major role for his dyspnea. I will increase his Klonopin dose and frequency. (2) COPD exacerbation Current Visit: Yes Status: Acute Patient is on appropriate treatment and weaning of systemic steroid as soon as possible since that might worsen his and anxiety. Continue bronchodilators and empiric antibiotics. (3) Pulmonary fibrosis Current Visit: No Status: Chronic Patient is being treated as outpatient and there is no evidence on chest x-ray that did not this exacerbation of his pulmonary fibrosis which could be a poor prognostic factor. Thank you very much for consultation History of Present Illness Consult date: 11/30/17 Requesting physician: Joanie Nuno Reason for consult: dyspnea Chief complaint: Shortness of breath History of present illness: This is a pleasant 72-year-old male who is known to me and is being treated for pulmonary fibrosis as well as COPD as outpatient and he presented to emergency room for increasing shortness of breath however his chest x-ray does not show significant evidence of exacerbation of IPF and he has chronic interstitial changes. Patient has significant hypoxemia and was admitted to the hospital for shortness of breath. On my evaluation today he is very nervous and hestates his anxiety and he is on long-term oxygen therapy. Patient denies any fever or chills. He was started on Klonopin small dose with some help however snotty nose. Patient denies any hemoptysis and no chest pain. She denies any significant wheezing. Past Med Surg Social Fam HX - Past Medical History Medical history: arthritis, CHF, COPD, CVA, GERD, hyperlipidemia, other Psychiatric history: no psych history - Past Surgical History Surgical History: other (Left ear cyst removal, possible skin cancer) - Social History Smoking Status: Former smoker Smokeless Tobacco Status: No Alcohol use: occasionally Drug use: none - Family History Father History Unknown: Yes Adopted: Yes Living Status: Hx Family Neuromuscular Disorders: Yes (CVA) Medications and Allergies Mv-Mn/FA/Vit K/Lycop/Lut/Coq10 [Daily Multivitamin Capsule] 1 tab PO DAILY 05/23 [History] Folic Acid 1 mg PO DAILY 08/14/17 [History] Oxygen 4 l NS AD 08/14/17 [History] clonazePAM [Klonopin] 0.5 mg PO HS 08/28/17 [History] predniSONE [PredniSONE] 10 mg PO DAILY 10/22/17 [History] Clopidogrel [Plavix] 75 mg PO DAILY #30 tablet 10/25/17 [Rx] Simvastatin [Zocor] 40 mg PO HS #30 tablet 10/25/17 [Rx] Budesonide/Formoterol 160/4.5 [Symbicort 160/4.5] 2 puff IH BIDR 11/29/17 [ History] Esomeprazole Magnesium [Nexium] 20 mg PO DAILY 11/29/17 [History] Famotidine [Pepcid] 40 mg PO DAILY 11/29/17 [History] Furosemide [Lasix] 20 mg PO QPM 11/29/17 [History] Furosemide [Lasix] 40 mg PO QAM 11/29/17 [History] Ipratropium/Albuterol Neb [Duoneb] 3 ml IH Q6H PRN 11/29/17 [History] Lidocaine Jelly 2% 1 appl TP TID PRN 11/29/17 [History] Nitroglycerin [Nitrostat] 0.4 mg SL Q5M PRN 11/29/17 [History] Pirfenidone [Esbriet] 801 mg PO TID 11/29/17 [History] Tramadol HCl [Ultram] 50 mg PO TID PRN 11/29/17 [History] 3 Allergy/AdvReac Type Severity Reaction Status Date / Time No Known Allergies Allergy Verified 08/28/17 07:35 All Systems: A 10-system review of systems was performed and is negative for pertinent findings except as documented above in the HPI. Physical Examination Vital Signs: Vital Signs, Last 4 Hours Temp Pulse Resp BP Pulse Ox 11/30/17 11:18 97.5 F L 72 16 95/56 97 11/30/17 10:59 16 95 General appearance: other (Anxiety) Eyes: nonicteric ENT: oropharynx moist Neck: supple Effort: mildly labored Inspection: hyperextended Auscultation: bilateral: diminished breath sounds, rales Tactile fremitus: bilateral: normal Gastrointestinal: normoactive bowel sounds, non-distended Extremities: no cyanosis normal mental status, non-focal exam anxious Results - Laboratory Findings CBC and BMP: 11/30/17 00:46 11/30/17 00:46 Abnormal lab findings: Abnormal lab results RBC 3.99 M/mcL (4.19-5.50) L 11/30/17 00:46 Hgb 12.5 g/dL (12.9-16.9) L 11/30/17 00:46 Lymphocytes # 0.1 K/mcL (0.6-4.6) L 11/30/17 00:46 VBG pCO2 62 mmHg (41-51) H 11/29/17 16:39 VBG HCO3 34 mEq/L (21-27) H 11/29/17 16:39 Creatinine 0.63 mg/dL (0.70-1.30) L 11/30/17 00:46 BUN/Creatinine Ratio 33 (6-26) H 11/30/17 00:46 Glucose 159 mg/dL (70-105) H 11/30/17 00:46 B-Natriuretic Peptide 241 pg/mL (Less than 100) H 11/29/17 16:09 - Microbiology Findings Microbiology Findings: Microbiology, Last 48 Hours 11/30/17 00:55 Influenza Types A,B Antigen (CLAUDY) - Final Nasopharyngeal - Diagnostic Findings CT scan - chest: report reviewed, image reviewed - Clinical Findings Intake & Output: Intake & Output 11/29/17 11/30/17 11/30/17 23:59 07:59 15:59 Intake Total 150 / 150 750 / 750 Output Total 350 / 350 Balance -200 / -200 750 / 750 Weight 69.4 kg 69.4 kg Consult Discharge Plan - Plan Referrals: Jorge Ferrera MD [Primary Care Provider] - 12/08/17 10:00 am
--- NOTE | 2017-11-30 17:25 | Internal Med Progress Note ---
Date of Encounter: 11/30/17 Time of Encounter: 10:40 - Assessment and plan (1) Anemia Current Visit: Yes Status: Acute Assessment and plan: Patient with anemia since October,. It is remaining steady around 12. As likely anemia of chronic disease, however patient does have poor by mouth intake. Iron studies, B12, folate have been ordered for morning. We will continue to monitor to avoid significant drop in hemoglobin. Qualifiers: Anemia type: unspecified type Qualified Code(s): D64.9 - Anemia, unspecified (2) Acute exacerbation of chronic obstructive airways disease Current Visit: Yes Status: Acute Assessment and plan: Acute exacerbation. Patient is evaluated by pulmonology. We will continue breathing treatments and empiric antibiotics. He recommends weaning steroids to assist in alleviating his anxiety. Patient was on 10 L of oxygen when I entered the room, weaned back to 8 L, patient tolerated well. We will continue to wean to his baseline 46 units prior to discharge. Faint wheezing is heard in anterior upper airways. Chest X-Ray 11/29/17 15:21 IMPRESSION: Cardiomegaly with stable chronic interstitial lung disease. D/ / 11/29/2017 16:08:22 Hu Quintana MD / [email or web address] Interpreting Provider: Hu Quintana MD (3) Congestive heart failure Current Visit: Yes Status: Acute Assessment and plan: Patient with history of diastolic heart failure. Last TTE was in October, ejection fraction was 55% and no significant valvular dysfunction. Patient appears to be euvolemic. Continue to monitor. Continue telemetry Continue home dose of Lasix. Qualifiers: Qualified Code(s): I50.9 - Heart failure, unspecified (4) DVT prophylaxis Current Visit: No Status: Acute Assessment and plan: Heparin subcutaneous twice daily. (5) Chronic respiratory failure with hypoxia Current Visit: Yes Status: Chronic Assessment and plan: Patient is being weaned back to his normal home baseline oxygen use of 4-6 L by nasal cannula. Acute on chronic respiratory failure with hypoxia. Patient's sats were in the 80s on arrival to the emergency department. Titrate O2 as needed to maintain sats between 80-93%. (6) Pulmonary fibrosis Current Visit: Yes Status: Chronic Assessment and plan: Patient with history of pulmonary fibrosis. He is being followed by pulmonology. I appreciate pulmonology's recommendations the consultation. Continue treatment as above. - Time Spent With Patient less than 15 minutes - Subjective Interval history: Patient was seen and assessed at bedside at 10:40 AM. Daughter at bedside, history and plan of care discussed with her. Patient's resting quietly, drowsy , arouses easily to verbal stimulation. Faint wheezing heard in the anterior lung collins. He denies headache or chest pain, no nausea vomiting or diarrhea. He denies any abdominal pain. Patient without any peripheral edema. - Constitutional Vitals: Temp Pulse Resp BP Pulse Ox 97.3 F L 73 15 100/65 94 11/30/17 16:04 11/30/17 16:04 11/30/17 16:33 11/30/17 16:33 11/30/17 16:33 General appearance: Present: cooperative, mild distress, A&O X 3, pleasant, no acute distress, answers questions appropriately - Head Head exam: Present: atraumatic, normal inspection, normocephalic - Eye Eye exam: Present: normal appearance, conjuntiva pink, sclera anicteric - Neck Neck exam general surgery: Present: supple, trachea midline. Absent: lymphadenopathy, tenderness - Respiratory Respiratory exam: Present: chest wall tenderness, CTAB. Absent: accessory muscle use, rales, respiratory distress, rhonchi, wheezes - Cardiovascular Cardiovascular exam: Present: RRR, +S1, +S2. Absent: diastolic murmur, gallop, rubs, systolic murmur - GI/Abdominal GI/Abdominal exam: Present: normal bowel sounds, soft. Absent: distended, hepatomegaly, tenderness - Extremities Exam Extremities exam: Present: normal capillary refill, warm, radial pulses palpable and symmetrical. Absent: calf tenderness, cyanotic, pedal edema, tenderness - Neurological Exam Neurological exam: Present: alert, oriented X3, no focal deficits. Absent: facial droop, speech deficit - Skin Skin exam: Present: dry, intact, normal color, warm. Absent: rash Internal Medicine: Result - Labs CBC & Chem 7: 11/30/17 00:46 11/30/17 00:46 Labs: Short CBC 11/30/17 Range/Units 00:46 WBC 7.3 (4.3-11.1) K/mcL Hgb 12.5 L (12.9-16.9) g/dL Hct 38.1 (37.5-50.1) % Plt Count 187 (140-400) K/mcL Neutrophils # 7.0 (1.6-8.9) K/mcL BMP 11/30/17 00:46 Sodium 141 Potassium 3.5 Chloride 103 Carbon Dioxide 27 BUN 21 Creatinine 0.63 L Glucose 159 H Calcium 9.2 Cardiac Enzymes 11/30/17 11/30/17 11/30/17 Range/Units 00:46 06:34 13:33 Troponin I < 0.03 < 0.03 < 0.03 (< 0.04) ng/mL Consult Discharge Plan - Plan Referrals: Jorge Ferrera MD [Primary Care Provider] - 12/08/17 10:00 am
[2017-11-30] MEDS: Furosemide 20 MG TABLET PO SCH (18:05)
[2017-11-30] MEDS: Furosemide 40 MG TABLET PO SCH (18:06)
[2017-12-01] MEDS: methylPREDNISolone 125 MG/2 ML VIAL IVP SCH ×4 (02:33→23:34)
[2017-12-01] MEDS: Ipratropium/Albuterol Neb 3 ML IH SCH ×4 (03:49→22:51)
[2017-12-01 06:02] LABS: Immature Granulocytes % 0.6 % (0-4); Lymphocytes # 0.3 K/mcL (0.6-4.6); Lymphocytes % 2.8 %; Mean Corpuscular HGB Conc 32.1 g/dL (31.6-35.5); Mean Corpuscular Hemoglobin 30.8 pg (28.0-33.3); Mean Platelet Volume 9.6 fL (9.4-12.4); Monocytes # 0.3 K/mcL (0.0-1.3); Monocytes % 2.7 %; Platelet Count 172 K/mcL (140-400); Red Blood Count 3.54 M/mcL (4.19-5.50); Red Cell Distribution Width 13.4 % (11.5-14.5); Segmented Neutrophils % 93.9 %
[2017-12-01 06:07] LABS: Hemoglobin 10.9 g/dL (12.9-16.9)
[2017-12-01 06:20] LABS: BUN/Creatinine Ratio 31 (6-26); Blood Urea Nitrogen 16 mg/dL (8-23); Calcium 9.3 mg/dL (8.6-10.3); Carbon Dioxide 29 mEq/L (23-29); Chloride 103 mEq/L (98-107); Glucose 134 mg/dL (70-105); Osmolality,Calculated 291 (280-300); Potassium 4.1 mEq/L (3.5-5.1); Sodium 139 mEq/L (136-145); eGFR For African Americans > 60 (> 60); eGFR For Non-African Americans > 60 (> 60)
[2017-12-01] MEDS: *HR* Heparin 5,000 UNIT/ML VIAL SQ SCH ×2 (06:20→18:17)
[2017-12-01 06:23] LABS: % Iron Saturation 53 % (20-55); Iron 126 mcg/dL (65-175); Transferrin 171 mg/dL (203-362)
[2017-12-01 06:36] LABS: Vitamin B12 371 pg/mL (250-1100)
[2017-12-01 06:42] LABS: Folate > 22.3 ng/mL (3.0-16.0)
--- NOTE | 2017-12-01 07:09 | Internal Med Progress Note ---
Date of Encounter: 12/01/17 - Assessment and plan (1) Anemia Current Visit: Yes Status: Acute Qualifiers: Anemia type: unspecified type Qualified Code(s): D64.9 - Anemia, unspecified (2) Acute exacerbation of chronic obstructive airways disease Current Visit: Yes Status: Acute (3) Congestive heart failure Current Visit: Yes Status: Acute Qualifiers: Qualified Code(s): I50.9 - Heart failure, unspecified (4) DVT prophylaxis Current Visit: No Status: Acute (5) Chronic respiratory failure with hypoxia Current Visit: Yes Status: Chronic (6) Pulmonary fibrosis Current Visit: Yes Status: Chronic (7) Acute on chronic respiratory failure Current Visit: Yes Status: Acute Assessment and plan: Pt has baseline 02 use of 4-6L via n/c at home, has been increased to 8-10L. Will continue to try to wean back to baseline. Qualifiers: Respiratory failure complication: hypoxia Qualified Code(s): J96.21 - Acute and chronic respiratory failure with hypoxia - Subjective Interval history: Patient was seen and assessed at bedside at 10:40 AM. Daughter at bedside, history and plan of care discussed with her. Patient's resting quietly, drowsy , arouses easily to verbal stimulation. Faint wheezing heard in the anterior lung collins. He denies headache or chest pain, no nausea vomiting or diarrhea. He denies any abdominal pain. Patient without any peripheral edema. - Constitutional Vitals: Temp Pulse Resp BP Pulse Ox 98.6 F 98 18 130/67 94 12/01/17 03:45 12/01/17 03:45 12/01/17 03:49 12/01/17 03:45 12/01/17 03:49 General appearance: Present: cooperative, mild distress, A&O X 3, pleasant, no acute distress, answers questions appropriately Internal Medicine: Result - Labs CBC & Chem 7: 12/01/17 05:21 12/01/17 05:21 Labs: Short CBC 12/01/17 Range/Units 05:21 WBC 9.6 (4.3-11.1) K/mcL Hgb 10.9 L D (12.9-16.9) g/dL Hct 34.0 L (37.5-50.1) % Plt Count 172 (140-400) K/mcL Neutrophils # 9.0 H (1.6-8.9) K/mcL BMP 12/01/17 05:21 Sodium 139 Potassium 4.1 Chloride 103 Carbon Dioxide 29 BUN 16 Creatinine 0.52 L Glucose 134 H Calcium 9.3 Cardiac Enzymes 11/30/17 11/30/17 Range/Units 06:34 13:33 Troponin I < 0.03 < 0.03 (< 0.04) ng/mL Consult Discharge Plan - Plan Referrals: Jorge Ferrera MD [Primary Care Provider] - 12/08/17 10:00 am
[2017-12-01] MEDS: Folic Acid 1 MG TABLET PO SCH (08:14)
[2017-12-01] MEDS: Multivit/Ca/Min/Fe/FA 1 TAB TABLET PO SCH (08:14)
[2017-12-01] MEDS: Furosemide 40 MG TABLET PO SCH (08:14)
[2017-12-01] MEDS: Levofloxacin 750 MG/150 ML 750 MG/150 ML BAG IVPB SCH (08:15)
[2017-12-01] MEDS: (Pirfenidone [Esbriet] 801 MG) PO SCH ×3 (08:29→20:10)
[2017-12-01] MEDS: Budesonide/Formoterol 160/4.5 MDI IH SCH ×2 (10:57→22:51)
[2017-12-01] MEDS: clonazePAM 1 MG TABLET PO PRN (15:02)
--- NOTE | 2017-12-01 15:53 | Discharge Summary ---
Date of Encounter: 12/01/17 Time of Encounter: 09:40 - Discharge Diagnosis (1) Anemia Priority: Primary Status: Acute Comments: Patient with anemia since October,. It is remaining steady around 12. Likely anemia of chronic disease, however patient does have poor by mouth intake. Iron percent saturation within normal limits, vitamin B12 is within normal limits, folate is elevated at 22.3. Qualifiers: Anemia type: unspecified type Qualified Code(s): D64.9 - Anemia, unspecified (2) Acute exacerbation of chronic obstructive airways disease Priority: Secondary Status: Acute Comments: Acute exacerbation. Patient has been evaluated by pulmonology. She will continue home O2, empiric antibiotics, as well as breathing treatments He recommends weaning steroids to assist in alleviating his anxiety. Patient was on 10 L of oxygen when I entered the room, weaned back to 8 L, patient tolerated well. He has returned to his normal baseline O2 use at home, 4-6 L via nasal cannula. Faint wheezing is heard in anterior upper airways. Chest X-Ray 11/29/17 15:21 IMPRESSION: Cardiomegaly with stable chronic interstitial lung disease. D/ / 11/29/2017 16:08:22 Hu Quintana MD / [email or web address] Interpreting Provider: Hu Quintana MD (3) Congestive heart failure Priority: Secondary Status: Chronic Comments: No acute exacerbation. Patient with no peripheral edema, no Rales heard. Patient has continued his normal home dose of Lasix, will continue at home. Mild elevation in BNP, not concerning for acute exacerbation. Continue home dose of Lasix after discharge. Qualifiers: Qualified Code(s): I50.9 - Heart failure, unspecified (4) Chronic respiratory failure with hypoxia Priority: Secondary Status: Chronic (5) Pulmonary fibrosis Priority: Secondary Status: Chronic Comments: Chronic. Patient was evaluated by pulmonology. He continues to follow with pulmonology office as outpatient. They do not feel at this time this is an exacerbation of pulmonary fibrosis, rather an exacerbation of COPD. Plan as above. (6) Acute on chronic respiratory failure Priority: Secondary Status: Acute Comments: Patient has returned to normal baseline use of oxygen, 4-6 L at home. Patient had been using up to 10 L on arrival. She is maintaining sats on baseline O2 use. Qualifiers: Respiratory failure complication: hypoxia Qualified Code(s): J96.21 - Acute and chronic respiratory failure with hypoxia (7) DVT prophylaxis Priority: Secondary Status: Acute Comments: Heparin subcutaneous twice daily. (8) Anxiety Priority: Secondary Status: Chronic Comments: Patient's daughter reports that he becomes anxious when he is short of breath. Dr. Addison increased Klonopin 1 mg 3 times a day when necessary. Prescription given. Daughter is aware the patient will only be given a 7 day supply. - Discharge Medications Prescriptions: clonazePAM [Klonopin] 1 mg PO TID PRN 7 Days #21 tablet PRN Reason: Anxiety Levofloxacin [Levaquin] 750 mg PO DAILY #5 tablet Home Medications: Mv-Mn/FA/Vit K/Lycop/Lut/Coq10 [Daily Multivitamin Capsule] 1 tab PO DAILY 05/23 [History] Folic Acid 1 mg PO DAILY 08/14/17 [History] Oxygen 4 l NS AD 08/14/17 [History] clonazePAM [Klonopin] 0.5 mg PO HS 08/28/17 [History] predniSONE [PredniSONE] 10 mg PO DAILY 10/22/17 [History] Clopidogrel [Plavix] 75 mg PO DAILY #30 tablet 10/25/17 [Rx] Simvastatin [Zocor] 40 mg PO HS #30 tablet 10/25/17 [Rx] Budesonide/Formoterol 160/4.5 [Symbicort 160/4.5] 2 puff IH BIDR 11/29/17 [ History] Esomeprazole Magnesium [Nexium] 20 mg PO DAILY 11/29/17 [History] Famotidine [Pepcid] 40 mg PO DAILY 11/29/17 [History] Furosemide [Lasix] 20 mg PO QPM 11/29/17 [History] Furosemide [Lasix] 40 mg PO QAM 11/29/17 [History] Ipratropium/Albuterol Neb [Duoneb] 3 ml IH Q6H PRN 11/29/17 [History] Lidocaine Jelly 2% 1 appl TP TID PRN 11/29/17 [History] Nitroglycerin [Nitrostat] 0.4 mg SL Q5M PRN 11/29/17 [History] Pirfenidone [Esbriet] 801 mg PO TID 11/29/17 [History] Tramadol HCl [Ultram] 50 mg PO TID PRN 11/29/17 [History] Levofloxacin [Levaquin] 750 mg PO DAILY #5 tablet 12/01/17 [Rx] clonazePAM [Klonopin] 1 mg PO TID PRN 7 Days #21 tablet 12/01/17 [Rx] Allergies/Adverse Reactions: 3 Allergy/AdvReac Type Severity Reaction Status Date / Time No Known Allergies Allergy Verified 08/28/17 07:35 Date of admission: 11/29/17 20:49 Primary care physician: Jorge Ferrera MD Consults: 11/30/17 09:19 Consult to Nurse Navigator [CONS] Routine Comment: CHF Discharging clinician: Sabrina Pabon Anticipated date of discharge: 12/01/17 - Patient Status Disposition: Home, Self-Care Condition: Good Functional capacity at discharge: wheelchair bound Overall status at discharge: patient is progressing back to baseline - Discharge Instructions Follow Up With: Jorge Ferrera MD [Primary Care Provider] - 12/08/17 10:00 am Additional Instructions: Please follow up with Dr Ferrera within the next 7-10 days for a recheck. Return to the ER as needed for any other problems or concerns. Resume your normal home medications and only take the Klonipin as needed. Resume your normal activities as tolerated and diet. Continue to supplement with Boost as you have been. - Diet and Activity Activity: increase activity as tolerated, wear oxygen at all times Diet: advance to your usual diet Hospital course: Mr. Canada is a 72 year old male Please see assessment and plan for hospital course. - Time Spent with Patient Total time spent providing and/or coordinating discharge services: - Constitutional Vitals: Temp Pulse Resp BP Pulse Ox 97.8 F 64 16 87/53 92 12/01/17 15:46 12/01/17 15:46 12/01/17 15:46 12/01/17 15:46 12/01/17 15:46 General appearance: Present: cooperative, mild distress, A&O X 3, pleasant, no acute distress, answers questions appropriately - Head Head exam: Present: atraumatic, normal inspection, normocephalic - Eye Eye exam: Present: normal appearance, conjuntiva pink, sclera anicteric - Neck Neck exam general surgery: Present: normal inspection, supple, trachea midline. Absent: lymphadenopathy - Respiratory Respiratory exam: Present: chest wall tenderness, CTAB. Absent: accessory muscle use, rales, rhonchi, wheezes - Cardiovascular Cardiovascular exam: Present: RRR, +S1, +S2. Absent: diastolic murmur, gallop, rubs, systolic murmur - GI/Abdominal GI/Abdominal exam: Present: normal bowel sounds, soft, no peritoneal signs. Absent: distended, hepatomegaly, tenderness - Extremities Exam Extremities exam: Present: normal capillary refill, warm, radial pulses palpable and symmetrical. Absent: calf tenderness, cyanotic, pedal edema, tenderness - Neurological Exam Neurological exam: Present: alert, oriented X3, no focal deficits. Absent: facial droop, speech deficit - Skin Skin exam: Present: dry, intact, normal color, warm. Absent: rash
[2017-12-01] MEDS ORDERED: 0.9 % Sodium Chloride 250 ML IVC ONE (15:56)
[2017-12-01] MEDS: Furosemide 20 MG TABLET PO SCH (18:48)
[2017-12-01] MEDS: Famotidine 20 MG TABLET PO SCH (20:11)
[2017-12-01] MEDS: traMADol 50 MG TABLET PO PRN (20:40)
[2017-12-01] MEDS: Saline Nasal Spray 44 ML BOTTLE NS PRN (23:31)
[2017-12-02] MEDS: Ipratropium/Albuterol Neb 3 ML IH SCH ×2 (04:11→10:31)
[2017-12-02] MEDS: *HR* Heparin 5,000 UNIT/ML VIAL SQ SCH (06:32)
[2017-12-02] MEDS ORDERED: clonazePAM 0.5 MG TABLET PO PRN (09:00)
[2017-12-02 09:54] VITALS: BP 105/63
[2017-12-02] MEDS: Budesonide/Formoterol 160/4.5 MDI IH SCH (10:31)
--- NOTE | 2017-12-02 11:19 | Internal Med Progress Note ---
Date of Encounter: 12/02/17 Time of Encounter: 09:00 - Assessment and plan (1) Anemia Current Visit: Yes Status: Acute Assessment and plan: Patient with anemia since October,. As likely anemia of chronic disease, however patient does have poor by mouth intake. Iron, % saturation, B12 WNL, Folate > 22.3. Most likely anemia of chronic disease and overall poor po intake. Continue to monitor with PCP. Qualifiers: Anemia type: unspecified type Qualified Code(s): D64.9 - Anemia, unspecified (2) Acute exacerbation of chronic obstructive airways disease Current Visit: Yes Status: Acute Assessment and plan: Acute exacerbation. Patient is evaluated by pulmonology, feel that pt may be having anxiety that is contributing to dyspnea. Try to avoid steroids to decrease anxiety. Pulmonolgy added Klonipin 1 mg po TID PRN. Pt's blood pressure may not be able to handle that dose, will change to 0.5mg po TID prn while here. Pt is back to his baseline 02 use, 6 liters n/c. Chest X-Ray 11/29/17 15:21 IMPRESSION: Cardiomegaly with stable chronic interstitial lung disease. D/ / 11/29/2017 16:08:22 Hu Quintana MD / [email or web address] Interpreting Provider: uH Quintana MD (3) Congestive heart failure Current Visit: Yes Status: Chronic Assessment and plan: Patient with history of diastolic heart failure. Last TTE was in October, ejection fraction was 55% and no significant valvular dysfunction. Patient appears to be euvolemic, no edema or respiratory changes above norm. Continue to monitor. Continue telemetry Continue home dose of Lasix. Qualifiers: Qualified Code(s): I50.9 - Heart failure, unspecified (4) Chronic respiratory failure with hypoxia Current Visit: Yes Status: Chronic Assessment and plan: Pt is back to baseline 02 use. Continue home 02 4-6L. (5) Pulmonary fibrosis Current Visit: Yes Status: Chronic Assessment and plan: Chronic. Pt sees pulmonology here, was evaluated in hospital. Will follow up outpt as scheduled. Plan as above. (6) Acute on chronic respiratory failure Current Visit: Yes Status: Acute Assessment and plan: Plan as above. Qualifiers: Respiratory failure complication: hypoxia Qualified Code(s): J96.21 - Acute and chronic respiratory failure with hypoxia (7) DVT prophylaxis Current Visit: No Status: Acute Assessment and plan: Heparin subcutaneous twice daily. Pt is ambultory with assistance. (8) Anxiety Current Visit: Yes Status: Chronic Assessment and plan: Pulmonology increased Klonipin dose to 1mg po TID PRN, feels that anxiety is increasing SOB. Rx given. Daughter is aware that I am unable to provide more than 7 days of medication and will need to follow up with PCP. - Time Spent With Patient less than 15 minutes - Subjective Interval history: Patient was seen at the bedside at 9 AM. Daughter remains at bedside. Patient was held overnight due to hypotension. Believe is most likely due to increase in dose of Klonopin. Patient was given IVF bolus 250ml x 2 yesterday with little improvement and systolic remaining below 100. Pt states that he feels fine and that he is not dizzy or SOB. He denies TREADWELL, vision changes, chest pain, SOB, n/v/d, diaphoresis. Pt is anxious and states that he is ready to go home. - Constitutional Vitals: Temp Pulse Resp BP Pulse Ox 97.8 F 67 16 105/63 91 12/02/17 08:11 12/02/17 08:11 12/02/17 08:11 12/02/17 09:53 12/02/17 08:11 General appearance: Present: cooperative, A&O X 3, pleasant, no acute distress, answers questions appropriately - Head Head exam: Present: atraumatic, normal inspection, normocephalic - Eye Eye exam: Present: normal appearance, conjuntiva pink, sclera anicteric - Neck Neck exam general surgery: Present: supple, trachea midline. Absent: lymphadenopathy, tenderness - Respiratory Respiratory exam: Present: CTAB. Absent: accessory muscle use, rales, respiratory distress, rhonchi, wheezes - Cardiovascular Cardiovascular exam: Present: RRR, +S1, +S2. Absent: diastolic murmur, gallop, rubs, systolic murmur - GI/Abdominal GI/Abdominal exam: Present: hepatomegaly, normal bowel sounds, soft. Absent: distended, tenderness - Extremities Exam Extremities exam: Present: normal capillary refill, normal inspection, warm, radial pulses palpable and symmetrical. Absent: calf tenderness, cyanotic, pedal edema, tenderness - Neurological Exam Neurological exam: Present: alert, oriented X3, no focal deficits. Absent: facial droop, speech deficit - Skin Skin exam: Present: dry, intact, normal color, warm. Absent: rash Internal Medicine: Result - Labs CBC & Chem 7: 12/01/17 05:21 12/01/17 05:21 Consult Discharge Plan - Plan Additional Instructions: Please follow up with Dr Ferrera within the next 7-10 days for a recheck. Return to the ER as needed for any other problems or concerns. Resume your normal home medications and only take the Klonipin as needed. Resume your normal activities as tolerated and diet. Continue to supplement with Boost as you have been. Referrals: Jorge Ferrera MD [Primary Care Provider] - 12/08/17 10:00 am Prescriptions: clonazePAM [Klonopin] 1 mg PO TID PRN 7 Days #21 tablet PRN Reason: Anxiety Levofloxacin [Levaquin] 750 mg PO DAILY #5 tablet
--- NOTE | 2017-12-06 01:55 | Electrocardiograph Report ---
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
== END 2017-12-02 11:41 | disposition home or self-care (01) | DRG 190 ==
LOC: EMEROO 15:06 → 3BNU 15:06
PROVIDERS: ADMIT Nurse Practitioner Family; ATTEND Registered Nurse

== ENCOUNTER 2018-03-23 13:35 | Inpatient (IN) ==
[2018-03-23] MEDS ORDERED: Ipratropium/Albuterol Neb 3 ML ONE (13:41)
[2018-03-23] MEDS ORDERED: *HR* LORazepam 2 MG/ML VIAL ONE (13:42)
[2018-03-23] MEDS ORDERED: Ipratropium/Albuterol Neb 3 ML IH ONE (13:43)
[2018-03-23] MEDS ORDERED: methylPREDNISolone 125 MG/2 ML VIAL IVP ONE (13:43)
[2018-03-23] MEDS ORDERED: *HR* LORazepam 2 MG/ML VIAL IVP ONE (13:44)
--- NOTE | 2018-03-23 13:50 | Emergency Department Note ---
Disposition Clinical Impression: Hypokalemia Respiratory failure with hypercapnia Qualifiers: Chronicity: acute on chronic Qualified Code(s): J96.22 - Acute and chronic respiratory failure with hypercapnia Pneumonia Qualifiers: Pneumonia type: due to unspecified organism Laterality: right Lung location: upper lobe of lung Qualified Code(s): J18.1 - Lobar pneumonia, unspecified organism Disposition: Admitted As Inpatient Condition: Undetermined Referrals: Jorge Ferrera MD [Primary Care Provider] - Forms: ED Satisfaction Letter Time of Disposition: 15:05 SOB HPI - General Chief Complaint: ED Shortness of Breath/Dyspnea Stated Complaint: Difficulty in Breathing Time Seen by Provider: 03/23/18 13:38 Source: patient, EMS Mode of arrival: EMS Limitations: no limitations Nursing Notes Reviewed: Yes Vital Signs Reviewed: Yes - History of Present Illness 72-year-old male with history of COPD, idiopathic pulmonary fibrosis, arrives to the emergency department with complaint of shortness of breath. Patient states this is been ongoing over the past 24-48 hours with acute exacerbation prior to arrival. Patient was noted to be at 52% on 3 L nasal cannula by daughter. The patient generally wears 3-6 L nasal cannula [id number]. The patient was placed on increased oxygen by his daughter and EMS was called at that time. Upon arrival he was in the 70s. He quickly rebekah up to nonrebreather mask in the mid 80s. He was placed on CPAP but did not tolerate this well due to history of claustrophobia. Patient denies any chest pain but does admit to some bilateral lower extremity swelling. No hemoptysis, no history of DVT or PE, no recent immobilizations or recent surgeries. The patient denies any chest pain associated with this. - Related Data Home Medications Medication Instructions Recorded Confirmed Mv-Mn/FA/Vit K/Lycop/Lut/Coq10 1 tab PO DAILY 05/23/17 11/29/17 [Daily Multivitamin Capsule] Folic Acid 1 mg PO DAILY 08/14/17 11/29/17 Oxygen 4 l NS AD 08/14/17 11/29/17 clonazePAM [Klonopin] 0.5 mg PO HS 08/28/17 11/29/17 predniSONE [PredniSONE] 10 mg PO DAILY 10/22/17 11/29/17 Budesonide/Formoterol 160/4.5 2 puff IH BIDR 11/29/17 11/29/17 [Symbicort 160/4.5] Esomeprazole Magnesium [Nexium] 20 mg PO DAILY 11/29/17 11/29/17 Famotidine [Pepcid] 40 mg PO DAILY 11/29/17 11/29/17 Furosemide [Lasix] 20 mg PO QPM 11/29/17 11/29/17 Furosemide [Lasix] 40 mg PO QAM 11/29/17 11/29/17 Ipratropium/Albuterol Neb [Duoneb] 3 ml IH Q6H PRN 11/29/17 11/29/17 Lidocaine Jelly 2% 1 appl TP TID PRN 11/29/17 11/29/17 Nitroglycerin [Nitrostat] 0.4 mg SL Q5M PRN 11/29/17 11/29/17 Pirfenidone [Esbriet] 801 mg PO TID 11/29/17 11/29/17 Tramadol HCl [Ultram] 50 mg PO TID PRN 11/29/17 11/29/17 Previous Rx's Medication Instructions Recorded Clopidogrel [Plavix] 75 mg PO DAILY #30 tablet 10/25/17 Simvastatin [Zocor] 40 mg PO HS #30 tablet 10/25/17 Levofloxacin [Levaquin] 750 mg PO DAILY #5 tablet 12/01/17 clonazePAM [Klonopin] 1 mg PO TID PRN 7 Days #21 tablet 12/01/17 Allergies Allergy/AdvReac Type Severity Reaction Status Date / Time No Known Allergies Allergy Verified 08/28/17 07:35 All systems ED: reviewed and negative except as stated. Constitutional: Denies: fever, chills, weakness ENT ED: Denies: congestion Cardiovascular: Reports: edema. Denies: chest pain, dyspnea on exertion, orthopnea, syncope Respiratory: Reports: dyspnea. Denies: cough, wheezes, sputum production Gastrointestinal: Denies: abdominal pain Genitourinary: Denies: urgency, dysuria Musculoskeletal: Denies: back pain Integumentary: Denies: rash Past Medical History - Past Medical History Attestation: Yes The following information was validated with the patient. Source: patient, old records reviewed Medical history: Reports: arthritis, CHF, COPD, CVA, GERD, hyperlipidemia, other Surgical history: Reports: other (Left ear cyst removal, possible skin cancer) Psychiatric history: Reports: anxiety - Social History Smoking Status: Former smoker Smokeless Tobacco Status: No Alcohol use: Reports: occasionally Drug use: Reports: none Physical Exam - General Limitations: no limitations General appearance: alert, in distress (Moderate respiratory) - Head Head exam: atraumatic, normocephalic, normal inspection - Eye Eye exam: Present: normal appearance, PERRL, EOMI - ENT ENT exam: normal exam, normal oropharynx, mucous membranes moist - Neck Neck exam: Present: normal inspection, full ROM, trachea midline - Chest Chest inspection: Present: normal inspection - Respiratory Respiratory exam: Present: respiratory distress (Moderate), wheezes, accessory muscle use - Cardiovascular Cardiovascular exam: Present: normal rhythm, tachycardia, normal heart sounds - Abdominal Exam Abdominal exam: Present: soft, Non-Tender. Absent: tenderness, distention, guarding, rebound, rigidity - Extremities Exam Extremities exam: Present: normal inspection, full ROM. Absent: tenderness, pedal edema - Neurological Exam Neurological exam: Present: alert, oriented X3, CN II-XII intact - Skin Skin exam: Present: warm, dry, intact, normal color Course Vital Signs Temperature 98.2 F 03/23/18 13:36 Pulse Rate 104 03/23/18 13:36 Respiratory Rate 24 03/23/18 13:36 Blood Pressure 94/74 03/23/18 13:36 O2 Sat by Pulse Oximetry 100 03/23/18 13:36 Temperature 98.2 F 03/23/18 13:36 Pulse Rate 104 03/23/18 13:36 Respiratory Rate 32 03/23/18 14:05 Blood Pressure 100/65 03/23/18 13:59 O2 Sat by Pulse Oximetry 93 03/23/18 14:05 Oxygen Delivery Oxygen Delivery CPAP Mask O2 Shortness of Breath/Dyspnea - [facility] Narrative Medical decision making narrative: Patient's workup in the ED demonstrates findings consistent with COPD exacerbation. The patient was noted to have a RUL opacity with possible pneumonia. The patient was placed on biPAP upon arrival and is resting comfortably at this time after receiving some IV ativan for anxiety. The patient labwork demonstrates no acute findings other than some hypokalemia which was replaced. In addition, the patient was administered levofloxacin. The patient will be admitted to the hospital. Accepted by Dr. Gutierrez. - Lab Data Lab results reviewed: Yes I reviewed the patient's lab results. Result diagrams: 03/23/18 13:43 03/23/18 13:43 Lab Results 03/23/18 03/23/18 03/23/18 Range/Units 13:43 13:43 13:47 WBC 10.5 (4.3-11.1) K/mcL RBC 4.99 (4.19-5.50) M/mcL Hgb 15.0 (12.9-16.9) g/dL Hct 45.4 (37.5-50.1) % MCV 91.0 (83.0-100.0) fL MCH 30.1 (28.0-33.3) pg MCHC 33.0 (31.6-35.5) g/dL RDW 13.6 (11.5-14.5) % Plt Count 206 (140-400) K/mcL MPV 9.3 L (9.4-12.4) fL Immature Gran % 0.7 (0-4) % Seg Neutrophils % 79.4 % Lymphocytes % 9.1 % Monocytes % 5.7 % Eosinophils % 4.5 % Basophils % 0.6 % Neutrophils # 8.4 (1.6-8.9) K/mcL Lymphocytes # 1.0 (0.6-4.6) K/mcL Monocytes # 0.6 (0.0-1.3) K/mcL Eosinophils # 0.5 (0.0-0.6) K/mcL Basophils # 0.1 (0.0-0.2) K/mcL Sample Site L Radial ABG pH 7.48 H (7.32-7.45) pH Units ABG pCO2 41 (35-45) mmHg ABG pO2 145 H (85-104) mmHg ABG HCO3 30 H (21-27) mEq/L ABG Total CO2 31 H (20-26) mEq/L ABG O2 Saturation 99 H (95-98) % ABG Base Excess 6 H (-2 to 3) mEq/L Thang Test Positive Respiration Rate 8 O2 Delivery Device BiPAP Inspired O2 85.0 (1-15=lpm la65-168=%) PEEP 7 cm H2O Sodium 144 (136-145) mEq/L Potassium 3.3 L (3.5-5.1) mEq/L Chloride 103 (98-107) mEq/L Carbon Dioxide 32 H (23-29) mEq/L BUN 20 (8-23) mg/dL Creatinine 0.80 (0.70-1.30) mg/dL Est GFR ( Amer) > 60 (> 60) Est GFR (Non-Af Amer) > 60 (> 60) BUN/Creatinine Ratio 25 (6-26) Glucose 120 H (70-105) mg/dL Calculated Osmolality 302 H (280-300) Calcium 9.5 (8.6-10.3) mg/dL Troponin I 0.03 (< 0.04) ng/mL - Radiology Data Radiology results reviewed: Yes I reviewed the patient's radiology results. Chest X-Ray 03/23/18 13:43 IMPRESSION: Suspected bilateral lung interstitial lung disease. There is new slightly increased opacity within the right upper lobe suggesting the possibility of a superimposed pneumonia. D/ / 03/23/2018 14:09:50 Manuel Mcfarlane MD / eric Interpreting Provider: Manuel Mcfarlane MD - EKG Data EKG attestation: Yes I reviewed and interpreted this EKG. EKG results narrative: Heart rate 104 beats for minute. Sinus tachycardia. ST depression noted in most leads. No reciprocal changes noted. Likely associated with demand ischemia versus baseline. This appears to be seen on previous EKG from 2017.
[2018-03-23 13:52] LABS: ABG Base Excess 6 mEq/L (-2 to 3); ABG HCO3 30 mEq/L (21-27); ABG Oxygen Saturation 99 % (95-98); ABG PCO2 41 mmHg (35-45); ABG PH 7.48 pH Units (7.32-7.45); ABG PO2 145 mmHg (85-104); ABG TCO2 31 mEq/L (20-26); Blood Gas PEEP 7 cm H2O; Blood Gas Respiration Rate 8
[2018-03-23 14:19] LABS: Basophils # 0.1 K/mcL (0.0-0.2); Basophils % 0.6 %; Eosinophils # 0.5 K/mcL (0.0-0.6); Eosinophils % 4.5 %; Hematocrit 45.4 % (37.5-50.1); Immature Granulocytes % 0.7 % (0-4); Lymphocytes % 9.1 %; Mean Corpuscular Hemoglobin 30.1 pg (28.0-33.3); Mean Platelet Volume 9.3 fL (9.4-12.4); Monocytes # 0.6 K/mcL (0.0-1.3); Monocytes % 5.7 %; Neutrophils # 8.4 K/mcL (1.6-8.9); Platelet Count 206 K/mcL (140-400); Red Blood Count 4.99 M/mcL (4.19-5.50); Red Cell Distribution Width 13.6 % (11.5-14.5); Segmented Neutrophils % 79.4 %
--- NOTE | 2018-03-23 14:19 | Emergency Department Note ---
Disposition Clinical Impression: Respiratory failure with hypercapnia Qualifiers: Chronicity: acute on chronic Qualified Code(s): J96.22 - Acute and chronic respiratory failure with hypercapnia Disposition: Admitted As Inpatient Referrals: Jorge Ferrera MD [Primary Care Provider] - Forms: ED Satisfaction Letter General Adult HPI - General Chief complaint: ED Shortness of Breath/Dyspnea Stated complaint: Difficulty in Breathing Time Seen by Provider: 03/23/18 13:38 Source: patient, EMS Mode of arrival: EMS Limitations: no limitations - History of Present Illness Pain Scale: 0 - Related Data Home Medications Medication Instructions Recorded Confirmed Mv-Mn/FA/Vit K/Lycop/Lut/Coq10 1 tab PO DAILY 05/23/17 11/29/17 [Daily Multivitamin Capsule] Folic Acid 1 mg PO DAILY 08/14/17 11/29/17 Oxygen 4 l NS AD 08/14/17 11/29/17 clonazePAM [Klonopin] 0.5 mg PO HS 08/28/17 11/29/17 predniSONE [PredniSONE] 10 mg PO DAILY 10/22/17 11/29/17 Budesonide/Formoterol 160/4.5 2 puff IH BIDR 11/29/17 11/29/17 [Symbicort 160/4.5] Esomeprazole Magnesium [Nexium] 20 mg PO DAILY 11/29/17 11/29/17 Famotidine [Pepcid] 40 mg PO DAILY 11/29/17 11/29/17 Furosemide [Lasix] 20 mg PO QPM 11/29/17 11/29/17 Furosemide [Lasix] 40 mg PO QAM 11/29/17 11/29/17 Ipratropium/Albuterol Neb [Duoneb] 3 ml IH Q6H PRN 11/29/17 11/29/17 Lidocaine Jelly 2% 1 appl TP TID PRN 11/29/17 11/29/17 Nitroglycerin [Nitrostat] 0.4 mg SL Q5M PRN 11/29/17 11/29/17 Pirfenidone [Esbriet] 801 mg PO TID 11/29/17 11/29/17 Tramadol HCl [Ultram] 50 mg PO TID PRN 11/29/17 11/29/17 Previous Rx's Medication Instructions Recorded Clopidogrel [Plavix] 75 mg PO DAILY #30 tablet 10/25/17 Simvastatin [Zocor] 40 mg PO HS #30 tablet 10/25/17 Levofloxacin [Levaquin] 750 mg PO DAILY #5 tablet 12/01/17 clonazePAM [Klonopin] 1 mg PO TID PRN 7 Days #21 tablet 12/01/17 Allergies Allergy/AdvReac Type Severity Reaction Status Date / Time No Known Allergies Allergy Verified 08/28/17 07:35 Constitutional: Denies: fever, chills, weakness ENT ED: Denies: congestion Cardiovascular: Reports: edema. Denies: chest pain, dyspnea on exertion, orthopnea, syncope Respiratory: Reports: dyspnea. Denies: cough, wheezes, sputum production Gastrointestinal: Denies: abdominal pain Genitourinary: Denies: urgency, dysuria Musculoskeletal: Denies: back pain Integumentary: Denies: rash Past Medical History - Past Medical History Medical history: Reports: arthritis, CHF, COPD, CVA, GERD, hyperlipidemia, other Surgical history: Reports: other (Left ear cyst removal, possible skin cancer) Psychiatric history: Reports: anxiety - Social History Smoking Status: Former smoker Smokeless Tobacco Status: No Alcohol use: Reports: occasionally Drug use: Reports: none Physical Exam - General Limitations: no limitations General appearance: alert, in distress (Moderate respiratory) Course - Reevaluation(s) Reevaluation #1: Attestation note I did independently examine and verified the physical examination findings evaluation workup and disposition of this patient. We had independent face-to- face examination and discussion. The patient was seen with the emergency medicine resident Dr. Garrison Cash I examined this patient and my medical decision-making was reviewed with the Resident Physician/GIVING OFFICER/PA. I agree with the documented findings, disposition and treatment plan as described except to the extent set forth below. Briefly: 72-year-old male severe end-stage COPD comes in with near respiratory failure and hypoxia. Despite CPAP per EMS he was in the low 80s. He was switched to BiPAP in the ED ABG showed a hypercarbia critically high at 148. Patient is awake and alert though. PH was 7.48 which was shows good compensation. Patient's EKG showed PVCs and some mild ST-T changes. Patient getting screening labs chest x-ray breathing treatments and admission. Providing 45 minutes critical care service for this patient. Admission disposition pending Time: 14:14 Vital Signs Temperature 98.2 F 03/23/18 13:36 Pulse Rate 104 03/23/18 13:36 Respiratory Rate 24 03/23/18 13:36 Blood Pressure 94/74 03/23/18 13:36 O2 Sat by Pulse Oximetry 100 03/23/18 13:36 Temperature 98.2 F 03/23/18 13:36 Pulse Rate 104 03/23/18 13:36 Respiratory Rate 32 03/23/18 14:05 Blood Pressure 100/65 03/23/18 13:59 O2 Sat by Pulse Oximetry 93 03/23/18 14:05 Oxygen Delivery Oxygen Delivery CPAP Mask O2 Medical Decision Making - Lab Data Lab Results 03/23/18 Range/Units 13:47 Sample Site L Radial ABG pH 7.48 H (7.32-7.45) pH Units ABG pCO2 41 (35-45) mmHg ABG pO2 145 H (85-104) mmHg ABG HCO3 30 H (21-27) mEq/L ABG Total CO2 31 H (20-26) mEq/L ABG O2 Saturation 99 H (95-98) % ABG Base Excess 6 H (-2 to 3) mEq/L Thang Test Positive Respiration Rate 8 O2 Delivery Device BiPAP Inspired O2 85.0 (1-15=lpm sa11-056=%) PEEP 7 cm H2O
[2018-03-23] MEDS ORDERED: Levofloxacin 750 MG/150 ML 750 MG/150 ML BAG IVPB ONE (14:26)
[2018-03-23 14:47] LABS: BUN/Creatinine Ratio 25 (6-26); Blood Urea Nitrogen 20 mg/dL (8-23); Calcium 9.5 mg/dL (8.6-10.3); Carbon Dioxide 32 mEq/L (23-29); Chloride 103 mEq/L (98-107); Glucose 120 mg/dL (70-105); Osmolality,Calculated 302 (280-300); Potassium 3.3 mEq/L (3.5-5.1); Sodium 144 mEq/L (136-145); eGFR For African Americans > 60 (> 60); eGFR For Non-African Americans > 60 (> 60)
[2018-03-23 14:48] LABS: Troponin I 0.03 ng/mL (< 0.04)
[2018-03-23] MEDS ORDERED: Naloxone 0.4 MG/ML INJ IVP PRN (15:36)
[2018-03-23] MEDS ORDERED: Nitroglycerin 0.4 MG TAB.SUBL SL PRN (15:43)
[2018-03-23] MEDS ORDERED: traMADol 50 MG TABLET PO PRN (15:43)
[2018-03-23] MEDS ORDERED: Lidocaine Jelly 6ml 1 APPL/6 ML JEL.PF.APP TP PRN (15:43)
[2018-03-23] MEDS ORDERED: Vicks Vaporub Oint 50 GM PACKAGE TP PRN (15:55)
[2018-03-23] MEDS ORDERED: GuaiFENesin Liq 200 MG/10 ML UDC PO PRN (15:57)
[2018-03-23] MEDS ORDERED: PHARMACY TO DOSE VANCOMYCIN IVPB SCH (16:00)
[2018-03-23] MEDS ORDERED: *HR* LORazepam 2 MG/ML VIAL IVP PRN (16:02)
--- NOTE | 2018-03-23 16:13 | Internal Med History&Physical ---
<Garrison Day - Last Filed: 03/23/18 17:02> Date of Encounter: 03/23/18 Time of Encounter: 15:00 Internal Medicine - H&P: HPI Chief complaint: SOB/Dyspnea/Hypoxia Admitted From: Emergency Dept Plans for Post Hospital Care: Home History of present illness: Mr. 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 Patient SPO2 have 52% on 3 L nasal cannula patient reports he normally wears 4 L continuously at home from O2 tank in 6-8 L from concentrator. Denies use of BiPAP/CPAP. Patient placed on CPAP in ED but did not tolerate well due to anxiety. Patient then placed on BiPAP with Ativan. Patient reports bilateral LE swelling recently and cough w/yellow/rust sputum that is blood-tinged but denies fever, chills, nausea, vomiting, headache, changes in vision, hemoptysis , hx of DVT/PE, chest pain, unusual bleeding,, abdominal pain, diarrhea, constipation, dizziness, lightheadedness, numbness, tingling, pre-syncope, or syncope. Past Med Surg Social Fam HX - Past Medical History Source: patient, old records reviewed, obtained from family Medical history: arthritis, CHF, COPD, CVA, GERD, hyperlipidemia, other Additional medical history: Pulmonary Fibrosis. Psychiatric history: anxiety - Past Surgical History Surgical History: other (Left ear cyst removal, possible skin cancer) Additional surgical history: ear surgery for cancer, hernia inguinal repair, hemmrohiod - Social History Smoking Status: Former smoker Packs per day: Social smoker <1 PPW. Reports quitting 25 years ago Smokeless Tobacco Status: No Alcohol use: occasionally Drug use: none Current living situation: Home, With Family Activity Level: Independent ambulation, Uses cane/walker Recent Out of Country Travel Within the Last 8 Weeks: No Exposure or Possible Exposure to Illness During Travel: No - Family History Father History Unknown: Yes Adopted: Yes Race: Family Member Ethnicity: Non- Living Status: Mother History Unknown: Yes Race: Family Member Ethnicity: Non- Living Status: Brother Race: Family Member Ethnicity: Non- Living Status: Age at : 74 Cause of : Parkinson's disease Hx Family Neuromuscular Disorders: Yes (Parkinson's disease) Sister Race: Family Member Ethnicity: Non- Living Status: Age at : 69 Cause of : Colon cancer Hx Family Cancer: Yes (Colon) Internal Medicine - H&P: Meds Mv-Mn/FA/Vit K/Lycop/Lut/Coq10 [Daily Multivitamin Capsule] 1 tab PO DAILY 05/23 [History] Folic Acid 1 mg PO DAILY 08/14/17 [History] Oxygen 4 l NS AD 08/14/17 [History] clonazePAM [Klonopin] 0.5 mg PO HS 08/28/17 [History] predniSONE [PredniSONE] 10 mg PO DAILY 10/22/17 [History] Clopidogrel [Plavix] 75 mg PO DAILY #30 tablet 10/25/17 [Rx] Simvastatin [Zocor] 40 mg PO HS #30 tablet 10/25/17 [Rx] Budesonide/Formoterol 160/4.5 [Symbicort 160/4.5] 2 puff IH BIDR 11/29/17 [ History] Esomeprazole Magnesium [Nexium] 20 mg PO DAILY 11/29/17 [History] Famotidine [Pepcid] 40 mg PO DAILY 11/29/17 [History] Furosemide [Lasix] 20 mg PO QPM 11/29/17 [History] Furosemide [Lasix] 40 mg PO QAM 11/29/17 [History] Ipratropium/Albuterol Neb [Duoneb] 3 ml IH Q6H PRN 11/29/17 [History] Lidocaine Jelly 2% 1 appl TP TID PRN 11/29/17 [History] Nitroglycerin [Nitrostat] 0.4 mg SL Q5M PRN 11/29/17 [History] Pirfenidone [Esbriet] 801 mg PO TID 11/29/17 [History] Tramadol HCl [Ultram] 50 mg PO TID PRN 11/29/17 [History] Levofloxacin [Levaquin] 750 mg PO DAILY #5 tablet 12/01/17 [Rx] 3 Allergy/AdvReac Type Severity Reaction Status Date / Time No Known Allergies Allergy Verified 03/23/18 15:36 All Systems PM: A 10-system review of systems was performed and is negative for pertinent findings except as documented above in the HPI. - Constitutional Constitutional: as per HPI, no chills, no fever(s), no night sweats - EENT Eyes: no change in vision, no discharge, no pain, no photophobia Ears: no ear discharge, no ear pain, no tinnitus Nose, mouth and throat: no dysphagia, no nasal discharge, no neck pain, no sore throat - Breasts Breasts: as per HPI - Cardiovascular Cardiovascular ROS IM: as per HPI, dyspnea, dyspnea on exertion, edema, orthopnea, no chest pain, no diaphoresis, no lightheadedness, no palpitations, no syncope - Respiratory Respiratory: as per HPI, cough, dyspnea, dyspnea on exertion, change in phlegm color (Yellow/rust w/blood-tinged streaks), no wheezing, no excessive phlegm production - Gastrointestinal Gastrointestinal: no abdominal pain, no diarrhea, no hematemesis, no hematochezia, no melena, no nausea, no vomiting - Genitourinary Genitourinary ROS male: as per HPI - Musculoskeletal Musculoskeletal ROS IM: as per HPI, arthralgias, no numbness, no tingling - Integumentary Integumentary IM: as per HPI, no rash, no unusual bruising - Neurological Neurological ROS: no confusion, no convulsions, no focal weakness, no numbness, no tingling, no tremor(s) - Psychiatric Psychiatric: as per HPI, anxiety - Endocrine Endocrine IM: as per HPI - Hematologic/Lymphatic Hematologic/Lymphatic: no easy bruising - Allergic/Immunologic Allergic/Immunologic: as per HPI - Constitutional Vitals: Temp Pulse Resp BP Pulse Ox 98.2 F 104 28 94/68 93 03/23/18 13:36 03/23/18 13:36 03/23/18 16:02 03/23/18 16:02 03/23/18 14:05 General appearance: Present: cooperative, mild distress (Respiratory), A&O X 3, pleasant, underweight, answers questions appropriately - Head Head exam: Present: atraumatic, normocephalic - Eye Eye exam: Present: PERRL, conjuntiva pink, sclera anicteric Pupils: Present: PERRL - ENT ENT exam: Present: normal exam - Neck Neck exam general surgery: Present: normal inspection, supple, trachea midline. Absent: lymphadenopathy - Respiratory Respiratory exam: Present: CTAB. Absent: accessory muscle use, rales, rhonchi, wheezes - Cardiovascular Cardiovascular exam: Present: +S1, +S2, tachycardia. Absent: diastolic murmur, gallop, rubs, systolic murmur - GI/Abdominal GI/Abdominal exam: Present: normal bowel sounds, soft, no peritoneal signs. Absent: distended, tenderness - Rectal Rectal exam: Present: deferred - Additional comments: exam deferred. - Extremities Exam Extremities exam: Present: warm, radial pulses palpable and symmetrical. Absent : calf tenderness, cyanotic - Back Exam Back exam: Present: normal inspection - Neurological Exam Neurological exam: Present: CN II-XII intact, oriented X3, no focal deficits. Absent: pronater drift, facial droop, speech deficit - Psychiatric Psychiatric exam: Present: anxious - Skin Skin exam: Present: dry, intact Internal Med - H&P Results - Labs CBC & Chem 7: 03/23/18 13:43 03/23/18 13:43 - EKG Data EKG shows normal: sinus rhythm Rate: tachycardia - EKG Data Prior EKG available for review: yes Interpretation IM: suggestive of ischemia EKG comments: 03/23/18 16:23 EKG dated 10/21/17 shows sinus rhythm with sinus arrhythmia and anterior and inferior ischemia. EKG dated 11/29/17 shows sinus rhythm with incomplete RBBB, ST deviation and moderate T-wave abnormality. Consider anterolateral ischemia. EKG dated 03/23/18 shows sinus tachycardia with occasional ventricular premature complexes, possible left atrial enlargement, incomplete RBBB, and ST deviation and moderate T-wave abnormality. Consider anterior ischemia. - Diagnostic Studies Chest x-ray Additional comments: Impressions Chest X-Ray 03/23/18 13:43 IMPRESSION: Suspected bilateral lung interstitial lung disease. There is new slightly increased opacity within the right upper lobe suggesting the possibility of a superimposed pneumonia. D/ / 03/23/2018 14:09:50 Manuel Mcfarlane MD / eric Interpreting Provider: Manuel Mcfarlane MD - Assessment and plan (1) Acute on chronic respiratory failure Current Visit: Yes Status: Acute Assessment and plan: Acute on chronic respiratory failure w/hypoxia complicated by current acute exacerbation of COPD and CHF, H, and history of pulmonary fibrosis. Pts. SpO2 52 % @home prior to admission. Denies BiPAP or CPAP use. Placed on CPAP in ED and could not tolerate d/t anxiety. Placed on BiPAP w/Ativan and tolerating well. Will continue BiPAP for next 24 hours and allow on/off times for eating and medication administration. Monitor pt. closely during these times. Solu-Medrol 60 mg Q6HR for COPD. Continue pts. PO lasix and 1.5L daily fluid restriction for CHF exacerbation. IVPB Levaquin 750 mg daily, Zosyn 3.375 gm every 8 HR, and vancomycin w/Pharmacy dosing x1 dose for infection coverage. Patient reports continuous O2 at home at 4 L with tank and 6-8 liters with concentrator. Pulmonology consult ordered and discussed w/Dr. Arthur and I appreciate the consult and recs. Pt. discussed w/Dr. Gutierrez who agrees w/ plan of care. Pt. is high risk for further morbidity and respiratory distress/ failure d/t current COPD/CHF exacerbations complicated by HCAP and pulmonary fibrosis, hx of respiratory failure, and risk factors. Inpatient. Qualifiers: Respiratory failure complication: hypoxia Qualified Code(s): J96.21 - Acute and chronic respiratory failure with hypoxia (2) HCAP (healthcare-associated pneumonia) Current Visit: Yes Status: Acute Assessment and plan: Acute HCAP w/failure of OP therapy on PO levaquin. Pt. and daughter report worsening sx and increasing SOB/Dyspnea over past week. IVPB levaquin 760 mg in ED. Will continue. Will add IVPB 3.375 gm Zosyn QHR and Vancomycin w/Pharmacy dosing x1 dose for infection coverage. Blood cultures x2. Lipitor infection panel ordered. Sputum culture with Gram stain ordered. Legionella and strep pneumoniae antigens ordered. Patient does not currently meet sepsis criteria with WBC of 1.5, HR of 79, temp of 98.5F. RR of 28 d/t COPD/CHF exacerbation superimposed on HCAP. Lactic acid ordered. Pt. and f/u labs to be monitored. (3) Acute exacerbation of CHF (congestive heart failure) Current Visit: Yes Status: Acute Assessment and plan: Acute exacerbation of CHF w/BNP of 316 on admission, complicated by COPD exacerbation, PNA, and pulmonary fibrosis. No pedal edema on exam. Continue pts. PO lasix. 1.5L daily fluid restriction. Monitor I&O and daily weight. Continuous cardiac telemetry. Echocardiogram dated 10/22/17 shows LVEF of 55%, normal right ventricular structure and function, and no evidence of PFO with agitated saline contrast. Qualifiers: Heart failure type: unspecified Qualified Code(s): I50.9 - Heart failure, unspecified (4) COPD exacerbation Current Visit: Yes Status: Acute Assessment and plan: Acute COPD exacerbation complicated by CHF exacerbation and unresolved PNA. Pt. given 125 mg IVP Solu-Medrol in ED. Will continue 60 mg every 6 Solu-Medrol daily. DuoNeb's every 6 hours scheduled. Continue patient's Symbicort. Supplemental O2 with titration and SPO2 monitoring. (5) Hypokalemia Current Visit: Yes Status: Acute Assessment and plan: Acute hypokalemia w/potassium of 3.3 on admission. Patient given 40 Sabrina Q by mouth in ED. Recheck potassium at 04:00. (6) Anxiety Current Visit: Yes Status: Acute Assessment and plan: Acute on chronic anxiety. Pt. has hx of anxiety which is now exacerbated w/need for BiPAP. 0.5 mg IVP Ativan Q6HR PRN for anxiety. Hold Klonopin for now d/t interaction w/concurrent Ativan. (7) HLD (hyperlipidemia) Current Visit: Yes Status: Chronic Assessment and plan: Hx of chronic HLD. Lipid panel in a.m. labs. Continue pts. Zocor. Qualifiers: Hyperlipidemia type: pure hypercholesterolemia Qualified Code(s): E78.00 - Pure hypercholesterolemia, unspecified; E78.0 - Pure hypercholesterolemia (8) Pulmonary fibrosis Current Visit: Yes Status: Chronic Assessment and plan: Hx of chronic idiopathic pulmonary fibrosis. 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 Also hx of tobacco use (quit 25 years ago), CHF, and COPD. Continue pts. Esbriet home medication. Pulmonology consult ordered and discussed w/Dr. Arthur and I appreciate the consult. (9) History of CVA (cerebrovascular accident) Current Visit: Yes Status: Resolved Assessment and plan: Hx of CVA that was discovered on MRI results in Nov 2017. No residual effects, deficits, or weaknesses. (10) DVT prophylaxis Current Visit: Yes Status: Acute Assessment and plan: Heparin 5,000 units SQ Q8HR for DVT prophylaxis. Monitor pt. for signs of bleeding. (11) GERD (gastroesophageal reflux disease) Current Visit: Yes Status: Chronic Assessment and plan: Hx of chronic GERD. IVP Zofran 4 mg Q6HR PRN for N/V. Continue pts. PO Prilosec and Pepcid. Qualifiers: Esophagitis presence: esophagitis presence not specified Qualified Code(s) : K21.9 - Gastro-esophageal reflux disease without esophagitis - Time Spent With Patient Total time spent is greater than 50% in coordination of care (as documented) at patient's floor/unit and/or counseling patient: Greater than 35 minutes <Lalit Gutierrez - Last Filed: 03/23/18 18:05> Date of Encounter: 03/23/18 Internal Medicine - H&P: HPI History of present illness: Mr. Canada is a 72 year old male All Systems PM: A 10-system review of systems was performed and is negative for pertinent findings except as documented above in the HPI. - Constitutional Vitals: Temp Pulse Resp BP Pulse Ox 98.5 F 74 24 94/68 100 03/23/18 16:00 03/23/18 16:00 03/23/18 16:35 03/23/18 16:02 03/23/18 16:35 Internal Med - H&P Results - Labs CBC & Chem 7: 03/23/18 13:43 03/23/18 13:43 - Attending Attestation I have personally performed a face to face evaluation on this patient. I have reviewed and agree with the care plan provided by BHARAT Day. History and Exam by me shows: Mr. Canada is a 72 year old male w/PMH of CHF, COPD, CVA which showed a on MRI in November 2017, HLD, arthritis, and idiopathic pulmonary fibrosis Pt was presented to ER with worsening SOB , cough with expectoration. He was in severe respiratory failure, required BiPAP in the ER. Now he is resting comfortably on BiPAP. Denied any CP Gen: A, A< O x3 Chest: Diminished BS b/l, diffuse wheezing Heart: S1S2+ RRR a/p 1. Acute on chronic hpoxic resp failure 2. Pneumonia 3. Acute COPD exacerbation Cont BiPAP for next 24hrs High dose IV sterooids Broad spec abx Zosyn, Levaquin and Vanc x 1 dose Pt was on PO Levaquin from last one week as an out pt Pulm consulted - Assessment and plan (1) Pulmonary fibrosis Current Visit: No Status: Chronic (2) Acute on chronic respiratory failure Current Visit: No Status: Acute Qualifiers: Respiratory failure complication: hypoxia Qualified Code(s): J96.21 - Acute and chronic respiratory failure with hypoxia (3) DVT prophylaxis Current Visit: No Status: Acute (4) HCAP (healthcare-associated pneumonia) Current Visit: No Status: Acute (5) COPD exacerbation Current Visit: No Status: Acute (6) Anxiety Current Visit: No Status: Acute (7) History of CVA (cerebrovascular accident) Current Visit: No Status: Resolved (8) HLD (hyperlipidemia) Current Visit: No Status: Chronic Qualifiers: Hyperlipidemia type: pure hypercholesterolemia Qualified Code(s): E78.00 - Pure hypercholesterolemia, unspecified; E78.0 - Pure hypercholesterolemia (9) Acute exacerbation of CHF (congestive heart failure) Current Visit: No Status: Acute Qualifiers: Heart failure type: unspecified Qualified Code(s): I50.9 - Heart failure, unspecified (10) Hypokalemia Current Visit: No Status: Acute (11) GERD (gastroesophageal reflux disease) Current Visit: No Status: Chronic Qualifiers: Esophagitis presence: esophagitis presence not specified Qualified Code(s) : K21.9 - Gastro-esophageal reflux disease without esophagitis - Time Spent With Patient Total time spent is greater than 50% in coordination of care (as documented) at patient's floor/unit and/or counseling patient:
[2018-03-23] MEDS ORDERED: Dexmedetomidine HCl 200 MCG in 0.9 % Sodium Chloride 50 ML IVPB SCH (16:30)
[2018-03-23] MEDS: Ipratropium/Albuterol Neb 3 ML IH SCH ×2 (16:35→21:39)
[2018-03-23] MEDS ORDERED: Isovue-370 500 ML INFUS..BTL IV ONE (16:38)
--- NOTE | 2018-03-23 16:41 | Pulmonology Consult Note ---
<TravisrachelJos soliz M - Last Filed: 03/23/18 16:42> Date of Encounter: 03/23/18 Medications and Allergies Mv-Mn/FA/Vit K/Lycop/Lut/Coq10 [Daily Multivitamin Capsule] 1 tab PO DAILY 05/23 [History] Folic Acid 1 mg PO DAILY 08/14/17 [History] Oxygen 4 l NS AD 08/14/17 [History] clonazePAM [Klonopin] 0.5 mg PO HS 08/28/17 [History] predniSONE [PredniSONE] 10 mg PO DAILY 10/22/17 [History] Clopidogrel [Plavix] 75 mg PO DAILY #30 tablet 10/25/17 [Rx] Simvastatin [Zocor] 40 mg PO HS #30 tablet 10/25/17 [Rx] Budesonide/Formoterol 160/4.5 [Symbicort 160/4.5] 2 puff IH BIDR 11/29/17 [ History] Esomeprazole Magnesium [Nexium] 20 mg PO DAILY 11/29/17 [History] Famotidine [Pepcid] 40 mg PO DAILY 11/29/17 [History] Furosemide [Lasix] 20 mg PO QPM 11/29/17 [History] Furosemide [Lasix] 40 mg PO QAM 11/29/17 [History] Ipratropium/Albuterol Neb [Duoneb] 3 ml IH Q6H PRN 11/29/17 [History] Lidocaine Jelly 2% 1 appl TP TID PRN 11/29/17 [History] Nitroglycerin [Nitrostat] 0.4 mg SL Q5M PRN 11/29/17 [History] Pirfenidone [Esbriet] 801 mg PO TID 11/29/17 [History] Tramadol HCl [Ultram] 50 mg PO TID PRN 11/29/17 [History] Levofloxacin [Levaquin] 750 mg PO DAILY #5 tablet 12/01/17 [Rx] 3 Allergy/AdvReac Type Severity Reaction Status Date / Time No Known Allergies Allergy Verified 03/23/18 15:36 All Systems: The remainder of the systems were reviewed and are negative Physical Examination Vital Signs: Vital Signs, Last 4 Hours Temp Pulse Resp BP 03/23/18 16:02 28 94/68 03/23/18 16:00 98.5 F 79 28 104/76 Results - Laboratory Findings CBC and BMP: 03/23/18 13:43 03/23/18 13:43 ABG ABG pH 7.48 pH Units (7.32-7.45) H 03/23/18 13:47 ABG pCO2 41 mmHg (35-45) 03/23/18 13:47 ABG pO2 145 mmHg (85-104) H 03/23/18 13:47 ABG O2 Saturation 99 % (95-98) H 03/23/18 13:47 Abnormal lab findings: Abnormal lab results MPV 9.3 fL (9.4-12.4) L 03/23/18 13:43 ABG pH 7.48 pH Units (7.32-7.45) H 03/23/18 13:47 ABG pO2 145 mmHg (85-104) H 03/23/18 13:47 ABG HCO3 30 mEq/L (21-27) H 03/23/18 13:47 ABG Total CO2 31 mEq/L (20-26) H 03/23/18 13:47 ABG O2 Saturation 99 % (95-98) H 03/23/18 13:47 ABG Base Excess 6 mEq/L (-2 to 3) H 03/23/18 13:47 Potassium 3.3 mEq/L (3.5-5.1) L 03/23/18 13:43 Carbon Dioxide 32 mEq/L (23-29) H 03/23/18 13:43 Glucose 120 mg/dL (70-105) H 03/23/18 13:43 POC Glucose 123 mg/dL (70-99) H 03/23/18 15:58 Calculated Osmolality 302 (280-300) H 03/23/18 13:43 B-Natriuretic Peptide 316 pg/mL (Less than 100) H 03/23/18 13:43 Consult Discharge Plan - Plan Referrals: Jorge Ferrera MD [Primary Care Provider] - - Attending Attestation I examined this patient and my medical decision-making was reviewed with the Resident Physician. I agree with the documented findings, disposition and treatment plan as described except to the extent set forth below. Patient seen and examined. Labs, radiology, chart personally reviewed. 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 Pulmonary: Acceptable oxygenation and ventilation on noninvasive ventilation currently. Reviewed his chest x-ray and with clinical examination there is no significant wheezing in the differential diagnosis other than pneumonia would be on embolism and CT angiogram. I have explained to the patient to do his best to tolerate the noninvasive ventilation at this time because if he will not then the next step will be invasive mechanical ventilation which would be difficult with his underlying lung disease. Discussed with the family at the bedside. Patient is on appropriate bronchodilators and systemic steroids with antibiotics and to check on his sputum cultures. Cardiovascular: stable Patient to be monitored closely since his condition could deteriorate mainly from the pulmonary standpoint. Thank you for the consultation. <Ryan Hsu - Last Filed: 03/24/18 07:12> Date of Encounter: 03/24/18 Time of Encounter: 16:39 Assessment and Plan (1) Acute exacerbation of chronic obstructive airways disease Current Visit: Yes Status: Acute 1. Continue BiPAP and avoid intubation if at all possible 2. Continue steroids and breathing treatments 3. Diuresis as tolerated for congestion 4. Continue ABX and plan deescalation 5. CTA chest ordered to r/o PE History of Present Illness Consult date: 03/23/18 Requesting physician: Lalit Gutierrez Reason for consult: hypoxemia Chief complaint: shortness of breath History of present illness: patient well known to the pulmonary service presenting with 1 week history of shortness of breath, worse over the past 2-3 days and significantly worse today. Is chronic O2 dependent COPD. Also has h/o CHF. Has been having some productive cough that's dark brown rust colored. Denies fever, chest pain, abdominal pain, n/v/d. Patient was hypoxic upon arrival to ed in 50% and increased to 90s after BiPAP and nebs. CXR showed some pulmonary congestion and possible RML PNA. Past Med Surg Social Fam HX - Past Medical History Medical history: arthritis, CHF, COPD, CVA, GERD, hyperlipidemia, other Additional medical history: Pulmonary Fibrosis. Psychiatric history: anxiety - Past Surgical History Surgical History: other (Left ear cyst removal, possible skin cancer) Additional surgical history: ear surgery for cancer, hernia inguinal repair, hemmrohiod - Social History Smoking Status: Former smoker Packs per day: Social smoker <1 PPW. Reports quitting 25 years ago Smokeless Tobacco Status: No Alcohol use: occasionally Drug use: none - Family History Father History Unknown: Yes Adopted: Yes Race: Family Member Ethnicity: Non- Living Status: Hx Family Neuromuscular Disorders: Yes (CVA) Mother History Unknown: Yes Race: Family Member Ethnicity: Non- Living Status: Brother Race: Family Member Ethnicity: Non- Living Status: Age at : 74 Cause of : Parkinson's disease Hx Family Neuromuscular Disorders: Yes (Parkinson's disease) Sister Race: Family Member Ethnicity: Non- Living Status: Age at : 69 Cause of : Colon cancer Hx Family Cancer: Yes (Colon) All Systems: The remainder of the systems were reviewed and are negative Review of Systems: As reviewed in the HPI. All other systems reviewed are negative or normal. Physical Examination Vital Signs: Vital Signs, Last 4 Hours Temp Pulse Resp BP 03/23/18 16:02 28 94/68 03/23/18 16:00 98.5 F 79 28 104/76 General appearance: alert, other (anxious) Eyes: nonicteric ENT: oropharynx dry, oropharynx pale Neck: supple Effort: mildly labored Inspection: normal Auscultation: left: diminished breath sounds, bilateral: wheezes Cardiovascular: other (tachycardic ) Gastrointestinal: normoactive bowel sounds Integumentary: normal Extremities: no cyanosis, no edema Musculoskeletal: no deformities normal mental status, non-focal exam, pupils equal and round mood appropriate, anxious Results - Laboratory Findings CBC and BMP: 03/24/18 04:12 03/24/18 04:12 ABG ABG pH 7.48 pH Units (7.32-7.45) H 03/23/18 13:47 ABG pCO2 41 mmHg (35-45) 03/23/18 13:47 ABG pO2 145 mmHg (85-104) H 03/23/18 13:47 ABG O2 Saturation 99 % (95-98) H 03/23/18 13:47 Abnormal lab findings: Abnormal lab results MPV 9.3 fL (9.4-12.4) L 03/23/18 13:43 ABG pH 7.48 pH Units (7.32-7.45) H 03/23/18 13:47 ABG pO2 145 mmHg (85-104) H 03/23/18 13:47 ABG HCO3 30 mEq/L (21-27) H 03/23/18 13:47 ABG Total CO2 31 mEq/L (20-26) H 03/23/18 13:47 ABG O2 Saturation 99 % (95-98) H 03/23/18 13:47 ABG Base Excess 6 mEq/L (-2 to 3) H 03/23/18 13:47 Potassium 3.3 mEq/L (3.5-5.1) L 03/23/18 13:43 Carbon Dioxide 32 mEq/L (23-29) H 03/23/18 13:43 Glucose 120 mg/dL (70-105) H 03/23/18 13:43 POC Glucose 123 mg/dL (70-99) H 03/23/18 15:58 Calculated Osmolality 302 (280-300) H 03/23/18 13:43 B-Natriuretic Peptide 316 pg/mL (Less than 100) H 03/23/18 13:43
[2018-03-23] MEDS ORDERED: Dexmedetomidine HCl 400 MCG/100 ML MLS IVC ONE (16:54)
[2018-03-23] MEDS ORDERED: Ondansetron 4 MG/2 ML VIAL IVP PRN (16:57)
[2018-03-23] MEDS: *HR* Heparin 5,000 UNIT/ML VIAL SQ SCH ×2 (17:18→23:44)
[2018-03-23] MEDS: Piperacillin/Tazobactam 3.375 GM in 0.9 % Sodium Chloride Mini Bag 100 ML IVPB SCH ×2 (17:19→23:44)
[2018-03-23] MEDS: Furosemide 20 MG/2 ML VIAL IVP SCH (17:25)
[2018-03-23] MEDS: Dexmedetomidine HCl 400 MCG/100 ML MLS IVC SCH (17:26)
[2018-03-23] MEDS ORDERED: Furosemide 20 MG TABLET PO SCH (18:00)
--- NOTE | 2018-03-23 18:16 | Electrocardiograph Report ---
[address] [address] Test Date: 2018-03-23 Pat Name: Juan Canada Department: 104 Room: [facility] Gender: M Caddy Packer: EKP : 1945 Requested By: Garrison Cash Order Number: [id number] Reading MD: Chaparro Sheikh Measurements Intervals Irwin Rate: 104 P: 28 VT: 154 QRS: -15 QRSD: 110 T: -20 QT: 285 QTc: 345 Interpretive Statements SINUS TACHYCARDIA WITH OCCASIONAL VENTRICULAR PREMATURE COMPLEXES INCOMPLETE RIGHT BUNDLE BRANCH BLOCK Electronically Signed On 03-23-2018 18:14:42 EDT by Chaparro Sheikh
[2018-03-23 19:34] LABS: Adenovirus Not Detected (Not Detect); Bordetella Pertussis Not Detected (Not Detect); Chlamydophila pneumoniae Not Detected (Not Detect); Coronavirus 229E Not Detected (Not Detect); Coronavirus HKU1 Not Detected (Not Detect); Coronavirus NL63 Not Detected (Not Detect); Coronavirus OC43 Not Detected (Not Detect); Human Metapneumovirus Not Detected (Not Detect); Human Rhinovirus/Enterovirus Not Detected (Not Detect); Influenza A Subtype 2009 H1 Not Detected (Not Detect); Influenza A Untypeable Not Detected (Not Detect); Influenza B Not Detected (Not Detect); Mycoplasma pneumoniae Not Detected (Not Detect); Parainfluenza Virus 1 Not Detected (Not Detect); Parainfluenza Virus 2 Not Detected (Not Detect); Parainfluenza Virus 3 ***DETECTED*** (Not Detect); Parainfluenza Virus 4 Not Detected (Not Detect); Respiratory Syncytial Virus Not Detected (Not Detect)
[2018-03-23] MEDS ORDERED: clonazePAM 0.5 MG TABLET PO SCH (21:00)
[2018-03-23] MEDS: (Pirfenidone [Esbriet] 801 MG) PO SCH (21:06)
[2018-03-23] MEDS: Budesonide/Formoterol 160/4.5 MDI IH SCH (21:39)
[2018-03-23] MEDS: methylPREDNISolone 125 MG/2 ML VIAL IVP SCH (23:44)
[2018-03-23] MEDS: Acetaminophen 325 MG TABLET PO PRN (23:51)
[2018-03-24] MEDS ORDERED: 0.9 % Sodium Chloride 250 ML IVC ONE ×3 (01:07→01:52)
[2018-03-24] MEDS ORDERED: 0.9 % Sodium Chloride 250 ML ONE (01:12)
[2018-03-24] MEDS: Ipratropium/Albuterol Neb 3 ML IH SCH ×4 (03:38→20:59)
[2018-03-24 04:37] LABS: Basophils % 0.2 %; Eosinophils % 0.2 %; Hematocrit 38.2 % (37.5-50.1); Immature Granulocytes % 0.7 % (0-4); Lymphocytes # 0.4 K/mcL (0.6-4.6); Lymphocytes % 6.1 %; Mean Corpuscular HGB Conc 31.9 g/dL (31.6-35.5); Mean Corpuscular Hemoglobin 29.2 pg (28.0-33.3); Mean Corpuscular Volume 91.4 fL (83.0-100.0); Mean Platelet Volume 9.5 fL (9.4-12.4); Monocytes # 0.1 K/mcL (0.0-1.3); Monocytes % 1.4 %; Neutrophils # 5.4 K/mcL (1.6-8.9); Platelet Count 171 K/mcL (140-400); Red Blood Count 4.18 M/mcL (4.19-5.50); Red Cell Distribution Width 13.7 % (11.5-14.5); Segmented Neutrophils % 91.4 %
[2018-03-24 04:40] LABS: Hemoglobin 12.2 g/dL (12.9-16.9)
[2018-03-24 05:03] LABS: Alanine Aminotransferase 8 Units/L (7-52); Albumin 3.5 g/dL (3.5-5.7); Albumin/Globulin Ratio 1.3 (1.1-2.2); Alkaline Phosphatase 66 Units/L (34-104); Aspartate Amino Transferase 18 Units/L (13-39); BUN/Creatinine Ratio 30 (6-26); Bilirubin,Total 0.7 mg/dL (0.3-1.0); Blood Urea Nitrogen 23 mg/dL (8-23); Calcium 8.9 mg/dL (8.6-10.3); Carbon Dioxide 26 mEq/L (23-29); Chloride 106 mEq/L (98-107); Chol/HDL Ratio 3.7 (0-4.9); Cholesterol 167 mg/dL (< 200); Globulin 2.7 g/dL (2.4-3.5); Glucose 155 mg/dL (70-105); HDL Cholesterol 45 mg/dL (40-59); LDL Cholesterol,Calculated 107 mg/dL (0-99); Magnesium 2.1 mg/dL (1.6-2.6); Osmolality,Calculated 295 (280-300); Potassium 4.9 mEq/L (3.5-5.1); Sodium 139 mEq/L (136-145); Total Protein 6.2 g/dL (6.4-8.9); Triglycerides 75 mg/dL (< 150); eGFR For African Americans > 60 (> 60); eGFR For Non-African Americans > 60 (> 60)
[2018-03-24] MEDS: methylPREDNISolone 125 MG/2 ML VIAL IVP SCH ×3 (05:53→16:50)
--- NOTE | 2018-03-24 07:22 | Pulmonology Progress Note ---
<Ryan Hsu - Last Filed: 03/24/18 08:56> Date of Encounter: 03/24/18 Time of Encounter: 07:22 Assessment and Plan (1) Acute exacerbation of chronic obstructive airways disease Current Visit: Yes Status: Acute 1. Weaning off BiPAP today to HFNC, titrate down as tolerated 2. Continue ABX for 24 hours and if continuing to improve, deescalate 3. Continue steroids and bronchodilators 4. Had goals of care, discussion with the daughter and the patient is now DNR CCA DNI. We feel strongly that if the patient were ever intubated due to his chronic lung disease that he would never be able to be weaned off the vent and the patient did not want this. Subjective Principal diagnosis: dyspnea Interval history: patient did well overnight on BiPAP. Resp infection panel came back + for parainfluenza. Denies complaints currently. Objective PUL Vital signs: Last Vital Signs Temp 96.4 F L 03/24/18 04:30 Pulse 46 03/24/18 06:00 Resp 16 03/24/18 06:00 BP 77/51 03/24/18 06:00 Pulse Ox 99 03/24/18 06:00 General appearance: no acute distress, alert Eyes: nonicteric ENT: oropharynx dry Effort: mildly labored Auscultation: bilateral: clear, diminished breath sounds Cardiovascular: regular rate and rhythm Gastrointestinal: normoactive bowel sounds, non-distended Integumentary: normal Extremities: no cyanosis, no edema Musculoskeletal: no deformities, ROM normal normal mental status, non-focal exam mood appropriate, affect normal Results - Laboratory Findings CBC and BMP: 03/24/18 04:12 03/24/18 04:12 ABG ABG pH 7.48 pH Units (7.32-7.45) H 03/23/18 13:47 ABG pCO2 41 mmHg (35-45) 03/23/18 13:47 ABG pO2 145 mmHg (85-104) H 03/23/18 13:47 ABG O2 Saturation 99 % (95-98) H 03/23/18 13:47 Abnormal lab findings: Abnormal lab results RBC 4.18 M/mcL (4.19-5.50) L 03/24/18 04:12 Hgb 12.2 g/dL (12.9-16.9) L D 03/24/18 04:12 Lymphocytes # 0.4 K/mcL (0.6-4.6) L 03/24/18 04:12 ABG pH 7.48 pH Units (7.32-7.45) H 03/23/18 13:47 ABG pO2 145 mmHg (85-104) H 03/23/18 13:47 ABG HCO3 30 mEq/L (21-27) H 03/23/18 13:47 ABG Total CO2 31 mEq/L (20-26) H 03/23/18 13:47 ABG O2 Saturation 99 % (95-98) H 03/23/18 13:47 ABG Base Excess 6 mEq/L (-2 to 3) H 03/23/18 13:47 BUN/Creatinine Ratio 30 (6-26) H 03/24/18 04:12 Glucose 155 mg/dL (70-105) H 03/24/18 04:12 POC Glucose 123 mg/dL (70-99) H 03/23/18 15:58 B-Natriuretic Peptide 316 pg/mL (Less than 100) H 03/23/18 13:43 Serum Total Protein 6.2 g/dL (6.4-8.9) L 03/24/18 04:12 LDL Cholesterol, Calc 107 mg/dL (0-99) H 03/24/18 04:12 Parainfluenza 3 (PCR) DETECTED (Not Detect) A 03/23/18 18:25 - Clinical Findings Intake & Output: Intake & Output 03/23/18 03/23/18 03/24/18 15:59 23:59 07:59 Intake Total 380 / 380 850 / 850 Output Total 400 / 400 Balance -20 / -20 850 / 850 Weight 69.7 kg Consult Discharge Plan - Plan Referrals: Jorge Ferrera MD [Primary Care Provider] - <Jos Arthur - Last Filed: 03/24/18 11:56> Date of Encounter: 03/24/18 Objective PUL Vital signs: Last Vital Signs Temp 97.8 F 03/24/18 11:25 Pulse 51 03/24/18 11:25 Resp 22 03/24/18 11:25 BP 85/51 03/24/18 11:25 Pulse Ox 100 03/24/18 11:25 Results - Laboratory Findings CBC and BMP: 03/24/18 04:12 03/24/18 04:12 ABG ABG pH 7.48 pH Units (7.32-7.45) H 03/23/18 13:47 ABG pCO2 41 mmHg (35-45) 03/23/18 13:47 ABG pO2 145 mmHg (85-104) H 03/23/18 13:47 ABG O2 Saturation 99 % (95-98) H 03/23/18 13:47 Abnormal lab findings: Abnormal lab results RBC 4.18 M/mcL (4.19-5.50) L 03/24/18 04:12 Hgb 12.2 g/dL (12.9-16.9) L D 03/24/18 04:12 Lymphocytes # 0.4 K/mcL (0.6-4.6) L 03/24/18 04:12 ABG pH 7.48 pH Units (7.32-7.45) H 03/23/18 13:47 ABG pO2 145 mmHg (85-104) H 03/23/18 13:47 ABG HCO3 30 mEq/L (21-27) H 03/23/18 13:47 ABG Total CO2 31 mEq/L (20-26) H 03/23/18 13:47 ABG O2 Saturation 99 % (95-98) H 03/23/18 13:47 ABG Base Excess 6 mEq/L (-2 to 3) H 03/23/18 13:47 BUN/Creatinine Ratio 30 (6-26) H 03/24/18 04:12 Glucose 155 mg/dL (70-105) H 03/24/18 04:12 POC Glucose 123 mg/dL (70-99) H 03/23/18 15:58 B-Natriuretic Peptide 316 pg/mL (Less than 100) H 03/23/18 13:43 Serum Total Protein 6.2 g/dL (6.4-8.9) L 03/24/18 04:12 LDL Cholesterol, Calc 107 mg/dL (0-99) H 03/24/18 04:12 Parainfluenza 3 (PCR) DETECTED (Not Detect) A 03/23/18 18:25 - Clinical Findings Intake & Output: Intake & Output 03/23/18 03/24/1803/24/18 23:59 07:59 15:59 Intake Total 380 / 380 850 / 850 Output Total 400 / 400 425 / 425 Balance -20 / -20 850 / 850 -425 / -425 Weight 69.7 kg - Attending Attestation I examined this patient and my medical decision-making was reviewed with the Resident Physician. I agree with the documented findings, disposition and treatment plan as described except to the extent set forth below. Patient seen and examined. Labs, radiology, chart personally reviewed. 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 Reviewed CT chest result with the patient and the daughter and due to advanced lung disease recommended palliative care and change his CODE STATUS. I have explained to them if his condition deteriorates invasive mechanical ventilation would not be my recommendation due to his underlying pulmonary fibrosis and out , would not be favorable. Patient and his daughter understand and agreed with plan of care. We will continue follow-up. Continue noninvasive ventilation and transition to high flow oxygen as tolerated.
[2018-03-24] MEDS: Furosemide 40 MG/4 ML VIAL IVP SCH (07:56)
[2018-03-24] MEDS: Piperacillin/Tazobactam 3.375 GM in 0.9 % Sodium Chloride Mini Bag 100 ML IVPB SCH ×2 (07:56→16:50)
[2018-03-24] MEDS: Multivit/Ca/Min/Fe/FA 1 TAB TABLET PO SCH (07:57)
[2018-03-24] MEDS: Folic Acid 1 MG TABLET PO SCH (07:57)
[2018-03-24] MEDS: (Pirfenidone [Esbriet] 801 MG) PO SCH ×3 (07:57→19:53)
[2018-03-24] MEDS: Levofloxacin 750 MG/150 ML 750 MG/150 ML BAG IVPB SCH (07:57)
[2018-03-24] MEDS: Famotidine 20 MG TABLET PO SCH (07:57)
[2018-03-24] MEDS ORDERED: predniSONE 10 MG TABLET PO SCH (09:00)
[2018-03-24] MEDS ORDERED: Furosemide 40 MG TABLET PO SCH (09:00)
[2018-03-24] MEDS: *HR* Heparin 5,000 UNIT/ML VIAL SQ SCH ×2 (10:35→16:48)
[2018-03-24] MEDS: Budesonide/Formoterol 160/4.5 MDI IH SCH ×2 (10:41→20:59)
[2018-03-24] MEDS ORDERED: 0.9 % Sodium Chloride 500 ML IVC ONE (11:46)
[2018-03-24] MEDS ORDERED: 0.9 % Sodium Chloride 500 ML ONE (11:49)
[2018-03-24] MEDS: Dexmedetomidine HCl 400 MCG/100 ML MLS IVC SCH (12:29)
[2018-03-24] MEDS: Furosemide 20 MG/2 ML VIAL IVP SCH (16:50)
[2018-03-24] MEDS ORDERED: Sennosides/Docusate Sodium TABLET PO PRN (20:09)
[2018-03-25] MEDS: Saline Nasal Spray 44 ML BOTTLE NS PRN ×3 (00:15→19:51)
[2018-03-25] MEDS: Piperacillin/Tazobactam 3.375 GM in 0.9 % Sodium Chloride Mini Bag 100 ML IVPB SCH ×3 (00:16→15:49)
[2018-03-25] MEDS: *HR* Heparin 5,000 UNIT/ML VIAL SQ SCH ×3 (00:16→15:49)
[2018-03-25] MEDS: methylPREDNISolone 125 MG/2 ML VIAL IVP SCH ×4 (00:17→17:39)
[2018-03-25] MEDS: Acetaminophen 325 MG TABLET PO PRN ×2 (00:27→09:13)
[2018-03-25 03:42] LABS: Basophils % 0.1 %; Hematocrit 34.8 % (37.5-50.1); Hemoglobin 11.5 g/dL (12.9-16.9); Immature Granulocytes % 0.5 % (0-4); Lymphocytes # 0.3 K/mcL (0.6-4.6); Lymphocytes % 4.1 %; Mean Corpuscular Hemoglobin 29.5 pg (28.0-33.3); Mean Corpuscular Volume 89.2 fL (83.0-100.0); Mean Platelet Volume 9.3 fL (9.4-12.4); Monocytes # 0.2 K/mcL (0.0-1.3); Monocytes % 2.9 %; Neutrophils # 7.2 K/mcL (1.6-8.9); Platelet Count 168 K/mcL (140-400); Red Cell Distribution Width 13.6 % (11.5-14.5); Segmented Neutrophils % 92.4 %
[2018-03-25 03:58] LABS: Alanine Aminotransferase 8 Units/L (7-52); Albumin 3.4 g/dL (3.5-5.7); Albumin/Globulin Ratio 1.4 (1.1-2.2); Alkaline Phosphatase 56 Units/L (34-104); Aspartate Amino Transferase 16 Units/L (13-39); BUN/Creatinine Ratio 46 (6-26); Bilirubin,Total 0.5 mg/dL (0.3-1.0); Blood Urea Nitrogen 29 mg/dL (8-23); Calcium 9.1 mg/dL (8.6-10.3); Carbon Dioxide 28 mEq/L (23-29); Chloride 103 mEq/L (98-107); Globulin 2.4 g/dL (2.4-3.5); Glucose 167 mg/dL (70-105); Osmolality,Calculated 294 (280-300); Potassium 4.2 mEq/L (3.5-5.1); Sodium 137 mEq/L (136-145); Total Protein 5.8 g/dL (6.4-8.9); eGFR For African Americans > 60 (> 60); eGFR For Non-African Americans > 60 (> 60)
[2018-03-25] MEDS: Ipratropium/Albuterol Neb 3 ML IH SCH ×4 (07:22→22:49)
[2018-03-25] MEDS: Levofloxacin 750 MG/150 ML 750 MG/150 ML BAG IVPB SCH (07:24)
[2018-03-25] MEDS: Multivit/Ca/Min/Fe/FA 1 TAB TABLET PO SCH (07:25)
[2018-03-25] MEDS: Furosemide 40 MG/4 ML VIAL IVP SCH (07:25)
[2018-03-25] MEDS: Famotidine 20 MG TABLET PO SCH (07:25)
[2018-03-25] MEDS: Folic Acid 1 MG TABLET PO SCH (07:25)
[2018-03-25] MEDS: (Pirfenidone [Esbriet] 801 MG) PO SCH ×3 (07:47→19:52)
--- NOTE | 2018-03-25 09:28 | Pulmonology Progress Note ---
Date of Encounter: 03/25/18 Time of Encounter: 09:20 Assessment and Plan (1) Pulmonary fibrosis Current Visit: No Status: Suspected This is most likely an acute exacerbation which has poor prognosis, however he is doing better on current treatment and to continue systemic steroid and bronchodilators for now with antibiotic. I talked to the daughter at the bedside. He is comfortable on Precedex and goal to wean that off and hopefully will be able to go home in few days. (2) Acute on chronic respiratory failure Current Visit: Yes Status: Acute He is overall doing better and keep SPO2 around 90%. Wean FIO2 for that goal. Qualifiers: Respiratory failure complication: hypoxia Qualified Code(s): J96.21 - Acute and chronic respiratory failure with hypoxia Subjective Principal diagnosis: dyspnea Interval history: Patient is feeling better and able to wean off his FIO2. He didn't need NIV. Objective PUL Vital signs: Last Vital Signs Temp 98.2 F 03/25/18 06:56 Pulse 66 03/25/18 09:14 Resp 22 03/25/18 06:56 BP 102/63 03/25/18 09:14 Pulse Ox 95 03/25/18 09:14 General appearance: no acute distress Eyes: nonicteric ENT: oropharynx dry Neck: supple Effort: mildly labored Auscultation: bilateral: rhonchi Percussion: bilateral: not dull Cardiovascular: regular rate and rhythm Gastrointestinal: normoactive bowel sounds, non-distended Extremities: no cyanosis, edema normal mental status, non-focal exam mood appropriate Results - Laboratory Findings CBC and BMP: 03/25/18 03:25 03/25/18 03:25 ABG ABG pH 7.48 pH Units (7.32-7.45) H 03/23/18 13:47 ABG pCO2 41 mmHg (35-45) 03/23/18 13:47 ABG pO2 145 mmHg (85-104) H 03/23/18 13:47 ABG O2 Saturation 99 % (95-98) H 03/23/18 13:47 Abnormal lab findings: Abnormal lab results RBC 3.90 M/mcL (4.19-5.50) L 03/25/18 03:25 Hgb 11.5 g/dL (12.9-16.9) L 03/25/18 03:25 Hct 34.8 % (37.5-50.1) L 03/25/18 03:25 MPV 9.3 fL (9.4-12.4) L 03/25/18 03:25 Lymphocytes # 0.3 K/mcL (0.6-4.6) L 03/25/18 03:25 ABG pH 7.48 pH Units (7.32-7.45) H 03/23/18 13:47 ABG pO2 145 mmHg (85-104) H 03/23/18 13:47 ABG HCO3 30 mEq/L (21-27) H 03/23/18 13:47 ABG Total CO2 31 mEq/L (20-26) H 03/23/18 13:47 ABG O2 Saturation 99 % (95-98) H 03/23/18 13:47 ABG Base Excess 6 mEq/L (-2 to 3) H 03/23/18 13:47 BUN 29 mg/dL (8-23) H 03/25/18 03:25 Creatinine 0.63 mg/dL (0.70-1.30) L 03/25/18 03:25 BUN/Creatinine Ratio 46 (6-26) H 03/25/18 03:25 Glucose 167 mg/dL (70-105) H 03/25/18 03:25 POC Glucose 140 mg/dL (70-99) H 03/24/18 11:31 B-Natriuretic Peptide 316 pg/mL (Less than 100) H 03/23/18 13:43 Serum Total Protein 5.8 g/dL (6.4-8.9) L 03/25/18 03:25 Albumin 3.4 g/dL (3.5-5.7) L 03/25/18 03:25 LDL Cholesterol, Calc 107 mg/dL (0-99) H 03/24/18 04:12 Vancomycin Trough 11 mcg/mL (5-10) H 03/25/18 03:25 Parainfluenza 3 (PCR) DETECTED (Not Detect) A 03/23/18 18:25 - Microbiology Findings Microbiology Findings: Microbiology, Last 48 Hours 03/23/18 15:43 Blood Culture - Preliminary Peripheral Venipuncture No growth. - Clinical Findings Intake & Output: Intake & Output 06/09/18 06/10/18 06/10/18 23:59 07:59 15:59 Intake Total 250 / 250 520 / 520 Balance 250 / 250 520 / 520 Consult Discharge Plan - Plan Referrals: Jorge Ferrera MD [Primary Care Provider] -
[2018-03-25] MEDS: Budesonide/Formoterol 160/4.5 MDI IH SCH ×2 (09:59→22:49)
[2018-03-25] MEDS ORDERED: Aminoglycoside Consult 1 EACH MC ONE (14:31)
--- NOTE | 2018-03-25 14:52 | Internal Med Progress Note ---
Date of Encounter: 03/25/18 Time of Encounter: 14:38 - Assessment and plan (1) Acute on chronic respiratory failure Current Visit: Yes Status: Acute Assessment and plan: Continue methyl prednisone, Zosyn Needs Precedex because of severe anxiety causing dyspnea for patient. This has helped patient respiratory parsons and compliant with bipap. Given pulmonary fibrosis with poor prognosis, goal to optimize medical therapy Continue IV Lasix Continue Solu Medrol Continue Levaquin, Zosyn, Vancomycin. Qualifiers: Respiratory failure complication: hypoxia Qualified Code(s): J96.21 - Acute and chronic respiratory failure with hypoxia (2) Pulmonary fibrosis Current Visit: No Status: Suspected Assessment and plan: As above. (3) HCAP (healthcare-associated pneumonia) Current Visit: No Status: Acute Assessment and plan: Continue Levaquin, Vanc, Zosyn. De escalate as tolerated. Obtain Procalcitonin, March 26 and March 29 and monitor for improvement. (4) COPD exacerbation Current Visit: No Status: Acute (5) Acute exacerbation of CHF (congestive heart failure) Current Visit: No Status: Acute Assessment and plan: Acute exacerbation of CHF w/BNP of 316 on admission, complicated by COPD exacerbation, PNA, and pulmonary fibrosis. No pedal edema on exam. Continue pts. PO lasix. 1.5L daily fluid restriction. Monitor I&O and daily weight. Continuous cardiac telemetry. Echocardiogram dated 10/22/17 shows LVEF of 55%, normal right ventricular structure and function, and no evidence of PFO with agitated saline contrast. Continue IV Lasix Qualifiers: Heart failure type: unspecified Qualified Code(s): I50.9 - Heart failure, unspecified (6) Anxiety Current Visit: No Status: Acute Assessment and plan: Takes anxiety medication at home Right now needs Precedex drip because of severe anxiety with respiratory distress. It has been helping patient. (7) History of CVA (cerebrovascular accident) Current Visit: No Status: Resolved Assessment and plan: Hx of CVA that was discovered on MRI results in Nov 2017. No residual effects, deficits, or weaknesses. (8) HLD (hyperlipidemia) Current Visit: No Status: Chronic Assessment and plan: Continue pts. Zocor. Qualifiers: Hyperlipidemia type: pure hypercholesterolemia Qualified Code(s): E78.00 - Pure hypercholesterolemia, unspecified; E78.0 - Pure hypercholesterolemia (9) GERD (gastroesophageal reflux disease) Current Visit: No Status: Chronic Qualifiers: Esophagitis presence: esophagitis presence not specified Qualified Code(s) : K21.9 - Gastro-esophageal reflux disease without esophagitis (10) DVT prophylaxis Current Visit: No Status: Acute Assessment and plan: Heparin SQ - Time Spent With Patient Total time spent is greater than 50% in coordination of care (as documented) at patient's floor/unit and/or counseling patient: - Constitutional Vitals: Temp Pulse Resp BP Pulse Ox 98.2 F 82 18 89/59 94 03/25/18 06:56 03/25/18 11:35 03/25/18 11:35 03/25/18 11:35 03/25/18 11:35 General appearance: Present: cooperative, mild distress (Respiratory), A&O X 3, pleasant, underweight, answers questions appropriately Internal Medicine: Result - Labs CBC & Chem 7: 03/25/18 03:25 03/25/18 03:25 Labs: Short CBC 03/25/18 Range/Units 03:25 WBC 7.8 (4.3-11.1) K/mcL Hgb 11.5 L (12.9-16.9) g/dL Hct 34.8 L (37.5-50.1) % Plt Count 168 (140-400) K/mcL Neutrophils # 7.2 (1.6-8.9) K/mcL BMP 03/25/18 03:25 Sodium 137 Potassium 4.2 Chloride 103 Carbon Dioxide 28 BUN 29 H Creatinine 0.63 L Glucose 167 H Calcium 9.1 Liver Function 03/25/18 Range/Units 03:25 Total Bilirubin 0.5 (0.3-1.0) mg/dL AST 16 (13-39) Units/L ALT 8 (7-52) Units/L Alkaline Phosphatase 56 (34-104) Units/L Albumin 3.4 L (3.5-5.7) g/dL - ABG Interpretation ABG results: ABG ABG pH 7.48 pH Units (7.32-7.45) H 03/23/18 13:47 ABG pCO2 41 mmHg (35-45) 03/23/18 13:47 ABG pO2 145 mmHg (85-104) H 03/23/18 13:47 ABG O2 Saturation 99 % (95-98) H 03/23/18 13:47 Consult Discharge Plan - Plan Referrals: Jorge Ferrera MD [Primary Care Provider] -
[2018-03-25] MEDS: Furosemide 20 MG/2 ML VIAL IVP SCH (17:39)
[2018-03-26] MEDS: Piperacillin/Tazobactam 3.375 GM in 0.9 % Sodium Chloride Mini Bag 100 ML IVPB SCH ×2 (00:15→08:49)
[2018-03-26] MEDS: *HR* Heparin 5,000 UNIT/ML VIAL SQ SCH ×4 (00:16→23:07)
[2018-03-26] MEDS: methylPREDNISolone 125 MG/2 ML VIAL IVP SCH ×4 (00:16→17:09)
[2018-03-26] MEDS: Ipratropium/Albuterol Neb 3 ML IH SCH ×4 (04:04→22:56)
[2018-03-26 04:48] LABS: Hemoglobin 11.6 g/dL (12.9-16.9); Immature Granulocytes % 0.7 % (0-4); Lymphocytes # 0.4 K/mcL (0.6-4.6); Lymphocytes % 4.3 %; Mean Corpuscular HGB Conc 33.1 g/dL (31.6-35.5); Mean Corpuscular Hemoglobin 29.3 pg (28.0-33.3); Mean Corpuscular Volume 88.4 fL (83.0-100.0); Mean Platelet Volume 9.1 fL (9.4-12.4); Monocytes # 0.2 K/mcL (0.0-1.3); Monocytes % 2.5 %; Neutrophils # 7.5 K/mcL (1.6-8.9); Platelet Count 184 K/mcL (140-400); Red Blood Count 3.96 M/mcL (4.19-5.50); Red Cell Distribution Width 13.5 % (11.5-14.5); Segmented Neutrophils % 92.5 %
[2018-03-26 05:10] LABS: Alanine Aminotransferase 10 Units/L (7-52); Albumin 3.3 g/dL (3.5-5.7); Albumin/Globulin Ratio 1.4 (1.1-2.2); Alkaline Phosphatase 52 Units/L (34-104); Aspartate Amino Transferase 15 Units/L (13-39); BUN/Creatinine Ratio 40 (6-26); Bilirubin,Total 0.5 mg/dL (0.3-1.0); Blood Urea Nitrogen 24 mg/dL (8-23); Calcium 8.9 mg/dL (8.6-10.3); Carbon Dioxide 29 mEq/L (23-29); Chloride 104 mEq/L (98-107); Globulin 2.4 g/dL (2.4-3.5); Glucose 157 mg/dL (70-105); Osmolality,Calculated 295 (280-300); Potassium 3.7 mEq/L (3.5-5.1); Sodium 139 mEq/L (136-145); Total Protein 5.7 g/dL (6.4-8.9); eGFR For African Americans > 60 (> 60); eGFR For Non-African Americans > 60 (> 60)
[2018-03-26] MEDS ORDERED: Ringers Solution, Lactated 500 ML IVC ONE (08:11)
--- NOTE | 2018-03-26 08:14 | Internal Med Progress Note ---
<Chantale Salas - Last Filed: 03/26/18 16:45> Date of Encounter: 03/26/18 Time of Encounter: 08:12 - Assessment and plan (1) Acute on chronic respiratory failure Current Visit: Yes Status: Acute Assessment and plan: Pt has been off of precedex gtt. Discussed utilization of PO anxiolytics and he is amendable to this. Given pulmonary fibrosis with poor prognosis, goal to optimize medical therapy Pulmonology recommends prednisone taper at discharge of 60mg daily, decrease by 10mg weekly. Pt will need f/u appointment with pulmonology in 1-2 weeks. Plan: 0.5mg Ativan PO 6hr prn. Resume home Klonipin at discharge. Discontinue precedex Continue IV Lasix Continue Solu Medrol today, will convert to 60mg PO prednisone tomorrow. Continue Levaquin Qualifiers: Respiratory failure complication: hypoxia Qualified Code(s): J96.21 - Acute and chronic respiratory failure with hypoxia (2) Acute exacerbation of CHF (congestive heart failure) Current Visit: No Status: Acute Assessment and plan: Acute exacerbation of CHF w/BNP of 316 on admission, complicated by COPD exacerbation, PNA, and pulmonary fibrosis. Echocardiogram dated 10/22/17 shows LVEF of 55%, normal right ventricular structure and function, and no evidence of PFO with agitated saline contrast. No pedal edema on exam. Plan: Continue 40mg IV lasix QAM and 20mg IV lasix QPM 1.5L daily fluid restriction Monitor I&O and daily weight Continuous cardiac telemetry Qualifiers: Heart failure type: unspecified Qualified Code(s): I50.9 - Heart failure, unspecified (3) COPD exacerbation Current Visit: No Status: Acute Assessment and plan: Acute COPD exacerbation complicated by CHF exacerbation and unresolved PNA. Pt. given 125 mg IVP Solu-Medrol in ED. Plan: Continue 60 mg every 6h Solu-Medrol today Will switch to prednisone 60mg PO starting tomorrow, will need long taper decreasing by 10mg Qweek to home dose of 10mg daily. DuoNeb's every 6 hours Continue Symbicort Supplemental O2 with titration to keep sats >88% and SPO2 monitoring (4) HCAP (healthcare-associated pneumonia) Current Visit: No Status: Acute Assessment and plan: Pt respiratory status is improving. Levaquin Day 3 Plan: Continue Levaquin for a week long course Discontinue Vanc, Zosyn Obtain Procalcitonin today and March 29 and monitor for improvement. (5) Pulmonary fibrosis Current Visit: No Status: Suspected Assessment and plan: As above. (6) Anxiety Current Visit: No Status: Acute Assessment and plan: Takes anxiety medication at home, occasional anxiety secondary to respiratory distress and mood. Plan: Will avoid Precedex drip 0.5mg PO Ativan Q6hr prn (7) HLD (hyperlipidemia) Current Visit: No Status: Chronic Assessment and plan: Continue Zocor. Qualifiers: Hyperlipidemia type: pure hypercholesterolemia Qualified Code(s): E78.00 - Pure hypercholesterolemia, unspecified; E78.0 - Pure hypercholesterolemia (8) DVT prophylaxis Current Visit: No Status: Acute Assessment and plan: Heparin SQ (9) GERD (gastroesophageal reflux disease) Current Visit: No Status: Chronic Assessment and plan: Hx of chronic GERD. Plan: IVP Zofran 4 mg Q6HR PRN for N/V Continue PO Prilosec and Pepcid. Qualifiers: Esophagitis presence: esophagitis presence not specified Qualified Code(s) : K21.9 - Gastro-esophageal reflux disease without esophagitis - Time Spent With Patient Total time spent is greater than 50% in coordination of care (as documented) at patient's floor/unit and/or counseling patient: - Subjective Interval history: Patient seen and examined, sitting on the side of the bed. He states that he just had a BM and is feeling a lot better. He states that his breathing has improved significantly since admission. His daughter is at bedside and has concerns about his mood. She states that he is feeling depressed now and then because he feels "claustrophobic" in the room, can't get out and move around. He also is feeling depressed because he misses his . They think that his anxiety is improving, but are requesting pills to have as needed throughout the day if he is overwhelmed with his anxiety. - Constitutional Vitals: Temp Pulse Resp BP Pulse Ox 97.9 F 53 22 84/60 98 03/26/18 06:56 03/26/18 06:56 03/26/18 06:56 03/26/18 06:56 03/26/18 06:56 General appearance: Present: cooperative, mild distress (Respiratory), A&O X 3, pleasant, answers questions appropriately - Head Head exam: Present: atraumatic, normocephalic - Eye Eye exam: Present: PERRL, conjuntiva pink, sclera anicteric Pupils: Present: PERRL - Neck Neck exam general surgery: Present: supple, trachea midline. Absent: lymphadenopathy - Respiratory Respiratory exam: Present: decreased breath sounds, tachypnea. Absent: rales, respiratory distress, rhonchi, wheezes Additional comments: clubbing - Cardiovascular Cardiovascular exam: Present: RRR, +S1, +S2. Absent: diastolic murmur, gallop, rubs, systolic murmur - GI/Abdominal GI/Abdominal exam: Present: normal bowel sounds, soft, no peritoneal signs. Absent: distended, tenderness - Extremities Exam Extremities exam: Present: normal capillary refill, warm, radial pulses palpable and symmetrical. Absent: calf tenderness, cyanotic, pedal edema - Neurological Exam Neurological exam: Present: oriented X3, no focal deficits. Absent: facial droop, speech deficit - Psychiatric Psychiatric exam: Present: normal affect, normal mood - Skin Skin exam: Present: dry, intact Internal Medicine: Result - Labs CBC & Chem 7: 03/26/18 04:23 03/26/18 04:23 Labs: Short CBC 03/26/18 Range/Units 04:23 WBC 8.1 (4.3-11.1) K/mcL Hgb 11.6 L (12.9-16.9) g/dL Hct 35.0 L (37.5-50.1) % Plt Count 184 (140-400) K/mcL Neutrophils # 7.5 (1.6-8.9) K/mcL BMP 03/26/18 04:23 Sodium 139 Potassium 3.7 Chloride 104 Carbon Dioxide 29 BUN 24 H Creatinine 0.60 L Glucose 157 H Calcium 8.9 Liver Function 03/26/18 Range/Units 04:23 Total Bilirubin 0.5 (0.3-1.0) mg/dL AST 15 (13-39) Units/L ALT 10 (7-52) Units/L Alkaline Phosphatase 52 (34-104) Units/L Albumin 3.3 L (3.5-5.7) g/dL - ABG Interpretation ABG results: ABG ABG pH 7.48 pH Units (7.32-7.45) H 03/23/18 13:47 ABG pCO2 41 mmHg (35-45) 03/23/18 13:47 ABG pO2 145 mmHg (85-104) H 03/23/18 13:47 ABG O2 Saturation 99 % (95-98) H 03/23/18 13:47 Consult Discharge Plan - Plan Referrals: Jos Arthur MD [Partnered Physician] - 04/05/18 2:00 pm Jorge Ferrera MD [Primary Care Provider] - (CALLED THE OFFICE TO GET A FOLLOW UP WITH DR. FERRERA OFFICE WILL CALL BACK WITH FOLLOW UP APPOINTMENT) <Rica Manriquez Sun[place]milee - Last Filed: 03/26/18 19:07> Date of Encounter: 03/26/18 - Assessment and plan (1) Pulmonary fibrosis Current Visit: No Status: Suspected (2) Acute on chronic respiratory failure Current Visit: Yes Status: Acute Qualifiers: Respiratory failure complication: hypoxia Qualified Code(s): J96.21 - Acute and chronic respiratory failure with hypoxia (3) DVT prophylaxis Current Visit: No Status: Acute (4) HCAP (healthcare-associated pneumonia) Current Visit: No Status: Acute (5) COPD exacerbation Current Visit: No Status: Acute (6) Anxiety Current Visit: No Status: Acute (7) HLD (hyperlipidemia) Current Visit: No Status: Chronic Qualifiers: Hyperlipidemia type: pure hypercholesterolemia Qualified Code(s): E78.00 - Pure hypercholesterolemia, unspecified; E78.0 - Pure hypercholesterolemia (8) Acute exacerbation of CHF (congestive heart failure) Current Visit: No Status: Acute Qualifiers: Heart failure type: unspecified Qualified Code(s): I50.9 - Heart failure, unspecified (9) GERD (gastroesophageal reflux disease) Current Visit: No Status: Chronic Qualifiers: Esophagitis presence: esophagitis presence not specified Qualified Code(s) : K21.9 - Gastro-esophageal reflux disease without esophagitis - Time Spent With Patient Total time spent is greater than 50% in coordination of care (as documented) at patient's floor/unit and/or counseling patient: - Constitutional Vitals: Temp Pulse Resp BP Pulse Ox 98.2 F 79 16 130/81 94 03/26/18 15:35 03/26/18 16:09 03/26/18 15:53 03/26/18 15:35 03/26/18 15:53 Internal Medicine: Result - Labs CBC & Chem 7: 03/26/18 04:23 03/26/18 04:23 Labs: Short CBC 03/26/18 Range/Units 04:23 WBC 8.1 (4.3-11.1) K/mcL Hgb 11.6 L (12.9-16.9) g/dL Hct 35.0 L (37.5-50.1) % Plt Count 184 (140-400) K/mcL Neutrophils # 7.5 (1.6-8.9) K/mcL BMP 03/26/18 04:23 Sodium 139 Potassium 3.7 Chloride 104 Carbon Dioxide 29 BUN 24 H Creatinine 0.60 L Glucose 157 H Calcium 8.9 Liver Function 03/26/18 Range/Units 04:23 Total Bilirubin 0.5 (0.3-1.0) mg/dL AST 15 (13-39) Units/L ALT 10 (7-52) Units/L Alkaline Phosphatase 52 (34-104) Units/L Albumin 3.3 L (3.5-5.7) g/dL - ABG Interpretation ABG results: ABG ABG pH 7.48 pH Units (7.32-7.45) H 03/23/18 13:47 ABG pCO2 41 mmHg (35-45) 03/23/18 13:47 ABG pO2 145 mmHg (85-104) H 03/23/18 13:47 ABG O2 Saturation 99 % (95-98) H 03/23/18 13:47 - Attending Attestation I examined this patient and my medical decision-making was reviewed with the Resident Physician. I agree with the documented findings, disposition and treatment plan as described except to the extent set forth below.
[2018-03-26] MEDS: Dexmedetomidine HCl 400 MCG/100 ML MLS IVC SCH (08:23)
[2018-03-26] MEDS: (Pirfenidone [Esbriet] 801 MG) PO SCH ×3 (08:50→20:22)
[2018-03-26] MEDS: Levofloxacin 750 MG/150 ML 750 MG/150 ML BAG IVPB SCH (08:50)
[2018-03-26] MEDS: Famotidine 20 MG TABLET PO SCH (08:51)
[2018-03-26] MEDS: Multivit/Ca/Min/Fe/FA 1 TAB TABLET PO SCH (08:51)
[2018-03-26] MEDS: Folic Acid 1 MG TABLET PO SCH (08:51)
[2018-03-26] MEDS: Furosemide 40 MG/4 ML VIAL IVP SCH (08:51)
[2018-03-26] MEDS ORDERED: *HR* LORazepam 0.5 MG TABLET PO PRN (08:59)
[2018-03-26] MEDS: Budesonide/Formoterol 160/4.5 MDI IH SCH ×2 (11:10→22:56)
--- NOTE | 2018-03-26 12:04 | Pulmonology Progress Note ---
Date of Encounter: 03/26/18 Time of Encounter: 12:03 Assessment and Plan (1) Acute on chronic respiratory failure Current Visit: Yes Status: Acute This is secondary to IPF with acute flare continue to wean oxygen to keep saturation greater than 88%. Continues positive airway pressure support as needed for work of breathing or hypoxemia however looks like he is improving and so I do not suspect this will be needed Additionally encourage incentive spirometry while in bed out of bed to chair ambulation and physical therapy/occupational therapy and reenrollment in pulmonary rehabilitation once physically able to return Qualifiers: Respiratory failure complication: hypoxia Qualified Code(s): J96.21 - Acute and chronic respiratory failure with hypoxia (2) Pulmonary fibrosis Current Visit: No Status: Suspected This is idiopathic pulmonary fibrosis with acute flare agree with continuation of antimicrobials to complete a weeklong course. Continue steroids and transitioned to 60 mg of prednisone with plan to decrease by 10 mg weekly he will need pulmonary follow-up within 1-2 weeks of the time discharge Pulmonary will sign off please call with any questions Subjective Principal diagnosis: dyspnea Interval history: Mr. Canada says that he is feeling much better. He has been able to ambulate now on high flow nasal cannula and still have some strength. Physical therapy and occupational therapy a been working with him as well. Anxiety is much better controled Objective PUL Vital signs: Last Vital Signs Temp 97.9 F 03/26/18 11:06 Pulse 81 03/26/18 11:36 Resp 16 03/26/18 11:09 BP 131/83 03/26/18 11:06 Pulse Ox 98 03/26/18 11:09 General appearance: no acute distress Auscultation: bilateral: rales Cardiovascular: regular rate and rhythm Gastrointestinal: normoactive bowel sounds Extremities: no cyanosis, no edema, no clubbing normal mental status, non-focal exam mood appropriate Results - Laboratory Findings CBC and BMP: 03/26/18 04:23 03/26/18 04:23 ABG ABG pH 7.48 pH Units (7.32-7.45) H 03/23/18 13:47 ABG pCO2 41 mmHg (35-45) 03/23/18 13:47 ABG pO2 145 mmHg (85-104) H 03/23/18 13:47 ABG O2 Saturation 99 % (95-98) H 03/23/18 13:47 Abnormal lab findings: Abnormal lab results RBC 3.96 M/mcL (4.19-5.50) L 03/26/18 04:23 Hgb 11.6 g/dL (12.9-16.9) L 03/26/18 04:23 Hct 35.0 % (37.5-50.1) L 03/26/18 04:23 MPV 9.1 fL (9.4-12.4) L 03/26/18 04:23 Lymphocytes # 0.4 K/mcL (0.6-4.6) L 03/26/18 04:23 ABG pH 7.48 pH Units (7.32-7.45) H 03/23/18 13:47 ABG pO2 145 mmHg (85-104) H 03/23/18 13:47 ABG HCO3 30 mEq/L (21-27) H 03/23/18 13:47 ABG Total CO2 31 mEq/L (20-26) H 03/23/18 13:47 ABG O2 Saturation 99 % (95-98) H 03/23/18 13:47 ABG Base Excess 6 mEq/L (-2 to 3) H 03/23/18 13:47 BUN 24 mg/dL (8-23) H 03/26/18 04:23 Creatinine 0.60 mg/dL (0.70-1.30) L 03/26/18 04:23 BUN/Creatinine Ratio 40 (6-26) H 03/26/18 04:23 Glucose 157 mg/dL (70-105) H 03/26/18 04:23 POC Glucose 166 mg/dL (70-99) H 03/24/18 18:56 B-Natriuretic Peptide 316 pg/mL (Less than 100) H 03/23/18 13:43 Serum Total Protein 5.7 g/dL (6.4-8.9) L 03/26/18 04:23 Albumin 3.3 g/dL (3.5-5.7) L 03/26/18 04:23 LDL Cholesterol, Calc 107 mg/dL (0-99) H 03/24/18 04:12 Vancomycin Trough 11 mcg/mL (5-10) H 03/25/18 03:25 Parainfluenza 3 (PCR) DETECTED (Not Detect) A 03/23/18 18:25 - Microbiology Findings Microbiology Findings: Microbiology, Last 48 Hours 03/23/18 15:43 Blood Culture - Preliminary Peripheral Venipuncture No growth. - Diagnostic Findings CT scan - chest: report reviewed, image reviewed - Clinical Findings Intake & Output: Intake & Output 03/25/18 03/26/18 03/26/18 23:59 07:59 15:59 Intake Total 470 / 470 590 / 590 270 / 270 Output Total 500 / 500 Balance 470 / 470 90 / 90 270 / 270 Consult Discharge Plan - Plan Referrals: Jos Arthur MD [Partnered Physician] - 04/05/18 2:00 pm Jorge Russ MD [Primary Care Provider] - (CALLED THE OFFICE TO GET A FOLLOW UP WITH DR. RUSS OFFICE WILL CALL BACK WITH FOLLOW UP APPOINTMENT)
[2018-03-26] MEDS: Furosemide 20 MG/2 ML VIAL IVP SCH (17:09)
[2018-03-26] MEDS: Saline Nasal Spray 44 ML BOTTLE NS PRN (20:22)
[2018-03-26] MEDS: Acetaminophen 325 MG TABLET PO PRN (20:25)
[2018-03-27] MEDS: Ipratropium/Albuterol Neb 3 ML IH SCH ×2 (04:16→10:33)
[2018-03-27 04:44] LABS: Hemoglobin 12.4 g/dL (12.9-16.9); Immature Granulocytes % 0.4 % (0-4); Lymphocytes # 0.6 K/mcL (0.6-4.6); Lymphocytes % 6.5 %; Mean Corpuscular HGB Conc 32.6 g/dL (31.6-35.5); Mean Corpuscular Hemoglobin 29.2 pg (28.0-33.3); Mean Corpuscular Volume 89.6 fL (83.0-100.0); Mean Platelet Volume 9.1 fL (9.4-12.4); Monocytes # 0.7 K/mcL (0.0-1.3); Monocytes % 7.8 %; Neutrophils # 7.9 K/mcL (1.6-8.9); Platelet Count 204 K/mcL (140-400); Red Blood Count 4.24 M/mcL (4.19-5.50); Red Cell Distribution Width 13.8 % (11.5-14.5); Segmented Neutrophils % 85.3 %
[2018-03-27 05:01] LABS: Alanine Aminotransferase 11 Units/L (7-52); Albumin 3.2 g/dL (3.5-5.7); Albumin/Globulin Ratio 1.4 (1.1-2.2); Alkaline Phosphatase 48 Units/L (34-104); Aspartate Amino Transferase 16 Units/L (13-39); BUN/Creatinine Ratio 39 (6-26); Bilirubin,Total 0.5 mg/dL (0.3-1.0); Blood Urea Nitrogen 25 mg/dL (8-23); Calcium 8.8 mg/dL (8.6-10.3); Carbon Dioxide 30 mEq/L (23-29); Chloride 104 mEq/L (98-107); Globulin 2.3 g/dL (2.4-3.5); Glucose 126 mg/dL (70-105); Osmolality,Calculated 298 (280-300); Potassium 3.4 mEq/L (3.5-5.1); Sodium 141 mEq/L (136-145); Total Protein 5.5 g/dL (6.4-8.9); eGFR For African Americans > 60 (> 60); eGFR For Non-African Americans > 60 (> 60)
[2018-03-27] MEDS: *HR* Heparin 5,000 UNIT/ML VIAL SQ SCH (08:50)
[2018-03-27] MEDS: Famotidine 20 MG TABLET PO SCH (08:50)
[2018-03-27] MEDS: Multivit/Ca/Min/Fe/FA 1 TAB TABLET PO SCH (08:51)
[2018-03-27] MEDS: Furosemide 40 MG/4 ML VIAL IVP SCH (08:51)
[2018-03-27] MEDS: Folic Acid 1 MG TABLET PO SCH (08:51)
[2018-03-27] MEDS ORDERED: levoFLOXacin 750 MG TABLET PO SCH (09:00)
[2018-03-27] MEDS ORDERED: predniSONE 20 MG TABLET PO SCH (09:00)
[2018-03-27] MEDS: (Pirfenidone [Esbriet] 801 MG) PO SCH (09:06)
[2018-03-27] MEDS: Budesonide/Formoterol 160/4.5 MDI IH SCH (10:33)
[2018-03-27 11:09] VITALS: BP 92/63
--- NOTE | 2018-03-27 13:10 | Internal Med Progress Note ---
Date of Encounter: 03/27/18 Time of Encounter: 10:00 - Assessment and plan (1) Pulmonary fibrosis Current Visit: No Status: Suspected (2) Acute on chronic respiratory failure Current Visit: Yes Status: Acute Qualifiers: Respiratory failure complication: hypoxia Qualified Code(s): J96.21 - Acute and chronic respiratory failure with hypoxia (3) DVT prophylaxis Current Visit: No Status: Acute (4) HCAP (healthcare-associated pneumonia) Current Visit: No Status: Acute (5) COPD exacerbation Current Visit: No Status: Acute (6) Anxiety Current Visit: No Status: Acute (7) HLD (hyperlipidemia) Current Visit: No Status: Chronic Qualifiers: Hyperlipidemia type: pure hypercholesterolemia Qualified Code(s): E78.00 - Pure hypercholesterolemia, unspecified; E78.0 - Pure hypercholesterolemia (8) Acute exacerbation of CHF (congestive heart failure) Current Visit: No Status: Acute Qualifiers: Heart failure type: unspecified Qualified Code(s): I50.9 - Heart failure, unspecified (9) GERD (gastroesophageal reflux disease) Current Visit: No Status: Chronic Qualifiers: Esophagitis presence: esophagitis presence not specified Qualified Code(s) : K21.9 - Gastro-esophageal reflux disease without esophagitis - Time Spent With Patient Total time spent is greater than 50% in coordination of care (as documented) at patient's floor/unit and/or counseling patient: - Constitutional Vitals: Temp Pulse Resp BP Pulse Ox 98.2 F 93 18 92/63 94 03/27/18 11:08 03/27/18 11:08 03/27/18 11:08 03/27/18 11:08 03/27/18 11:08 General appearance: Present: cooperative, mild distress (Respiratory), A&O X 3, pleasant, answers questions appropriately Internal Medicine: Result - Labs CBC & Chem 7: 03/27/18 04:03 03/27/18 04:03 Labs: Short CBC 03/27/18 Range/Units 04:03 WBC 9.3 (4.3-11.1) K/mcL Hgb 12.4 L (12.9-16.9) g/dL Hct 38.0 (37.5-50.1) % Plt Count 204 (140-400) K/mcL Neutrophils # 7.9 (1.6-8.9) K/mcL BMP 03/27/18 04:03 Sodium 141 Potassium 3.4 L Chloride 104 Carbon Dioxide 30 H BUN 25 H Creatinine 0.64 L Glucose 126 H Calcium 8.8 Liver Function 03/27/18 Range/Units 04:03 Total Bilirubin 0.5 (0.3-1.0) mg/dL AST 16 (13-39) Units/L ALT 11 (7-52) Units/L Alkaline Phosphatase 48 (34-104) Units/L Albumin 3.2 L (3.5-5.7) g/dL - ABG Interpretation ABG results: ABG ABG pH 7.48 pH Units (7.32-7.45) H 03/23/18 13:47 ABG pCO2 41 mmHg (35-45) 03/23/18 13:47 ABG pO2 145 mmHg (85-104) H 03/23/18 13:47 ABG O2 Saturation 99 % (95-98) H 03/23/18 13:47 Consult Discharge Plan - Plan Referrals: Jos Arthur MD [Partnered Physician] - 04/05/18 2:00 pm Jorge Ferrera MD [Primary Care Provider] - 04/05/18 10:00 am ()
--- NOTE | 2018-03-27 13:13 | Discharge Summary ---
- NOTES TO OUTPATIENT PROVIDER Notes to Outpatient Provider: Patient with history of pulmonary fibrosis admitted here with acute on chronic respiratory failure due to exacerbation of pulmonary fibrosis, congestive heart failure, pneumonia. Was treated with IV antibiotics, bronchodilators and steroids and Lasix. He is not doing better and is clinically stable to be discharged home on a tapering course of steroids. He will follow up with pulmonology after discharge. He is being discharged on increased amounts of oxygen and will now be on up to 6 L O2 supplementation. Orders not resulted at time of discharge: Pending orders 03/23/18 15:57 Sputum Culture [Culture,Sputum with Gram Stain] [] Stat 03/23/18 15:58 Legionella Antigen [] Stat Streptococcal pneumoniae urin antigen [S. Pneumoniae Antigen] [] Stat 03/26/18 04:23 Procalcitonin AM 0400 03/29/18 04:00 Procalcitonin AM 0400 Date of Encounter: 03/27/18 Time of Encounter: 10:00 - Discharge Diagnosis (1) Acute on chronic respiratory failure Priority: Primary Status: Acute Qualifiers: Respiratory failure complication: hypoxia Qualified Code(s): J96.21 - Acute and chronic respiratory failure with hypoxia (2) Pulmonary fibrosis Priority: Secondary Status: Acute (3) HCAP (healthcare-associated pneumonia) Priority: Secondary Status: Acute Assessment and Plan: Pneumonia-clinically unable to determine organism (4) COPD exacerbation Priority: Secondary Status: Acute (5) Anxiety Priority: Secondary Status: Acute (6) HLD (hyperlipidemia) Priority: Secondary Status: Chronic Qualifiers: Hyperlipidemia type: pure hypercholesterolemia Qualified Code(s): E78.00 - Pure hypercholesterolemia, unspecified; E78.0 - Pure hypercholesterolemia (7) Acute exacerbation of CHF (congestive heart failure) Priority: Secondary Status: Acute Qualifiers: Heart failure type: diastolic Qualified Code(s): I50.33 - Acute on chronic diastolic (congestive) heart failure (8) GERD (gastroesophageal reflux disease) Priority: Secondary Status: Chronic Qualifiers: Esophagitis presence: esophagitis presence not specified Qualified Code(s) : K21.9 - Gastro-esophageal reflux disease without esophagitis (9) DVT prophylaxis Priority: Secondary Status: Acute Hospital course: Mr. Canada is a 72 year old male patient with a history of COPD, pulmonary fibrosis , diastolic heart failure who presented to the ER with complaints of shortness of breath and was admitted with acute on chronic respiratory failure related to pneumonia, CHF and COPD exacerbation along with pulmonary fibrosis. He was treated with IV antibiotics, IV Lasix along with steroids and bronchodilators. He also required increased supplemental oxygen. He was also provided with noninvasive positive pressure ventilation. Pulmonology was consulted to help manage his care. He has slowly improved with this aggressive management. His blood cultures have been negative. No clear organism has been identified for his pneumonia. However pulmonology recommends completing at least 7 days of antibiotic therapy. Per their recommendations, patient will also be discharged on slow taper of steroids beginning at 60 mg and then tapering by 10 mg every week. He will follow up with pulmonology after discharge for further management of his pulmonary fibrosis. At this time, patient is requiring at least 6 L of oxygen supplementation. A prescription for this has been provided to him. Discharge discussed with: patient, family - Time Spent with Patient Total time spent providing and/or coordinating discharge services: Greater than 30 minutes (45 min) - Discharge Medications Prescriptions: levoFLOXacin [Levaquin] 750 mg PO DAILY #5 tablet predniSONE [PredniSONE] 20 mg PO DAILY 42 Days tablet Home Medications: Mv-Mn/FA/Vit K/Lycop/Lut/Coq10 [Daily Multivitamin Capsule] 1 tab PO DAILY 05/23 [History] Folic Acid 1 mg PO DAILY 08/14/17 [History] clonazePAM [Klonopin] 0.5 mg PO HS 08/28/17 [History] predniSONE [PredniSONE] 10 mg PO DAILY 10/22/17 [History] Clopidogrel [Plavix] 75 mg PO DAILY #30 tablet 10/25/17 [Rx] Simvastatin [Zocor] 40 mg PO HS #30 tablet 10/25/17 [Rx] Budesonide/Formoterol 160/4.5 [Symbicort 160/4.5] 2 puff IH BIDR 11/29/17 [ History] Esomeprazole Magnesium [Nexium] 20 mg PO DAILY 11/29/17 [History] Furosemide [Lasix] 20 mg PO QPM 11/29/17 [History] Furosemide [Lasix] 40 mg PO QAM 11/29/17 [History] Ipratropium/Albuterol Neb [Duoneb] 3 ml IH Q6H PRN 11/29/17 [History] Lidocaine Jelly 2% 1 appl TP TID PRN 11/29/17 [History] Nitroglycerin [Nitrostat] 0.4 mg SL Q5M PRN 11/29/17 [History] Pirfenidone [Esbriet] 801 mg PO TID 11/29/17 [History] Tramadol HCl [Ultram] 50 mg PO TID PRN 11/29/17 [History] Levofloxacin [Levaquin] 750 mg PO DAILY #5 tablet 12/01/17 [Rx] Oxygen 6 l NS AD #0 03/27/18 [Rx] Sennosides/Docusate Sodium [Senna Plus] 1 each PO BID PRN tablet 03/27/18 [Rx] levoFLOXacin [Levaquin] 750 mg PO DAILY #5 tablet 03/27/18 [Rx] predniSONE [PredniSONE] 20 mg PO DAILY 42 Days tablet 03/27/18 [Rx] Allergies/Adverse Reactions: 3 Allergy/AdvReac Type Severity Reaction Status Date / Time No Known Allergies Allergy Verified 03/23/18 15:36 Date of admission: 03/23/18 15:36 Primary care physician: Jorge Ferrera MD Consults: 03/23/18 16:03 Consult to Pulmonology [CONS] Routine Consulting Provider: [facility] Reason for Consult: Pt. is admitted w/SOB/Dyspnea/Hypoxia. Recently dx w/PNA and failed OP therapy of PO levaquin. Requires BiPAP currently d/t hypoxia. Being treated w/IVPB levaquin, Zosyn, and one-time dose of vancomycin. Solu-Medrol IVP 60 mg Q6HR. Respiratory infection panel and sputum culture ordered. Hx of COPD, CHF, and idiopathic pulmonary fibrosis. Call Completed: Yes 03/23/18 16:21 Consult to Nutrition [CONS] Routine Comment: Consulting Provider: NUTRITION Reason for Dietary Consult: PO Supplementation Discharging clinician: Mathew Toth Anticipated date of discharge: 03/27/18 - Constitutional Vitals: Temp Pulse Resp BP Pulse Ox 98.2 F 93 18 92/63 94 03/27/18 11:08 03/27/18 11:08 03/27/18 11:08 03/27/18 11:08 03/27/18 11:08 General appearance: Present: cooperative, mild distress, A&O X 3, pleasant, answers questions appropriately - Neck Neck exam general surgery: Present: supple, trachea midline. Absent: lymphadenopathy - Respiratory Respiratory exam: Present: prolonged expiratory phase. Absent: accessory muscle use, rales, rhonchi, wheezes Additional comments: Bilateral crackles - Cardiovascular Cardiovascular exam: Present: RRR, +S1, +S2. Absent: diastolic murmur, gallop, rubs, systolic murmur - Extremities Exam Extremities exam: Present: warm, radial pulses palpable and symmetrical. Absent : calf tenderness, cyanotic, pedal edema - Neurological Exam Neurological exam: Present: CN II-XII intact, oriented X3, no focal deficits. Absent: facial droop, speech deficit - Skin Skin exam: Present: dry, intact - Patient Status Disposition: Home, Self-Care Condition: Good Functional capacity at discharge: uses cane/walker Overall status at discharge: patient is progressing back to baseline - Discharge Instructions Instructions: Chronic Obstructive Pulmonary Disease (DC), Acute Respiratory Distress Syndrome (DC), Pneumonia (DC) Follow Up With: Jos Arthur MD [Partnered Physician] - 04/05/18 2:00 pm Jorge Ferrera MD [Primary Care Provider] - 04/05/18 10:00 am () - Diet and Activity Activity: increase activity as tolerated, wear oxygen at all times Diet: low fat, low cholesterol, low salt diet
== END 2018-03-27 14:32 | disposition home or self-care (01) | DRG 189 ==
LOC: EMEROO 13:35 → 2NENU 13:35 → ICNU 15:22 → SUATTDRO 15:36 → ICNU 16:05 → 2NNU 03-24 11:11
PROVIDERS: ADMIT Family Medicine; ATTEND Internal Medicine

== ENCOUNTER 2018-04-24 09:15 | Inpatient (IN) ==
[2018-04-24] MEDS ORDERED: methylPREDNISolone 125 MG/2 ML VIAL IVP ONE (09:20)
[2018-04-24] MEDS ORDERED: Ipratropium/Albuterol Neb 3 ML IH ONE (09:20)
--- NOTE | 2018-04-24 09:34 | Emergency Department Note ---
Disposition Clinical Impression: Hypoxia, COPD exacerbation, Pulmonary fibrosis, Lactic acidosis Disposition: Admitted As Inpatient Condition: Good Referrals: Jorge Ferrera MD [Primary Care Provider] - Forms: ED Satisfaction Letter SOB HPI - General Chief Complaint: ED Shortness of Breath/Dyspnea Stated Complaint: Resp Distress Time Seen by Provider: 04/24/18 09:20 Source: patient Mode of arrival: ambulatory Limitations: no limitations Nursing Notes Reviewed: Yes Vital Signs Reviewed: Yes - History of Present Illness Patient presents today for evaluation of shortness of breath. Patient's symptoms started yesterday while he was at physical therapy. Hypoxia with exertion. Patient is oxygen dependent and wears 8 L of oxygen at home. Patient has a history of COPD as well as pulmonary fibrosis. He follows with Dr. Addison, pulmonary, as an outpatient. The patient states that he has been having a cough and has had some mild blood-tinged hemoptysis. The patient denies fever. His initial pulse ox prior to arrival was 53% on 8 L. Patient was placed on nonrebreather and his oxygen improved to the low 60s. Patient was placed on BiPAP in the emergency department and has had a significant improvement to 93%. The patient is tachycardic and anxious. Patient does have baseline shiver. EKG was performed showing sinus tachycardia and mild ST and T- wave changes without specific abnormality. Workup in regards to hypoxia has been initiated. Patient has received 3 breathing treatments as well as Solu- Medrol 125mg IV. - Related Data Home Medications Medication Instructions Recorded Confirmed Mv-Mn/FA/Vit K/Lycop/Lut/Coq10 1 tab PO DAILY 05/23/17 04/24/18 [Daily Multivitamin Capsule] Folic Acid 1 mg PO DAILY 08/14/17 04/24/18 Budesonide/Formoterol 160/4.5 2 puff IH BIDR 11/29/17 04/24/18 [Symbicort 160/4.5] Esomeprazole Magnesium [Nexium] 20 mg PO DAILY 11/29/17 04/24/18 Furosemide [Lasix] 20 mg PO QPM 11/29/17 04/24/18 Furosemide [Lasix] 40 mg PO QAM 11/29/17 04/24/18 Ipratropium/Albuterol Neb [Duoneb] 3 ml IH Q6H PRN 11/29/17 04/24/18 Lidocaine Jelly 2% 1 appl TP TID PRN 11/29/17 04/24/18 Nitroglycerin [Nitrostat] 0.4 mg SL Q5M PRN 11/29/17 04/24/18 Pirfenidone [Esbriet] 801 mg PO TID 11/29/17 04/24/18 Tramadol HCl [Ultram] 50 mg PO TID PRN 11/29/17 04/24/18 clonazePAM [Klonopin] 0.5 mg PO HS PRN 04/10/18 04/24/18 Aspirin Enteric Coated [Aspirin EC] 81 mg PO DAILY 04/24/18 04/24/18 Escitalopram [Lexapro] 10 mg PO DAILY 04/24/18 04/24/18 Previous Rx's Medication Instructions Recorded Oxygen 6 l NS AD #0 03/27/18 Sennosides/Docusate Sodium [Senna 1 each PO BID PRN tablet 03/27/18 Plus] Allergies Allergy/AdvReac Type Severity Reaction Status Date / Time amiodarone Allergy See Verified 04/24/18 09:32 Comments Review of Systems: Review of systems Limited secondary to patient condition. Positive for: Respiratory distress, tremors, cough, hemoptysis. Negative for: Chest pain, abdominal pain, nausea, vomiting, diarrhea Past Medical History - Past Medical History Medical history: Reports: arthritis, cancer, CHF, COPD, CVA, GERD, hyperlipidemia, osteoporosis, TIA, other Surgical history: Reports: other (Left ear cyst removal, possible skin cancer) Psychiatric history: Reports: anxiety - Social History Smoking Status: Former smoker Smokeless Tobacco Status: No Alcohol use: Reports: occasionally Drug use: Reports: none Physical Exam General: Patient fashion combs with tachypnea and tachycardia Head: Normocephalic Atraumatic Eyes: PERRL, EOMI ENT: Airway patent, no stridor Neck: supple, no meningismus Chest: Rales without significant wheezing. Cardiac: Regular rhythm Abdomen: soft, nontender, nondistended; no guarding, rebound, or tenderness to percussion Musculoskeletal: Calves symmetric, nontender, no pitting edema Skin: No rash, normal skin tone Neuro: Awake alert and anxious Course - Reevaluation(s) Reevaluation #1: Discussed with family in the patient. He does not want to be intubated as he knows he would not likely come off the ventilator. Reevaluation #2: Patient with significant lactic acidosis as well as troponin. Elevated white count. The patient's labs are likely brought presenting significant distress and hypoxia he was in prior to arrival. Chest x-ray is difficult to read as he has lots of fibrosis. He has had recent admission. We will cover him with antibiotics to cover for hospital-acquired pneumonia. CT of the chest to further delineate. Blood cultures are pending. - Consultations Consultation #1: Discussed with hospitalist. Patient accepted for admission. Vital Signs Pulse Rate 132 04/24/18 09:16 Respiratory Rate 39 04/24/18 09:16 O2 Sat by Pulse Oximetry 80 04/24/18 09:16 Temperature 100.3 F H 04/24/18 09:39 Pulse Rate 100 04/24/18 09:39 Respiratory Rate 29 04/24/18 09:39 Blood Pressure 137/91 04/24/18 09:39 O2 Sat by Pulse Oximetry 100 04/24/18 09:39 Oxygen Delivery Oxygen Delivery Bipap Shortness of Breath/Dyspnea - Lab Data Result diagrams: 04/24/18 09:20 04/24/18 09:20 Lab Results 04/24/18 04/24/18 04/24/18 Range/Units 09:20 09:20 09:20 WBC 13.7 H (4.3-11.1) K/mcL RBC 4.89 (4.19-5.50) M/mcL Hgb 14.9 (12.9-16.9) g/dL Hct 45.9 (37.5-50.1) % MCV 93.9 (83.0-100.0) fL MCH 30.5 (28.0-33.3) pg MCHC 32.5 (31.6-35.5) g/dL RDW 14.4 (11.5-14.5) % Plt Count 170 (140-400) K/mcL MPV 9.2 L (9.4-12.4) fL Immature Gran % 2.6 (0-4) % Seg Neutrophils % 66.3 % Lymphocytes % 23.8 % Monocytes % 3.2 % Eosinophils % 3.2 % Basophils % 0.9 % Neutrophils # 9.1 H (1.6-8.9) K/mcL Lymphocytes # 3.3 (0.6-4.6) K/mcL Monocytes # 0.4 (0.0-1.3) K/mcL Eosinophils # 0.4 (0.0-0.6) K/mcL Basophils # 0.1 (0.0-0.2) K/mcL Sodium 141 (136-145) mEq/L Potassium 4.4 (3.5-5.1) mEq/L Chloride 100 (98-107) mEq/L Carbon Dioxide 22 L (23-29) mEq/L BUN 19 (8-23) mg/dL Creatinine 0.83 (0.70-1.30) mg/dL Est GFR ( Amer) > 60 (> 60) Est GFR (Non-Af Amer) > 60 (> 60) BUN/Creatinine Ratio 23 (6-26) Glucose 188 H (70-105) mg/dL Calculated Osmolality 299 (280-300) Lactic Acid (0.5-2.2) mmol/L Calcium 9.3 (8.6-10.3) mg/dL Troponin I 0.04 H* (< 0.04) ng/mL B-Natriuretic Peptide 304 H (Less than 100) pg/mL 04/24/18 Range/Units 09:42 WBC (4.3-11.1) K/mcL RBC (4.19-5.50) M/mcL Hgb (12.9-16.9) g/dL Hct (37.5-50.1) % MCV (83.0-100.0) fL MCH (28.0-33.3) pg MCHC (31.6-35.5) g/dL RDW (11.5-14.5) % Plt Count (140-400) K/mcL MPV (9.4-12.4) fL Immature Gran % (0-4) % Seg Neutrophils % % Lymphocytes % % Monocytes % % Eosinophils % % Basophils % % Neutrophils # (1.6-8.9) K/mcL Lymphocytes # (0.6-4.6) K/mcL Monocytes # (0.0-1.3) K/mcL Eosinophils # (0.0-0.6) K/mcL Basophils # (0.0-0.2) K/mcL Sodium (136-145) mEq/L Potassium (3.5-5.1) mEq/L Chloride (98-107) mEq/L Carbon Dioxide (23-29) mEq/L BUN (8-23) mg/dL Creatinine (0.70-1.30) mg/dL Est GFR ( Amer) (> 60) Est GFR (Non-Af Amer) (> 60) BUN/Creatinine Ratio (6-26) Glucose (70-105) mg/dL Calculated Osmolality (280-300) Lactic Acid 8.3 H* (0.5-2.2) mmol/L Calcium (8.6-10.3) mg/dL Troponin I (< 0.04) ng/mL B-Natriuretic Peptide (Less than 100) pg/mL
[2018-04-24] MEDS ORDERED: 0.9 % Sodium Chloride 500 ML IVC ONE (10:00)
[2018-04-24 10:02] LABS: Basophils # 0.1 K/mcL (0.0-0.2); Basophils % 0.9 %; Eosinophils # 0.4 K/mcL (0.0-0.6); Eosinophils % 3.2 %; Hematocrit 45.9 % (37.5-50.1); Hemoglobin 14.9 g/dL (12.9-16.9); Immature Granulocytes % 2.6 % (0-4); Lymphocytes # 3.3 K/mcL (0.6-4.6); Lymphocytes % 23.8 %; Mean Corpuscular HGB Conc 32.5 g/dL (31.6-35.5); Mean Corpuscular Hemoglobin 30.5 pg (28.0-33.3); Mean Corpuscular Volume 93.9 fL (83.0-100.0); Mean Platelet Volume 9.2 fL (9.4-12.4); Monocytes # 0.4 K/mcL (0.0-1.3); Monocytes % 3.2 %; Neutrophils # 9.1 K/mcL (1.6-8.9); Platelet Count 170 K/mcL (140-400); Red Blood Count 4.89 M/mcL (4.19-5.50); Red Cell Distribution Width 14.4 % (11.5-14.5); Segmented Neutrophils % 66.3 %
[2018-04-24 10:19] LABS: BUN/Creatinine Ratio 23 (6-26); Blood Urea Nitrogen 19 mg/dL (8-23); Calcium 9.3 mg/dL (8.6-10.3); Carbon Dioxide 22 mEq/L (23-29); Chloride 100 mEq/L (98-107); Glucose 188 mg/dL (70-105); Osmolality,Calculated 299 (280-300); Potassium 4.4 mEq/L (3.5-5.1); Sodium 141 mEq/L (136-145); eGFR For African Americans > 60 (> 60); eGFR For Non-African Americans > 60 (> 60)
[2018-04-24 10:20] LABS: Troponin I 0.04 ng/mL (< 0.04)
[2018-04-24] MEDS ORDERED: Piperacillin/Tazobactam 3.375 GM in 0.9 % Sodium Chloride Mini Bag 100 ML IVPB ONE (10:21)
[2018-04-24] MEDS ORDERED: Levofloxacin 750 MG/150 ML 750 MG/150 ML BAG IVPB ONE (10:21)
[2018-04-24] MEDS ORDERED: 0.9 % Sodium Chloride 1,000 ML IVC ONE (10:25)
[2018-04-24] MEDS ORDERED: Aspirin 81 MG TAB.CHEW PO STA (10:28)
[2018-04-24] MEDS ORDERED: Naloxone 0.4 MG/ML INJ IVP PRN (11:16)
[2018-04-24] MEDS ORDERED: Lidocaine Jelly 2% 30 ML JEL..ML. TP PRN (11:19)
[2018-04-24] MEDS ORDERED: Sennosides/Docusate Sodium TABLET PO PRN (11:19)
--- NOTE | 2018-04-24 11:22 | Internal Med History&Physical ---
Date of Encounter: 04/24/18 Time of Encounter: 11:22 Internal Medicine - H&P: HPI Chief complaint: Shortness of breath Admitted From: Home Plans for Post Hospital Care: Home History of present illness: Mr. Canada is a 72 year old male with PMH of CHF, COPD, CVA, GERD, hyperlipidemia, osteoporosis, pulmonary fibrosis, chronic respiratory failure is details of oxygen at home, and anxiety. Patient presents to the ER with complains of shortness of breath. Patient's symptoms started yesterday while he was at physical therapy. He reported having significant shortness of breath since yesterday after physical therapy, this has been worsening despite using his home breathing treatments and being on his oxygen. He also reports associated cough with pink sputum, sometimes blood-tinged, this is chronic for him. He denies fever or chills. He denies chest pain. He denies sick contacts or recent travels. He denies nausea vomiting or abdominal pain, no diarrhea and no change in bowel or urinary habits. He denies leg swelling. On presentation to the ER the patient was found to be hypoxic with oxygen level 53% on 8 L, he rapidly improved with BiPAP , steroid administration as well as duonebs Patient does have a low-grade fever of 100.3 in the emergency room. He also has leukocytosis. However, he has no source at this time. Lactate level was 8.4. EKG was performed showing sinus tachycardia and mild ST and T-wave changes without specific abnormality. Patient still tells at the bedside, she is his power of prosecuting attorney. The patient reports that he does not want to be intubated, however he wants chest compressions. Despite educated the patient and his family that chest compressions usually lead to intubation, he states "do all you can, but I do not want to be intubated". This means the patient is full coded, as there is no isolated DNI orders He will be admitted and is expected to stay >2 MN Past Med Surg Social Fam HX - Past Medical History Medical history: arthritis, cancer, CHF, COPD, CVA, GERD, hyperlipidemia, osteoporosis, TIA, other Additional medical history: idiopathic pulmonary fibrosis, skin CA removed from ear Psychiatric history: anxiety - Past Surgical History Surgical History: other (Left ear cyst removal, possible skin cancer) Additional surgical history: ear surgery for cancer, hernia inguinal repair, hemmrohiod - Social History Smoking Status: Former smoker Smokeless Tobacco Status: No Alcohol use: occasionally Drug use: none - Family History Father Adopted: Yes Family Member Ethnicity: Non- Living Status: Hx Family Neuromuscular Disorders: Yes (CVA) Mother Family Member Ethnicity: Non- Living Status: Brother Family Member Ethnicity: Non- Living Status: Hx Family Neuromuscular Disorders: Yes (Parkinson's disease) Sister Adopted: Yes Family Member Ethnicity: Non- Living Status: Still Living Hx Family Cardiac Disorders: No Hx Family Respiratory Disorders: Yes (sister) Hx Family Cancer: Yes (sister) Hx Family GI Disorders: No Hx Family Endocrine Disorder: Yes (sister) Hx Family Neuromuscular Disorders: No Hx Family Neurologic Disorders: No Hx Family HEENT Disorders: No Hx Family Autoimmune Disorders: No Internal Medicine - H&P: Meds Mv-Mn/FA/Vit K/Lycop/Lut/Coq10 [Daily Multivitamin Capsule] 1 tab PO DAILY 05/23 [History] Folic Acid 1 mg PO DAILY 08/14/17 [History] Budesonide/Formoterol 160/4.5 [Symbicort 160/4.5] 2 puff IH BIDR 11/29/17 [ History] Esomeprazole Magnesium [Nexium] 20 mg PO DAILY 11/29/17 [History] Furosemide [Lasix] 20 mg PO QPM 11/29/17 [History] Furosemide [Lasix] 40 mg PO QAM 11/29/17 [History] Ipratropium/Albuterol Neb [Duoneb] 3 ml IH Q6H PRN 11/29/17 [History] Lidocaine Jelly 2% 1 appl TP TID PRN 11/29/17 [History] Nitroglycerin [Nitrostat] 0.4 mg SL Q5M PRN 11/29/17 [History] Pirfenidone [Esbriet] 801 mg PO TID 11/29/17 [History] Tramadol HCl [Ultram] 50 mg PO TID PRN 11/29/17 [History] Oxygen 6 l NS AD #0 03/27/18 [Rx] Sennosides/Docusate Sodium [Senna Plus] 1 each PO BID PRN tablet 03/27/18 [Rx] clonazePAM [Klonopin] 0.5 mg PO HS PRN 04/10/18 [History] Aspirin Enteric Coated [Aspirin EC] 81 mg PO DAILY 04/24/18 [History] Escitalopram [Lexapro] 10 mg PO DAILY 04/24/18 [History] 3 Allergy/AdvReac Type Severity Reaction Status Date / Time amiodarone Allergy See Verified 04/24/18 09:32 Comments All Systems PM: A 10-system review of systems was performed and is negative for pertinent findings except as documented above in the HPI. - Constitutional Constitutional: as per HPI - EENT Eyes: as per HPI Ears: as per HPI Nose, mouth and throat: as per HPI - Cardiovascular Cardiovascular ROS IM: as per HPI - Respiratory Respiratory: as per HPI - Gastrointestinal Gastrointestinal: as per HPI - Musculoskeletal Musculoskeletal ROS IM: as per HPI - Integumentary Integumentary IM: as per HPI - Neurological Neurological ROS: as per HPI - Hematologic/Lymphatic Hematologic/Lymphatic: as per HPI - Constitutional Vitals: Temp Pulse Resp BP Pulse Ox 100.3 F H 100 29 137/91 100 04/24/18 09:39 04/24/18 09:39 04/24/18 09:39 04/24/18 09:39 04/24/18 09:39 General appearance: Present: mild distress, A&O X 3, pleasant - Head Head exam: Present: atraumatic, normocephalic - Eye Eye exam: Present: PERRL, conjuntiva pink, sclera anicteric Pupils: Present: PERRL - Neck Neck exam general surgery: Present: normal inspection, supple, trachea midline. Absent: lymphadenopathy - Respiratory Respiratory exam: Present: decreased breath sounds (diminshed breath sounds bilaterally) - Cardiovascular Cardiovascular exam: Present: RRR, +S1, +S2. Absent: diastolic murmur, gallop, rubs, systolic murmur - GI/Abdominal GI/Abdominal exam: Present: normal bowel sounds, soft, no peritoneal signs. Absent: distended, tenderness - Extremities Exam Extremities exam: Present: warm, radial pulses palpable and symmetrical. Absent : calf tenderness, cyanotic, pedal edema - Neurological Exam Neurological exam: Present: alert, CN II-XII intact, oriented X3, no focal deficits. Absent: pronater drift, facial droop, speech deficit - Skin Skin exam: Present: dry, intact Internal Med - H&P Results - Labs CBC & Chem 7: 04/24/18 09:20 04/24/18 09:20 Labs: Short CBC 04/24/18 Range/Units 09:20 WBC 13.7 H (4.3-11.1) K/mcL Hgb 14.9 (12.9-16.9) g/dL Hct 45.9 (37.5-50.1) % Plt Count 170 (140-400) K/mcL Neutrophils # 9.1 H (1.6-8.9) K/mcL BMP 04/24/18 09:20 Sodium 141 Potassium 4.4 Chloride 100 Carbon Dioxide 22 L BUN 19 Creatinine 0.83 Glucose 188 H Calcium 9.3 Cardiac Enzymes 04/24/18 Range/Units 09:20 Troponin I 0.04 H* (< 0.04) ng/mL - Impressions ITS Impressions Chest X-Ray 04/24/18 09:20 IMPRESSION: No evidence of acute cardiopulmonary disease. D/ / Javier Astudillo MD / Javier Astudillo MD Interpreting Provider: Javier Astudillo MD - Assessment and plan (1) Acute exacerbation of chronic obstructive airways disease Current Visit: Yes Status: Acute Assessment and plan: Continue duo nebs, steroids, antibiotics, BiPAP when necessary. Oxygen. Goal O2 saturation is 88-92%. Patient received levaquin, vanco and zosyn in the ER, Continue levaquin for bronchitis, CHest CT ruled out PNA (2) Lactic acidosis Current Visit: Yes Status: Acute Assessment and plan: Admitting lactate level of 8.4 No evidence of sepsis as no source at this time Received IVF in ER Repeat lactate in 4 hrs ordered Possibly due to severe hypoxia prior to presentation (3) Pulmonary fibrosis Current Visit: Yes Status: Chronic Assessment and plan: Chronic. Chest CT shows bronchiectasis and pulmonary fibrosis stable in appearance, with mild patchy groundglass opacities that could reflect acute inflammatory exacerbation. No focal consolidations. Continue steroids, DuoNeb's, and oxygen. (4) (HFpEF) heart failure with preserved ejection fraction Current Visit: Yes Status: Chronic Assessment and plan: Euvolemic on exam. Continue home doses of Lasix. (5) Acute on chronic respiratory failure Current Visit: Yes Status: Acute Assessment and plan: Hypoxia, O2 sat int the 50s on arrival Improving Patient is on 8L O2 at home Continue to wean as tolerated Qualifiers: Respiratory failure complication: hypoxia Qualified Code(s): J96.21 - Acute and chronic respiratory failure with hypoxia (6) Anemia Current Visit: Yes Status: Chronic Assessment and plan: chronic, stable, continue home meds Qualifiers: Anemia type: unspecified type Qualified Code(s): D64.9 - Anemia, unspecified (7) Anxiety Current Visit: Yes Status: Chronic Assessment and plan: continue home meds (8) GERD (gastroesophageal reflux disease) Current Visit: Yes Status: Chronic Assessment and plan: continue home meds Qualifiers: Esophagitis presence: esophagitis presence not specified Qualified Code(s) : K21.9 - Gastro-esophageal reflux disease without esophagitis (9) HLD (hyperlipidemia) Current Visit: Yes Status: Chronic Assessment and plan: continue home meds Qualifiers: Hyperlipidemia type: unspecified Qualified Code(s): E78.5 - Hyperlipidemia , unspecified (10) Elevated troponin Current Visit: Yes Status: Acute Assessment and plan: trop 0.04 likley due to demand, no chest pain cycle trop - Time Spent With Patient Total time spent is greater than 50% in coordination of care (as documented) at patient's floor/unit and/or counseling patient:
[2018-04-24] MEDS ORDERED: traMADol 50 MG TABLET PO ONE (12:10)
[2018-04-24] MEDS ORDERED: (Pirfenidone [Esbriet] 801 MG) PO SCH (15:00)
[2018-04-24] MEDS: Ipratropium/Albuterol Neb 3 ML IH SCH ×4 (16:23→23:09)
[2018-04-24] MEDS: Furosemide 20 MG TABLET PO SCH (17:43)
[2018-04-24] MEDS: MethylPREDNISolone 40 MG/ML VIAL IVP SCH (17:43)
[2018-04-24] MEDS: clonazePAM 0.5 MG TABLET PO PRN (21:29)
[2018-04-24] MEDS ORDERED: PIRFENIDONE PO SCH (21:30)
[2018-04-25] MEDS: MethylPREDNISolone 40 MG/ML VIAL IVP SCH ×3 (01:13→17:35)
[2018-04-25] MEDS: Ipratropium/Albuterol Neb 3 ML IH SCH ×5 (03:53→21:30)
[2018-04-25 05:39] LABS: Basophils % 0.1 %; Hematocrit 36.5 % (37.5-50.1); Immature Granulocytes % 0.8 % (0-4); Lymphocytes # 0.4 K/mcL (0.6-4.6); Lymphocytes % 5.3 %; Mean Corpuscular HGB Conc 32.6 g/dL (31.6-35.5); Mean Corpuscular Hemoglobin 29.6 pg (28.0-33.3); Mean Corpuscular Volume 90.8 fL (83.0-100.0); Mean Platelet Volume 8.7 fL (9.4-12.4); Monocytes # 0.2 K/mcL (0.0-1.3); Monocytes % 2.4 %; Neutrophils # 6.6 K/mcL (1.6-8.9); Platelet Count 128 K/mcL (140-400); Red Blood Count 4.02 M/mcL (4.19-5.50); Red Cell Distribution Width 14.4 % (11.5-14.5); Segmented Neutrophils % 91.4 %
[2018-04-25 05:40] LABS: Hemoglobin 11.9 g/dL (12.9-16.9)
[2018-04-25 05:58] LABS: BUN/Creatinine Ratio 28 (6-26); Blood Urea Nitrogen 17 mg/dL (8-23); Calcium 8.7 mg/dL (8.6-10.3); Carbon Dioxide 28 mEq/L (23-29); Chloride 104 mEq/L (98-107); Glucose 126 mg/dL (70-105); Osmolality,Calculated 289 (280-300); Potassium 4.6 mEq/L (3.5-5.1); Sodium 138 mEq/L (136-145); eGFR For African Americans > 60 (> 60); eGFR For Non-African Americans > 60 (> 60)
[2018-04-25] MEDS: *HR* Enoxaparin 40 MG/0.4 ML SYRINGE SQ SCH (06:40)
[2018-04-25] MEDS: Furosemide 40 MG TABLET PO SCH (08:46)
[2018-04-25] MEDS: Folic Acid 1 MG TABLET PO SCH (08:46)
[2018-04-25] MEDS: Multivit/Ca/Min/Fe/FA 1 TAB TABLET PO SCH (08:47)
[2018-04-25] MEDS: Aspirin Enteric Coated 81 MG Tablet PO SCH (08:47)
[2018-04-25] MEDS: PIRFENIDONE PO SCH ×3 (08:47→17:35)
[2018-04-25] MEDS ORDERED: Albuterol 2.5 MG/3 ML NEBULIZER IH PRN (09:31)
[2018-04-25] MEDS: Acetylcysteine 10% 2 ML INHSOL IH SCH ×3 (11:31→21:30)
[2018-04-25] MEDS: Loratadine 10 MG TABLET PO SCH (11:54)
[2018-04-25] MEDS: Levofloxacin 500 MG/100 ML 500 MG/100 ML BAG IVPB SCH (11:56)
--- NOTE | 2018-04-25 17:24 | Internal Med Progress Note ---
Date of Encounter: 04/25/18 Time of Encounter: 17:18 - Assessment and plan (1) Acute on chronic respiratory failure Current Visit: Yes Status: Acute Assessment and plan: Likely secondary to pulmonary fibrosis and acute exacerbation of COPD. Treating those as per below. Continue supplemental O2; wean to 4-8L NC at home. Qualifiers: Respiratory failure complication: hypoxia Qualified Code(s): J96.21 - Acute and chronic respiratory failure with hypoxia (2) Acute exacerbation of chronic obstructive airways disease Current Visit: Yes Status: Acute Assessment and plan: Continue duonebs, steroids, antibiotics, and BiPAP when necessary. Continue supplemental oxygen. (3) Elevated troponin Current Visit: Yes Status: Acute Assessment and plan: Troponin trended up to 0.09. No chest pain. Likely secondary to demand ischemia. Continue telemetry and monitor for symptoms of ACS. (4) Pulmonary fibrosis Current Visit: Yes Status: Chronic Assessment and plan: Chronic. Chest CT shows bronchiectasis and pulmonary fibrosis stable in appearance, with mild patchy groundglass opacities that could reflect acute inflammatory exacerbation. No focal consolidations. Continue steroids, DuoNeb' s, levaquin, and oxygen as per above. (5) (HFpEF) heart failure with preserved ejection fraction Current Visit: Yes Status: Chronic Assessment and plan: Euvolemic on exam. Continue home doses of Lasix. (6) Anxiety Current Visit: Yes Status: Chronic Assessment and plan: Continue home medications. (7) Anemia Current Visit: Yes Status: Chronic Assessment and plan: Chronic and stable. Continue home medications. Recheck CBC in AM. Qualifiers: Anemia type: unspecified type Qualified Code(s): D64.9 - Anemia, unspecified (8) HLD (hyperlipidemia) Current Visit: Yes Status: Chronic Assessment and plan: Continue home medications. Qualifiers: Hyperlipidemia type: unspecified Qualified Code(s): E78.5 - Hyperlipidemia , unspecified (9) GERD (gastroesophageal reflux disease) Current Visit: Yes Status: Chronic Assessment and plan: Continue home medications. Qualifiers: Esophagitis presence: esophagitis presence not specified Qualified Code(s) : K21.9 - Gastro-esophageal reflux disease without esophagitis (10) Lactic acidosis Current Visit: Yes Status: Resolved Assessment and plan: Resolved. (11) DVT prophylaxis Current Visit: Yes Status: Acute Assessment and plan: Continue SQ lovenox. - Time Spent With Patient Total time spent is greater than 50% in coordination of care (as documented) at patient's floor/unit and/or counseling patient: less than 15 minutes - Subjective Interval history: Patient had no acute events overnight. He states that breathing is "better" today. Daughter is in room and states that he is on 3-4L NC at rest and up to 8L NC when active at home. He is coughing up phlegm better. He denies fever, chills, chest pain, nausea, vomiting, or abdominal pain. He has no other complaints at this time. - Constitutional Vitals: Temp Pulse Resp BP Pulse Ox 97.6 F 87 15 108/62 91 04/25/18 16:39 04/25/18 16:39 04/25/18 16:39 04/25/18 16:39 04/25/18 16:39 General appearance: Present: cooperative, A&O X 3, pleasant, no acute distress, answers questions appropriately - Respiratory Respiratory exam: Absent: accessory muscle use, rales, rhonchi Additional comments: Mildly labored WOB, coarse breath sounds bilaterally with intermittent expiratory wheezing - Cardiovascular Cardiovascular exam: Present: RRR, +S1, +S2. Absent: diastolic murmur, gallop, rubs, systolic murmur Additional comments: No BLE edema - GI/Abdominal GI/Abdominal exam: Present: normal bowel sounds, soft. Absent: distended, hepatomegaly, mass, splenomegaly, tenderness - Psychiatric Psychiatric exam: Present: normal affect, normal mood. Absent: agitated, anxious, depressed - Skin Skin exam: Present: dry, intact, warm. Absent: cyanosis, rash Internal Medicine: Result - Labs CBC & Chem 7: 04/25/18 05:25 04/25/18 05:25 Labs: Short CBC 04/25/18 Range/Units 05:25 WBC 7.2 (4.3-11.1) K/mcL Hgb 11.9 L D (12.9-16.9) g/dL Hct 36.5 L (37.5-50.1) % Plt Count 128 L (140-400) K/mcL Neutrophils # 6.6 (1.6-8.9) K/mcL BMP 04/25/18 05:25 Sodium 138 Potassium 4.6 Chloride 104 Carbon Dioxide 28 BUN 17 Creatinine 0.61 L Glucose 126 H Calcium 8.7 Consult Discharge Plan - Plan Referrals: Jorge Ferrera MD [Primary Care Provider] -
[2018-04-25] MEDS: Furosemide 20 MG TABLET PO SCH (17:35)
[2018-04-25] MEDS: clonazePAM 0.5 MG TABLET PO PRN (22:27)
[2018-04-26] MEDS: MethylPREDNISolone 40 MG/ML VIAL IVP SCH ×4 (00:34→23:35)
[2018-04-26] MEDS: Ipratropium/Albuterol Neb 3 ML IH SCH ×4 (04:03→21:31)
[2018-04-26] MEDS: Acetylcysteine 10% 2 ML INHSOL IH SCH ×4 (04:03→21:31)
[2018-04-26 05:01] LABS: Basophils % 0.1 %; Hematocrit 37.8 % (37.5-50.1); Hemoglobin 12.7 g/dL (12.9-16.9); Immature Granulocytes % 1.2 % (0-4); Lymphocytes # 0.8 K/mcL (0.6-4.6); Lymphocytes % 9.1 %; Mean Corpuscular HGB Conc 33.6 g/dL (31.6-35.5); Mean Corpuscular Hemoglobin 30.5 pg (28.0-33.3); Mean Corpuscular Volume 90.6 fL (83.0-100.0); Mean Platelet Volume 9.3 fL (9.4-12.4); Monocytes # 0.2 K/mcL (0.0-1.3); Monocytes % 2.8 %; Neutrophils # 7.5 K/mcL (1.6-8.9); Platelet Count 152 K/mcL (140-400); Red Blood Count 4.17 M/mcL (4.19-5.50); Red Cell Distribution Width 14.4 % (11.5-14.5); Segmented Neutrophils % 86.8 %
[2018-04-26 05:20] LABS: BUN/Creatinine Ratio 31 (6-26); Blood Urea Nitrogen 21 mg/dL (8-23); Calcium 8.7 mg/dL (8.6-10.3); Carbon Dioxide 29 mEq/L (23-29); Chloride 101 mEq/L (98-107); Glucose 140 mg/dL (70-105); Osmolality,Calculated 287 (280-300); Potassium 4.4 mEq/L (3.5-5.1); Sodium 136 mEq/L (136-145); eGFR For African Americans > 60 (> 60); eGFR For Non-African Americans > 60 (> 60)
[2018-04-26] MEDS: *HR* Enoxaparin 40 MG/0.4 ML SYRINGE SQ SCH (05:46)
--- NOTE | 2018-04-26 06:37 | Electrocardiograph Report ---
[address] [place], [place] [address] Test Date: 2018-04-24 Pat Name: Juan Canada Department: 102 Room: [facility] Gender: M [employer]: : 1945 Requested By: [id number] Order Number: [id number] Reading MD: Chaparro Sheikh Measurements Intervals [place] Rate: 111 P: 28 MN: 149 QRS: -8 QRSD: 110 T: -28 QT: 303 QTc: 369 Interpretive Statements SINUS TACHYCARDIA ANTERIOR ISCHEMIA BASELINE ARTIFACT Electronically Signed On 04-26-2018 6:36:17 EDT by Chaparro Sheikh
[2018-04-26] MEDS: PIRFENIDONE PO SCH ×3 (09:09→16:49)
[2018-04-26] MEDS: Multivit/Ca/Min/Fe/FA 1 TAB TABLET PO SCH (09:55)
[2018-04-26] MEDS: Aspirin Enteric Coated 81 MG Tablet PO SCH (09:56)
[2018-04-26] MEDS: Folic Acid 1 MG TABLET PO SCH (09:56)
[2018-04-26] MEDS: Loratadine 10 MG TABLET PO SCH (09:56)
[2018-04-26] MEDS: Furosemide 40 MG TABLET PO SCH (09:56)
[2018-04-26] MEDS: Levofloxacin 500 MG/100 ML 500 MG/100 ML BAG IVPB SCH (12:11)
[2018-04-26] MEDS: Furosemide 20 MG TABLET PO SCH (16:49)
--- NOTE | 2018-04-26 18:20 | Internal Med Progress Note ---
Date of Encounter: 04/26/18 Time of Encounter: 18:18 - Assessment and plan (1) Acute on chronic respiratory failure Current Visit: Yes Status: Acute Assessment and plan: Likely secondary to pulmonary fibrosis and acute exacerbation of COPD. Treating those as per below. Continue supplemental O2; wean to 4-8L NC at home. Still having desaturations with exertion. Will consult PT/OT to work with patient. Will ambulate TID while monitor O2 saturations. SW consulted on restarting outpatient pulmonary rehab at discharge. Qualifiers: Respiratory failure complication: hypoxia Qualified Code(s): J96.21 - Acute and chronic respiratory failure with hypoxia (2) Acute exacerbation of chronic obstructive airways disease Current Visit: Yes Status: Acute Assessment and plan: Continue duonebs, steroids, antibiotics, and BiPAP when necessary. Continue supplemental oxygen. He is currently on high end of home O2 requirement, and needs more with exertion. Still not close to baseline. Will continue IV steroids at this time. PT/OT consulted as per above. (3) Elevated troponin Current Visit: Yes Status: Acute Assessment and plan: Troponin trended up to 0.09. No chest pain. Likely secondary to demand ischemia. Continue telemetry and monitor for symptoms of ACS. (4) Pulmonary fibrosis Current Visit: Yes Status: Chronic Assessment and plan: Chronic. Chest CT shows bronchiectasis and pulmonary fibrosis stable in appearance, with mild patchy groundglass opacities that could reflect acute inflammatory exacerbation. No focal consolidations. Continue steroids, DuoNeb' s, levaquin, and oxygen as per above. (5) (HFpEF) heart failure with preserved ejection fraction Current Visit: Yes Status: Chronic Assessment and plan: Euvolemic on exam. Continue home dose of Lasix. (6) Anxiety Current Visit: Yes Status: Chronic Assessment and plan: Continue home medications. (7) Anemia Current Visit: Yes Status: Chronic Assessment and plan: Chronic and stable. Continue home medications. Recheck CBC in AM. Qualifiers: Anemia type: unspecified type Qualified Code(s): D64.9 - Anemia, unspecified (8) HLD (hyperlipidemia) Current Visit: Yes Status: Chronic Assessment and plan: Continue home medications. Qualifiers: Hyperlipidemia type: unspecified Qualified Code(s): E78.5 - Hyperlipidemia , unspecified (9) GERD (gastroesophageal reflux disease) Current Visit: Yes Status: Chronic Assessment and plan: Continue home medications. Qualifiers: Esophagitis presence: esophagitis presence not specified Qualified Code(s) : K21.9 - Gastro-esophageal reflux disease without esophagitis (10) Lactic acidosis Current Visit: Yes Status: Resolved Assessment and plan: Resolved. (11) DVT prophylaxis Current Visit: Yes Status: Acute Assessment and plan: Continue SQ lovenox. - Time Spent With Patient Total time spent is greater than 50% in coordination of care (as documented) at patient's floor/unit and/or counseling patient: less than 15 minutes - Subjective Interval history: Patient had no acute events overnight. He states that breathing continues to get better, but has trouble with exertion. Daughter is in room and states that he is on 3-4L NC at rest and up to 8L NC when active at home; he is currently on 7L HFNC at rest here. He is coughing up phlegm better. He denies fever, chills, chest pain, nausea, vomiting, or abdominal pain. He has no other complaints at this time. - Constitutional Vitals: Temp Pulse Resp BP Pulse Ox 97.4 F L 76 18 98/65 94 04/26/18 15:49 04/26/18 15:49 04/26/18 15:56 04/26/18 15:49 04/26/18 15:56 General appearance: Present: cooperative, A&O X 3, pleasant, no acute distress, answers questions appropriately - Respiratory Respiratory exam: Present: CTAB. Absent: accessory muscle use, rales, rhonchi Additional comments: Mildly labored WOB, coarse breath sounds bilaterally with rare intermittent expiratory wheeze - Cardiovascular Cardiovascular exam: Present: RRR, +S1, +S2. Absent: diastolic murmur, gallop, rubs, systolic murmur Additional comments: No BLE edema - GI/Abdominal GI/Abdominal exam: Present: normal bowel sounds, soft. Absent: distended, hepatomegaly, mass, splenomegaly, tenderness - Psychiatric Psychiatric exam: Present: normal affect, normal mood. Absent: agitated, anxious, depressed - Skin Skin exam: Present: dry, intact, warm. Absent: cyanosis, rash Internal Medicine: Result - Labs CBC & Chem 7: 04/26/18 04:31 04/26/18 04:31 Labs: Short CBC 04/26/18 Range/Units 04:31 WBC 8.7 (4.3-11.1) K/mcL Hgb 12.7 L (12.9-16.9) g/dL Hct 37.8 (37.5-50.1) % Plt Count 152 (140-400) K/mcL Neutrophils # 7.5 (1.6-8.9) K/mcL [facility] 04/26/18 04:31 Sodium 136 Potassium 4.4 Chloride 101 Carbon Dioxide 29 BUN 21 Creatinine 0.68 L Glucose 140 H Calcium 8.7 Consult Discharge Plan - Plan Referrals: Jorge Ferrera MD [Primary Care Provider] -
[2018-04-26] MEDS: clonazePAM 0.5 MG TABLET PO PRN (21:42)
[2018-04-26] MEDS: traMADol 50 MG TABLET PO PRN (21:43)
[2018-04-27] MEDS: Acetylcysteine 10% 2 ML INHSOL IH SCH ×4 (04:28→21:17)
[2018-04-27] MEDS: Ipratropium/Albuterol Neb 3 ML IH SCH ×4 (04:28→21:17)
[2018-04-27 04:40] LABS: Hematocrit 37.8 % (37.5-50.1); Hemoglobin 12.7 g/dL (12.9-16.9); Lymphocytes # 0.4 K/mcL (0.6-4.6); Lymphocytes % 5.3 %; Mean Corpuscular HGB Conc 33.6 g/dL (31.6-35.5); Mean Corpuscular Hemoglobin 30.2 pg (28.0-33.3); Mean Corpuscular Volume 89.8 fL (83.0-100.0); Mean Platelet Volume 8.7 fL (9.4-12.4); Monocytes # 0.3 K/mcL (0.0-1.3); Neutrophils # 7.4 K/mcL (1.6-8.9); Platelet Count 157 K/mcL (140-400); Red Blood Count 4.21 M/mcL (4.19-5.50); Red Cell Distribution Width 14.5 % (11.5-14.5); Segmented Neutrophils % 89.7 %
[2018-04-27 04:58] LABS: BUN/Creatinine Ratio 44 (6-26); Blood Urea Nitrogen 24 mg/dL (8-23); Calcium 8.6 mg/dL (8.6-10.3); Carbon Dioxide 28 mEq/L (23-29); Chloride 103 mEq/L (98-107); Glucose 133 mg/dL (70-105); Osmolality,Calculated 292 (280-300); Potassium 4.3 mEq/L (3.5-5.1); Sodium 138 mEq/L (136-145); eGFR For African Americans > 60 (> 60); eGFR For Non-African Americans > 60 (> 60)
[2018-04-27] MEDS: *HR* Enoxaparin 40 MG/0.4 ML SYRINGE SQ SCH (05:32)
[2018-04-27] MEDS: Budesonide/Formoterol 160/4.5 MDI IH SCH ×2 (09:42→21:17)
[2018-04-27] MEDS: MethylPREDNISolone 40 MG/ML VIAL IVP SCH (10:19)
[2018-04-27] MEDS: Multivit/Ca/Min/Fe/FA 1 TAB TABLET PO SCH (10:20)
[2018-04-27] MEDS: Loratadine 10 MG TABLET PO SCH (10:20)
[2018-04-27] MEDS: Aspirin Enteric Coated 81 MG Tablet PO SCH (10:20)
[2018-04-27] MEDS: Furosemide 40 MG TABLET PO SCH (10:20)
[2018-04-27] MEDS: Folic Acid 1 MG TABLET PO SCH (10:20)
[2018-04-27] MEDS: PIRFENIDONE PO SCH ×3 (10:21→17:33)
--- NOTE | 2018-04-27 11:51 | Internal Med Progress Note ---
Date of Encounter: 04/27/18 Time of Encounter: 11:49 - Assessment and plan (1) Acute on chronic respiratory failure Current Visit: Yes Status: Acute Assessment and plan: Likely secondary to pulmonary fibrosis and acute exacerbation of COPD. Treating those as per below. Continue supplemental O2; now on 4-8L NC like at home, but desaturating with exertion. I think this may represent an interval worsening disease and decreased exercise tolerance. PT/OT consulted; no needs per PT. Will ambulate TID while monitoring O2 saturations. If he does better today with change to PO prednisone, will plan for discharge early tomorrow. Will refer back to pulmonary rehab at discharge. Qualifiers: Respiratory failure complication: hypoxia Qualified Code(s): J96.21 - Acute and chronic respiratory failure with hypoxia (2) Acute exacerbation of chronic obstructive airways disease Current Visit: Yes Status: Acute Assessment and plan: Continue duonebs, steroids, antibiotics, and BiPAP when necessary. Continue supplemental oxygen. Discontinue solumedrol and start prednisone 40 mg PO BID. PT/OT consulted as per above. (3) Elevated troponin Current Visit: Yes Status: Acute Assessment and plan: Troponin trended up to 0.09. No chest pain. Likely secondary to demand ischemia. Continue telemetry and monitor for symptoms of ACS. (4) Pulmonary fibrosis Current Visit: Yes Status: Chronic Assessment and plan: Chronic. Chest CT shows bronchiectasis and pulmonary fibrosis stable in appearance, with mild patchy groundglass opacities that could reflect acute inflammatory exacerbation. No focal consolidations. Continue steroids, DuoNeb' s, levaquin, and oxygen as per above. (5) (HFpEF) heart failure with preserved ejection fraction Current Visit: Yes Status: Chronic Assessment and plan: Euvolemic on exam. Continue home dose of Lasix. (6) Anxiety Current Visit: Yes Status: Chronic Assessment and plan: Continue home medications. (7) Anemia Current Visit: Yes Status: Chronic Assessment and plan: Chronic and stable. Continue home medications. Recheck CBC in AM. Qualifiers: Anemia type: unspecified type Qualified Code(s): D64.9 - Anemia, unspecified (8) HLD (hyperlipidemia) Current Visit: Yes Status: Chronic Assessment and plan: Continue home medications. Qualifiers: Hyperlipidemia type: unspecified Qualified Code(s): E78.5 - Hyperlipidemia , unspecified (9) GERD (gastroesophageal reflux disease) Current Visit: Yes Status: Chronic Assessment and plan: Continue home medications. Qualifiers: Esophagitis presence: esophagitis presence not specified Qualified Code(s) : K21.9 - Gastro-esophageal reflux disease without esophagitis (10) Lactic acidosis Current Visit: Yes Status: Resolved (11) DVT prophylaxis Current Visit: Yes Status: Acute Assessment and plan: Continue SQ lovenox. - Time Spent With Patient Total time spent is greater than 50% in coordination of care (as documented) at patient's floor/unit and/or counseling patient: less than 15 minutes - Subjective Interval history: Patient had no acute events overnight. He states that breathing continues to get better, but still having trouble with exertion. Daughter is in room and states that he is not quite back to baseline; he is requiring 7L HFNC, which is around what he is on at home. He denies fever, chills, chest pain, nausea, vomiting, or abdominal pain. He has no other complaints at this time. - Constitutional Vitals: Temp Pulse Resp BP Pulse Ox 97.6 F 76 16 112/69 88 04/27/18 10:59 04/27/18 10:59 04/27/18 10:59 04/27/18 10:59 04/27/18 10:59 General appearance: Present: cooperative, A&O X 3, pleasant, no acute distress, answers questions appropriately - Respiratory Respiratory exam: Absent: accessory muscle use, rales, rhonchi, wheezes Additional comments: Mildly labored WOB, coarse breath sounds bilaterally - Cardiovascular Cardiovascular exam: Present: RRR, +S1, +S2. Absent: diastolic murmur, gallop, rubs, systolic murmur Additional comments: No BLE edema - GI/Abdominal GI/Abdominal exam: Present: normal bowel sounds, soft. Absent: distended, hepatomegaly, mass, splenomegaly, tenderness - Psychiatric Psychiatric exam: Present: normal affect, normal mood. Absent: agitated, anxious, depressed - Skin Skin exam: Present: dry, intact, warm. Absent: cyanosis, rash Internal Medicine: Result - Labs CBC & Chem 7: 04/27/18 04:12 04/27/18 04:12 Labs: Short CBC 04/27/18 Range/Units 04:12 WBC 8.3 (4.3-11.1) K/mcL Hgb 12.7 L (12.9-16.9) g/dL Hct 37.8 (37.5-50.1) % Plt Count 157 (140-400) K/mcL Neutrophils # 7.4 (1.6-8.9) K/mcL BMP 04/27/18 04:12 Sodium 138 Potassium 4.3 Chloride 103 Carbon Dioxide 28 BUN 24 H Creatinine 0.54 L Glucose 133 H Calcium 8.6 Consult Discharge Plan - Plan Referrals: Jorge Ferrera MD [Primary Care Provider] -
[2018-04-27] MEDS: levoFLOXacin 500 MG TABLET PO SCH (12:42)
[2018-04-27] MEDS: Furosemide 20 MG TABLET PO SCH (17:31)
[2018-04-27] MEDS: predniSONE 20 MG TABLET PO SCH (17:31)
[2018-04-27] MEDS: clonazePAM 0.5 MG TABLET PO PRN (22:29)
[2018-04-27] MEDS: traMADol 50 MG TABLET PO PRN (22:29)
[2018-04-28] MEDS: Acetylcysteine 10% 2 ML INHSOL IH SCH ×2 (04:28→10:20)
[2018-04-28] MEDS: Ipratropium/Albuterol Neb 3 ML IH SCH ×2 (04:28→10:20)
[2018-04-28 06:30] VITALS: BP 117/81
[2018-04-28] MEDS: *HR* Enoxaparin 40 MG/0.4 ML SYRINGE SQ SCH (06:38)
[2018-04-28 06:56] LABS: Basophils % 0.4 %; Eosinophils % 0.1 %; Hemoglobin 12.3 g/dL (12.9-16.9); Immature Granulocytes % 2.3 % (0-4); Lymphocytes # 0.7 K/mcL (0.6-4.6); Lymphocytes % 8.4 %; Mean Corpuscular HGB Conc 33.2 g/dL (31.6-35.5); Mean Corpuscular Hemoglobin 29.9 pg (28.0-33.3); Mean Platelet Volume 8.8 fL (9.4-12.4); Monocytes # 0.5 K/mcL (0.0-1.3); Monocytes % 5.9 %; Neutrophils # 6.4 K/mcL (1.6-8.9); Platelet Count 163 K/mcL (140-400); Red Blood Count 4.11 M/mcL (4.19-5.50); Red Cell Distribution Width 14.6 % (11.5-14.5); Segmented Neutrophils % 82.9 %
[2018-04-28 07:12] LABS: BUN/Creatinine Ratio 41 (6-26); Blood Urea Nitrogen 24 mg/dL (8-23); Calcium 8.5 mg/dL (8.6-10.3); Carbon Dioxide 30 mEq/L (23-29); Chloride 102 mEq/L (98-107); Glucose 114 mg/dL (70-105); Osmolality,Calculated 289 (280-300); Sodium 137 mEq/L (136-145); eGFR For African Americans > 60 (> 60); eGFR For Non-African Americans > 60 (> 60)
--- NOTE | 2018-04-28 08:49 | Discharge Summary ---
- NOTES TO OUTPATIENT PROVIDER Notes to Outpatient Provider: Follow up with PCP in 2-3 days after discharge. Recheck BMP and CBC at that time. Follow up with personal loan specialist as scheduled. Referred to pulmonary rehabilitation. Date of Encounter: 04/28/18 Time of Encounter: 08:48 - Discharge Diagnosis (1) Acute on chronic respiratory failure Priority: Primary Status: Acute Qualifiers: Respiratory failure complication: hypoxia Qualified Code(s): J96.21 - Acute and chronic respiratory failure with hypoxia (2) Acute exacerbation of chronic obstructive airways disease Priority: Secondary Status: Acute (3) Elevated troponin Priority: Secondary Status: Acute (4) Pulmonary fibrosis Priority: Secondary Status: Chronic (5) (HFpEF) heart failure with preserved ejection fraction Priority: Secondary Status: Chronic (6) Anxiety Priority: Secondary Status: Chronic (7) Anemia Priority: Secondary Status: Chronic Qualifiers: Anemia type: unspecified type Qualified Code(s): D64.9 - Anemia, unspecified (8) HLD (hyperlipidemia) Priority: Secondary Status: Chronic Qualifiers: Hyperlipidemia type: unspecified Qualified Code(s): E78.5 - Hyperlipidemia , unspecified (9) GERD (gastroesophageal reflux disease) Priority: Secondary Status: Chronic Qualifiers: Esophagitis presence: esophagitis presence not specified Qualified Code(s) : K21.9 - Gastro-esophageal reflux disease without esophagitis (10) Lactic acidosis Priority: Secondary Status: Resolved (11) DVT prophylaxis Priority: Secondary Status: Acute Hospital course: Mr. Canada is a 72 year old male admitted for acute on chronic respiratory failure secondary to acute exacerbation of COPD and chronic pulmonary fibrosis. Patient was admitted to general medical floor with telemetry and continuous pulse ox. He was started on IV solumedrol, scheduled duonebs, and IV levaquin. He initially required BiPAP and increased rate of nasal cannula, but was slowly weaned to home 2-8L NC. Today, he is on 7L NC. He does have some desaturations with exercise, but he will be referred back to outpatient pulmonary rehabilitation to work on exercise tolerance. He was weaned to prednisone yesterday, and will complete long prednisone taper at home. He will complete 5 more days of PO levaquin. He will follow up with PCP in 2-3 days after discharge. They can recheck BMP and CBC at that time. He will follow up with personal loan specialist as scheduled. He has been referred back to pulmonary rehabilitation. Patient has met maximum benefit of this hospitalization and will be discharged home in stable condition. Discharge discussed with: patient, family, nurse - Time Spent with Patient Total time spent providing and/or coordinating discharge services: Greater than 30 minutes - Discharge Medications Prescriptions: levoFLOXacin [Levaquin] 500 mg PO DAILY 5 Days #5 tablet predniSONE [PredniSONE] See Taper PO DAILY 20 Days #72 tablet Home Medications: Mv-Mn/FA/Vit K/Lycop/Lut/Coq10 [Daily Multivitamin Capsule] 1 tab PO DAILY 05/23 [History] Folic Acid 1 mg PO DAILY 08/14/17 [History] Budesonide/Formoterol 160/4.5 [Symbicort 160/4.5] 2 puff IH BIDR 11/29/17 [ History] Esomeprazole Magnesium [Nexium] 20 mg PO DAILY 11/29/17 [History] Furosemide [Lasix] 20 mg PO QPM 11/29/17 [History] Furosemide [Lasix] 40 mg PO QAM 11/29/17 [History] Ipratropium/Albuterol Neb [Duoneb] 3 ml IH Q6H PRN 11/29/17 [History] Lidocaine Jelly 2% 1 appl TP TID PRN 11/29/17 [History] Nitroglycerin [Nitrostat] 0.4 mg SL Q5M PRN 11/29/17 [History] Pirfenidone [Esbriet] 801 mg PO TID 11/29/17 [History] Tramadol HCl [Ultram] 50 mg PO TID PRN 11/29/17 [History] Oxygen 6 l NS AD #0 03/27/18 [Rx] Sennosides/Docusate Sodium [Senna Plus] 1 each PO BID PRN tablet 03/27/18 [Rx] clonazePAM [Klonopin] 0.5 mg PO HS PRN 04/10/18 [History] Aspirin Enteric Coated [Aspirin EC] 81 mg PO DAILY 04/24/18 [History] Escitalopram [Lexapro] 10 mg PO DAILY 04/24/18 [History] levoFLOXacin [Levaquin] 500 mg PO DAILY 5 Days #5 tablet 04/28/18 [Rx] predniSONE [PredniSONE] See Taper PO DAILY 20 Days #72 tablet 04/28/18 [Rx] Allergies/Adverse Reactions: 3 Allergy/AdvReac Type Severity Reaction Status Date / Time amiodarone Allergy See Verified 04/24/18 09:32 Comments Date of admission: 04/24/18 12:06 Primary care physician: Jorge Ferrera MD Consults: 04/25/18 09:26 Consult to Nutrition [CONS] Routine Comment: Consulting Provider: NUTRITION Reason for Dietary Consult: PO Supplementation 04/25/18 09:32 Consult to Respiratory Therapy [CONS] Stat Reason for Consult: COPD Exacerbation Call Completed: No 04/26/18 18:17 Consult to Drink Mixer [CONS] Routine Reason for SW Consult: Determine what paperwork needs to be completed for patient to go back to outpatient pulmonary rehab program. Thanks. Discharging clinician: Mike Griffith Anticipated date of discharge: 04/28/18 - Constitutional Vitals: Temp Pulse Resp BP Pulse Ox 97.9 F 72 16 117/81 96 04/28/18 06:23 04/28/18 06:23 04/28/18 06:23 04/28/18 06:23 04/28/18 06:23 General appearance: Present: cooperative, A&O X 3, pleasant, no acute distress, answers questions appropriately - Respiratory Respiratory exam: Absent: accessory muscle use, rales, rhonchi, wheezes Additional comments: Normal WOB, coarse breath sounds bilaterally - Cardiovascular Cardiovascular exam: Present: RRR, +S1, +S2. Absent: diastolic murmur, gallop, rubs, systolic murmur Additional comments: No BLE edema - GI/Abdominal GI/Abdominal exam: Present: normal bowel sounds, soft. Absent: distended, hepatomegaly, mass, splenomegaly, tenderness - Psychiatric Psychiatric exam: Present: normal affect, normal mood. Absent: agitated, anxious, depressed - Skin Skin exam: Present: dry, intact, warm. Absent: cyanosis, rash - Patient Status Disposition: Home, Self-Care Condition: Good Functional capacity at discharge: uses cane/walker Overall status at discharge: patient is progressing back to baseline - Discharge Instructions Follow Up With: Jorge Ferrera MD [Primary Care Provider] - Additional Instructions: Follow up with PCP in 2-3 days after discharge. Recheck BMP and CBC at that time. Follow up with personal loan specialist as scheduled. Referred to pulmonary rehabilitation. - Diet and Activity Activity: as per physical therapy (Pulmonary Rehabilitation), resume usual activities as tolerated, wear oxygen at all times Diet: low fat, low cholesterol, low salt diet, other (Cardiac Diet, Chocolate Ensure HP with Breakfast and Lunch)
[2018-04-28] MEDS: Multivit/Ca/Min/Fe/FA 1 TAB TABLET PO SCH (09:55)
[2018-04-28] MEDS: predniSONE 20 MG TABLET PO SCH (09:55)
[2018-04-28] MEDS: Loratadine 10 MG TABLET PO SCH (09:55)
[2018-04-28] MEDS: Furosemide 40 MG TABLET PO SCH (09:56)
[2018-04-28] MEDS: Folic Acid 1 MG TABLET PO SCH (09:56)
[2018-04-28] MEDS: Aspirin Enteric Coated 81 MG Tablet PO SCH (09:56)
[2018-04-28] MEDS: levoFLOXacin 500 MG TABLET PO SCH (09:56)
[2018-04-28] MEDS: PIRFENIDONE PO SCH (09:57)
[2018-04-28] MEDS: Budesonide/Formoterol 160/4.5 MDI IH SCH (10:20)
[2018-04-28] MEDS ORDERED: clonazePAM 0.5 MG TABLET PO STA (10:39)
== END 2018-04-28 11:34 | disposition home or self-care (01) | DRG 189 ==
LOC: EMEROO 09:15 → 2NENU 12:06
PROVIDERS: ADMIT Internal Medicine; ATTEND Internal Medicine

== ENCOUNTER 2018-06-30 03:19 | Inpatient (IN) ==
[2018-06-30] MEDS ORDERED: *HR* LORazepam 2 MG/ML VIAL IVP ONE (03:30)
[2018-06-30] MEDS ORDERED: methylPREDNISolone 125 MG/2 ML VIAL IVP ONE (03:30)
[2018-06-30 03:51] LABS: Basophils # 0.1 K/mcL (0.0-0.2); Basophils % 0.4 %; Eosinophils # 0.2 K/mcL (0.0-0.6); Eosinophils % 1.3 %; Hematocrit 47.5 % (37.5-50.1); Hemoglobin 14.8 g/dL (12.9-16.9); Immature Granulocytes % 1.2 % (0-4); Lymphocytes # 5.8 K/mcL (0.6-4.6); Lymphocytes % 35.1 %; Mean Corpuscular HGB Conc 31.2 g/dL (31.6-35.5); Mean Corpuscular Hemoglobin 30.4 pg (28.0-33.3); Mean Corpuscular Volume 97.5 fL (83.0-100.0); Mean Platelet Volume 9.2 fL (9.4-12.4); Monocytes # 0.3 K/mcL (0.0-1.3); Platelet Count 230 K/mcL (140-400); Red Blood Count 4.87 M/mcL (4.19-5.50)
[2018-06-30 04:14] LABS: Alanine Aminotransferase 21 Units/L (7-52); Albumin 3.8 g/dL (3.5-5.7); Albumin/Globulin Ratio 1.4 (1.1-2.2); Alkaline Phosphatase 98 Units/L (34-104); Aspartate Amino Transferase 38 Units/L (13-39); BUN/Creatinine Ratio 24 (6-26); Bilirubin,Direct 0.2 mg/dL (0.0-0.2); Bilirubin,Indirect 0.4 mg/dL (0.0-1.2); Bilirubin,Total 0.6 mg/dL (0.3-1.0); Blood Urea Nitrogen 21 mg/dL (8-23); Calcium 9.2 mg/dL (8.6-10.3); Carbon Dioxide 18 mEq/L (23-29); Chloride 98 mEq/L (98-107); Globulin 2.7 g/dL (2.4-3.5); Glucose 224 mg/dL (70-105); Osmolality,Calculated 300 (280-300); Potassium 3.7 mEq/L (3.5-5.1); Sodium 140 mEq/L (136-145); Total Protein 6.5 g/dL (6.4-8.9); Troponin I 0.03 ng/mL (< 0.04); eGFR For Non-African Americans > 60 (> 60)
[2018-06-30 04:25] LABS: VBG Base Excess -3 mEq/L; VBG Chloride 101 mEq/L (98-107); VBG Glucose 184 mg/dl (65-95); VBG HCO3 27 mEq/L (21-27); VBG Ionized Calcium 1.09 mmol/L (1.15-1.35); VBG Oxygen Saturation 56 %; VBG PCO2 72 mmHg (41-51); VBG PH 7.19 pH Units (7.32-7.42); VBG PO2 38 mmHg (25-50); VBG Total CO2 30 mEq/L
--- NOTE | 2018-06-30 04:29 | Emergency Department Note ---
Disposition Clinical Impression: Pulmonary fibrosis Acute on chronic respiratory failure Qualifiers: Respiratory failure complication: hypoxia and hypercapnia Qualified Code(s): J96.21 - Acute and chronic respiratory failure with hypoxia Fever Qualifiers: Fever type: unspecified Qualified Code(s): R50.9 - Fever, unspecified Disposition: Admitted As Inpatient Condition: Serious General Adult HPI - General Chief complaint: ED Shortness of Breath/Dyspnea Stated complaint: DWAYNE Time Seen by Provider: 06/30/18 03:22 Source: patient, family, EMS Mode of arrival: EMS Limitations: no limitations Nursing Notes Reviewed: Yes Vital Signs Reviewed: Yes - History of Present Illness HPI Narrative: 73-year-old male with past history of COPD, pulmonary fibrosis, dyslipidemia, CHF, CVA, TIA who was on 10-15 L of home oxygen daily presents emergency department for evaluation of difficulty breathing. Family states patient had a pin fine the last couple days however patient's had been sick with a cold. Yesterday afternoon patient was complaining of generalized abdominal pain, he took some ulcer and had considerable amount of belching stated he felt better after the Phenergan went to bed. Approximately about an hour prior to arrival patient woke up and was that he was 70s, time breathing, she immediately called EMS. Upon arrival to scene EMS stated patient was so blue he was basically Drake, his SPO2 was in the 50s and he was severely tachypneic. They placed him on a BiPAP in route and his SPO2 is up in the low to mid 80s, he appeared to be doing better and was attempting to speak to EMS. Patient does tell me that he has been feeling ill the last couple days and that he has been very cold. Pain Scale: 0 - Related Data Home Medications Medication Instructions Recorded Confirmed Mv-Mn/FA/Vit K/Lycop/Lut/Coq10 1 tab PO DAILY 05/23/17 06/30/18 [Daily Multivitamin Capsule] Esomeprazole Magnesium [Nexium] 20 mg PO DAILY 11/29/17 06/30/18 Furosemide [Lasix] 20 mg PO QPM 11/29/17 06/30/18 Furosemide [Lasix] 40 mg PO QAM 11/29/17 06/30/18 Ipratropium/Albuterol Neb [Duoneb] 3 ml IH Q6H PRN 11/29/17 06/30/18 Lidocaine Jelly 2% 1 appl TP TID PRN 11/29/17 06/30/18 Nitroglycerin [Nitrostat] 0.4 mg SL Q5M PRN 11/29/17 06/30/18 Pirfenidone [Esbriet] 801 mg PO TID 11/29/17 06/30/18 Tramadol HCl [Ultram] 50 mg PO TID PRN 11/29/17 06/30/18 Aspirin Enteric Coated [Aspirin EC] 81 mg PO DAILY 04/24/18 06/30/18 Docusate [Colace] 100 mg PO HS 06/30/18 06/30/18 Escitalopram [Lexapro] 20 mg PO DAILY 06/30/18 06/30/18 Famotidine [Pepcid] 40 mg PO DAILY 06/30/18 06/30/18 Fluticasone/Umeclidin/Vilanter 1 puff IH DAILY 06/30/18 06/30/18 [Trelegy Ellipta 100-62.5-25] Folic Acid 0.8 mg PO DAILY 06/30/18 06/30/18 LORazepam [Ativan] 0.5 mg PO BID PRN 06/30/18 06/30/18 LORazepam [Ativan] 0.5 mg PO HS 06/30/18 06/30/18 Previous Rx's Medication Instructions Recorded Oxygen 6 l NS AD #0 03/27/18 Albuterol Sulfate [Albuterol 2 puff IH Q6HR PRN #1 [email or web address] 04/28/18 Inhaler] predniSONE [PredniSONE] 10 mg PO DAILY 15 Days tablet 05/10/18 Allergies Allergy/AdvReac Type Severity Reaction Status Date / Time amiodarone Allergy See Verified 06/30/18 16:07 Comments All systems ED: reviewed and negative except as stated. Review of Systems: As Per HPI Past Medical History - Past Medical History Attestation: Yes The following information was validated with the patient. Source: patient Medical history: Reports: arthritis, cancer, CHF, COPD, CVA, GERD, hyperlipidemia, osteoporosis, TIA, other Surgical history: Reports: herniorrhaphy, other Psychiatric history: Reports: anxiety - Social History Smoking Status: Former smoker Smokeless Tobacco Status: No Alcohol use: Reports: rarely Drug use: Reports: none Physical Exam - General Limitations: no limitations General appearance: alert, in distress - Head Head exam: atraumatic, normocephalic, normal inspection - Eye Eye exam: Present: normal appearance, PERRL, EOMI - ENT ENT exam: mucous membranes moist - Neck Neck exam: Present: normal inspection, full ROM, trachea midline - Chest Chest inspection: Present: normal inspection, symmetric chest wall rise - Respiratory Respiratory exam: Present: respiratory distress, accessory muscle use, prolonged expiratory phase. Absent: wheezes - Expanded Respiratory Exam Location: rales: Left, Right, Lower, decreased breath sounds: Left, Right, Lower - Cardiovascular Cardiovascular exam: Present: tachycardia, normal heart sounds - Expanded Lower Extremity Exam Neurovascular/Tendon exam: Absent: pulse deficit, motor deficit Course Course Narrative: Toxic appearing male in moderate amount distress. Upon arrival patient is tachypneic with respirations greater than 50, color is as she has cyanotic, patient shivering uncontrollably. Patient was immediately placed on BiPAP, covered with warm blankets due to complaints of cold patient began to calm down , her rate remains tachycardic, SPO2 85-95% on BiPAP, tachypneic mid-forties respirations per minute. Lungs are diminished in the bases with noted rails, do so and dry. EKG reveals sinus tachycardia without evidence of ST elevation or depression. Initial EKG showed A. fib with RVR, patient was shivering uncontrollably and unable to hold still, and she feels this mostly artifactually we obtained a repeat EKG. Patient did have definitive P waves from the time of admission to the emergency department until repeat EKG. - Reevaluation(s) Reevaluation #1: Patient is resting quietly, remains on BiPAP and is speaking with family. Patient is speaking in fragmented sentences however in comparison to his attempt to speaking whenever he first came to emergency department this is a vast improvement. Color is back to baseline, SPO2 been between 90 and 98%. Tachycardia is resolving. Patient been given 1 mg of IV Ativan for anxiety. Patient rectal temperature 102.2 Chest x-ray returned without evidence of pneumonia or acute process, labs return with elevated white count at 16.6 , metabolic panel is at baseline, VBG shows pressure acidosis pH 7.19, PCO2 72; lactic acid was initially greater than 10 repeat was 8.6; BNP 813 troponin 0.03. Conversation about CODE STATUS with patient and family upon initial arrival, the family describes something like a DNR CCA, DNI. Patient was awake during this conversation and he did not really brought the conversation. A little bit later patient was doing considerably better and he was speaking revisited conversation with patient and family, patient states he is okay with chest compressions, he does not want intubated out of fear of never been no cough is having a long-term trach due to his pulmonary fibrosis. He does state that he wants all measures with the exception of intubating, change patient's CODE STATUS to full code and in the, his DO NOT INTUBATE. And will of temperature, elevated white count we will initiate broad-spectrum antibiotics for presumed respiratory infection, patient does meet severe sepsis criteria, chest x-ray is without gross pneumonia however patient was severely short of breath, he is tachypneic with an elevated white count, the severely elevated lactic acid and temperature. Due to extensive history of CHF, elevated BNP we will withhold fluid bolus seen at this time patient is already in an overload status. Case was discussed with attending Dr. Loja his Haldol face time with patient is agreeable plan of care.. Plan for admission to hospital. Reevaluation #2: Spoke with hospitalist , plan for admission to the hospital. Agreement for a stepdown floor versus intensive care unit as patient is doing quite well at this time, he has no desire to ever be intubated. Patient will be on the BiPAP and medically managed with no plan for intubation. This can be handled the critical-care unit. Spoke with patient and family regarding admission to hospital, but does continue to be agreeable to plan of care. Care will be transitioned at this time. Vital Signs Temperature 0 F L 06/30/18 03:25 Pulse Rate 146 06/30/18 03:25 Respiratory Rate 28 06/30/18 03:25 Blood Pressure 131/77 06/30/18 03:25 O2 Sat by Pulse Oximetry 91 06/30/18 03:25 Temperature 97.8 F 07/01/18 04:20 Pulse Rate 67 07/01/18 04:20 Respiratory Rate 24 07/01/18 04:20 Blood Pressure 94/59 07/01/18 04:20 O2 Sat by Pulse Oximetry 92 07/01/18 04:20 Oxygen Delivery Oxygen Delivery Bipap Medical Decision Making - Medical Records Medical records reviewed: Yes I reviewed the patient's medical records. - Lab Data Lab results reviewed: Yes I reviewed the patient's lab results. Result diagrams: 07/01/18 03:21 07/01/18 03:21 Lab Results 06/30/18 06/30/18 06/30/18 Range/Units 03:36 03:36 03:36 WBC 16.6 H (4.3-11.1) K/mcL RBC 4.87 (4.19-5.50) M/mcL Hgb 14.8 (12.9-16.9) g/dL Hct 47.5 (37.5-50.1) % MCV 97.5 (83.0-100.0) fL MCH 30.4 (28.0-33.3) pg MCHC 31.2 L (31.6-35.5) g/dL RDW 14.0 (11.5-14.5) % Plt Count 230 (140-400) K/mcL MPV 9.2 L (9.4-12.4) fL Immature Gran % 1.2 (0-4) % Seg Neutrophils % 60.0 % Lymphocytes % 35.1 % Monocytes % 2.0 % Eosinophils % 1.3 % Basophils % 0.4 % Neutrophils # 10.0 H (1.6-8.9) K/mcL Lymphocytes # 5.8 H (0.6-4.6) K/mcL Monocytes # 0.3 (0.0-1.3) K/mcL Eosinophils # 0.2 (0.0-0.6) K/mcL Basophils # 0.1 (0.0-0.2) K/mcL Sample Site ABG pH (7.32-7.45) pH Units ABG pCO2 (35-45) mmHg ABG pO2 (85-104) mmHg ABG HCO3 (21-27) mEq/L ABG Total CO2 (20-26) mEq/L ABG O2 Saturation (95-98) % ABG Base Excess (-2 to 3) mEq/L Thang Test VBG pH (7.32-7.42) pH Units VBG pCO2 (41-51) mmHg VBG pO2 (25-50) mmHg VBG HCO3 (21-27) mEq/L VBG Total CO2 mEq/L VBG O2 Saturation % VBG Base Excess mEq/L O2 Delivery Device Blood Gas Modality Inspired O2 (1-15=lpm [id number]=%) Venous Sodium (135-145) mEq/L Sodium 140 (136-145) mEq/L Venous Potassium (3.5-5.5) mEq/L Potassium 3.7 (3.5-5.1) mEq/L Venous Chloride (98-107) mEq/L Chloride 98 (98-107) mEq/L Carbon Dioxide 18 L (23-29) mEq/L BUN 21 (8-23) mg/dL Creatinine 0.88 (0.70-1.30) mg/dL Est GFR ( Amer) > 60 (> 60) Est GFR (Non-Af Amer) > 60 (> 60) BUN/Creatinine Ratio 24 (6-26) Glucose 224 H (70-105) mg/dL Whole Bld Glucose (65-95) mg/dl Calculated Osmolality 300 (280-300) Lactic Acid > 10.0 H* (0.5-2.2) mmol/L Calcium 9.2 (8.6-10.3) mg/dL Venous Ioniz Calcium (1.15-1.35) mmol/L Total Bilirubin 0.6 (0.3-1.0) mg/dL Direct Bilirubin 0.2 (0.0-0.2) mg/dL Indirect Bilirubin 0.4 (0.0-1.2) mg/dL AST 38 (13-39) Units/L ALT 21 (7-52) Units/L Alkaline Phosphatase 98 (34-104) Units/L Troponin I 0.03 (< 0.04) ng/mL B-Natriuretic Peptide (Less than 100) pg/mL Serum Total Protein 6.5 (6.4-8.9) g/dL Albumin 3.8 (3.5-5.7) g/dL Globulin 2.7 (2.4-3.5) g/dL Albumin/Globulin Ratio 1.4 (1.1-2.2) Urine Color (Yellow) Urine Clarity (Clear) Urine pH (5.0-8.0) pH Units Ur Specific [place] (1.010-1.025) Urine Protein (Neg-Trace) mg/dL Urine Glucose (UA) (Normal) mg/dL Urine Ketones (Negative) mg/dL Urine Blood (Negative) Urine Nitrite (Negative) Urine Bilirubin (Negative) Urine Urobilinogen (Normal) mg/dL Ur Leukocyte Esterase (Negative) Urine Microscopic RBC (0-3) per hpf Urine Microscopic WBC (0-3) per hpf Ur Squamous Epith Cells (None-Few) per lpf Hyaline Casts (None-Few) per lpf Ur Culture Indicated? (NO) Person Notif of Crit 06/30/18 06/30/18 06/30/18 Range/Units 03:36 03:56 04:15 WBC (4.3-11.1) K/mcL RBC (4.19-5.50) M/mcL Hgb (12.9-16.9) g/dL Hct (37.5-50.1) % MCV (83.0-100.0) fL MCH (28.0-33.3) pg MCHC (31.6-35.5) g/dL RDW (11.5-14.5) % Plt Count (140-400) K/mcL MPV (9.4-12.4) fL Immature Gran % (0-4) % Seg Neutrophils % % Lymphocytes % % Monocytes % % Eosinophils % % Basophils % % Neutrophils # (1.6-8.9) K/mcL Lymphocytes # (0.6-4.6) K/mcL Monocytes # (0.0-1.3) K/mcL Eosinophils # (0.0-0.6) K/mcL Basophils # (0.0-0.2) K/mcL Sample Site ABG pH (7.32-7.45) pH Units ABG pCO2 (35-45) mmHg ABG pO2 (85-104) mmHg ABG HCO3 (21-27) mEq/L ABG Total CO2 (20-26) mEq/L ABG O2 Saturation (95-98) % ABG Base Excess (-2 to 3) mEq/L Thang Test VBG pH 7.19 L* (7.32-7.42) pH Units VBG pCO2 72 H* (41-51) mmHg VBG pO2 38 (25-50) mmHg VBG HCO3 27 (21-27) mEq/L VBG Total CO2 30 mEq/L VBG O2 Saturation 56 % VBG Base Excess -3 mEq/L O2 Delivery Device Blood Gas Modality Inspired O2 (1-15=lpm [id number]=%) Venous Sodium 140 (135-145) mEq/L Sodium (136-145) mEq/L Venous Potassium 3.8 (3.5-5.5) mEq/L Potassium (3.5-5.1) mEq/L Venous Chloride 101 (98-107) mEq/L Chloride (98-107) mEq/L Carbon Dioxide (23-29) mEq/L BUN (8-23) mg/dL Creatinine (0.70-1.30) mg/dL Est GFR ( Amer) (> 60) Est GFR (Non-Af Amer) (> 60) BUN/Creatinine Ratio (6-26) Glucose (70-105) mg/dL Whole Bld Glucose 184 H (65-95) mg/dl Calculated Osmolality (280-300) Lactic Acid 8.6 H* (0.5-2.2) mmol/L Calcium (8.6-10.3) mg/dL Venous Ioniz Calcium 1.09 L (1.15-1.35) mmol/L Total Bilirubin (0.3-1.0) mg/dL Direct Bilirubin (0.0-0.2) mg/dL Indirect Bilirubin (0.0-1.2) mg/dL AST (13-39) Units/L ALT (7-52) Units/L Alkaline Phosphatase (34-104) Units/L Troponin I (< 0.04) ng/mL B-Natriuretic Peptide 813 H (Less than 100) pg/mL Serum Total Protein (6.4-8.9) g/dL Albumin (3.5-5.7) g/dL Globulin (2.4-3.5) g/dL Albumin/Globulin Ratio (1.1-2.2) Urine Color (Yellow) Urine Clarity (Clear) Urine pH (5.0-8.0) pH Units Ur Specific [place] (1.010-1.025) Urine Protein (Neg-Trace) mg/dL Urine Glucose (UA) (Normal) mg/dL Urine Ketones (Negative) mg/dL Urine Blood (Negative) Urine Nitrite (Negative) Urine Bilirubin (Negative) Urine Urobilinogen (Normal) mg/dL Ur Leukocyte Esterase (Negative) Urine Microscopic RBC (0-3) per hpf Urine Microscopic WBC (0-3) per hpf Ur Squamous Epith Cells (None-Few) per lpf Hyaline Casts (None-Few) per lpf Ur Culture Indicated? (NO) Person Notif of Fazal MILLAN 06/30/18 06/30/18 Range/Units 05:43 06:50 WBC (4.3-11.1) K/mcL RBC (4.19-5.50) M/mcL Hgb (12.9-16.9) g/dL Hct (37.5-50.1) % MCV (83.0-100.0) fL MCH (28.0-33.3) pg MCHC (31.6-35.5) g/dL RDW (11.5-14.5) % Plt Count (140-400) K/mcL MPV (9.4-12.4) fL Immature Gran % (0-4) % Seg Neutrophils % % Lymphocytes % % Monocytes % % Eosinophils % % Basophils % % Neutrophils # (1.6-8.9) K/mcL Lymphocytes # (0.6-4.6) K/mcL Monocytes # (0.0-1.3) K/mcL Eosinophils # (0.0-0.6) K/mcL Basophils # (0.0-0.2) K/mcL Sample Site R Radial ABG pH 7.48 H (7.32-7.45) pH Units ABG pCO2 42 (35-45) mmHg ABG pO2 248 H (85-104) mmHg ABG HCO3 31 H (21-27) mEq/L ABG Total CO2 33 H (20-26) mEq/L ABG O2 Saturation 100 H (95-98) % ABG Base Excess 7 H (-2 to 3) mEq/L Thang Test Positive VBG pH (7.32-7.42) pH Units VBG pCO2 (41-51) mmHg VBG pO2 (25-50) mmHg VBG HCO3 (21-27) mEq/L VBG Total CO2 mEq/L VBG O2 Saturation % VBG Base Excess mEq/L O2 Delivery Device BiPAP Blood Gas Modality NIV Inspired O2 90.0 (1-15=lpm [id number]=%) Venous Sodium (135-145) mEq/L Sodium (136-145) mEq/L Venous Potassium (3.5-5.5) mEq/L Potassium (3.5-5.1) mEq/L Venous Chloride (98-107) mEq/L Chloride (98-107) mEq/L Carbon Dioxide (23-29) mEq/L BUN (8-23) mg/dL Creatinine (0.70-1.30) mg/dL Est GFR ( Amer) (> 60) Est GFR (Non-Af Amer) (> 60) BUN/Creatinine Ratio (6-26) Glucose (70-105) mg/dL Whole Bld Glucose (65-95) mg/dl Calculated Osmolality (280-300) Lactic Acid (0.5-2.2) mmol/L Calcium (8.6-10.3) mg/dL Venous Ioniz Calcium (1.15-1.35) mmol/L Total Bilirubin (0.3-1.0) mg/dL Direct Bilirubin (0.0-0.2) mg/dL Indirect Bilirubin (0.0-1.2) mg/dL AST (13-39) Units/L ALT (7-52) Units/L Alkaline Phosphatase (34-104) Units/L Troponin I (< 0.04) ng/mL B-Natriuretic Peptide (Less than 100) pg/mL Serum Total Protein (6.4-8.9) g/dL Albumin (3.5-5.7) g/dL Globulin (2.4-3.5) g/dL Albumin/Globulin Ratio (1.1-2.2) Urine Color Yellow (Yellow) Urine Clarity Cloudy A (Clear) Urine pH 5.5 (5.0-8.0) pH Units Ur Specific [place] 1.024 (1.010-1.025) Urine Protein 30 H (Neg-Trace) mg/dL Urine Glucose (UA) Normal (Normal) mg/dL Urine Ketones Negative (Negative) mg/dL Urine Blood Moderate H (Negative) Urine Nitrite Negative (Negative) Urine Bilirubin Negative (Negative) Urine Urobilinogen Normal (Normal) mg/dL Ur Leukocyte Esterase Negative (Negative) Urine Microscopic RBC 15-30 H (0-3) per hpf Urine Microscopic WBC 5-15 H (0-3) per hpf Ur Squamous Epith Cells Many H (None-Few) per lpf Hyaline Casts Few (None-Few) per lpf Ur Culture Indicated? NO (NO) Person Notif of Crit - Radiology Data Radiology results reviewed: Yes I reviewed the patient's radiology results. - EKG Data EKG #1 EKG attestation: Yes I reviewed and interpreted this EKG.
[2018-06-30] MEDS ORDERED: Levofloxacin 750 MG/150 ML 750 MG/150 ML BAG IVPB ONE (04:31)
[2018-06-30] MEDS ORDERED: Piperacillin/Tazobactam 3.375 GM in 0.9 % Sodium Chloride Mini Bag 100 ML IVPB ONE (04:31)
[2018-06-30] MEDS ORDERED: Acetaminophen 325 MG TABLET PO ONE (04:39)
--- NOTE | 2018-06-30 05:17 | Emergency Department Note ---
Disposition Clinical Impression: Pulmonary fibrosis Acute on chronic respiratory failure Qualifiers: Respiratory failure complication: hypoxia and hypercapnia Qualified Code(s): J96.21 - Acute and chronic respiratory failure with hypoxia; J96.22 - Acute and chronic respiratory failure with hypercapnia Fever Qualifiers: Fever type: unspecified Qualified Code(s): R50.9 - Fever, unspecified Disposition: Admitted As Inpatient Condition: Serious General Adult HPI - General Chief complaint: ED Shortness of Breath/Dyspnea Stated complaint: DWAYNE Time Seen by Provider: 06/30/18 03:22 Source: patient, family, EMS Mode of arrival: EMS Limitations: no limitations Nursing Notes Reviewed: Yes Vital Signs Reviewed: Yes - History of Present Illness Pain Scale: 0 - Related Data Home Medications Medication Instructions Recorded Confirmed Mv-Mn/FA/Vit K/Lycop/Lut/Coq10 1 tab PO DAILY 05/23/17 05/06/18 [Daily Multivitamin Capsule] Folic Acid 1 mg PO DAILY 08/14/17 05/06/18 Budesonide/Formoterol 160/4.5 2 puff IH BIDR 11/29/17 05/06/18 [Symbicort 160/4.5] Esomeprazole Magnesium [Nexium] 20 mg PO DAILY 11/29/17 05/06/18 Furosemide [Lasix] 20 mg PO QPM 11/29/17 05/06/18 Furosemide [Lasix] 40 mg PO QAM 11/29/17 05/06/18 Ipratropium/Albuterol Neb [Duoneb] 3 ml IH Q6H PRN 11/29/17 05/06/18 Lidocaine Jelly 2% 1 appl TP TID PRN 11/29/17 05/06/18 Nitroglycerin [Nitrostat] 0.4 mg SL Q5M PRN 11/29/17 05/06/18 Pirfenidone [Esbriet] 801 mg PO TID 11/29/17 05/06/18 Tramadol HCl [Ultram] 50 mg PO TID PRN 11/29/17 05/06/18 clonazePAM [Klonopin] 0.5 mg PO HS PRN 04/10/18 05/06/18 Aspirin Enteric Coated [Aspirin EC] 81 mg PO DAILY 04/24/18 05/06/18 Escitalopram [Lexapro] 10 mg PO DAILY 04/24/18 05/06/18 Previous Rx's Medication Instructions Recorded Oxygen 6 l NS AD #0 03/27/18 Sennosides/Docusate Sodium [Senna 1 each PO BID PRN tablet 03/27/18 Plus] Albuterol Sulfate [Albuterol 2 puff IH Q6HR PRN #1 hfa.aer.ad 04/28/18 Inhaler] predniSONE [PredniSONE] 10 mg PO DAILY 15 Days tablet 05/10/18 Allergies Allergy/AdvReac Type Severity Reaction Status Date / Time amiodarone Allergy See Verified 05/06/18 13:44 Comments Past Medical History - Past Medical History Medical history: Reports: arthritis, cancer, CHF, COPD, CVA, GERD, hyperlipidemia, osteoporosis, TIA, other Surgical history: Reports: herniorrhaphy, other Psychiatric history: Reports: anxiety - Social History Smoking Status: Former smoker Smokeless Tobacco Status: No Alcohol use: Reports: rarely Drug use: Reports: none Physical Exam - General Limitations: no limitations General appearance: alert, in distress Course Vital Signs Temperature 0 F L 06/30/18 03:25 Pulse Rate 146 06/30/18 03:25 Respiratory Rate 28 06/30/18 03:25 Blood Pressure 131/77 06/30/18 03:25 O2 Sat by Pulse Oximetry 91 06/30/18 03:25 Temperature 102.2 F H 06/30/18 04:32 Pulse Rate 109 06/30/18 04:54 Respiratory Rate 28 06/30/18 06:16 Blood Pressure 132/92 06/30/18 06:16 O2 Sat by Pulse Oximetry 97 06/30/18 04:54 Oxygen Delivery Oxygen Delivery Bipap Medical Decision Making - Medical Records Medical records reviewed: Yes I reviewed the patient's medical records. - Lab Data Lab results reviewed: Yes I reviewed the patient's lab results. Result diagrams: 06/30/18 03:36 06/30/18 03:36 Lab Results 06/30/18 06/30/18 06/30/18 Range/Units 03:36 03:36 03:36 WBC 16.6 H (4.3-11.1) K/mcL RBC 4.87 (4.19-5.50) M/mcL Hgb 14.8 (12.9-16.9) g/dL Hct 47.5 (37.5-50.1) % MCV 97.5 (83.0-100.0) fL MCH 30.4 (28.0-33.3) pg MCHC 31.2 L (31.6-35.5) g/dL RDW 14.0 (11.5-14.5) % Plt Count 230 (140-400) K/mcL MPV 9.2 L (9.4-12.4) fL Immature Gran % 1.2 (0-4) % Seg Neutrophils % 60.0 % Lymphocytes % 35.1 % Monocytes % 2.0 % Eosinophils % 1.3 % Basophils % 0.4 % Neutrophils # 10.0 H (1.6-8.9) K/mcL Lymphocytes # 5.8 H (0.6-4.6) K/mcL Monocytes # 0.3 (0.0-1.3) K/mcL Eosinophils # 0.2 (0.0-0.6) K/mcL Basophils # 0.1 (0.0-0.2) K/mcL VBG pH (7.32-7.42) pH Units VBG pCO2 (41-51) mmHg VBG pO2 (25-50) mmHg VBG HCO3 (21-27) mEq/L VBG Total CO2 mEq/L VBG O2 Saturation % VBG Base Excess mEq/L Venous Sodium (135-145) mEq/L Sodium 140 (136-145) mEq/L Venous Potassium (3.5-5.5) mEq/L Potassium 3.7 (3.5-5.1) mEq/L Venous Chloride (98-107) mEq/L Chloride 98 (98-107) mEq/L Carbon Dioxide 18 L (23-29) mEq/L BUN 21 (8-23) mg/dL Creatinine 0.88 (0.70-1.30) mg/dL Est GFR ( Amer) > 60 (> 60) Est GFR (Non-Af Amer) > 60 (> 60) BUN/Creatinine Ratio 24 (6-26) Glucose 224 H (70-105) mg/dL Whole Bld Glucose (65-95) mg/dl Calculated Osmolality 300 (280-300) Lactic Acid > 10.0 H* (0.5-2.2) mmol/L Calcium 9.2 (8.6-10.3) mg/dL Venous Ioniz Calcium (1.15-1.35) mmol/L Total Bilirubin 0.6 (0.3-1.0) mg/dL Direct Bilirubin 0.2 (0.0-0.2) mg/dL Indirect Bilirubin 0.4 (0.0-1.2) mg/dL AST 38 (13-39) Units/L ALT 21 (7-52) Units/L Alkaline Phosphatase 98 (34-104) Units/L Troponin I 0.03 (< 0.04) ng/mL B-Natriuretic Peptide (Less than 100) pg/mL Serum Total Protein 6.5 (6.4-8.9) g/dL Albumin 3.8 (3.5-5.7) g/dL Globulin 2.7 (2.4-3.5) g/dL Albumin/Globulin Ratio 1.4 (1.1-2.2) Urine Color (Yellow) Urine Clarity (Clear) Urine pH (5.0-8.0) pH Units Ur Specific [place] (1.010-1.025) Urine Protein (Neg-Trace) mg/dL Urine Glucose (UA) (Normal) mg/dL Urine Ketones (Negative) mg/dL Urine Blood (Negative) Urine Nitrite (Negative) Urine Bilirubin (Negative) Urine Urobilinogen (Normal) mg/dL Ur Leukocyte Esterase (Negative) Urine Microscopic RBC (0-3) per hpf Urine Microscopic WBC (0-3) per hpf Ur Squamous Epith Cells (None-Few) per lpf Hyaline Casts (None-Few) per lpf Ur Culture Indicated? (NO) Person Notif of Crit 06/30/18 06/30/18 06/30/18 Range/Units 03:36 03:56 04:15 WBC (4.3-11.1) K/mcL RBC (4.19-5.50) M/mcL Hgb (12.9-16.9) g/dL Hct (37.5-50.1) % MCV (83.0-100.0) fL MCH (28.0-33.3) pg MCHC (31.6-35.5) g/dL RDW (11.5-14.5) % Plt Count (140-400) K/mcL MPV (9.4-12.4) fL Immature Gran % (0-4) % Seg Neutrophils % % Lymphocytes % % Monocytes % % Eosinophils % % Basophils % % Neutrophils # (1.6-8.9) K/mcL Lymphocytes # (0.6-4.6) K/mcL Monocytes # (0.0-1.3) K/mcL Eosinophils # (0.0-0.6) K/mcL Basophils # (0.0-0.2) K/mcL VBG pH 7.19 L* (7.32-7.42) pH Units VBG pCO2 72 H* (41-51) mmHg VBG pO2 38 (25-50) mmHg VBG HCO3 27 (21-27) mEq/L VBG Total CO2 30 mEq/L VBG O2 Saturation 56 % VBG Base Excess -3 mEq/L Venous Sodium 140 (135-145) mEq/L Sodium (136-145) mEq/L Venous Potassium 3.8 (3.5-5.5) mEq/L Potassium (3.5-5.1) mEq/L Venous Chloride 101 (98-107) mEq/L Chloride (98-107) mEq/L Carbon Dioxide (23-29) mEq/L BUN (8-23) mg/dL Creatinine (0.70-1.30) mg/dL Est GFR ( Amer) (> 60) Est GFR (Non-Af Amer) (> 60) BUN/Creatinine Ratio (6-26) Glucose (70-105) mg/dL Whole Bld Glucose 184 H (65-95) mg/dl Calculated Osmolality (280-300) Lactic Acid 8.6 H* (0.5-2.2) mmol/L Calcium (8.6-10.3) mg/dL Venous Ioniz Calcium 1.09 L (1.15-1.35) mmol/L Total Bilirubin (0.3-1.0) mg/dL Direct Bilirubin (0.0-0.2) mg/dL Indirect Bilirubin (0.0-1.2) mg/dL AST (13-39) Units/L ALT (7-52) Units/L Alkaline Phosphatase (34-104) Units/L Troponin I (< 0.04) ng/mL B-Natriuretic Peptide 813 H (Less than 100) pg/mL Serum Total Protein (6.4-8.9) g/dL Albumin (3.5-5.7) g/dL Globulin (2.4-3.5) g/dL Albumin/Globulin Ratio (1.1-2.2) Urine Color (Yellow) Urine Clarity (Clear) Urine pH (5.0-8.0) pH Units Ur Specific [place] (1.010-1.025) Urine Protein (Neg-Trace) mg/dL Urine Glucose (UA) (Normal) mg/dL Urine Ketones (Negative) mg/dL Urine Blood (Negative) Urine Nitrite (Negative) Urine Bilirubin (Negative) Urine Urobilinogen (Normal) mg/dL Ur Leukocyte Esterase (Negative) Urine Microscopic RBC (0-3) per hpf Urine Microscopic WBC (0-3) per hpf Ur Squamous Epith Cells (None-Few) per lpf Hyaline Casts (None-Few) per lpf Ur Culture Indicated? (NO) Person Notif of Fazal MILLAN 06/30/18 Range/Units 05:43 WBC (4.3-11.1) K/mcL RBC (4.19-5.50) M/mcL Hgb (12.9-16.9) g/dL Hct (37.5-50.1) % MCV (83.0-100.0) fL MCH (28.0-33.3) pg MCHC (31.6-35.5) g/dL RDW (11.5-14.5) % Plt Count (140-400) K/mcL MPV (9.4-12.4) fL Immature Gran % (0-4) % Seg Neutrophils % % Lymphocytes % % Monocytes % % Eosinophils % % Basophils % % Neutrophils # (1.6-8.9) K/mcL Lymphocytes # (0.6-4.6) K/mcL Monocytes # (0.0-1.3) K/mcL Eosinophils # (0.0-0.6) K/mcL Basophils # (0.0-0.2) K/mcL VBG pH (7.32-7.42) pH Units VBG pCO2 (41-51) mmHg VBG pO2 (25-50) mmHg VBG HCO3 (21-27) mEq/L VBG Total CO2 mEq/L VBG O2 Saturation % VBG Base Excess mEq/L Venous Sodium (135-145) mEq/L Sodium (136-145) mEq/L Venous Potassium (3.5-5.5) mEq/L Potassium (3.5-5.1) mEq/L Venous Chloride (98-107) mEq/L Chloride (98-107) mEq/L Carbon Dioxide (23-29) mEq/L BUN (8-23) mg/dL Creatinine (0.70-1.30) mg/dL Est GFR ( Amer) (> 60) Est GFR (Non-Af Amer) (> 60) BUN/Creatinine Ratio (6-26) Glucose (70-105) mg/dL Whole Bld Glucose (65-95) mg/dl Calculated Osmolality (280-300) Lactic Acid (0.5-2.2) mmol/L Calcium (8.6-10.3) mg/dL Venous Ioniz Calcium (1.15-1.35) mmol/L Total Bilirubin (0.3-1.0) mg/dL Direct Bilirubin (0.0-0.2) mg/dL Indirect Bilirubin (0.0-1.2) mg/dL AST (13-39) Units/L ALT (7-52) Units/L Alkaline Phosphatase (34-104) Units/L Troponin I (< 0.04) ng/mL B-Natriuretic Peptide (Less than 100) pg/mL Serum Total Protein (6.4-8.9) g/dL Albumin (3.5-5.7) g/dL Globulin (2.4-3.5) g/dL Albumin/Globulin Ratio (1.1-2.2) Urine Color Yellow (Yellow) Urine Clarity Cloudy A (Clear) Urine pH 5.5 (5.0-8.0) pH Units Ur Specific [place] 1.024 (1.010-1.025) Urine Protein 30 H (Neg-Trace) mg/dL Urine Glucose (UA) Normal (Normal) mg/dL Urine Ketones Negative (Negative) mg/dL Urine Blood Moderate H (Negative) Urine Nitrite Negative (Negative) Urine Bilirubin Negative (Negative) Urine Urobilinogen Normal (Normal) mg/dL Ur Leukocyte Esterase Negative (Negative) Urine Microscopic RBC 15-30 H (0-3) per hpf Urine Microscopic WBC 5-15 H (0-3) per hpf Ur Squamous Epith Cells Many H (None-Few) per lpf Hyaline Casts Few (None-Few) per lpf Ur Culture Indicated? NO (NO) Person Notif of Crit - Radiology Data Radiology results reviewed: Yes I reviewed the patient's radiology results. Chest X-Ray 06/30/18 03:23 IMPRESSION: Pulmonary fibrosis with no definite acute airspace disease. D/ / Elbert Decker MD / Elbert Decker MD Interpreting Provider: Elbert Decker MD - EKG Data EKG #1 EKG attestation: Yes I reviewed and interpreted this EKG. EKG results narrative: EKG shows sinus tachycardia with ventricular rate of 108. Incomplete right bundle branch block. Multifocal PVCs. Anterolateral ST segment depression with T-wave inversions. Critical Care Time Critical Care Time: Yes Total Critical Care Time: 40 Attestation: Critical care performed: Time is exclusive of separately billable procedures. Time includes: direct patient care, patient reassessment, coordination of patient care, interpretation of data (laboratory data, radiology data, and respiratory data), review of patient's medical records, medical consultation and documentation of patient care. Procedures included in critical care time: Procedures excluded from critical care time: Attestation Statement - Attestation Attestation: I, Olegario Loja MD, personally evaluated this patient and discussed their management with the midlevel provicer, PAC/ELEMENTARY ASSISTANT PRINCIPAL. I reviewed the midlevel provider 's note and agree with the documented findings, medical decision making, and plan of care. 73-year-old male with history of CHF and COPD and pulmonary fibrosis presents to the emergency department for acute onset of chills and shaking and difficulty breathing approximately one hour prior to arrival. reports that he seemed okay when he went to bed and woke up about one hour prior to arrival shaking and chilling. She covered him with another blanket. He was having increased difficulty breathing. He is on home oxygen. states that she put his pulse oximetry on a minute was bouncing up and down but getting progressively lowering when he got down in the 50s she called EMS. EMS placed patient on home BiPAP with some improvement in his O2 sats. denies any complaint of chest pain or increased cough. reports that his procedures rn is told him that if he ever had to be intubated that he would not be able to come off the ventilator. She also states that patient does not want to be intubated. On examination patient is an elderly male in severe respiratory distress. He is cyanotic and markedly tachypneic and tachycardic on arrival. Oxygen saturation in the upper 80s to low 90s. Breath sounds are decreased diffusely with some scattered dry rales. No wheezes noted. Heart tachycardic and regular. Abdomen soft with present bowel sounds. No obvious tenderness. No pedal edema noted. Chest x-ray shows fibrosis but no definite airway disease. Labs reviewed. EKG reviewed. Patient continued on BiPAP. He received Solu-Medrol as well as Lasix 40 mg IV. Patient had progressive improvement in his symptoms. His color improved and he became much more alert. Heart rate came down from 140s to about 105. Oxygen saturation improved into the upper 90s. The hospitalist, Dr. Joseph, was consulted and accepted admission of the patient.
[2018-06-30 06:10] LABS: Clarity,Urine Cloudy (Clear); Color,Urine Yellow (Yellow)
[2018-06-30 06:11] LABS: Bilirubin,Urine Negative (Negative); Blood,Urine Moderate (Negative); Glucose,Urine (UA) Normal (Normal); Ketones,Urine Negative (Negative); Leukocyte Esterase,Urine Negative (Negative); Nitrite,Urine Negative (Negative); PH,Urine 5.5 pH Units (5.0-8.0); Protein,Urine 30 mg/dL (Neg-Trace); Specific Gravity,Urine 1.024 (1.010-1.025); Urobilinogen,Urine Normal (Normal)
[2018-06-30 06:12] LABS: Squamous Epithelial Cell,Urine Many per lpf (None-Few)
[2018-06-30 06:16] LABS: Hyaline Casts,Urine Few per lpf (None-Few); RBC,Urine 15-30 per hpf (0-3)
[2018-06-30] MEDS ORDERED: 0.9 % Sodium Chloride 2,000 ML ONE (06:28)
[2018-06-30 06:56] LABS: ABG Base Excess 7 mEq/L (-2 to 3); ABG HCO3 31 mEq/L (21-27); ABG Oxygen Saturation 100 % (95-98); ABG PCO2 42 mmHg (35-45); ABG PH 7.48 pH Units (7.32-7.45); ABG PO2 248 mmHg (85-104); ABG TCO2 33 mEq/L (20-26); Blood Gas Modality NIV
[2018-06-30] MEDS: 0.9 % Sodium Chloride 1,000 ML IVC SCH ×4 (07:08→21:32)
[2018-06-30] MEDS ORDERED: Naloxone 0.4 MG/ML INJ IVP PRN (07:16)
[2018-06-30] MEDS: Ipratropium/Albuterol Neb 3 ML IH SCH ×6 (08:39→23:41)
--- NOTE | 2018-06-30 08:42 | Internal Med History&Physical ---
Date of Encounter: 06/30/18 Time of Encounter: 08:40 Internal Medicine - H&P: HPI Chief complaint: Difficulty breathing, chills, fevers History of present illness: Mr. Canada is a 73 year old male with pmh of pulmonary fibrosis on 8-10L of home oxygen, COPD , diastolic CHF with EF 55% presenting with complaints of worsening shortness of breath since last night. Patient notes he was at his baseline and for the past 2 days and had recently completed a course of levaquin 2 days ago. About 9pm last night, he began to have worsening shortness of breath along with chills. His took his sats and noted he was in the mid 50s on 8L of oxygen and decided to call EMS. He denies any other acute symptoms such as chest pain, nausea or vomiting. EMS placed him on BIPAP with improvement in his hypoxia In the ER, he was noted to be tachycardic and febrile at 102 , and hypoxic in the 80s. He was placed on BIPAP, given one dose of lasix and steroids and given antibiotics and he is being admitted for further management Past Med Surg Social Fam HX - Past Medical History Medical history: arthritis, cancer, CHF, COPD, CVA, GERD, hyperlipidemia, osteoporosis, TIA, other Additional medical history: pulmonary fibrosis Psychiatric history: anxiety - Past Surgical History Surgical History: herniorrhaphy, other Additional surgical history: left ear skin cancer surgery, hemorrhoidectomy - Social History Smoking Status: Former smoker Smokeless Tobacco Status: No Alcohol use: rarely Drug use: none - Family History Father Adopted: Yes Family Member Ethnicity: Non- Living Status: Hx Family Neuromuscular Disorders: Yes (CVA) Mother Family Member Ethnicity: Non- Living Status: Brother Family Member Ethnicity: Non- Living Status: Hx Family Neuromuscular Disorders: Yes (Parkinson's disease) Sister Adopted: Yes Family Member Ethnicity: Non- Living Status: Still Living Hx Family Cardiac Disorders: Yes (tia) Hx Family Respiratory Disorders: Yes (sleep apnea) Hx Family Cancer: Yes (sister) Hx Family GI Disorders: No Hx Family Endocrine Disorder: Yes (diabetes) Hx Family Neuromuscular Disorders: No Hx Family Neurologic Disorders: No Hx Family HEENT Disorders: No Hx Family Autoimmune Disorders: No Internal Medicine - H&P: Meds Mv-Mn/FA/Vit K/Lycop/Lut/Coq10 [Daily Multivitamin Capsule] 1 tab PO DAILY 05/23 [History] Folic Acid 1 mg PO DAILY 08/14/17 [History] Budesonide/Formoterol 160/4.5 [Symbicort 160/4.5] 2 puff IH BIDR 11/29/17 [ History] Esomeprazole Magnesium [Nexium] 20 mg PO DAILY 11/29/17 [History] Furosemide [Lasix] 20 mg PO QPM 11/29/17 [History] Furosemide [Lasix] 40 mg PO QAM 11/29/17 [History] Ipratropium/Albuterol Neb [Duoneb] 3 ml IH Q6H PRN 11/29/17 [History] Lidocaine Jelly 2% 1 appl TP TID PRN 11/29/17 [History] Nitroglycerin [Nitrostat] 0.4 mg SL Q5M PRN 11/29/17 [History] Pirfenidone [Esbriet] 801 mg PO TID 11/29/17 [History] Tramadol HCl [Ultram] 50 mg PO TID PRN 11/29/17 [History] Oxygen 6 l NS AD #0 03/27/18 [Rx] Sennosides/Docusate Sodium [Senna Plus] 1 each PO BID PRN tablet 03/27/18 [Rx] clonazePAM [Klonopin] 0.5 mg PO HS PRN 04/10/18 [History] Aspirin Enteric Coated [Aspirin EC] 81 mg PO DAILY 04/24/18 [History] Escitalopram [Lexapro] 10 mg PO DAILY 04/24/18 [History] Albuterol Sulfate [Albuterol Inhaler] 2 puff IH Q6HR PRN #1 hfa.aer.ad 04/28/18 [Rx] predniSONE [PredniSONE] 10 mg PO DAILY 15 Days tablet 05/10/18 [Rx] 3 Allergy/AdvReac Type Severity Reaction Status Date / Time amiodarone Allergy See Verified 05/06/18 13:44 Comments All Systems PM: A 10-system review of systems was performed and is negative for pertinent findings except as documented above in the HPI. - Constitutional Constitutional: chills, fever(s), no night sweats - EENT Eyes: no change in vision, no discharge, no pain, no photophobia Ears: no ear discharge, no ear pain, no tinnitus Nose, mouth and throat: no dysphagia, no nasal discharge, no neck pain, no sore throat - Cardiovascular Cardiovascular ROS IM: dyspnea, dyspnea on exertion, no chest pain, no diaphoresis, no lightheadedness, no palpitations, no syncope - Respiratory Respiratory: cough, dyspnea, no wheezing, no excessive phlegm production - Gastrointestinal Gastrointestinal: no abdominal pain, no diarrhea, no hematemesis, no hematochezia, no melena, no nausea, no vomiting - Musculoskeletal Musculoskeletal ROS IM: no numbness, no tingling - Integumentary Integumentary IM: no rash, no unusual bruising - Neurological Neurological ROS: no confusion, no convulsions, no focal weakness, no numbness, no tingling, no tremor(s) - Hematologic/Lymphatic Hematologic/Lymphatic: no easy bruising - Constitutional Vitals: Temp Pulse Resp BP Pulse Ox 102 F H 97 28 80/56 99 06/30/18 06:57 06/30/18 07:59 06/30/18 07:16 06/30/18 07:59 06/30/18 07:16 Exam: NAD. Lethargic. On high flow oxygen - Head Head exam: Present: atraumatic, normocephalic - Eye Eye exam: Present: PERRL, conjuntiva pink, sclera anicteric Pupils: Present: PERRL - Neck Neck exam general surgery: Present: supple, trachea midline. Absent: lymphadenopathy - Respiratory Respiratory exam: Present: decreased breath sounds. Absent: accessory muscle use, rales, rhonchi, wheezes - Cardiovascular Cardiovascular exam: Present: RRR, +S1, +S2. Absent: diastolic murmur, gallop, rubs, systolic murmur - GI/Abdominal GI/Abdominal exam: Present: normal bowel sounds, soft, no peritoneal signs. Absent: distended, tenderness - Extremities Exam Extremities exam: Present: warm, radial pulses palpable and symmetrical. Absent : calf tenderness, cyanotic, pedal edema - Neurological Exam Neurological exam: Present: CN II-XII intact, oriented X3, no focal deficits. Absent: pronater drift, facial droop, speech deficit - Skin Skin exam: Present: dry, intact Internal Med - H&P Results - Labs CBC & Chem 7: 06/30/18 03:36 06/30/18 03:36 - ABG Interpretation ABG results: 06/30/18 06:50 ABG pH 7.48 H ABG pCO2 42 ABG pO2 248 H ABG HCO3 31 H ABG Total CO2 33 H ABG O2 Saturation 100 H ABG Base Excess 7 H - Assessment and plan (1) Severe sepsis Current Visit: Yes Status: Acute Assessment and plan: Pt presents with shortness of breath, fever of 102 and leukocytosis Lactic acid elevated at 8.6. Will start on broad spectrum antibiotics for possibly bacterial HCAP with vanc, zosyn and levaquin Follow up blood cultures, urine streptococcal and legionella antigen (2) Acute and chronic respiratory failure with hypoxia Current Visit: Yes Status: Acute Assessment and plan: Pt was desaturating to 50% on 8L of oxygen at home. Improved with BIPAP Likely secondary to acute worsening of COPD, chronic pulmonary fibrosis Continue nebs, steroids, antibiotics and BIPAP. continue flutter valve (3) HCAP (healthcare-associated pneumonia) Current Visit: No Status: Acute Assessment and plan: Likely bacterial. Discharged from the hospital within the last 90 days. See plan for sepsis (4) Pulmonary fibrosis Current Visit: Yes Status: Acute Assessment and plan: See plan for acute on chronic respiratory failure. continue home trelegy ellipta (5) Acute exacerbation of chronic obstructive airways disease Current Visit: No Status: Acute Assessment and plan: Continue BIPAP, nebs, steroids and antibiotics (6) (HFpEF) heart failure with preserved ejection fraction Current Visit: No Status: Chronic Assessment and plan: Has chronic diastolic CHF with no acute exacerbation (7) DVT prophylaxis Current Visit: No Status: Acute Assessment and plan: Heparin sc - Time Spent With Patient Total time spent is greater than 50% in coordination of care (as documented) at patient's floor/unit and/or counseling patient:
[2018-06-30] MEDS ORDERED: Furosemide 40 MG/4 ML VIAL IVP SCH (09:00)
[2018-06-30] MEDS ORDERED: Budesonide/Formoterol 160/4.5 1 PUFF INH IH SCH (10:00)
[2018-06-30] MEDS: methylPREDNISolone 125 MG/2 ML VIAL IVP SCH ×2 (12:53→20:32)
[2018-06-30] MEDS: ESBRIET 267 MG PO SCH ×2 (15:13→16:54)
[2018-06-30] MEDS: Piperacillin/Tazobactam 3.375 GM in 0.9 % Sodium Chloride Mini Bag 100 ML IVPB SCH ×2 (16:03→23:29)
[2018-06-30] MEDS: TRELEGY IH SCH (16:04)
[2018-06-30] MEDS: Acetaminophen 325 MG TABLET PO PRN (16:17)
[2018-06-30] MEDS: traMADol 50 MG TABLET PO PRN (23:28)
[2018-07-01] MEDS: traMADol 50 MG TABLET PO PRN ×2 (03:31→10:53)
[2018-07-01] MEDS: methylPREDNISolone 125 MG/2 ML VIAL IVP SCH ×3 (03:32→20:17)
[2018-07-01] MEDS: Ipratropium/Albuterol Neb 3 ML IH SCH ×6 (03:47→23:02)
[2018-07-01 03:51] LABS: Basophils % 0.1 %; Hematocrit 31.4 % (37.5-50.1); Immature Granulocytes % 0.4 % (0-4); Lymphocytes # 0.3 K/mcL (0.6-4.6); Lymphocytes % 3.9 %; Mean Corpuscular HGB Conc 32.2 g/dL (31.6-35.5); Mean Corpuscular Hemoglobin 29.6 pg (28.0-33.3); Mean Corpuscular Volume 92.1 fL (83.0-100.0); Mean Platelet Volume 9.4 fL (9.4-12.4); Monocytes # 0.3 K/mcL (0.0-1.3); Monocytes % 4.4 %; Neutrophils # 6.8 K/mcL (1.6-8.9); Platelet Count 129 K/mcL (140-400); Red Blood Count 3.41 M/mcL (4.19-5.50); Red Cell Distribution Width 14.1 % (11.5-14.5); Segmented Neutrophils % 91.2 %
[2018-07-01 04:00] LABS: Hemoglobin 10.1 g/dL (12.9-16.9)
[2018-07-01 04:10] LABS: BUN/Creatinine Ratio 31 (6-26); Blood Urea Nitrogen 16 mg/dL (8-23); Calcium 8.1 mg/dL (8.6-10.3); Carbon Dioxide 25 mEq/L (23-29); Chloride 107 mEq/L (98-107); Glucose 172 mg/dL (70-105); Magnesium 1.7 mg/dL (1.6-2.6); Osmolality,Calculated 293 (280-300); Phosphorous 2.3 mg/dL (2.7-4.5); Sodium 139 mEq/L (136-145); eGFR For Non-African Americans > 60 (> 60)
[2018-07-01] MEDS: Levofloxacin 750 MG/150 ML 750 MG/150 ML BAG IVPB SCH ×2 (05:30→08:17)
[2018-07-01] MEDS: 0.9 % Sodium Chloride 1,000 ML IVC SCH (08:30)
[2018-07-01] MEDS: *HR* LORazepam 0.5 MG TABLET PO PRN ×3 (08:30→20:16)
[2018-07-01] MEDS: Piperacillin/Tazobactam 3.375 GM in 0.9 % Sodium Chloride Mini Bag 100 ML IVPB SCH ×3 (08:31→23:43)
[2018-07-01] MEDS: ESBRIET 267 MG PO SCH ×3 (08:32→16:53)
[2018-07-01] MEDS: TRELEGY IH SCH (08:44)
[2018-07-01 10:21] LABS: ABG Base Excess 0 mEq/L (-2 to 3); ABG HCO3 25 mEq/L (21-27); ABG Oxygen Saturation 85 % (95-98); ABG PCO2 41 mmHg (35-45); ABG PO2 50 mmHg (85-104); ABG TCO2 26 mEq/L (20-26)
--- NOTE | 2018-07-01 11:05 | Pulmonology Consult Note ---
Date of Encounter: 07/01/18 Time of Encounter: 11:00 Assessment and Plan (1) Acute and chronic respiratory failure with hypoxia Current Visit: Yes Status: Acute Patient presented with acute on chronic hypoxic respiratory failure secondary to severe pulmonary fibrosis complicated by acute on chronic diastolic heart failure now and severe sepsis most likely due to pneumonia. Agree with continue the broad-spectrum antibiotics as patient has repeated hospitalization (2) Pulmonary fibrosis Current Visit: Yes Status: Acute Pneumonia can flareup the pulmonary fibrosis complicated by acute on chronic diastolic heart failure. Agree with bronchodilators and steroids patient should go on a prolonged taper of steroids over 4 weeks to his baseline dose of 10 mg daily. (3) Pneumonia Current Visit: Yes Status: Acute Concerning for typical/atypical pneumonia agree with broad-spectrum coverage of atypical coverage too. Will do Respiratory infection panel send sputum culture sensitivity. Qualifiers: Qualified Code(s): J18.9 - Pneumonia, unspecified organism (4) Severe sepsis Current Visit: Yes Status: Acute Patient presents with severe sepsis now lactate is normalized his fever curve is gone down back to his baseline patient responded well to current management. History of Present Illness Consult date: 07/01/18 Requesting physician: Marcelino Mckeon Chief complaint: shortness of breadth with Fever History of present illness: 73-year-old male well known to our pulmonary service patient has chronic pulmonary fibrosis with chronic hypoxic respiratory failure 10-12 L a minute some progressive shortness of breath, chest pain denies any chest tightness has some cough not much sputum production denies any hemoptysis came to the ER with acute on chronic worsening hypoxic respiratory failure blood pressure was little bit borderline found to have some fever or chills with sepsis with elevated lactate patient was started on antibiotic steroids and he felt a lot better after 4-6 hours. Patient denies any recent sick contacts. Patient denies any other constitutional symptoms patient denies any neuro or GERD symptoms. Patient usually his blood pressures runs between 90-100 systolic pressure patient is here in stepdown with acute on chronic respiratory failure most likely secondary to atypical pneumonia patient also has acute on chronic diastolic dysfunction which is complicating the picture. Past Med Surg Social Fam HX - Past Medical History Medical history: arthritis, cancer, CHF, COPD, CVA, GERD, hyperlipidemia, osteoporosis, TIA, other Additional medical history: pulmonary fibrosis Psychiatric history: anxiety - Past Surgical History Surgical History: herniorrhaphy, other Additional surgical history: left ear skin cancer surgery, hemorrhoidectomy - Social History Smoking Status: Former smoker Smokeless Tobacco Status: No Alcohol use: rarely Drug use: none - Family History Father Adopted: Yes Family Member Ethnicity: Non- Living Status: Hx Family Neuromuscular Disorders: Yes (CVA) Mother Family Member Ethnicity: Non- Living Status: Brother Family Member Ethnicity: Non- Living Status: Hx Family Neuromuscular Disorders: Yes (Parkinson's disease) Sister Adopted: Yes Family Member Ethnicity: Non- Living Status: Still Living Hx Family Cardiac Disorders: Yes (tia) Hx Family Respiratory Disorders: Yes (sleep apnea) Hx Family Cancer: Yes (sister) Hx Family GI Disorders: No Hx Family Endocrine Disorder: Yes (diabetes) Hx Family Neuromuscular Disorders: No Hx Family Neurologic Disorders: No Hx Family HEENT Disorders: No Hx Family Autoimmune Disorders: No Medications and Allergies Mv-Mn/FA/Vit K/Lycop/Lut/Coq10 [Daily Multivitamin Capsule] 1 tab PO DAILY 05/23 [History] Esomeprazole Magnesium [Nexium] 20 mg PO DAILY 11/29/17 [History] Furosemide [Lasix] 20 mg PO QPM 11/29/17 [History] Furosemide [Lasix] 40 mg PO QAM 11/29/17 [History] Ipratropium/Albuterol Neb [Duoneb] 3 ml IH Q6H PRN 11/29/17 [History] Lidocaine Jelly 2% 1 appl TP TID PRN 11/29/17 [History] Nitroglycerin [Nitrostat] 0.4 mg SL Q5M PRN 11/29/17 [History] Pirfenidone [Esbriet] 801 mg PO TID 11/29/17 [History] Tramadol HCl [Ultram] 50 mg PO TID PRN 11/29/17 [History] Oxygen 6 l NS AD #0 03/27/18 [Rx] Aspirin Enteric Coated [Aspirin EC] 81 mg PO DAILY 04/24/18 [History] Albuterol Sulfate [Albuterol Inhaler] 2 puff IH Q6HR PRN #1 [email or web address] 04/28/18 [Rx] predniSONE [PredniSONE] 10 mg PO DAILY 15 Days tablet 05/10/18 [Rx] Docusate [Colace] 100 mg PO HS 06/30/18 [History] Escitalopram [Lexapro] 20 mg PO DAILY 06/30/18 [History] Famotidine [Pepcid] 40 mg PO DAILY 06/30/18 [History] Fluticasone/Umeclidin/Vilanter [Trelegy Ellipta 100-62.5-25] 1 puff IH DAILY [History] Folic Acid 0.8 mg PO DAILY 06/30/18 [History] LORazepam [Ativan] 0.5 mg PO BID PRN 06/30/18 [History] LORazepam [Ativan] 0.5 mg PO HS 06/30/18 [History] 3 Allergy/AdvReac Type Severity Reaction Status Date / Time amiodarone Allergy See Verified 06/30/18 16:07 Comments All Systems: The remainder of the systems were reviewed and are negative Physical Examination Vital Signs: Vital Signs, Last 4 Hours Pulse Resp BP Pulse Ox 07/01/18 10:58 79 101/69 92 07/01/18 09:45 80 96/66 89 07/01/18 08:55 63 90 07/01/18 07:36 18 94 General appearance: other (Mild respiratory distress) Effort: mildly labored Auscultation: left: rales Results - Laboratory Findings CBC and BMP: 07/01/18 03:21 07/01/18 03:21 ABG ABG pH 7.40 pH Units (7.32-7.45) 07/01/18 10:18 ABG pCO2 41 mmHg (35-45) 07/01/18 10:18 ABG pO2 50 mmHg (85-104) L* 07/01/18 10:18 ABG O2 Saturation 85 % (95-98) L 07/01/18 10:18 Abnormal lab findings: Abnormal lab results RBC 3.41 M/mcL (4.19-5.50) L 07/01/18 03:21 Hgb 10.1 g/dL (12.9-16.9) L D 07/01/18 03:21 Hct 31.4 % (37.5-50.1) L 07/01/18 03:21 Plt Count 129 K/mcL (140-400) L 07/01/18 03:21 Lymphocytes # 0.3 K/mcL (0.6-4.6) L 07/01/18 03:21 ABG pO2 50 mmHg (85-104) L* 07/01/18 10:18 ABG O2 Saturation 85 % (95-98) L 07/01/18 10:18 VBG pH 7.19 pH Units (7.32-7.42) L* 06/30/18 04:15 VBG pCO2 72 mmHg (41-51) H* 06/30/18 04:15 Creatinine 0.52 mg/dL (0.70-1.30) L 07/01/18 03:21 BUN/Creatinine Ratio 31 (6-26) H 07/01/18 03:21 Glucose 172 mg/dL (70-105) H 07/01/18 03:21 Whole Bld Glucose 184 mg/dl (65-95) H 06/30/18 04:15 Calcium 8.1 mg/dL (8.6-10.3) L 07/01/18 03:21 Venous Ioniz Calcium 1.09 mmol/L (1.15-1.35) L 06/30/18 04:15 Phosphorus 2.3 mg/dL (2.7-4.5) L 07/01/18 03:21 B-Natriuretic Peptide 813 pg/mL (Less than 100) H 06/30/18 03:36 Urine Clarity Cloudy (Clear) A 06/30/18 05:43 Urine Protein 30 mg/dL (Neg-Trace) H 06/30/18 05:43 Urine Blood Moderate (Negative) H 06/30/18 05:43 Urine Microscopic RBC 15-30 per hpf (0-3) H 06/30/18 05:43 Urine Microscopic WBC 5-15 per hpf (0-3) H 06/30/18 05:43 Ur Squamous Epith Cells Many per lpf (None-Few) H 06/30/18 05:43 - Microbiology Findings Microbiology Findings: Microbiology, Last 48 Hours 06/30/18 07:21 Blood Culture - Preliminary Peripheral Venipuncture Culture is incubating and being continuously monitored for growth. Final report to follow. - Clinical Findings Intake & Output: Intake & Output 06/30/18 07/01/18 07/01/18 23:59 07:59 15:59 Intake Total 1810 / 1810 410 / 410 1450 / 1450 Output Total 200 / 200 Balance 1810 / 1810 210 / 210 1450 / 1450 Weight 71.9 kg Consult Discharge Plan - Plan Referrals: Jorge Ferrera MD [Primary Care Provider] -
[2018-07-01] MEDS: Chloraseptic Spray 177 ML BOTTLE MM PRN ×2 (11:19→18:57)
[2018-07-01 13:42] LABS: Adenovirus Not Detected (Not Detect); Bordetella Pertussis Not Detected (Not Detect); Chlamydophila pneumoniae Not Detected (Not Detect); Coronavirus 229E Not Detected (Not Detect); Coronavirus HKU1 Not Detected (Not Detect); Coronavirus NL63 Not Detected (Not Detect); Coronavirus OC43 Not Detected (Not Detect); Human Metapneumovirus Not Detected (Not Detect); Human Rhinovirus/Enterovirus Not Detected (Not Detect); Influenza A Subtype 2009 H1 Not Detected (Not Detect); Influenza A Untypeable Not Detected (Not Detect); Influenza B Not Detected (Not Detect); Mycoplasma pneumoniae Not Detected (Not Detect); Parainfluenza Virus 1 Not Detected (Not Detect); Parainfluenza Virus 2 Not Detected (Not Detect); Parainfluenza Virus 3 Not Detected (Not Detect); Parainfluenza Virus 4 Not Detected (Not Detect); Respiratory Syncytial Virus Not Detected (Not Detect)
[2018-07-01] MEDS: Acetaminophen 325 MG TABLET PO PRN (14:21)
--- NOTE | 2018-07-01 16:29 | Internal Med Progress Note ---
Hospitalist Progress Note - Encounter Date of Encounter: 07/01/18 Time of Encounter: 11:00 - Subjective Interval History: Patient is a 73-year-old male with past medical history significant for pulmonary fibrosis with chronic respiratory failure (baseline 10 L O2) who presented with shortness of breath secondary to pneumonia. Patient this morning is on baseline O2 requirements and reports a feeling much better as patient's sepsis has resolved. - Exam Vitals: Temp Pulse Resp BP Pulse Ox 98 F 88 21 102/68 91 07/01/18 16:00 07/01/18 16:00 07/01/18 16:00 07/01/18 16:00 07/01/18 16:00 Exam: Gen.: Nonacute distress, alert and oriented 3 ENT: Mucosal membranes moist Respiratory: Lungs are clear to auscultation bilaterally without any wheezing rhonchi or rales Cardiovascular: Normal S1 and S2 regular rate rhythm no murmurs rubs or gallops Abdomen: Soft, nontender and nondistended with positive bowel sounds Extremities: No lower extremity edema Skin: Normal color - Assessment and Plan (1) HCAP (healthcare-associated pneumonia) Current Visit: No Status: Acute Assessment and Plan: CT of the chest showed findings and the distribution compatible with usual interstitial pneumonia pattern of interstitial lung disease. Patient's leukocytosis has resolved and is now afebrile Due to patient's significant history of pulmonary fibrosis pulmonology has been consulted with recommendations to continue broad-spectrum coverage with day 2 of IV vancomycin, IV Zosyn and IV Levaquin. (2) Acute and chronic respiratory failure with hypoxia Current Visit: Yes Status: Acute Assessment and Plan: Resolved as patient is currently on baseline O2 supplementation at 10 liters. Pulmonology was consulted with recommendations for home NIPPV (3) Acute exacerbation of chronic obstructive airways disease Current Visit: No Status: Acute Assessment and Plan: Patient with scant bilateral expiratory wheezes Oxygen supplementation back to baseline Continue IV Solu-Medrol and scheduled DuoNeb's (4) Pulmonary fibrosis Current Visit: Yes Status: Acute Assessment and Plan: Pulmonology consulted as above for recommendations for home NIPPV (5) Severe sepsis Current Visit: Yes Status: Acute Assessment and Plan: Resolved; continue management as above (6) (HFpEF) heart failure with preserved ejection fraction Current Visit: No Status: Chronic Assessment and Plan: Patient euvolemic; continue to monitor DVT Prophylaxis: Subcutaneous heparin - Time Spent with Patient Total time spent is greater than 50% in coordination of care (as documented) at patient's floor/unit and/or counseling patient: Internal Medicine: Result - Labs CBC & Chem 7: 07/01/18 03:21 07/01/18 03:21 Labs: Short CBC 07/01/18 Range/Units 03:21 WBC 7.5 D (4.3-11.1) K/mcL Hgb 10.1 L D (12.9-16.9) g/dL Hct 31.4 L (37.5-50.1) % Plt Count 129 L (140-400) K/mcL Neutrophils # 6.8 (1.6-8.9) K/mcL BMP 07/01/18 03:21 Sodium 139 Potassium 4.0 Chloride 107 Carbon Dioxide 25 BUN 16 Creatinine 0.52 L Glucose 172 H Calcium 8.1 L - ABG Interpretation ABG results: ABG ABG pH 7.40 pH Units (7.32-7.45) 07/01/18 10:18 ABG pCO2 41 mmHg (35-45) 07/01/18 10:18 ABG pO2 50 mmHg (85-104) L* 07/01/18 10:18 ABG O2 Saturation 85 % (95-98) L 07/01/18 10:18 - Impressions Impressions Chest CT 07/01/18 11:08 IMPRESSION: Motion degraded study. Bilateral honeycombing and traction bronchiectasis is similar to prior. Again, findings are in a distribution compatible with usual interstitial pneumonia pattern of interstitial lung disease, which can be seen in idiopathic pulmonary fibrosis or secondary to underlying connective tissue disorder, drug toxicity, or end-stage hypersensitivity pneumonitis. D/ / 07/01/2018 12:14:42 Zhang Gonzalez MD / [email or web address] Interpreting Provider: Zhang Gonzalez MD Consult Discharge Plan - Plan Referrals: Jorge Ferrera MD [Primary Care Provider] -
[2018-07-01] MEDS: *HR* Heparin 5,000 UNIT/ML VIAL SQ SCH (20:17)
[2018-07-02] MEDS: Ipratropium/Albuterol Neb 3 ML IH SCH ×6 (04:12→23:54)
[2018-07-02] MEDS: *HR* Heparin 5,000 UNIT/ML VIAL SQ SCH ×3 (04:51→21:25)
[2018-07-02] MEDS: methylPREDNISolone 125 MG/2 ML VIAL IVP SCH (04:51)
[2018-07-02 05:14] LABS: Hematocrit 32.7 % (37.5-50.1); Hemoglobin 10.6 g/dL (12.9-16.9); Immature Granulocytes % 0.7 % (0-4); Lymphocytes # 0.4 K/mcL (0.6-4.6); Lymphocytes % 4.5 %; Mean Corpuscular HGB Conc 32.4 g/dL (31.6-35.5); Mean Corpuscular Hemoglobin 29.9 pg (28.0-33.3); Mean Corpuscular Volume 92.1 fL (83.0-100.0); Mean Platelet Volume 9.6 fL (9.4-12.4); Monocytes # 0.3 K/mcL (0.0-1.3); Monocytes % 4.1 %; Neutrophils # 7.3 K/mcL (1.6-8.9); Platelet Count 153 K/mcL (140-400); Red Blood Count 3.55 M/mcL (4.19-5.50); Red Cell Distribution Width 14.3 % (11.5-14.5); Segmented Neutrophils % 90.7 %
[2018-07-02 05:31] LABS: BUN/Creatinine Ratio 22 (6-26); Blood Urea Nitrogen 11 mg/dL (8-23); Calcium 8.6 mg/dL (8.6-10.3); Carbon Dioxide 25 mEq/L (23-29); Chloride 108 mEq/L (98-107); Glucose 158 mg/dL (70-105); Osmolality,Calculated 287 (280-300); Sodium 137 mEq/L (136-145); eGFR For Non-African Americans > 60 (> 60)
[2018-07-02] MEDS ORDERED: Aminoglycoside Consult 1 EACH MC ONE (07:58)
--- NOTE | 2018-07-02 08:59 | Pulmonology Progress Note ---
Addendum entered and electronically signed by Jos Arthur MD 07/02/18 13: 34: Discussed with the pharmacist and de-escalation of antibiotic is appropriate. Patient to be on Levaquin only at this time and hopefully will be able to transition to oral when he is ready to be discharged home. Original Note: <Ozzie Dickson - Last Filed: 07/02/18 11:25> Date of Encounter: 07/02/18 Time of Encounter: 08:59 Assessment and Plan (1) HCAP (healthcare-associated pneumonia) Current Visit: No Status: Acute Afebrile now, pt had temp of 102 on admission Continued tachypnea HR normal WBC at 8.1 today, was elevated at 16.6 on admission Empiric coverage for HCAP appropriate with Levaquin, Zosyn, and Vanc day 3 Continue Duonebs and supplemental O2 Transition from IV Solumedrol to po Prednisone 40mg qd (2) Acute and chronic respiratory failure with hypoxia Current Visit: Yes Status: Acute secondary to pneumonia in the setting of pulmonary fibrosis Improving clinically, management as above (3) Pulmonary fibrosis Current Visit: No Status: Chronic known hx evident on CXR and CT Subjective Principal diagnosis: HCAP and pulmonary fibrosis Interval history: Mr. Canada is a pleasant 73M with PMH of pulmonary fibrosis, COPD, and CHF who presented to the ER on 06/30 complaining of chills and increased SOB. Pt normally on 8-10L o2 at home, but his noted that his SpO2 was dropping to around 50%. CXR in the ER revealed no acute abnormality with chronic pulmonary fibrosis. Chest CT on 07/01 showed interstitial pneumonia with pulmonary fibrosis. Today the pt states he feels better with shortness of breath about the same as before. No sputum production. Denies any continued fever, or chills. Denies any headache, nausea, vomiting, numbness, or tingling. Objective PUL Vital signs: Last Vital Signs Temp 97.8 F 07/02/18 07:30 Pulse 74 07/02/18 07:30 Resp 18 07/02/18 07:43 BP 111/79 07/02/18 03:47 Pulse Ox 93 07/02/18 07:43 General appearance: no acute distress Eyes: nonicteric ENT: oropharynx moist Neck: supple, no lymphadenopathy, no JVD Effort: normal Auscultation: bilateral: wheezes (diffuse ), rales (bases ) Percussion: bilateral: not dull Tactile fremitus: bilateral: normal Cardiovascular: regular rate and rhythm Gastrointestinal: soft, non-tender, non-distended Integumentary: normal Extremities: no cyanosis, no edema, no clubbing, pink and warm Musculoskeletal: no deformities Gait: normal posture normal mental status, non-focal exam mood appropriate, affect normal Results - Laboratory Findings CBC and BMP: 07/02/18 04:29 07/02/18 04:29 ABG ABG pH 7.40 pH Units (7.32-7.45) 07/01/18 10:18 ABG pCO2 41 mmHg (35-45) 07/01/18 10:18 ABG pO2 50 mmHg (85-104) L* 07/01/18 10:18 ABG O2 Saturation 85 % (95-98) L 07/01/18 10:18 Abnormal lab findings: Abnormal lab results RBC 3.55 M/mcL (4.19-5.50) L 07/02/18 04:29 Hgb 10.6 g/dL (12.9-16.9) L 07/02/18 04:29 Hct 32.7 % (37.5-50.1) L 07/02/18 04:29 Lymphocytes # 0.4 K/mcL (0.6-4.6) L 07/02/18 04:29 ABG pO2 50 mmHg (85-104) L* 07/01/18 10:18 ABG O2 Saturation 85 % (95-98) L 07/01/18 10:18 VBG pH 7.19 pH Units (7.32-7.42) L* 06/30/18 04:15 VBG pCO2 72 mmHg (41-51) H* 06/30/18 04:15 Chloride 108 mEq/L (98-107) H 07/02/18 04:29 Creatinine 0.49 mg/dL (0.70-1.30) L 07/02/18 04:29 Glucose 158 mg/dL (70-105) H 07/02/18 04:29 Whole Bld Glucose 184 mg/dl (65-95) H 06/30/18 04:15 Venous Ioniz Calcium 1.09 mmol/L (1.15-1.35) L 06/30/18 04:15 Phosphorus 2.3 mg/dL (2.7-4.5) L 07/01/18 03:21 B-Natriuretic Peptide 813 pg/mL (Less than 100) H 06/30/18 03:36 Urine Clarity Cloudy (Clear) A 06/30/18 05:43 Urine Protein 30 mg/dL (Neg-Trace) H 06/30/18 05:43 Urine Blood Moderate (Negative) H 06/30/18 05:43 Urine Microscopic RBC 15-30 per hpf (0-3) H 06/30/18 05:43 Urine Microscopic WBC 5-15 per hpf (0-3) H 06/30/18 05:43 Ur Squamous Epith Cells Many per lpf (None-Few) H 06/30/18 05:43 - Microbiology Findings Microbiology Findings: Microbiology, Last 48 Hours 06/30/18 07:21 Blood Culture - Preliminary Peripheral Venipuncture Culture is incubating and being continuously monitored for growth. Final report to follow. - Diagnostic Findings CT scan - chest: report reviewed, image reviewed - Clinical Findings Intake & Output: Intake & Output 07/01/18 07/02/18 07/02/18 23:59 07:59 15:59 Intake Total 470 / 470 Output Total 220 / 220 Balance 250 / 250 Weight 73.1 kg Consult Discharge Plan - Plan Referrals: Jorge Ferrera MD [Primary Care Provider] - <Jos Arthur - Last Filed: 07/02/18 12:35> Date of Encounter: 07/02/18 Objective PUL Vital signs: Last Vital Signs Temp 98.4 F 07/02/18 11:29 Pulse 81 07/02/18 11:29 Resp 18 07/02/18 11:40 BP 114/72 07/02/18 11:29 Pulse Ox 95 07/02/18 11:40 Results - Laboratory Findings CBC and BMP: 07/02/18 04:29 07/02/18 04:29 ABG ABG pH 7.40 pH Units (7.32-7.45) 07/01/18 10:18 ABG pCO2 41 mmHg (35-45) 07/01/18 10:18 ABG pO2 50 mmHg (85-104) L* 07/01/18 10:18 ABG O2 Saturation 85 % (95-98) L 07/01/18 10:18 Abnormal lab findings: Abnormal lab results RBC 3.55 M/mcL (4.19-5.50) L 07/02/18 04:29 Hgb 10.6 g/dL (12.9-16.9) L 07/02/18 04:29 Hct 32.7 % (37.5-50.1) L 07/02/18 04:29 Lymphocytes # 0.4 K/mcL (0.6-4.6) L 07/02/18 04:29 ABG pO2 50 mmHg (85-104) L* 07/01/18 10:18 ABG O2 Saturation 85 % (95-98) L 07/01/18 10:18 VBG pH 7.19 pH Units (7.32-7.42) L* 06/30/18 04:15 VBG pCO2 72 mmHg (41-51) H* 06/30/18 04:15 Chloride 108 mEq/L (98-107) H 07/02/18 04:29 Creatinine 0.49 mg/dL (0.70-1.30) L 07/02/18 04:29 Glucose 158 mg/dL (70-105) H 07/02/18 04:29 Whole Bld Glucose 184 mg/dl (65-95) H 06/30/18 04:15 Venous Ioniz Calcium 1.09 mmol/L (1.15-1.35) L 06/30/18 04:15 Phosphorus 2.3 mg/dL (2.7-4.5) L 07/01/18 03:21 B-Natriuretic Peptide 813 pg/mL (Less than 100) H 06/30/18 03:36 Urine Clarity Cloudy (Clear) A 06/30/18 05:43 Urine Protein 30 mg/dL (Neg-Trace) H 06/30/18 05:43 Urine Blood Moderate (Negative) H 06/30/18 05:43 Urine Microscopic RBC 15-30 per hpf (0-3) H 06/30/18 05:43 Urine Microscopic WBC 5-15 per hpf (0-3) H 06/30/18 05:43 Ur Squamous Epith Cells Many per lpf (None-Few) H 06/30/18 05:43 - Microbiology Findings Microbiology Findings: Microbiology, Last 48 Hours 06/30/18 07:21 Blood Culture - Preliminary Peripheral Venipuncture Culture is incubating and being continuously monitored for growth. Final report to follow. - Clinical Findings Intake & Output: Intake & Output 07/01/18 07/02/18 07/02/18 23:59 07:59 15:59 Intake Total 470 / 470 350 / 350 1027 / 1027 Output Total 220 / 220 825 / 825 Balance 250 / 250 350 / 350 202 / 202 Weight 73.1 kg - Attending Attestation I examined this patient and my medical decision-making was reviewed with the Resident Physician. I agree with the documented findings, disposition and treatment plan as described except to the extent set forth below. Patient seen and examined. Labs, radiology, chart personally reviewed. 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 Overall prognosis is poor with his interstitial lung disease and patient understand that. Consider transition to oral steroid and when his FiO2 requirement decrease and plan for discharge.
[2018-07-02] MEDS: Piperacillin/Tazobactam 3.375 GM in 0.9 % Sodium Chloride Mini Bag 100 ML IVPB SCH (09:23)
[2018-07-02] MEDS: ESBRIET 267 MG PO SCH ×3 (09:26→17:33)
[2018-07-02] MEDS: TRELEGY IH SCH (09:26)
[2018-07-02] MEDS: predniSONE 20 MG TABLET PO SCH (12:16)
[2018-07-02] MEDS: *HR* LORazepam 0.5 MG TABLET PO PRN ×3 (12:20→21:34)
[2018-07-02] MEDS: Levofloxacin 750 MG/150 ML 750 MG/150 ML BAG IVPB SCH (13:43)
[2018-07-02] MEDS: traMADol 50 MG TABLET PO PRN (17:32)
[2018-07-02] MEDS: Furosemide 20 MG TABLET PO SCH (17:33)
--- NOTE | 2018-07-02 20:39 | Internal Med Progress Note ---
Hospitalist Progress Note - Encounter Date of Encounter: 07/02/18 Time of Encounter: 11:00 - Subjective Interval History: Patient is a 73-year-old male with past medical history significant for pulmonary fibrosis with chronic respiratory failure (baseline 10 L O2) who presented with shortness of breath secondary to pneumonia. Patient this morning is on baseline O2 requirements and reports a feeling much better as patient's sepsis has resolved. Pulmonology following with recommendations to de-escalate IV antibiotics to IV Levaquin - Exam Vitals: Temp Pulse Resp BP Pulse Ox 98.3 F 83 19 108/73 90 07/02/18 19:56 07/02/18 19:56 07/02/18 19:56 07/02/18 19:56 07/02/18 19:56 Exam: Gen.: Nonacute distress, alert and oriented 3 ENT: Mucosal membranes moist Respiratory: Lungs are clear to auscultation bilaterally without any wheezing rhonchi or rales Cardiovascular: Normal S1 and S2 regular rate rhythm no murmurs rubs or gallops Abdomen: Soft, nontender and nondistended with positive bowel sounds Extremities: No lower extremity edema Skin: Normal color - Assessment and Plan (1) HCAP (healthcare-associated pneumonia) Current Visit: No Status: Acute Assessment and Plan: CT of the chest showed findings and the distribution compatible with usual interstitial pneumonia pattern of interstitial lung disease. Patient's leukocytosis has resolved and is now afebrile Pulmonology following with recommendations to de-escalate IV antibiotics to IV Levaquin Appreciate any further recommendations (2) Acute and chronic respiratory failure with hypoxia Current Visit: Yes Status: Acute Assessment and Plan: Resolved as patient is currently on baseline O2 supplementation at 10 liters. Pulmonology was consulted with recommendations for home NIPPV (3) Acute exacerbation of chronic obstructive airways disease Current Visit: No Status: Acute Assessment and Plan: Patient with scant bilateral expiratory wheezes Oxygen supplementation back to baseline Pulmonology with recommendations to de-escalate IV Solu-Medrol to oral prednisone and to continue scheduled DuoNeb's (4) Pulmonary fibrosis Current Visit: Yes Status: Acute Assessment and Plan: Pulmonology consulted as above for recommendations for home NIPPV (5) Severe sepsis Current Visit: Yes Status: Acute Assessment and Plan: Resolved; continue management as above (6) (HFpEF) heart failure with preserved ejection fraction Current Visit: No Status: Chronic Assessment and Plan: Patient euvolemic; continue to monitor DVT Prophylaxis: Subcutaneous heparin - Time Spent with Patient Total time spent is greater than 50% in coordination of care (as documented) at patient's floor/unit and/or counseling patient: Internal Medicine: Result - Labs CBC & Chem 7: 07/02/18 04:29 07/02/18 04:29 Labs: Short CBC 07/02/18 Range/Units 04:29 WBC 8.1 (4.3-11.1) K/mcL Hgb 10.6 L (12.9-16.9) g/dL Hct 32.7 L (37.5-50.1) % Plt Count 153 (140-400) K/mcL Neutrophils # 7.3 (1.6-8.9) K/mcL BMP 07/02/18 04:29 Sodium 137 Potassium 4.0 Chloride 108 H Carbon Dioxide 25 BUN 11 Creatinine 0.49 L Glucose 158 H Calcium 8.6 - ABG Interpretation ABG results: ABG ABG pH 7.40 pH Units (7.32-7.45) 07/01/18 10:18 ABG pCO2 41 mmHg (35-45) 07/01/18 10:18 ABG pO2 50 mmHg (85-104) L* 07/01/18 10:18 ABG O2 Saturation 85 % (95-98) L 07/01/18 10:18 Consult Discharge Plan - Plan Referrals: Jorge Ferrera MD [Primary Care Provider] -
[2018-07-03] MEDS: *HR* Heparin 5,000 UNIT/ML VIAL SQ SCH ×3 (04:16→21:48)
[2018-07-03] MEDS: Chloraseptic Spray 177 ML BOTTLE MM PRN ×2 (04:19→19:16)
[2018-07-03] MEDS: Ipratropium/Albuterol Neb 3 ML IH SCH ×6 (04:23→23:48)
--- NOTE | 2018-07-03 06:41 | Electrocardiograph Report ---
[address] [address] Test Date: 2018-06-30 Pat Name: Juan Canada Department: [id number] Room: 2N08 Gender: M [employer] Supervisor: : 1945 Requested By: Faith Can Order Number: [id number] Reading MD: Heriberto Nuñez Measurements Intervals [place] Rate: 148 P: [place]: QRS: 101 QRSD: 122 T: -47 QT: 275 QTc: 426 Interpretive Statements Atrial fibrillation with PVCs or aberrant conducion Right bundle branch block Baseline artifact complicates interpretation Electronically Signed On 07-03-2018 6:39:39 EDT by Heriberto Nuñez
--- NOTE | 2018-07-03 06:43 | Electrocardiograph Report ---
[address] [place], [place] [address] Test Date: 2018-06-30 Pat Name: Juan Canada Department: [id number] Room: 2N08 Gender: M Hourly Team Members: : 1945 Requested By: Marcelino Mckeon Order Number: [id number] Reading MD: Heriberto Nuñez Measurements Intervals [place] Rate: 108 P: 53 MT: 153 QRS: 83 QRSD: 113 T: -79 QT: 319 QTc: 428 Interpretive Statements Sinus tachycardia PVC Incomplete RBBB Inferior and anteroalteral ST-T changes suggests diffuse ischemia Electronically Signed On 07-03-2018 6:42:13 EDT by Heriberto Nuñez
--- NOTE | 2018-07-03 08:59 | Pulmonology Progress Note ---
<Ozzie Dickson - Last Filed: 07/03/18 14:47> Date of Encounter: 07/03/18 Time of Encounter: 08:59 Assessment and Plan (1) HCAP (healthcare-associated pneumonia) Current Visit: Yes Status: Acute Afebrile now, pt had temp of 102 on admission respiratory rate normal HR normal WBC at 8.1 yesterday, no new results today Abx changed from IV to oral Cefepime, abx treatment day 4 Continue Duonebs and supplemental O2 Continue Prednisone 40mg qd (2) Acute and chronic respiratory failure with hypoxia Current Visit: Yes Status: Acute secondary to pneumonia in the setting of pulmonary fibrosis Improving clinically, management as above (3) Pulmonary fibrosis Current Visit: No Status: Chronic known hx evident on CXR and CT (4) Tobacco abuse Current Visit: Yes Status: Acute States he smokes 1-2 cigarettes per day Spent >10 minutes counseling on the importance of cessation and treatment alternatives Pt refused nicotine patch Subjective Principal diagnosis: HCAP and pulmonary fibrosis Interval history: Mr. Canada is a pleasant 73M with PMH of pulmonary fibrosis, COPD, and CHF who presented to the ER on 06/30 complaining of chills and increased SOB. Pt normally on 8-10L o2 at home, but his noted that his SpO2 was dropping to around 50%. CXR in the ER revealed no acute abnormality with chronic pulmonary fibrosis. Chest CT on 07/01 showed interstitial pneumonia with pulmonary fibrosis. Today the pt states he feels better with improved shortness of breath. States he is very nearly back to his baseline. Admits to some pink and brown sputum production. Denies any fever, chills, chest pain, headache, nausea, vomiting, numbness, or tingling. Objective PUL Vital signs: Last Vital Signs Temp 98.3 F 07/03/18 06:46 Pulse 73 07/03/18 06:46 Resp 18 07/03/18 07:42 BP 110/84 07/03/18 06:46 Pulse Ox 96 07/03/18 07:42 General appearance: no acute distress Eyes: nonicteric ENT: oropharynx moist Neck: supple, no lymphadenopathy, no JVD Effort: normal Auscultation: bilateral: rales (more pronounced in bases ) Percussion: bilateral: not dull Tactile fremitus: bilateral: normal Cardiovascular: regular rate and rhythm Gastrointestinal: soft, non-tender, non-distended Integumentary: normal Extremities: no cyanosis, no edema, no clubbing, pink and warm Musculoskeletal: no deformities Gait: normal posture normal mental status, non-focal exam mood appropriate, affect normal Results - Laboratory Findings CBC and BMP: 07/02/18 04:29 07/02/18 04:29 ABG ABG pH 7.40 pH Units (7.32-7.45) 07/01/18 10:18 ABG pCO2 41 mmHg (35-45) 07/01/18 10:18 ABG pO2 50 mmHg (85-104) L* 07/01/18 10:18 ABG O2 Saturation 85 % (95-98) L 07/01/18 10:18 Abnormal lab findings: Abnormal lab results RBC 3.55 M/mcL (4.19-5.50) L 07/02/18 04:29 Hgb 10.6 g/dL (12.9-16.9) L 07/02/18 04:29 Hct 32.7 % (37.5-50.1) L 07/02/18 04:29 Lymphocytes # 0.4 K/mcL (0.6-4.6) L 07/02/18 04:29 ABG pO2 50 mmHg (85-104) L* 07/01/18 10:18 ABG O2 Saturation 85 % (95-98) L 07/01/18 10:18 VBG pH 7.19 pH Units (7.32-7.42) L* 06/30/18 04:15 VBG pCO2 72 mmHg (41-51) H* 06/30/18 04:15 Chloride 108 mEq/L (98-107) H 07/02/18 04:29 Creatinine 0.49 mg/dL (0.70-1.30) L 07/02/18 04:29 Glucose 158 mg/dL (70-105) H 07/02/18 04:29 Whole Bld Glucose 184 mg/dl (65-95) H 06/30/18 04:15 Venous Ioniz Calcium 1.09 mmol/L (1.15-1.35) L 06/30/18 04:15 Phosphorus 2.3 mg/dL (2.7-4.5) L 07/01/18 03:21 B-Natriuretic Peptide 813 pg/mL (Less than 100) H 06/30/18 03:36 Urine Clarity Cloudy (Clear) A 06/30/18 05:43 Urine Protein 30 mg/dL (Neg-Trace) H 06/30/18 05:43 Urine Blood Moderate (Negative) H 06/30/18 05:43 Urine Microscopic RBC 15-30 per hpf (0-3) H 06/30/18 05:43 Urine Microscopic WBC 5-15 per hpf (0-3) H 06/30/18 05:43 Ur Squamous Epith Cells Many per lpf (None-Few) H 06/30/18 05:43 - Clinical Findings Intake & Output: Intake & Output 07/02/18 07/03/18 07/03/18 23:59 07:59 15:59 Intake Total 240 / 240 Output Total 1640 / 1640 Balance -1400 / -1400 Weight 73.6 kg Consult Discharge Plan - Plan Referrals: Jorge Ferrera MD [Primary Care Provider] - <Jos Arthur - Last Filed: 07/03/18 16:02> Date of Encounter: 07/03/18 Objective PUL Vital signs: Last Vital Signs Temp 97.5 F L 07/03/18 11:43 Pulse 82 07/03/18 12:03 Resp 20 07/03/18 11:43 BP 101/66 07/03/18 11:43 Pulse Ox 90 07/03/18 11:43 Results - Laboratory Findings CBC and BMP: 07/02/18 04:29 07/02/18 04:29 ABG ABG pH 7.40 pH Units (7.32-7.45) 07/01/18 10:18 ABG pCO2 41 mmHg (35-45) 07/01/18 10:18 ABG pO2 50 mmHg (85-104) L* 07/01/18 10:18 ABG O2 Saturation 85 % (95-98) L 07/01/18 10:18 Abnormal lab findings: Abnormal lab results RBC 3.55 M/mcL (4.19-5.50) L 07/02/18 04:29 Hgb 10.6 g/dL (12.9-16.9) L 07/02/18 04:29 Hct 32.7 % (37.5-50.1) L 09/17/18 04:29 Lymphocytes # 0.4 K/mcL (0.6-4.6) L 07/02/18 04:29 ABG pO2 50 mmHg (85-104) L* 07/01/18 10:18 ABG O2 Saturation 85 % (95-98) L 07/01/18 10:18 VBG pH 7.19 pH Units (7.32-7.42) L* 06/30/18 04:15 VBG pCO2 72 mmHg (41-51) H* 06/30/18 04:15 Chloride 108 mEq/L (98-107) H 07/02/18 04:29 Creatinine 0.49 mg/dL (0.70-1.30) L 07/02/18 04:29 Glucose 158 mg/dL (70-105) H 07/02/18 04:29 Whole Bld Glucose 184 mg/dl (65-95) H 06/30/18 04:15 Venous Ioniz Calcium 1.09 mmol/L (1.15-1.35) L 06/30/18 04:15 Phosphorus 2.3 mg/dL (2.7-4.5) L 07/01/18 03:21 B-Natriuretic Peptide 813 pg/mL (Less than 100) H 06/30/18 03:36 Urine Clarity Cloudy (Clear) A 06/30/18 05:43 Urine Protein 30 mg/dL (Neg-Trace) H 06/30/18 05:43 Urine Blood Moderate (Negative) H 06/30/18 05:43 Urine Microscopic RBC 15-30 per hpf (0-3) H 06/30/18 05:43 Urine Microscopic WBC 5-15 per hpf (0-3) H 06/30/18 05:43 Ur Squamous Epith Cells Many per lpf (None-Few) H 06/30/18 05:43 - Clinical Findings Intake & Output: Intake & Output 07/02/18 07/03/18 07/03/18 23:59 07:59 15:59 Intake Total 240 / 240 240 / 240 Output Total 1640 / 1640 Balance -1400 / -1400 240 / 240 Weight 73.6 kg - Attending Attestation I examined this patient and my medical decision-making was reviewed with the Resident Physician. I agree with the documented findings, disposition and treatment plan as described except to the extent set forth below. Patient seen and examined. Labs, radiology, chart personally reviewed. Agree with resident's history and physical, assessment, plan with following comments: [employer]: Patient follows commands, Pulmonary: Acceptable oxygenation and ventilation. Patient is feeling better and continue current treatment. Antibiotics de-escalation at and continue wean off FiO2. Patient feels he is close to his baseline and as soon as same arrangement can be done by DME at home regarding case oxygen delivery system, patient can be discharged home from pulmonary standpoint.
[2018-07-03] MEDS: Levofloxacin 750 MG/150 ML 750 MG/150 ML BAG IVPB SCH (09:00)
[2018-07-03] MEDS: predniSONE 20 MG TABLET PO SCH (09:09)
[2018-07-03] MEDS: Furosemide 40 MG TABLET PO SCH (09:09)
[2018-07-03] MEDS: *HR* LORazepam 0.5 MG TABLET PO PRN ×2 (09:09→21:49)
[2018-07-03] MEDS: TRELEGY IH SCH (09:14)
[2018-07-03] MEDS: ESBRIET 267 MG PO SCH ×3 (09:14→18:03)
--- NOTE | 2018-07-03 11:28 | Internal Med Progress Note ---
Hospitalist Progress Note - Encounter Date of Encounter: 07/03/18 Time of Encounter: 11:26 - Subjective Interval History: 73 M with Chronic resp failure on 12-15 L o2 at home, due t pulm fibrosis Admitted and being managed for sepsis secondary to PNA Seen and evaluated at bedside with partner Reports minimal improvement and was recently exerted prior to my evaluation, O2 has been increased to 15 L high flow Pulm is following - Exam Vitals: Temp Pulse Resp BP Pulse Ox 98.3 F 73 18 110/84 91 07/03/18 06:46 07/03/18 06:46 07/03/18 11:07 07/03/18 06:46 07/03/18 11:07 Exam: Constitutional: No acute distress, Alert Psych: Normal affect HEENT: NCAT, EOMI Neck: no neck stiffness Cardio: S1, S2, RRR Resp: inspiratory fine crackles, otherwise clear Chest: equal chest movement Abd: soft, non-tender/non distended, positive bowel sounds, no guarding/rebound/ rigidity Extremities: NO pedal edema Skin: No rash Neuro: no focal deficits appreciated - Assessment and Plan (1) (HFpEF) heart failure with preserved ejection fraction Current Visit: Yes Status: Chronic Assessment and Plan: Patient euvolemic; continue to monitor (2) Acute exacerbation of chronic obstructive airways disease Current Visit: Yes Status: Acute Assessment and Plan: Patient with scant bilateral expiratory wheezes Oxygen supplementation increased this a.m post-exertion Continue steroids, a/b, duonebs Pulm following Continue to monitor (3) HCAP (healthcare-associated pneumonia) Current Visit: Yes Status: Acute Assessment and Plan: CT of the chest showed findings and the distribution compatible with usual interstitial pneumonia pattern of interstitial lung disease. Patient's leukocytosis has resolved and is now afebrile Pulmonology following with recommendations to de-escalate IV antibiotics to levaquin Changed to po this a.m Appreciate any further recommendations (4) Pulmonary fibrosis Current Visit: Yes Status: Chronic Assessment and Plan: Pulmonology consulted as above for recommendations for home NIPPV patient did not qualify for BIPAP (5) Acute and chronic respiratory failure with hypoxia Current Visit: Yes Status: Acute Assessment and Plan: Secondary to flare of pulm fibrosis and PNA Continue O2 supplementation Did not qualify for BIPAP (6) Severe sepsis Current Visit: Yes Status: Resolved Assessment and Plan: Resolved; continue management as above - Time Spent with Patient Total time spent is greater than 50% in coordination of care (as documented) at patient's floor/unit and/or counseling patient: Plan of Care Discussed with: patient Internal Medicine: Result - Labs CBC & Chem 7: 07/02/18 04:29 07/02/18 04:29 - ABG Interpretation ABG results: ABG ABG pH 7.40 pH Units (7.32-7.45) 07/01/18 10:18 ABG pCO2 41 mmHg (35-45) 07/01/18 10:18 ABG pO2 50 mmHg (85-104) L* 07/01/18 10:18 ABG O2 Saturation 85 % (95-98) L 07/01/18 10:18 - Impressions Impressions Chest CT 07/01/18 11:08 IMPRESSION: Motion degraded study. Bilateral honeycombing and traction bronchiectasis is similar to prior. Again, findings are in a distribution compatible with usual interstitial pneumonia pattern of interstitial lung disease, which can be seen in idiopathic pulmonary fibrosis or secondary to underlying connective tissue disorder, drug toxicity, or end-stage hypersensitivity pneumonitis. D/ / 07/01/2018 12:14:42 Zhang Gonzalez MD / [email or web address] Interpreting Provider: Zhang Gonzalez MD Consult Discharge Plan - Plan Referrals: Jorge Ferrera MD [Primary Care Provider] -
[2018-07-03] MEDS: traMADol 50 MG TABLET PO PRN ×2 (13:57→21:49)
[2018-07-03] MEDS: Furosemide 20 MG TABLET PO SCH (18:03)
[2018-07-04] MEDS: Ipratropium/Albuterol Neb 3 ML IH SCH ×3 (03:18→11:03)
[2018-07-04] MEDS: *HR* Heparin 5,000 UNIT/ML VIAL SQ SCH (05:35)
[2018-07-04] MEDS: Furosemide 40 MG TABLET PO SCH (08:12)
[2018-07-04] MEDS: predniSONE 20 MG TABLET PO SCH (08:12)
[2018-07-04] MEDS: Levofloxacin 750 MG/150 ML 750 MG/150 ML BAG IVPB SCH (08:13)
[2018-07-04] MEDS: ESBRIET 267 MG PO SCH ×2 (08:15→12:01)
[2018-07-04] MEDS: TRELEGY IH SCH (08:23)
--- NOTE | 2018-07-04 08:42 | Pulmonology Progress Note ---
<Ozzie Dickson - Last Filed: 07/04/18 10:42> Date of Encounter: 07/04/18 Time of Encounter: 08:40 Assessment and Plan (1) HCAP (healthcare-associated pneumonia) Current Visit: Yes Status: Acute Remains afebrile respiratory rate normal HR normal WBC has been within normal limits, no new results today No increased sputum production or change in sputum character Abx changed from IV to oral Cefepime, abx treatment day 5 Continue Duonebs Attempt to wean FiO2, could re-evaluate home O2 needs for discharge Continue Prednisone 40mg qd (2) Acute and chronic respiratory failure with hypoxia Current Visit: Yes Status: Acute secondary to pneumonia in the setting of pulmonary fibrosis Improving clinically, management as above (3) Pulmonary fibrosis Current Visit: No Status: Chronic known hx evident on CXR and CT (4) Tobacco abuse Current Visit: Yes Status: Acute States he smokes 1-2 cigarettes per day Spent >10 minutes counseling on the importance of cessation and treatment alternatives Pt refused nicotine patch Subjective Principal diagnosis: HCAP and pulmonary fibrosis Interval history: Mr. Canada is a pleasant 73M with PMH of pulmonary fibrosis, COPD, and CHF who presented to the ER on 06/30 complaining of chills and increased SOB. Pt normally on 8-10L o2 at home, but his noted that his SpO2 was dropping to around 50%. CXR in the ER revealed no acute abnormality with chronic pulmonary fibrosis. Chest CT on 07/01 showed interstitial pneumonia with pulmonary fibrosis. Today the pt states he feels much better and more energetic. States he is very nearly back to his baseline, with improved shortness of breath. Denies any fever , chills, chest pain, headache, nausea, vomiting, numbness, or tingling. Objective PUL Vital signs: Last Vital Signs Temp 97.3 F L 07/04/18 06:51 Pulse 76 07/04/18 06:51 Resp 19 07/04/18 07:47 BP 99/64 07/04/18 06:51 Pulse Ox 94 07/04/18 07:47 General appearance: no acute distress Eyes: nonicteric ENT: oropharynx moist Neck: supple, no lymphadenopathy, no JVD Effort: normal Auscultation: bilateral: rales (crackles consistent with pulmonary fibrosis) Percussion: bilateral: not dull Tactile fremitus: bilateral: normal Cardiovascular: regular rate and rhythm Gastrointestinal: soft, non-tender, non-distended Integumentary: normal Extremities: no cyanosis, no edema, no clubbing, pink and warm Musculoskeletal: no deformities Gait: normal posture normal mental status, non-focal exam mood appropriate, affect normal Results - Laboratory Findings CBC and BMP: 07/02/18 04:29 07/02/18 04:29 ABG ABG pH 7.40 pH Units (7.32-7.45) 07/01/18 10:18 ABG pCO2 41 mmHg (35-45) 07/01/18 10:18 ABG pO2 50 mmHg (85-104) L* 07/01/18 10:18 ABG O2 Saturation 85 % (95-98) L 07/01/18 10:18 Abnormal lab findings: Abnormal lab results RBC 3.55 M/mcL (4.19-5.50) L 07/02/18 04:29 Hgb 10.6 g/dL (12.9-16.9) L 07/02/18 04:29 Hct 32.7 % (37.5-50.1) L 07/02/18 04:29 Lymphocytes # 0.4 K/mcL (0.6-4.6) L 07/02/18 04:29 ABG pO2 50 mmHg (85-104) L* 07/01/18 10:18 ABG O2 Saturation 85 % (95-98) L 07/01/18 10:18 VBG pH 7.19 pH Units (7.32-7.42) L* 06/30/18 04:15 VBG pCO2 72 mmHg (41-51) H* 06/30/18 04:15 Chloride 108 mEq/L (98-107) H 07/02/18 04:29 Creatinine 0.49 mg/dL (0.70-1.30) L 07/02/18 04:29 Glucose 158 mg/dL (70-105) H 07/02/18 04:29 Whole Bld Glucose 184 mg/dl (65-95) H 06/30/18 04:15 Venous Ioniz Calcium 1.09 mmol/L (1.15-1.35) L 06/30/18 04:15 Phosphorus 2.3 mg/dL (2.7-4.5) L 07/01/18 03:21 B-Natriuretic Peptide 813 pg/mL (Less than 100) H 06/30/18 03:36 Urine Clarity Cloudy (Clear) A 06/30/18 05:43 Urine Protein 30 mg/dL (Neg-Trace) H 06/30/18 05:43 Urine Blood Moderate (Negative) H 06/30/18 05:43 Urine Microscopic RBC 15-30 per hpf (0-3) H 06/30/18 05:43 Urine Microscopic WBC 5-15 per hpf (0-3) H 06/30/18 05:43 Ur Squamous Epith Cells Many per lpf (None-Few) H 06/30/18 05:43 - Clinical Findings Intake & Output: Intake & Output 07/03/18 07/04/18 07/04/18 23:59 07:59 15:59 Intake Total 160 / 160 150 / 150 Output Total 870 / 870 Balance -710 / -710 150 / 150 Weight 74.4 kg 74.4 kg Consult Discharge Plan - Plan Referrals: Jorge Ferrera MD [Primary Care Provider] - Prescriptions: levoFLOXacin [Levaquin] 750 mg PO DAILY #5 tablet predniSONE [PredniSONE] 40 mg PO DAILY #30 tablet <Jos Arthur M - Last Filed: 07/04/18 14:58> Date of Encounter: 07/04/18 Objective PUL Vital signs: Last Vital Signs Temp 97.5 F L 07/04/18 11:19 Pulse 83 07/04/18 12:11 Resp 18 07/04/18 11:19 BP 92/60 07/04/18 11:19 Pulse Ox 94 07/04/18 11:19 Results - Laboratory Findings CBC and BMP: 07/02/18 04:29 07/02/18 04:29 ABG ABG pH 7.40 pH Units (7.32-7.45) 07/01/18 10:18 ABG pCO2 41 mmHg (35-45) 07/01/18 10:18 ABG pO2 50 mmHg (85-104) L* 07/01/18 10:18 ABG O2 Saturation 85 % (95-98) L 07/01/18 10:18 Abnormal lab findings: Abnormal lab results RBC 3.55 M/mcL (4.19-5.50) L 07/02/18 04:29 Hgb 10.6 g/dL (12.9-16.9) L 07/02/18 04:29 Hct 32.7 % (37.5-50.1) L 07/02/18 04:29 Lymphocytes # 0.4 K/mcL (0.6-4.6) L 07/02/18 04:29 ABG pO2 50 mmHg (85-104) L* 07/01/18 10:18 ABG O2 Saturation 85 % (95-98) L 07/01/18 10:18 VBG pH 7.19 pH Units (7.32-7.42) L* 06/30/18 04:15 VBG pCO2 72 mmHg (41-51) H* 06/30/18 04:15 Chloride 108 mEq/L (98-107) H 07/02/18 04:29 Creatinine 0.49 mg/dL (0.70-1.30) L 07/02/18 04:29 Glucose 158 mg/dL (70-105) H 07/02/18 04:29 Whole Bld Glucose 184 mg/dl (65-95) H 06/30/18 04:15 Venous Ioniz Calcium 1.09 mmol/L (1.15-1.35) L 06/30/18 04:15 Phosphorus 2.3 mg/dL (2.7-4.5) L 07/01/18 03:21 B-Natriuretic Peptide 813 pg/mL (Less than 100) H 06/30/18 03:36 Urine Clarity Cloudy (Clear) A 06/30/18 05:43 Urine Protein 30 mg/dL (Neg-Trace) H 06/30/18 05:43 Urine Blood Moderate (Negative) H 06/30/18 05:43 Urine Microscopic RBC 15-30 per hpf (0-3) H 06/30/18 05:43 Urine Microscopic WBC 5-15 per hpf (0-3) H 06/30/18 05:43 Ur Squamous Epith Cells Many per lpf (None-Few) H 06/30/18 05:43 - Clinical Findings Intake & Output: Intake & Output 07/03/18 07/04/18 07/04/18 23:59 07:59 15:59 Intake Total 160 / 160 510 / 510 Output Total 870 / 870 Balance -710 / -710 510 / 510 Weight 74.4 kg 74.4 kg - Attending Attestation I examined this patient and my medical decision-making was reviewed with the Resident Physician. I agree with the documented findings, disposition and treatment plan as described except to the extent set forth below. Patient seen and examined. Labs, radiology, chart personally reviewed. Agree with resident's history and physical, assessment, plan with following comments: MANAGER MEAT: Patient follows commands, Pulmonary: Patient with poor prognosis and it is reasonable to discharge patient on oral treatment with taper steroids to his baseline taking prednisone low dose daily and palliative care has seen the patient. Patient to follow-up in the clinic in about 3-4 weeks.
[2018-07-04 11:21] VITALS: BP 92/60
--- NOTE | 2018-07-04 11:44 | Discharge Summary ---
- NOTES TO OUTPATIENT PROVIDER Notes to Outpatient Provider: Admitted for severe sepsis secondary to HCAP. He is discharged home on tapering doses of prednsione, and antibiotics. Follow-up with primary care physician and pulmonology. The patient did not qualify for BiPAP in this admission. Date of Encounter: 07/04/18 Time of Encounter: 11:43 - Discharge Diagnosis (1) (HFpEF) heart failure with preserved ejection fraction Priority: Secondary Status: Chronic (2) Acute exacerbation of chronic obstructive airways disease Priority: Primary Status: Acute (3) HCAP (healthcare-associated pneumonia) Priority: Primary Status: Acute (4) Pulmonary fibrosis Priority: Secondary Status: Chronic (5) Acute and chronic respiratory failure with hypoxia Priority: Primary Status: Acute (6) Severe sepsis Priority: Primary Status: Resolved Hospital course: Mr. Canada is a 73 year old male with advanced pulm fibrosis and chronic respiratory failure on 10-15 L of home oxygen, patient presented to the emergency room with difficulty breathing fever and shortness of breath. He was admitted for sepsis with acute on chronic hypoxic respiratory failure and COPD exacerbation. Workup showed interstitial pneumonia. Cultures were negative. He was managed with pulmonology evaluation, antibiotics, oxygen titration and steroids. He refused NRT during admission he has made significant improvement of current therapy and is clinically stable to be discharged home on oral antibiotics and prednisone taper. he continues to smoke and has O2 at home up to 12-15L per partner Plan of care discussed, verbalized understanding Tobacco cessation counselling done Discharge discussed with: patient, family, nurse, case management - Time Spent with Patient Total time spent providing and/or coordinating discharge services: Less than 30 minutes - Discharge Medications Prescriptions: levoFLOXacin [Levaquin] 750 mg PO DAILY #5 tablet predniSONE [PredniSONE] 40 mg PO DAILY #30 tablet Home Medications: Mv-Mn/FA/Vit K/Lycop/Lut/Coq10 [Daily Multivitamin Capsule] 1 tab PO DAILY 05/23 [History] Esomeprazole Magnesium [Nexium] 20 mg PO DAILY 11/29/17 [History] Furosemide [Lasix] 20 mg PO QPM 11/29/17 [History] Furosemide [Lasix] 40 mg PO QAM 11/29/17 [History] Ipratropium/Albuterol Neb [Duoneb] 3 ml IH Q6H PRN 11/29/17 [History] Lidocaine Jelly 2% 1 appl TP TID PRN 11/29/17 [History] Nitroglycerin [Nitrostat] 0.4 mg SL Q5M PRN 11/29/17 [History] Pirfenidone [Esbriet] 801 mg PO TID 11/29/17 [History] Tramadol HCl [Ultram] 50 mg PO TID PRN 11/29/17 [History] Oxygen 6 l NS AD #0 03/27/18 [Rx] Aspirin Enteric Coated [Aspirin EC] 81 mg PO DAILY 04/24/18 [History] Albuterol Sulfate [Albuterol Inhaler] 2 puff IH Q6HR PRN #1 [id number] 04/28/18 [Rx] Docusate [Colace] 100 mg PO HS 06/30/18 [History] Escitalopram [Lexapro] 20 mg PO DAILY 06/30/18 [History] Famotidine [Pepcid] 40 mg PO DAILY 06/30/18 [History] Fluticasone/Umeclidin/Vilanter [Trelegy Ellipta 100-62.5-25] 1 puff IH DAILY [History] Folic Acid 0.8 mg PO DAILY 06/30/18 [History] LORazepam [Ativan] 0.5 mg PO BID PRN 06/30/18 [History] LORazepam [Ativan] 0.5 mg PO HS 06/30/18 [History] Chloraseptic [place] [Chloraseptic] 2 spray MM QID PRN bottle 07/04/18 [Rx] Patient Taking Own Medication 1 each IH DAILY each 07/04/18 [Rx] Patient Taking Own Medication 3 each PO TIDWM each 07/04/18 [Rx] levoFLOXacin [Levaquin] 750 mg PO DAILY #5 tablet 07/04/18 [Rx] predniSONE [PredniSONE] 40 mg PO DAILY #30 tablet 07/04/18 [Rx] Allergies/Adverse Reactions: 3 Allergy/AdvReac Type Severity Reaction Status Date / Time amiodarone Allergy See Verified 06/30/18 16:07 Comments Date of admission: 06/30/18 07:16 Primary care physician: Jorge Ferrera MD Consults: 07/01/18 10:50 Consult to [facility] Manager [CONS] Routine Reason for SW Consult: POSSIBLE BIPAP. FREQUENT READMISSIONS. FROM HOME WITH 12-15L HIGH FLOW NASAL CANNULA. 07/01/18 11:07 Consult to Pulmonology [CONS] Routine Consulting Provider: Pulm [facility] Sleep [place] [facility] Reason for Consult: RESPIRATORY FAILURE Time Notified: 11:08 Call Completed: Yes 07/02/18 08:47 Consult to Nurse Navigator [CONS] Routine Comment: 07/04/18 10:36 Consult to Palliative Care [CONS] Routine Comment: Consulting Provider: Palliative Care [place] [facility] Reason for Consult: pulmonary fibrosis with poor prognosis Call Completed: No Discharging clinician: Tucker Quispe Anticipated date of discharge: 07/04/18 - Constitutional Vitals: Temp Pulse Resp BP Pulse Ox 97.5 F L 87 18 92/60 94 07/04/18 11:19 07/04/18 11:19 07/04/18 11:19 07/04/18 11:19 07/04/18 11:19 General appearance: Present: A&O X 3, pleasant, no acute distress Exam: see below - Head Head exam: Present: atraumatic, normocephalic - Eye Eye exam: Present: PERRL, conjuntiva pink, sclera anicteric Pupils: Present: PERRL - Neck Neck exam general surgery: Present: supple, trachea midline. Absent: lymphadenopathy - Respiratory Respiratory exam: Present: decreased breath sounds. Absent: accessory muscle use, rales, rhonchi, wheezes - Cardiovascular Cardiovascular exam: Present: RRR, +S1, +S2. Absent: diastolic murmur, gallop, rubs, systolic murmur - GI/Abdominal GI/Abdominal exam: Present: normal bowel sounds, soft, no peritoneal signs. Absent: distended, tenderness - Extremities Exam Extremities exam: Present: warm, radial pulses palpable and symmetrical. Absent : calf tenderness, cyanotic, pedal edema - Patient Status Disposition: Home, Self-Care Condition: Fair Functional capacity at discharge: uses cane/walker Overall status at discharge: patient is progressing back to baseline - Discharge Instructions Follow Up With: Jorge Ferrera MD [Primary Care Provider] - - Diet and Activity Activity: resume usual activities as tolerated, wear oxygen at all times Diet: diabetic diet
--- NOTE | 2018-07-04 11:45 | Physician Discharge Referral ---
Home Health/Hosp Referral Info Transfer to: Home Health Attending Provider: Cintia Quispe Provider in Charge Post Discharge: PCP - Diagnosis (1) (HFpEF) heart failure with preserved ejection fraction Status: Chronic (2) Acute exacerbation of chronic obstructive airways disease Status: Acute (3) HCAP (healthcare-associated pneumonia) Status: Acute (4) Pulmonary fibrosis Status: Chronic (5) Acute and chronic respiratory failure with hypoxia Status: Acute (6) Severe sepsis Status: Resolved - Respiratory Orders Smoking Cessation: Smoking cessation has been advised. For more information, call the [facility] Quit Line at 0-636-LOXH-NOW. - Transfer Medications Home Medications: Mv-Mn/FA/Vit K/Lycop/Lut/Coq10 [Daily Multivitamin Capsule] 1 tab PO DAILY 05/23 [History] Esomeprazole Magnesium [Nexium] 20 mg PO DAILY 11/29/17 [History] Furosemide [Lasix] 20 mg PO QPM 11/29/17 [History] Furosemide [Lasix] 40 mg PO QAM 11/29/17 [History] Ipratropium/Albuterol Neb [Duoneb] 3 ml IH Q6H PRN 11/29/17 [History] Lidocaine Jelly 2% 1 appl TP TID PRN 11/29/17 [History] Nitroglycerin [Nitrostat] 0.4 mg SL Q5M PRN 11/29/17 [History] Pirfenidone [Esbriet] 801 mg PO TID 11/29/17 [History] Tramadol HCl [Ultram] 50 mg PO TID PRN 11/29/17 [History] Oxygen 6 l NS AD #0 03/27/18 [Rx] Aspirin Enteric Coated [Aspirin EC] 81 mg PO DAILY 04/24/18 [History] Albuterol Sulfate [Albuterol Inhaler] 2 puff IH Q6HR PRN #1 hfa.aer.ad 04/28/18 [Rx] predniSONE [PredniSONE] 10 mg PO DAILY 15 Days tablet 05/10/18 [Rx] Docusate [Colace] 100 mg PO HS 06/30/18 [History] Escitalopram [Lexapro] 20 mg PO DAILY 06/30/18 [History] Famotidine [Pepcid] 40 mg PO DAILY 06/30/18 [History] Fluticasone/Umeclidin/Vilanter [Trelegy Ellipta 100-62.5-25] 1 puff IH DAILY [History] Folic Acid 0.8 mg PO DAILY 06/30/18 [History] LORazepam [Ativan] 0.5 mg PO BID PRN 06/30/18 [History] LORazepam [Ativan] 0.5 mg PO HS 06/30/18 [History] Allergies/Adverse Reactions: 3 Allergy/AdvReac Type Severity Reaction Status Date / Time amiodarone Allergy See Verified 06/30/18 16:07 Comments Certification: Further, I certify that my clinical findings support that this patient is homebound (i.e. absences from home require considerable and taxing effort and are for medical reasons or islam services or infrequently or short duration when for other reasons) because: Attestation: My signature below is to certify that this patient is under my care and that I, or nurse practitioner, or a physician's clerical administrative assistant working with me, has a face-to -face encounter with this patient.
[2018-07-04] MEDS: *HR* LORazepam 0.5 MG TABLET PO PRN (12:00)
[2018-07-04] MEDS: Chloraseptic Spray 177 ML BOTTLE MM PRN (12:02)
--- NOTE | 2018-07-04 15:50 | Palliative - Consult Note ---
Date of Encounter: 07/04/18 Time of Encounter: 14:00 - Assessment and Plan (1) Encounter for smoking cessation counseling Status: Acute Assessment and plan: Counseled pt about smoking cessation and all available resources. (2) Advance care planning Status: Acute Assessment and plan: Discussed with pt about advanced care planning, including intubation and cardiac resuscitation. Explained to pt that given his underlying lung condition , intbation would not be recommended as he will be very unlikely to be weaned successfully from the ventilator. Also explained that CPR in his case will not be recommended as it will most likely not be successful, would be futile and may result in prolonging the dying process. Pt stated that he would not like to be kept alive on artificial means, and decided for DNRCC/DNI. was agreeable. form completed and order placed. (3) Goals of care, counseling/discussion Status: Acute Assessment and plan: Discussed with pt about his medical condition, trajectory of illness, prognosis and treatment options. Explained to pt the progressive nature of his illness. introduced to pt the idea of hospice for end-of-life care. Pt at this time has improved and is being discharged home. Pt to discuss with and children at home about hospice. (4) Acute and chronic respiratory failure with hypoxia Status: Acute Assessment and plan: management per primary team (5) Dyspnea Status: Acute Assessment and plan: Pt is now at baseline, and feels well controlled with current medications and oxygen. May benefit from low dose morphine like Roxanol 5mg SL q6hrs prn for dyspnea. Qualifiers: Dyspnea type: unspecified Qualified Code(s): R06.00 - Dyspnea, unspecified Palliative-CN HPI - Data of Consult Consult date: 07/04/18 Requesting Physician: Tucker Quispe MD Primary Care Provider: Jorge Ferrera MD - Consult Narrative Reason for consult: Advance care planning History of present illness: Mr. Canada is a 73 year old male with history of chronic pulmonary fibrosis with chronic hypoxic respiratory failure, on home oxygen 8-10L, presented to the ED with complain of worsening SOB since the night before. Pt was admitted for acute respiratory failure due to pneumonia. Pt was treated with antibiotics, and is now stable and being discharged. palliative care consult for advanced care planning. Art the time of exam today, pt was AAO x3, at the bedside. He stated to be feeling SOB, but close to his baseline. he denied any pain, nausea, vomiting, dizziness, changes in bowel habits. CC: Tucker Quispe MD - Time Spent with Patient Time: Total time spent is greater than 50% in coordination of care (as documented) at patient's floor/unit and/or counseling patient: Past Med Surg Social Fam HX - Past Medical History Medical history: arthritis, cancer, CHF, COPD, CVA, GERD, hyperlipidemia, osteoporosis, TIA, other Additional medical history: pulmonary fibrosis Psychiatric history: anxiety - Past Surgical History Surgical History: herniorrhaphy, other Additional surgical history: left ear skin cancer surgery, hemorrhoidectomy - Social History Smoking Status: Former smoker Smokeless Tobacco Status: No Alcohol use: rarely Drug use: none - Family History Father Adopted: Yes Family Member Ethnicity: Non- Living Status: Hx Family Neuromuscular Disorders: Yes (CVA) Mother Family Member Ethnicity: Non- Living Status: Brother Family Member Ethnicity: Non- Living Status: Hx Family Neuromuscular Disorders: Yes (Parkinson's disease) Sister Adopted: Yes Family Member Ethnicity: Non- Living Status: Still Living Hx Family Cardiac Disorders: Yes (tia) Hx Family Respiratory Disorders: Yes (sleep apnea) Hx Family Cancer: Yes (sister) Hx Family GI Disorders: No Hx Family Endocrine Disorder: Yes (diabetes) Hx Family Neuromuscular Disorders: No Hx Family Neurologic Disorders: No Hx Family HEENT Disorders: No Hx Family Autoimmune Disorders: No Medications and Allergies Mv-Mn/FA/Vit K/Lycop/Lut/Coq10 [Daily Multivitamin Capsule] 1 tab PO DAILY 05/23 [History] Esomeprazole Magnesium [Nexium] 20 mg PO DAILY 11/29/17 [History] Furosemide [Lasix] 20 mg PO QPM 11/29/17 [History] Furosemide [Lasix] 40 mg PO QAM 11/29/17 [History] Ipratropium/Albuterol Neb [Duoneb] 3 ml IH Q6H PRN 11/29/17 [History] Lidocaine Jelly 2% 1 appl TP TID PRN 11/29/17 [History] Nitroglycerin [Nitrostat] 0.4 mg SL Q5M PRN 11/29/17 [History] Pirfenidone [Esbriet] 801 mg PO TID 11/29/17 [History] Tramadol HCl [Ultram] 50 mg PO TID PRN 11/29/17 [History] Oxygen 6 l NS AD #0 03/27/18 [Rx] Aspirin Enteric Coated [Aspirin EC] 81 mg PO DAILY 04/24/18 [History] Albuterol Sulfate [Albuterol Inhaler] 2 puff IH Q6HR PRN #1 hfa.aer.ad 04/28/18 [Rx] Docusate [Colace] 100 mg PO HS 06/30/18 [History] Escitalopram [Lexapro] 20 mg PO DAILY 06/30/18 [History] Famotidine [Pepcid] 40 mg PO DAILY 06/30/18 [History] Fluticasone/Umeclidin/Vilanter [Trelegy Ellipta 100-62.5-25] 1 puff IH DAILY [History] Folic Acid 0.8 mg PO DAILY 06/30/18 [History] LORazepam [Ativan] 0.5 mg PO BID PRN 06/30/18 [History] LORazepam [Ativan] 0.5 mg PO HS 06/30/18 [History] Chloraseptic [place] [Chloraseptic] 2 spray MM QID PRN bottle 07/04/18 [Rx] Patient Taking Own Medication 1 each IH DAILY each 07/04/18 [Rx] Patient Taking Own Medication 3 each PO TIDWM each 07/04/18 [Rx] levoFLOXacin [Levaquin] 750 mg PO DAILY #5 tablet 07/04/18 [Rx] predniSONE [PredniSONE] 40 mg PO DAILY #30 tablet 07/04/18 [Rx] 3 Allergy/AdvReac Type Severity Reaction Status Date / Time amiodarone Allergy See Verified 06/30/18 16:07 Comments - Constitutional Constitutional ROS PAL: fatigue - Cardiovascular Cardiovascular ROS: no chest pain, no diaphoresis, no leg edema - Respiratory Respiratory: cough, dyspnea, chest congestion - Gastrointestinal Gastrointestinal: no abdominal pain - Genitourinary Genitourinary ROS male: no dysuria - Musculoskeletal Musculoskeletal ROS IM: muscle weakness - Integumentary ROS Integumentary: as per HPI - Neurological Neurological ROS: as per HPI Palliative Care-Exam - Constitutional Vitals: Temp Pulse Resp BP Pulse Ox 97.5 F L 83 18 92/60 94 07/04/18 11:19 07/04/18 12:11 07/04/18 11:19 07/04/18 11:19 07/04/18 11:19 Exam: Vitals reviewed General appearance: alert, oriented x3, in no acute distress Eyes: nonicteric, left lower eyelid edema EENT: oropharynx moist Neck: supple, no lymphadenopathy, no JVD Chest: decreased breath sound, accessory muscle use Cardiovascular: regular rate and rhythm Gastrointestinal: soft, non-tender, non-distended Integumentary: normal Extremities: no cyanosis, no edema, no clubbing Musculoskeletal: no deformities Neurologic: normal mental status, non-focal exam Psych: mood appropriate, affect normal Internal Medicine - CN: Reslt - Labs CBC & Chem 7: 07/02/18 04:29 07/02/18 04:29 - ABG Interpretation ABG results: ABG ABG pH 7.40 pH Units (7.32-7.45) 07/01/18 10:18 ABG pCO2 41 mmHg (35-45) 07/01/18 10:18 ABG pO2 50 mmHg (85-104) L* 07/01/18 10:18 ABG O2 Saturation 85 % (95-98) L 07/01/18 10:18 Consult Discharge Plan - Plan Referrals: Jorge Ferrera MD [Primary Care Provider] - Prescriptions: levoFLOXacin [Levaquin] 750 mg PO DAILY #5 tablet predniSONE [PredniSONE] 40 mg PO DAILY #30 tablet Palliative Quality Palliative Quality: Screen for Code Status: Yes, Screen for Goals of Care: Yes, Screen for Pain: Yes, If Pain Regimen Started, Initiate Bowel Regimen: NA, Screen for Nausea/Vomitting: Yes Code Status: DNRCC-A DNI
[2018-07-05] MEDS ORDERED: levoFLOXacin 750 MG TABLET PO SCH (09:00)
== END 2018-07-04 15:39 | disposition home or self-care (01) | DRG 871 ==
LOC: EMEROOARM 03:19 → 2NNU 03:19 → SUATTDRO 07:16
PROVIDERS: ADMIT Internal Medicine; ATTEND Internal Medicine

== ENCOUNTER 2018-10-06 04:46 | Inpatient (IN) ==
[2018-10-06] MEDS ORDERED: 0.9 % Sodium Chloride 1,000 ML IVC ONE ×2 (05:01→17:52)
[2018-10-06] MEDS ORDERED: Isovue-370 500 ML INFUS..BTL IV ONE (05:10)
[2018-10-06 05:26] LABS: Basophils # 0.2 K/mcL (0.0-0.2); Basophils % 0.7 %; Eosinophils # 0.4 K/mcL (0.0-0.6); Eosinophils % 1.9 %; Hemoglobin 15.4 g/dL (12.9-16.9); INR 1.2; Immature Granulocytes % 1.1 % (0-4); Lymphocytes # 9.7 K/mcL (0.6-4.6); Lymphocytes % 43.8 %; Mean Corpuscular HGB Conc 29.6 g/dL (31.6-35.5); Mean Corpuscular Volume 97.9 fL (83.0-100.0); Mean Platelet Volume 9.2 fL (9.4-12.4); Monocytes # 1.3 K/mcL (0.0-1.3); Neutrophils # 10.3 K/mcL (1.6-8.9); Platelet Count 237 K/mcL (140-400); Red Blood Count 5.31 M/mcL (4.19-5.50); Red Cell Distribution Width 15.2 % (11.5-14.5); Segmented Neutrophils % 46.5 %
[2018-10-06 05:29] LABS: Activated Partial Thrombo Time 28.4 Seconds (26.0-36.0)
--- NOTE | 2018-10-06 05:32 | Emergency Department Note ---
Disposition Clinical Impression: Pulmonary fibrosis, Acute respiratory failure with hypercapnia, Pulmonary embolism on right, Acute massive pulmonary embolism, Acute respiratory failure with hypoxia Disposition: Admitted As Inpatient Condition: Critical SOB HPI - General Chief Complaint: ED Shortness of Breath/Dyspnea Stated Complaint: DWAYNE Time Seen by Provider: 10/06/18 05:00 Source: family, EMS Mode of arrival: EMS Limitations: altered mental status, age Nursing Notes Reviewed: Yes Vital Signs Reviewed: Yes - History of Present Illness 73-year-old male history of COPD, idiopathic pulmonary fibrosis on 10-15 L of oxygen at home newly trialing BiPAP with normal oxygen saturation's in the 80s presents to the emergency department complaining of shortness of breath. EMS was called as he is having a hard time breathing. They said oxygen saturations down into the 50s which worried them as well. He had 15 L on home and highest they are able to get was 70%. Patient has not had any chest pain or had any complaints prior to this evening. He is currently trialing BiPAP as he is claustrophobic he normally does take Ativan to use this. The did give him a half milligram of Ativan about an hour prior to arrival for patient to tolerate the BiPAP. Otherwise is difficult to get further history from patient as he is altered when he arrives. Family did arrive and said that he is DNR/DNI. - Related Data Home Medications Medication Instructions Recorded Confirmed Mv-Mn/FA/Vit K/Lycop/Lut/Coq10 1 tab PO DAILY 05/23/17 06/30/18 [Daily Multivitamin Capsule] Esomeprazole Magnesium [Nexium] 20 mg PO DAILY 11/29/17 06/30/18 Furosemide [Lasix] 20 mg PO QPM 11/29/17 06/30/18 Furosemide [Lasix] 40 mg PO QAM 11/29/17 06/30/18 Ipratropium/Albuterol Neb [Duoneb] 3 ml IH Q6H PRN 11/29/17 06/30/18 Lidocaine Jelly 2% 1 appl TP TID PRN 11/29/17 06/30/18 Nitroglycerin [Nitrostat] 0.4 mg SL Q5M PRN 11/29/17 06/30/18 Pirfenidone [Esbriet] 801 mg PO TID 11/29/17 06/30/18 Tramadol HCl [Ultram] 50 mg PO TID PRN 11/29/17 06/30/18 Aspirin Enteric Coated [Aspirin EC] 81 mg PO DAILY 04/24/18 06/30/18 Docusate [Colace] 100 mg PO HS 06/30/18 06/30/18 Escitalopram [Lexapro] 20 mg PO DAILY 06/30/18 06/30/18 Famotidine [Pepcid] 40 mg PO DAILY 06/30/18 06/30/18 Fluticasone/Umeclidin/Vilanter 1 puff IH DAILY 06/30/18 06/30/18 [Trelegy Ellipta 100-62.5-25] Folic Acid 0.8 mg PO DAILY 06/30/18 06/30/18 LORazepam [Ativan] 0.5 mg PO BID PRN 06/30/18 06/30/18 LORazepam [Ativan] 0.5 mg PO HS 06/30/18 06/30/18 Previous Rx's Medication Instructions Recorded Oxygen 6 l NS AD #0 03/27/18 Albuterol Sulfate [Albuterol 2 puff IH Q6HR PRN #1 hfa.aer.ad 04/28/18 Inhaler] Chloraseptic [place] [Chloraseptic] 2 spray MM QID PRN bottle 07/04/18 Patient Taking Own Medication 1 each IH DAILY each 07/04/18 Patient Taking Own Medication 3 each PO TIDWM each 07/04/18 levoFLOXacin [Levaquin] 750 mg PO DAILY #5 tablet 07/04/18 predniSONE [PredniSONE] 40 mg PO DAILY #30 tablet 07/04/18 Allergies Allergy/AdvReac Type Severity Reaction Status Date / Time amiodarone Allergy See Verified 06/30/18 16:07 Comments Limitations: ROS unobtainable due to patients medical condition Past Medical History - Past Medical History Attestation: Yes The following information was validated with the patient. Source: patient Medical history: Reports: arthritis, cancer, CHF, COPD, CVA, GERD, hyperlipidemia, osteoporosis, TIA, other Surgical history: Reports: herniorrhaphy, other Psychiatric history: Reports: anxiety - Social History Smoking Status: Former smoker Smokeless Tobacco Status: No Alcohol use: Reports: rarely Drug use: Reports: none Physical Exam - General Limitations: altered mental status, age General appearance: anxious - Head Head exam: atraumatic, normocephalic, normal inspection - Eye Eye exam: Present: normal appearance, PERRL, EOMI - ENT ENT exam: normal exam, normal oropharynx, mucous membranes moist - Neck Neck exam: Present: normal inspection, full ROM, trachea midline - Chest Chest inspection: Present: normal inspection, symmetric chest wall rise - Respiratory Respiratory exam: Present: respiratory distress, accessory muscle use, prolonged expiratory phase, other (Poor air movement through lungs bilaterally throughout) - Cardiovascular Cardiovascular exam: Present: regular rate, normal rhythm, normal heart sounds - Abdominal Exam Abdominal exam: Present: soft, Non-Tender. Absent: tenderness, distention, guarding, rebound, rigidity - Extremities Exam Extremities exam: Present: normal inspection, full ROM. Absent: tenderness, pedal edema - Expanded Neurological Exam Coma Scale Eye Opening: To Pain Coma Scale Motor Response: Abnormal Flexion Coma Scale Verbal Response: None Coma Scale Total: 6 - Skin Skin exam: Present: warm, dry, intact, mottled Course Course Narrative: Patient presented here in respiratory distress he was having a difficult time breathing but was able to protect his airway due to patient's low GCS we were going to attempt to intubate the patient at that time family arrived and said he is a DNR/DNI so we did stop that. We did place patient on BiPAP he is tolerating this well although he still is not alert or oriented. Patient's pupils are 5 mm and nonreactive. We will get CT of the head as well as CT angiogram of the chest to rule out pulmonary was morning he cut type of head pathology. We will get labs including CBC BMP ABG, blood cultures, BNP as well as a lactate. And troponin. EKG also done and chest x-ray. Patient will need to be admitted Vital Signs Temperature 0 F L 10/06/18 04:47 Pulse Rate 77 10/06/18 04:47 Respiratory Rate 13 10/06/18 04:47 Blood Pressure 61/48 10/06/18 04:47 O2 Sat by Pulse Oximetry 76 10/06/18 04:47 Temperature 0 F L 10/06/18 04:47 Pulse Rate 104 10/06/18 05:59 Respiratory Rate 28 10/06/18 05:59 Blood Pressure 126/84 10/06/18 05:59 O2 Sat by Pulse Oximetry 98 10/06/18 05:59 Oxygen Delivery Oxygen Delivery Bipap Shortness of Breath/Dyspnea - MDM Narrative Medical decision making narrative: 73-year-old male presented to the emergency department acute respiratory failure. When he arrived he was able to protect his airway was very hypoxic into the 60s he started decompensating front of us at that time we were planning on intubating family showed up then and said that he is a DNR/DNI due to patient's idiopathic pulmonary fibrosis. At this time we decided to place pat ient on BiPAP he was very somnolent and had a GCS of 5. Due to patient's hypoxia there was worry about pulmonary embolism as well as possible intracranial hemorrhage so we did get CT of the head as well as CT Jacinta of the chest. CT of the head came back with no acute findings. CT angiogram of the chest did show a massive right main pulmonary embolism with submassive in the segmentals along the right side as well with right heart strain. It is unknown whether right heart strain is due to patient's pulmonary fibrosis and pulmonary hypertension or from the pulmonary embolism. Patient does have history of hypotension family says he normally is between 70 and 80 systolic when he arrived originally he was 60/40 did give him 1 L of IV fluid bolus and he responded well. After this we wanted to keep patient fluid status sufficient so started him at 1-1/2 maintenance of LR due to patient's acidosis due to hypercapnia. ABG did show respiratory acidosis secondary to hypercapnia. After being on BiPAP his bicarbonate has improved. I spoke with the family with the pulmonary embolism on whether or not TPA is a possibility versus heparin. After explaining on the risk and benefits of TPA family decided to go with heparin as the treatment of choice. This was used by shared decision making. This was through daughter and who are power of lending advisor. We decided to start patient on full dose heparin. Patient is currently in critical condition at this time. Patient CODE STATUS was confirmed by family to be DNR/DNI. Spoke with the hospitalist Dr. Joseph who agreed to admit the patient to the ICU. Patient is admitted in critical condition. Chest X-Ray 10/06/18 05:01 IMPRESSION: Cardiomegaly and pulmonary fibrosis, stable. D/ / Braden Barclay MD / Braden Barclay MD Interpreting Provider: Braden Barclay MD Head CT 10/06/18 05:02 IMPRESSION: No acute intracranial abnormality. Remote right temporal occipital encephalomalacia. D/ / Braden Barclay MD / Braden Barclay MD Interpreting Provider: Braden Barclay MD Chest CTA 10/06/18 05:10 IMPRESSION: Examination is significantly limited by motion and streak artifact. Acute pulmonary embolism involving the right main pulmonary artery and extending into segmental/subsegmental branches within the right middle, right upper, and right lower lobes. Severe pulmonary fibrosis and honeycombing. No obvious focal airspace consolidation, pleural effusion, or pneumothorax. No definite pulmonary infarction. Numerous mildly enlarged mediastinal lymph nodes. Right heart strain noted within RV to LV ratio of 1.3. Findings were discussed with Dr. Cummins at 5:54 am on 10/06/2018. D/ / Braden Barclay MD / Braden Barclay MD Interpreting Provider: Braden Barclay MD - Medical Records Medical records reviewed: Yes I reviewed the patient's medical records. - Lab Data Lab results reviewed: Yes I reviewed the patient's lab results. Result diagrams: 10/06/18 04:58 10/06/18 04:58 Lab Results 10/06/18 10/06/18 10/06/18 Range/Units 04:58 04:58 04:58 WBC 22.2 H (4.3-11.1) K/mcL RBC 5.31 (4.19-5.50) M/mcL Hgb 15.4 (12.9-16.9) g/dL Hct 52.0 H (37.5-50.1) % MCV 97.9 (83.0-100.0) fL MCH 29.0 (28.0-33.3) pg MCHC 29.6 L (31.6-35.5) g/dL RDW 15.2 H (11.5-14.5) % Plt Count 237 (140-400) K/mcL MPV 9.2 L (9.4-12.4) fL Immature Gran % 1.1 (0-4) % Seg Neutrophils % 46.5 % Lymphocytes % 43.8 % Monocytes % 6.0 % Eosinophils % 1.9 % Basophils % 0.7 % Neutrophils # 10.3 H (1.6-8.9) K/mcL Lymphocytes # 9.7 H (0.6-4.6) K/mcL Monocytes # 1.3 (0.0-1.3) K/mcL Eosinophils # 0.4 (0.0-0.6) K/mcL Basophils # 0.2 (0.0-0.2) K/mcL Reactive Lymphocytes Present A (Not Present) Platelet Estimate Normal (Normal) PT 13.0 H (9.4-12.1) Seconds INR 1.2 APTT 28.4 (26.0-36.0) Seconds Heparin Anti-Xa, Unfract 0.03 L (0.30-0.70) IU/mL Carboxyhemoglobin (0-5) % Sodium 144 (136-145) mEq/L Potassium 3.6 (3.5-5.1) mEq/L Chloride 99 (98-107) mEq/L Carbon Dioxide 22 L (23-29) mEq/L BUN 20 (8-23) mg/dL Creatinine 0.88 (0.70-1.30) mg/dL Est GFR ( Amer) > 60 (> 60) Est GFR (Non-Af Amer) > 60 (> 60) BUN/Creatinine Ratio 23 (6-26) Glucose 154 H (70-105) mg/dL Calculated Osmolality 304 H (280-300) Lactic Acid (0.5-2.2) mmol/L Calcium 9.6 (8.6-10.3) mg/dL Troponin I 0.08 H* (< 0.04) ng/mL B-Natriuretic Peptide (Less than 100) pg/mL 10/06/18 10/06/18 10/06/18 Range/Units 04:58 04:58 06:31 WBC (4.3-11.1) K/mcL RBC (4.19-5.50) M/mcL Hgb (12.9-16.9) g/dL Hct (37.5-50.1) % MCV (83.0-100.0) fL MCH (28.0-33.3) pg MCHC (31.6-35.5) g/dL RDW (11.5-14.5) % Plt Count (140-400) K/mcL MPV (9.4-12.4) fL Immature Gran % (0-4) % Seg Neutrophils % % Lymphocytes % % Monocytes % % Eosinophils % % Basophils % % Neutrophils # (1.6-8.9) K/mcL Lymphocytes # (0.6-4.6) K/mcL Monocytes # (0.0-1.3) K/mcL Eosinophils # (0.0-0.6) K/mcL Basophils # (0.0-0.2) K/mcL Reactive Lymphocytes (Not Present) Platelet Estimate (Normal) PT (9.4-12.1) Seconds INR APTT (26.0-36.0) Seconds Heparin Anti-Xa, Unfract (0.30-0.70) IU/mL Carboxyhemoglobin 5.7 H (0-5) % Sodium (136-145) mEq/L Potassium (3.5-5.1) mEq/L Chloride (98-107) mEq/L Carbon Dioxide (23-29) mEq/L BUN (8-23) mg/dL Creatinine (0.70-1.30) mg/dL Est GFR ( Amer) (> 60) Est GFR (Non-Af Amer) (> 60) BUN/Creatinine Ratio (6-26) Glucose (70-105) mg/dL Calculated Osmolality (280-300) Lactic Acid > 10.0 H* (0.5-2.2) mmol/L Calcium (8.6-10.3) mg/dL Troponin I (< 0.04) ng/mL B-Natriuretic Peptide 2812 H (Less than 100) pg/mL - Radiology Data Radiology results reviewed: Yes I reviewed the patient's radiology results. - EKG Data EKG attestation: Yes I reviewed and interpreted this EKG. EKG results narrative: EKG done at 0457 review myself and attending shows sinus rhythm at a rate of 68, FL interval 103, QRS 126, QTC 434. No acute ST changes T-wave inversions in V1 through V4 otherwise no signs of ischemia. No hypertrophy, heart rate. There is a right bundle branch block no other blocks. No WPW/Brugada/HOCM. Otherwise unchanged EKG when compared with old one that also has right bundle-branch block done 06/30/18
[2018-10-06 05:41] LABS: BUN/Creatinine Ratio 23 (6-26); Blood Urea Nitrogen 20 mg/dL (8-23); Calcium 9.6 mg/dL (8.6-10.3); Carbon Dioxide 22 mEq/L (23-29); Chloride 99 mEq/L (98-107); Glucose 154 mg/dL (70-105); Osmolality,Calculated 304 (280-300); Potassium 3.6 mEq/L (3.5-5.1); Sodium 144 mEq/L (136-145); eGFR For Non-African Americans > 60 (> 60)
[2018-10-06 05:42] LABS: Troponin I 0.08 ng/mL (< 0.04)
[2018-10-06] MEDS ORDERED: *HR* Heparin 5,000 UNIT/ML VIAL IVP PRN ×2 (06:02)
[2018-10-06] MEDS ORDERED: *HR* Heparin 5,000 UNIT/ML VIAL IVP ONE (06:02)
[2018-10-06 06:05] LABS: Platelet Estimate Normal (Normal); Reactive Lymphocytes Present (Not Present)
[2018-10-06 06:10] LABS: Heparin anti-factor XA UFH 0.03 IU/mL (0.30-0.70)
[2018-10-06] MEDS ORDERED: Ringers Solution, Lactated 1,000 ML IVC SCH (06:15)
[2018-10-06] MEDS ORDERED: Heparin 25,000 UNIT/500 ML D5W 25,000 UNIT/500 ML BAG IVC SCH (06:15)
--- NOTE | 2018-10-06 06:17 | Emergency Department Note ---
Disposition Clinical Impression: Pulmonary fibrosis, Acute respiratory failure with hypercapnia, Pulmonary embolism on right, Acute massive pulmonary embolism, Acute respiratory failure with hypoxia Disposition: Admitted As Inpatient Condition: Critical General Adult HPI - General Chief complaint: ED Shortness of Breath/Dyspnea Stated complaint: DWAYNE Time Seen by Provider: 10/06/18 05:00 Source: family, EMS Mode of arrival: EMS Limitations: altered mental status, age Nursing Notes Reviewed: Yes Vital Signs Reviewed: Yes - History of Present Illness Pain Scale: 0 - Related Data Home Medications Medication Instructions Recorded Confirmed Mv-Mn/FA/Vit K/Lycop/Lut/Coq10 1 tab PO DAILY 05/23/17 06/30/18 [Daily Multivitamin Capsule] Esomeprazole Magnesium [Nexium] 20 mg PO DAILY 11/29/17 06/30/18 Furosemide [Lasix] 20 mg PO QPM 11/29/17 06/30/18 Furosemide [Lasix] 40 mg PO QAM 11/29/17 06/30/18 Ipratropium/Albuterol Neb [Duoneb] 3 ml IH Q6H PRN 11/29/17 06/30/18 Lidocaine Jelly 2% 1 appl TP TID PRN 11/29/17 06/30/18 Nitroglycerin [Nitrostat] 0.4 mg SL Q5M PRN 11/29/17 06/30/18 Pirfenidone [Esbriet] 801 mg PO TID 11/29/17 06/30/18 Tramadol HCl [Ultram] 50 mg PO TID PRN 11/29/17 06/30/18 Aspirin Enteric Coated [Aspirin EC] 81 mg PO DAILY 04/24/18 06/30/18 Docusate [Colace] 100 mg PO HS 06/30/18 06/30/18 Escitalopram [Lexapro] 20 mg PO DAILY 06/30/18 06/30/18 Famotidine [Pepcid] 40 mg PO DAILY 06/30/18 06/30/18 Fluticasone/Umeclidin/Vilanter 1 puff IH DAILY 06/30/18 06/30/18 [Trelegy Ellipta 100-62.5-25] Folic Acid 0.8 mg PO DAILY 06/30/18 06/30/18 LORazepam [Ativan] 0.5 mg PO BID PRN 06/30/18 06/30/18 LORazepam [Ativan] 0.5 mg PO HS 06/30/18 06/30/18 Previous Rx's Medication Instructions Recorded Oxygen 6 l NS AD #0 03/27/18 Albuterol Sulfate [Albuterol 2 puff IH Q6HR PRN #1 hfa.aer.ad 04/28/18 Inhaler] Chloraseptic [place] [Chloraseptic] 2 spray MM QID PRN bottle 07/04/18 Patient Taking Own Medication 1 each IH DAILY each 07/04/18 Patient Taking Own Medication 3 each PO TIDWM each 07/04/18 levoFLOXacin [Levaquin] 750 mg PO DAILY #5 tablet 07/04/18 predniSONE [PredniSONE] 40 mg PO DAILY #30 tablet 07/04/18 Allergies Allergy/AdvReac Type Severity Reaction Status Date / Time amiodarone Allergy See Verified 06/30/18 16:07 Comments Past Medical History - Past Medical History Medical history: Reports: arthritis, cancer, CHF, COPD, CVA, GERD, hyperl ipidemia, osteoporosis, TIA, other Surgical history: Reports: herniorrhaphy, other Psychiatric history: Reports: anxiety - Social History Smoking Status: Former smoker Smokeless Tobacco Status: No Alcohol use: Reports: rarely Drug use: Reports: none Physical Exam - General Limitations: altered mental status, age General appearance: anxious Course Vital Signs Temperature 0 F L 10/06/18 04:47 Pulse Rate 77 10/06/18 04:47 Respiratory Rate 13 10/06/18 04:47 Blood Pressure 61/48 10/06/18 04:47 O2 Sat by Pulse Oximetry 76 10/06/18 04:47 Temperature 0 F L 10/06/18 04:47 Pulse Rate 96 10/06/18 06:54 Respiratory Rate 20 10/06/18 06:54 Blood Pressure 102/75 10/06/18 06:54 O2 Sat by Pulse Oximetry 99 10/06/18 06:54 Oxygen Delivery Oxygen Delivery Bipap Medical Decision Making - Medical Records Medical records reviewed: Yes I reviewed the patient's medical records. - Lab Data Lab results reviewed: Yes I reviewed the patient's lab results. Result diagrams: 10/06/18 04:58 10/06/18 04:58 Lab Results 10/06/18 10/06/18 10/06/18 Range/Units 04:58 04:58 04:58 WBC 22.2 H (4.3-11.1) K/mcL RBC 5.31 (4.19-5.50) M/mcL Hgb 15.4 (12.9-16.9) g/dL Hct 52.0 H (37.5-50.1) % MCV 97.9 (83.0-100.0) fL MCH 29.0 (28.0-33.3) pg MCHC 29.6 L (31.6-35.5) g/dL RDW 15.2 H (11.5-14.5) % Plt Count 237 (140-400) K/mcL MPV 9.2 L (9.4-12.4) fL Immature Gran % 1.1 (0-4) % Seg Neutrophils % 46.5 % Lymphocytes % 43.8 % Monocytes % 6.0 % Eosinophils % 1.9 % Basophils % 0.7 % Neutrophils # 10.3 H (1.6-8.9) K/mcL Lymphocytes # 9.7 H (0.6-4.6) K/mcL Monocytes # 1.3 (0.0-1.3) K/mcL Eosinophils # 0.4 (0.0-0.6) K/mcL Basophils # 0.2 (0.0-0.2) K/mcL Reactive Lymphocytes Present A (Not Present) Platelet Estimate Normal (Normal) PT 13.0 H (9.4-12.1) Seconds INR 1.2 APTT 28.4 (26.0-36.0) Seconds Heparin Anti-Xa, Unfract 0.03 L (0.30-0.70) IU/mL Carboxyhemoglobin (0-5) % Sodium 144 (136-145) mEq/L Potassium 3.6 (3.5-5.1) mEq/L Chloride 99 (98-107) mEq/L Carbon Dioxide 22 L (23-29) mEq/L BUN 20 (8-23) mg/dL Creatinine 0.88 (0.70-1.30) mg/dL Est GFR ( Amer) > 60 (> 60) Est GFR (Non-Af Amer) > 60 (> 60) BUN/Creatinine Ratio 23 (6-26) Glucose 154 H (70-105) mg/dL Calculated Osmolality 304 H (280-300) Lactic Acid (0.5-2.2) mmol/L Calcium 9.6 (8.6-10.3) mg/dL Troponin I 0.08 H* (< 0.04) ng/mL B-Natriuretic Peptide (Less than 100) pg/mL 10/06/18 10/06/18 10/06/18 Range/Units 04:58 04:58 06:31 WBC (4.3-11.1) K/mcL RBC (4.19-5.50) M/mcL Hgb (12.9-16.9) g/dL Hct (37.5-50.1) % MCV (83.0-100.0) fL MCH (28.0-33.3) pg MCHC (31.6-35.5) g/dL RDW (11.5-14.5) % Plt Count (140-400) K/mcL MPV (9.4-12.4) fL Immature Gran % (0-4) % Seg Neutrophils % % Lymphocytes % % Monocytes % % Eosinophils % % Basophils % % Neutrophils # (1.6-8.9) K/mcL Lymphocytes # (0.6-4.6) K/mcL Monocytes # (0.0-1.3) K/mcL Eosinophils # (0.0-0.6) K/mcL Basophils # (0.0-0.2) K/mcL Reactive Lymphocytes (Not Present) Platelet Estimate (Normal) PT (9.4-12.1) Seconds INR APTT (26.0-36.0) Seconds Heparin Anti-Xa, Unfract (0.30-0.70) IU/mL Carboxyhemoglobin (0-5) % Sodium (136-145) mEq/L Potassium (3.5-5.1) mEq/L Chloride (98-107) mEq/L Carbon Dioxide (23-29) mEq/L BUN (8-23) mg/dL Creatinine (0.70-1.30) mg/dL Est GFR ( Amer) (> 60) Est GFR (Non-Af Amer) (> 60) BUN/Creatinine Ratio (6-26) Glucose (70-105) mg/dL Calculated Osmolality (280-300) Lactic Acid > 10.0 H* 6.3 H* (0.5-2.2) mmol/L Calcium (8.6-10.3) mg/dL Troponin I (< 0.04) ng/mL B-Natriuretic Peptide 2812 H (Less than 100) pg/mL 10/06/18 Range/Units 06:31 WBC (4.3-11.1) K/mcL RBC (4.19-5.50) M/mcL Hgb (12.9-16.9) g/dL Hct (37.5-50.1) % MCV (83.0-100.0) fL MCH (28.0-33.3) pg MCHC (31.6-35.5) g/dL RDW (11.5-14.5) % Plt Count (140-400) K/mcL MPV (9.4-12.4) fL Immature Gran % (0-4) % Seg Neutrophils % % Lymphocytes % % Monocytes % % Eosinophils % % Basophils % % Neutrophils # (1.6-8.9) K/mcL Lymphocytes # (0.6-4.6) K/mcL Monocytes # (0.0-1.3) K/mcL Eosinophils # (0.0-0.6) K/mcL Basophils # (0.0-0.2) K/mcL Reactive Lymphocytes (Not Present) Platelet Estimate (Normal) PT (9.4-12.1) Seconds INR APTT (26.0-36.0) Seconds Heparin Anti-Xa, Unfract (0.30-0.70) IU/mL Carboxyhemoglobin 5.7 H (0-5) % Sodium (136-145) mEq/L Potassium (3.5-5.1) mEq/L Chloride (98-107) mEq/L Carbon Dioxide (23-29) mEq/L BUN (8-23) mg/dL Creatinine (0.70-1.30) mg/dL Est GFR ( Amer) (> 60) Est GFR (Non-Af Amer) (> 60) BUN/Creatinine Ratio (6-26) Glucose (70-105) mg/dL Calculated Osmolality (280-300) Lactic Acid (0.5-2.2) mmol/L Calcium (8.6-10.3) mg/dL Troponin I (< 0.04) ng/mL B-Natriuretic Peptide (Less than 100) pg/mL - Radiology Data Radiology results reviewed: Yes I reviewed the patient's radiology results. Chest X-Ray 10/06/18 05:01 IMPRESSION: Cardiomegaly and pulmonary fibrosis, stable. D/ / Braden Barclay MD / Braden Barclay MD Interpreting Provider: Braden Barclay MD Head CT 10/06/18 05:02 IMPRESSION: No acute intracranial abnormality. Remote right temporal occipital encephalomalacia. D/ / Braden Barclay MD / Braden Barclay MD Interpreting Provider: Braden Barclay MD Chest CTA 10/06/18 05:10 IMPRESSION: Examination is significantly limited by motion and streak artifact. Acute pulmonary embolism involving the right main pulmonary artery and extending into segmental/subsegmental branches within the right middle, right upper, and right lower lobes. Severe pulmonary fibrosis and honeycombing. No obvious focal airspace consolidation, pleural effusion, or pneumothorax. No definite pulmonary infarction. Numerous mildly enlarged mediastinal lymph nodes. Right heart strain noted within RV to LV ratio of 1.3. Findings were discussed with Dr. Cummins at 5:54 am on 10/06/2018. D/ / Braden Barclay MD / Braden Barclay MD Interpreting Provider: Braden Barclay MD - EKG Data EKG #1 EKG attestation: Yes I reviewed and interpreted this EKG. EKG results narrative: EKG shows a normal sinus rhythm with ventricular rate is 68. Right bundle branch block. No arrhythmia or ectopy. No significant change from prior EKG dated 06/30/2018. Critical Care Time Critical Care Time: Yes Total Critical Care Time: 60 Attestation: Critical care performed: Time is exclusive of separately billable procedures. Time includes: direct patient care, patient reassessment, coordination of patient care, interpretation of data (laboratory data, radiology data, and respiratory data), review of patient's medical records, medical consultation and documentation of patient care. Procedures included in critical care time: Procedures excluded from critical care time: Attestation Statement - Attestation Attestation: I, Olegario Loja MD, personally evaluated this patient and discussed their management with the resident physician. I reviewed the resident's note and agree with the documented findings, medical decision making, and plan of care. 73-year-old male with history of severe COPD and pulmonary fibrosis presents to the emergency department for respiratory distress. He is on 10-15 L of oxygen at home at all times. Family reports that all day yesterday he was worse than usual and seemed to be getting gradually worse throughout the day. He refused come to the emergency department earlier. He got significantly worse during the night tonight and they called EMS. Family reports that he was alert and talking to them at home. Just as the squad arrived here the patient appeared to have a seizure with contracture of the extremities and some twitching with his eyes deviated upward into the right. Patient was mottled and cyanotic. Family arrived shortly after patient arrived. Daughter reports that she is his POA and patient is a DNR and cannot be intubated. reports that she did give him half of an Ativan at home about an hour ago. On examination patient is a well-developed well-nourished elderly male in severe respiratory distress. He is unresponsive. He is mottled and cyanotic. Pupils are dilated and nonreactive bilaterally. Breath sounds are equal bilaterally decreased. Heart irregular with a normal rate. Abdomen soft with present bowel sounds. Labs reviewed. Marked lactic acidosis. Mildly elevated troponin. Leukocytosis. CTA of the chest showed a right mainstem pulmonary embolism and multiple subsegmental right pulmonary emboli. EKG shows a sinus rhythm with ventricular rate is 68. Right bundle branch block. No arrhythmia or ectopy. Head CT shows no acute intracranial abnormality. Patient was placed on BiPAP. Patient was hypotensive however daughter reports that his normal systolic blood pressure is in the range of 88-90. Heparin bolus and infusion initiated. The hospitalist, Dr. Joseph, was consulted and accepted admission of the patient. He requests to ICU.
[2018-10-06 06:44] LABS: Bilirubin,Urine Negative (Negative); Blood,Urine Small (Negative); Clarity,Urine Clear (Clear); Color,Urine Yellow (Yellow); Glucose,Urine (UA) Normal (Normal); Ketones,Urine Negative (Negative); Leukocyte Esterase,Urine Negative (Negative); Nitrite,Urine Negative (Negative); Protein,Urine 100 mg/dL (Neg-Trace); Specific Gravity,Urine > 1.030 (1.010-1.025); Urobilinogen,Urine Normal (Normal)
[2018-10-06 06:47] LABS: Bacteria,Urine Moderate per hpf (None-Few); Squamous Epithelial Cell,Urine Many per lpf (None-Few); WBC,Urine 50-100 per hpf (0-3)
[2018-10-06] MEDS: *HR* LORazepam 2 MG/ML VIAL IVP PRN ×2 (09:39→21:53)
[2018-10-06] MEDS: Ipratropium/Albuterol Neb 3 ML IH SCH ×4 (09:48→20:00)
[2018-10-06 09:49] LABS: ABG Base Excess 6 mEq/L (-2 to 3); ABG HCO3 30 mEq/L (21-27); ABG Oxygen Saturation 95 % (95-98); ABG PCO2 45 mmHg (35-45); ABG PH 7.44 pH Units (7.32-7.45); ABG PO2 72 mmHg (85-104); ABG TCO2 32 mEq/L (20-26)
--- NOTE | 2018-10-06 09:58 | Internal Med History&Physical ---
Date of Encounter: 10/06/18 Time of Encounter: 09:57 Internal Medicine - H&P: HPI History of present illness: Mr. Canada is a 73 year old male with history of idiopathic pulmonary fibrosis, CHF, COPD, chronic respiratory failure on 10 L O2 presented to ED after caretakers noted patient to be hypoxic. and daughter are at bedside in ED providing the majority of history. At around 0400 today his saw that his oxygen levels went down to 60s and patient was having more dyspnea worse than his usual baseline. Turning up oxygen to max 15 L only improved O2 sats to 70s. He denies any chest pain, nausea, vomiting, numbness/tingling, palpitations. In the ED patient was noted by staff to be somnolent, likely from Ativan he took prior to arrival plus hypoxia. He was placed on BIPAP and did have relief of dyspnea and he also became more alert. He was hypotensive on arrival with BP 60/40. His states his baseline BP is 88/40 with normal resting heart rates. He responded to 1 L IV fluids. His ABG was consistent with respiratory acidosis. This improved with BIPAP. He had a CTA of chest that showed massive right main pulmonary embolism with submassive segments along right side with right heart strain. Discussion took place with family and they opted out of TPA and decided with full dose heparin drip for treatment. Per family, he is now improving symptomatically. Past Med Surg Social Fam HX - Past Medical History Medical history: arthritis, cancer, CHF, COPD, CVA, GERD, hyperlipidemia, osteoporosis, TIA, other Additional medical history: pulmonary fibrosis Psychiatric history: anxiety - Past Surgical History Surgical History: herniorrhaphy, other Additional surgical history: left ear skin cancer surgery, hemorrhoidectomy - Social History Smoking Status: Former smoker Smokeless Tobacco Status: No Alcohol use: rarely Drug use: none - Family History Father Adopted: Yes Family Member Ethnicity: Non- Living Status: Hx Family Neuromuscular Disorders: Yes (CVA) Mother Family Member Ethnicity: Non- Living Status: Brother Family Member Ethnicity: Non- Living Status: Hx Family Neuromuscular Disorders: Yes (Parkinson's disease) Sister Adopted: Yes Family Member Ethnicity: Non- Living Status: Still Living Hx Family Cardiac Disorders: Yes (tia) Hx Family Respiratory Disorders: Yes (sleep apnea) Hx Family Cancer: Yes (sister) Hx Family GI Disorders: No Hx Family Endocrine Disorder: Yes (diabetes) Hx Family Neuromuscular Disorders: No Hx Family Neurologic Disorders: No Hx Family HEENT Disorders: No Hx Family Autoimmune Disorders: No Internal Medicine - H&P: Meds Mv-Mn/FA/Vit K/Lycop/Lut/Coq10 [Daily Multivitamin Capsule] 1 tab PO DAILY 05/23/17 [History] Esomeprazole Magnesium [Nexium] 20 mg PO DAILY 11/29/17 [History] Furosemide [Lasix] 20 mg PO QPM 11/29/17 [History] Furosemide [Lasix] 40 mg PO QAM 11/29/17 [History] Ipratropium/Albuterol Neb [Duoneb] 3 ml IH Q6H PRN 11/29/17 [History] Lidocaine Jelly 2% 1 appl TP TID PRN 11/29/17 [History] Nitroglycerin [Nitrostat] 0.4 mg SL Q5M PRN 11/29/17 [History] Pirfenidone [Esbriet] 801 mg PO TID 11/29/17 [History] Tramadol HCl [Ultram] 50 mg PO TID PRN 11/29/17 [History] Oxygen 6 l NS AD #0 03/27/18 [Rx] Aspirin Enteric Coated [Aspirin EC] 81 mg PO DAILY 04/24/18 [History] Albuterol Sulfate [Albuterol Inhaler] 2 puff IH Q6HR PRN #1 hfa.aer.ad 04/28/18 [Rx] Docusate [Colace] 100 mg PO HS 06/30/18 [History] Escitalopram [Lexapro] 20 mg PO DAILY 06/30/18 [History] Famotidine [Pepcid] 40 mg PO DAILY 06/30/18 [History] Fluticasone/Umeclidin/Vilan[place] [Trelegy Ellipta 100-62.5-25] 1 puff IH DAILY 06/30/18 [History] Folic Acid 0.8 mg PO DAILY 06/30/18 [History] LORazepam [Ativan] 0.5 mg PO BID PRN 06/30/18 [History] LORazepam [Ativan] 0.5 mg PO HS 06/30/18 [History] Chloraseptic [place] [Chloraseptic] 2 spray MM QID PRN bottle 07/04/18 [Rx] Patient Taking Own Medication 1 each IH DAILY each 07/04/18 [Rx] Patient Taking Own Medication 3 each PO TIDWM each 07/04/18 [Rx] levoFLOXacin [Levaquin] 750 mg PO DAILY #5 tablet 07/04/18 [Rx] predniSONE [PredniSONE] 40 mg PO DAILY #30 tablet 07/04/18 [Rx] Allergy/AdvReac Type Severity Reaction Status Date / Time amiodarone Allergy See Verified 06/30/18 16:07 Comments All Systems PM: A 10-system review of systems was performed and is negative for pertinent findings except as documented above in the HPI. - Constitutional Vitals: Temp Pulse Resp BP Pulse Ox 98.8 F 93 32 83/67 98 10/06/18 09:37 10/06/18 09:37 10/06/18 09:37 10/06/18 09:37 10/06/18 09:37 General appearance: Present: cachectic, cooperative, A&O X 3, answers questions appropriately Exam: Moderate resp distress - Head Head exam: Present: atraumatic, normocephalic - ENT ENT exam: Present: mucous membranes moist - Neck Neck exam general surgery: Absent: lymphadenopathy, tenderness, nuchal rigidity - Respiratory Respiratory exam: Present: decreased breath sounds. Absent: wheezes Additional comments: Course breath sounds at both lung bases. - Cardiovascular Cardiovascular exam: Present: RRR, +S1, +S2. Absent: diastolic murmur, gallop, rubs, systolic murmur - GI/Abdominal GI/Abdominal exam: Present: normal bowel sounds, soft, no peritoneal signs. Absent: distended, tenderness - Extremities Exam Extremities exam: Present: normal inspection, warm, radial pulses palpable and symmetrical. Absent: calf tenderness, cyanotic, pedal edema - Skin Skin exam: Present: dry, warm Internal Med - H&P Results - Labs CBC & Chem 7: 10/06/18 04:58 10/06/18 04:58 Labs: Short CBC 10/06/18 Range/Units 04:58 WBC 22.2 H (4.3-11.1) K/mcL Hgb 15.4 (12.9-16.9) g/dL Hct 52.0 H (37.5-50.1) % Plt Count 237 (140-400) K/mcL Neutrophils # 10.3 H (1.6-8.9) K/mcL BMP 10/06/18 04:58 Sodium 144 Potassium 3.6 Chloride 99 Carbon Dioxide 22 L BUN 20 Creatinine 0.88 Glucose 154 H Calcium 9.6 Cardiac Enzymes 10/06/18 Range/Units 04:58 Troponin I 0.08 H* (< 0.04) ng/mL Urine 10/06/18 Range/Units 06:28 Urine Color Yellow (Yellow) Urine Clarity Clear (Clear) Urine pH 6.0 (5.0-8.0) pH Units Ur Specific [place] > 1.030 H (1.010-1.025) Urine Protein 100 H (Neg-Trace) mg/dL Urine Glucose (UA) Normal (Normal) mg/dL - ABG Interpretation ABG results: 10/06/18 09:42 ABG pH 7.44 ABG pCO2 45 ABG pO2 72 L ABG HCO3 30 H ABG Total CO2 32 H ABG O2 Saturation 95 ABG Base Excess 6 H - Impressions ITS Impressions Chest X-Ray 10/06/18 05:01 IMPRESSION: Cardiomegaly and pulmonary fibrosis, stable. D/ / Braden Barclay MD / Braden Barclay MD Interpreting Provider: Braden Barclay MD Head CT 10/06/18 05:02 IMPRESSION: No acute intracranial abnormality. Remote right temporal occipital encephalomalacia. D/ / Braden Barclay MD / Braden Barclay MD Interpreting Provider: Braden Barclay MD Chest CTA 10/06/18 05:10 IMPRESSION: Examination is significantly limited by motion and streak artifact. Acute pulmonary embolism involving the right main pulmonary artery and extending into segmental/subsegmental branches within the right middle, right upper, and right lower lobes. Severe pulmonary fibrosis and honeycombing. No obvious focal airspace consolidation, pleural effusion, or pneumothorax. No definite pulmonary infarction. Numerous mildly enlarged mediastinal lymph nodes. Right heart strain noted within RV to LV ratio of 1.3. Findings were discussed with Dr. Cummins at 5:54 am on 10/06/2018. D/ / Braden Barclay MD / Braden Barclay MD Interpreting Provider: Braden Barclay MD - Assessment and plan (1) Acute and chronic respiratory failure with hypoxia Current Visit: No Status: Acute Assessment and plan: Presents after having acute onset of O2 desaturation at home with respiratory distress greater than baseline. CTA showed acute massive PE inright main pulmonary artery and extends to segmental branches in RML, RUL, RLL, and with evidence of heart strain. Patient started on BIPAP and given IV fluids for hyp otension. This is complicated in the setting of IPF, COPD, CHF, and chronic respiratory failure. BIPAP support as needed Hi flow Oxygen Continue heparin drip Continue IV fluids cautiously to maintain BP but will need to avoid fluid overload. Pulmonology consulted, recommendations appreciated. (2) Acute massive pulmonary embolism Current Visit: Yes Status: Acute Assessment and plan: Plan as above. (3) COPD (chronic obstructive pulmonary disease) Current Visit: No Status: Acute Qualifiers: COPD type: unspecified COPD Qualified Code(s): J44.9 - Chronic obstructive pulmonary disease, unspecified (4) Elevated troponin Current Visit: No Status: Acute Assessment and plan: Likely from heart strain related to massive PE. Continue heparin drip. (5) (HFpEF) heart failure with preserved ejection fraction Current Visit: No Status: Chronic Assessment and plan: Resume home medications. Patient currently requires IV fluids to maintain BP. This will be monitored carefully to avoid fluid overload. (6) Anxiety Current Visit: No Status: Chronic (7) Pulmonary fibrosis Current Visit: No Status: Chronic Assessment and plan: Patient on 10-15 L O2 NC at home. Known history, sees Pulmonology as outpatient. Med rec lists Prednisone as home medication, will restart if verified. Continue Pirfenidone once verified. (8) GERD (gastroesophageal reflux disease) Current Visit: No Status: Chronic Qualifiers: Esophagitis presence: esophagitis presence not specified Qualified Code(s): K21.9 - Gastro-esophageal reflux disease without esophagitis (9) HLD (hyperlipidemia) Current Visit: No Status: Chronic Qualifiers: Hyperlipidemia type: unspecified Qualified Code(s): E78.5 - Hyperlipidemia, unspecified (10) History of CVA (cerebrovascular accident) Current Visit: No Status: Resolved Assessment and plan: Prelim med rec shows patient to be on aspirin but will need to wait for final med rec prior to starting anti platelet therapy. (11) DVT prophylaxis Current Visit: No Status: Acute Assessment and plan: Patient currently on heparin drip - Time Spent With Patient Total time spent is greater than 50% in coordination of care (as documented) at patient's floor/unit and/or counseling patient:
[2018-10-06] MEDS ORDERED: Naloxone 0.4 MG/ML INJ IVP PRN (10:23)
[2018-10-06 11:45] LABS: BUN/Creatinine Ratio 27 (6-26); Blood Urea Nitrogen 20 mg/dL (8-23); Calcium 8.7 mg/dL (8.6-10.3); Carbon Dioxide 30 mEq/L (23-29); Chloride 106 mEq/L (98-107); Glucose 100 mg/dL (70-105); Osmolality,Calculated 301 (280-300); Potassium 3.5 mEq/L (3.5-5.1); Sodium 144 mEq/L (136-145); eGFR For Non-African Americans > 60 (> 60)
--- NOTE | 2018-10-06 12:42 | Pulmonology Consult Note ---
Date of Encounter: 10/06/18 Time of Encounter: 08:00 Assessment and Plan (1) Acute and chronic respiratory failure with hypoxia Current Visit: Yes Status: Acute Patient was reviewed acute on chronic hypoxic respiratory failure now complicated by hypercarbia due to this massive pulmonary embolism in the background of severe pulmonary fibrosis . (2) Pulmonary embolism Current Visit: Yes Status: Acute Patient developed this acute on chronic hypoxic respiratory failure due to right sided massive pulmonary embolism , right ventricle pressure overload with acute pulmonary hypertension the last echo did not show any evidence of pulmonary hypertension may be a competent of class III also playing a role. We will continue heparin drip discuss the pros and cons of TPA patient family understood mutually agreed to not to give TPA. Spoke with IR detective [employer] section [place] radiology dont offer catheter directed thrombolysis .I called [facility] gave opinion that he will be a candidate for Catheter directed Thrombolysis . Spoke with Admitting hospitalist to shift him to [facility] for catheter directed thrombolysis Qualifiers: Chronicity: acute Acute cor pulmonale presence: with acute cor pulmonale Qualified Code(s): I26.09 - Other pulmonary embolism with acute cor pulmonale (3) Pulmonary HTN Current Visit: Yes Status: Acute Patient has acute pulmonary hypertension that might be a chronic class III componentr that is causing this worsening acute on chronic hypoxic respiratory failure with shortness of breath. History of Present Illness Consult date: 10/06/18 Requesting physician: Kim Manriquez Reason for consult: dyspnea, hypoxemia, pulmonary embolism Chief complaint: worsening hypoxia and shortness of breadth History of present illness: 73-year-old male with past medical history of pulmonary fibrosis and COPD severe oxygen dependence with 10 L/m patient was apparently was at his baseline for few days he has been having worsening shortness of breath with desaturated patient to 60s to 70s with his baseline oxygen so the family increased oxygen to 15 m still he was desaturating. Patient denies any chest pain, chest tightness denies any palpitation or syncope. Patient denies any dizziness denies any headache patient denies any active neuro symptoms and workup showed massive right-sided pulmonary embolism since patient developed pulmonary hypertension that lead to worsening hypoxic respiratory failure stat echo showed right ventricular pressure overload with septal bounce with severe pulmonary hypertension. Patient had severe lactic acidosis but responded to fluid resuscitation. Pulmonary was consult that for management of acute on chronic hypoxic and hypercapnic respiratory failure. Past Med Surg Social Fam HX - Past Medical History Medical history: arthritis, cancer, CHF, COPD, CVA, GERD, hyperlipidemia, osteoporosis, TIA, other Additional medical history: pulmonary fibrosis Psychiatric history: anxiety - Past Surgical History Surgical History: herniorrhaphy, other Additional surgical history: left ear skin cancer surgery, hemorrhoidectomy - Social History Smoking Status: Former smoker Smokeless Tobacco Status: No Alcohol use: rarely Drug use: none - Family History Father Adopted: Yes Family Member Ethnicity: Non- Living Status: Hx Family Neuromuscular Disorders: Yes (CVA) Mother Family Member Ethnicity: Non- Living Status: Brother Family Member Ethnicity: Non- Living Status: Hx Family Neuromuscular Disorders: Yes (Parkinson's disease) Sister Adopted: Yes Family Member Ethnicity: Non- Living Status: Still Living Hx Family Cardiac Disorders: Yes (tia) Hx Family Respiratory Disorders: Yes (sleep apnea) Hx Family Cancer: Yes (sister) Hx Family GI Disorders: No Hx Family Endocrine Disorder: Yes (diabetes) Hx Family Neuromuscular Disorders: No Hx Family Neurologic Disorders: No Hx Family HEENT Disorders: No Hx Family Autoimmune Disorders: No Medications and Allergies Mv-Mn/FA/Vit K/Lycop/Lut/Coq10 [Daily Multivitamin Capsule] 1 tab PO DAILY 06/01 [History] Esomeprazole Magnesium [Nexium] 20 mg PO DAILY 11/29/17 [History] Furosemide [Lasix] 20 mg PO QPM 11/29/17 [History] Furosemide [Lasix] 40 mg PO QAM 11/29/17 [History] Ipratropium/Albuterol Neb [Duoneb] 3 ml IH Q6H PRN 11/29/17 [History] Lidocaine Jelly 2% 1 appl TP TID PRN 11/29/17 [History] Nitroglycerin [Nitrostat] 0.4 mg SL Q5M PRN 11/29/17 [History] Pirfenidone [Esbriet] 801 mg PO TID 11/29/17 [History] Tramadol HCl [Ultram] 50 mg PO TID PRN 11/29/17 [History] Oxygen 6 l NS AD #0 03/27/18 [Rx] Aspirin Enteric Coated [Aspirin EC] 81 mg PO DAILY 04/24/18 [History] Albuterol Sulfate [Albuterol Inhaler] 2 puff IH Q6HR PRN #1 [id number] 04/28/18 [Rx] Docusate [Colace] 100 mg PO HS 06/30/18 [History] Escitalopram [Lexapro] 20 mg PO DAILY 06/30/18 [History] Famotidine [Pepcid] 40 mg PO DAILY 06/30/18 [History] Fluticasone/Umeclidin/Vilanter [Trelegy Ellipta 100-62.5-25] 1 puff IH DAILY 06/30/18 [History] Folic Acid 0.8 mg PO DAILY 06/30/18 [History] LORazepam [Ativan] 0.5 mg PO BID PRN 06/30/18 [History] LORazepam [Ativan] 0.5 mg PO HS 06/30/18 [History] Chloraseptic [place] [Chloraseptic] 2 spray MM QID PRN bottle 07/04/18 [Rx] Patient Taking Own Medication 1 each IH DAILY each 07/04/18 [Rx] Patient Taking Own Medication 3 each PO TIDWM each 07/04/18 [Rx] levoFLOXacin [Levaquin] 750 mg PO DAILY #5 tablet 07/04/18 [Rx] predniSONE [PredniSONE] 40 mg PO DAILY #30 tablet 07/04/18 [Rx] Allergy/AdvReac Type Severity Reaction Status Date / Time amiodarone Allergy See Verified 06/30/18 16:07 Comments All Systems: The remainder of the systems were reviewed and are negative Physical Examination Vital Signs: Vital Signs, Last 4 Hours Temp Pulse Resp BP Pulse Ox 10/06/18 11:34 20 93 10/06/18 10:27 94 32 89/66 94 10/06/18 09:37 98.8 F 93 32 83/67 98 10/06/18 08:45 94 27 102/74 96 General appearance: other (in respiratory distress ) Effort: mildly labored Auscultation: bilateral: other (bilateral inspiratory crackles ) other Results - Laboratory Findings CBC and BMP: 10/06/18 04:58 10/06/18 10:59 ABG ABG pH 7.44 pH Units (7.32-7.45) 10/06/18 09:42 ABG pCO2 45 mmHg (35-45) 10/06/18 09:42 ABG pO2 72 mmHg (85-104) L 10/06/18 09:42 ABG O2 Saturation 95 % (95-98) 10/06/18 09:42 PT/INR, D-dimer PT 13.0 Seconds (9.4-12.1) H 10/06/18 04:58 Abnormal lab findings: Abnormal lab results WBC 22.2 K/mcL (4.3-11.1) H 10/06/18 04:58 Hct 52.0 % (37.5-50.1) H 10/06/18 04:58 MCHC 29.6 g/dL (31.6-35.5) L 10/06/18 04:58 RDW 15.2 % (11.5-14.5) H 10/06/18 04:58 MPV 9.2 fL (9.4-12.4) L 10/06/18 04:58 Neutrophils # 10.3 K/mcL (1.6-8.9) H 10/06/18 04:58 Lymphocytes # 9.7 K/mcL (0.6-4.6) H 10/06/18 04:58 Reactive Lymphocytes Present (Not Present) A 10/06/18 04:58 PT 13.0 Seconds (9.4-12.1) H 10/06/18 04:58 Heparin Anti-Xa, Unfract 0.03 IU/mL (0.30-0.70) L 10/06/18 04:58 ABG pO2 72 mmHg (85-104) L 10/06/18 09:42 ABG HCO3 30 mEq/L (21-27) H 10/06/18 09:42 ABG Total CO2 32 mEq/L (20-26) H 10/06/18 09:42 ABG Base Excess 6 mEq/L (-2 to 3) H 10/06/18 09:42 Carboxyhemoglobin 5.7 % (0-5) H 10/06/18 06:31 Carbon Dioxide 30 mEq/L (23-29) H 10/06/18 10:59 BUN/Creatinine Ratio 27 (6-26) H 10/06/18 10:59 Calculated Osmolality 301 (280-300) H 10/06/18 10:59 Troponin I 0.08 ng/mL (< 0.04) H* 10/06/18 04:58 B-Natriuretic Peptide 2248 pg/mL (Less than 100) H 10/06/18 10:59 Ur Specific [place] > 1.030 (1.010-1.025) H 10/06/18 06:28 Urine Protein 100 mg/dL (Neg-Trace) H 10/06/18 06:28 Urine Blood Small (Negative) H 10/06/18 06:28 Urine Microscopic RBC 5-15 per hpf (0-3) H 10/06/18 06:28 Urine Microscopic WBC 50-100 per hpf (0-3) H 10/06/18 06:28 Ur Squamous Epith Cells Many per lpf (None-Few) H 10/06/18 06:28 Urine Bacteria Moderate per hpf (None-Few) H 10/06/18 06:28 - Microbiology Findings Microbiology Findings: Microbiology, Last 48 Hours 10/06/18 06:19 Blood Culture - Preliminary Peripheral Venipuncture Culture is incubating and being continuously monitored for growth. Final report to follow. 10/06/18 04:58 Blood Culture - Preliminary Peripheral Venipuncture Culture is incubating and being continuously monitored for growth. Final report to follow. - Clinical Findings Intake & Output: Intake & Output 10/05/18 10/06/18 10/06/18 23:59 07:59 15:59 Intake Total 1000 / 1000 120 / 120 Balance 1000 / 1000 120 / 120 Weight 73.085 kg 68.039 kg Consult Discharge Plan - Plan Referrals: NONE,PCP [Primary Care Provider] -
--- NOTE | 2018-10-06 14:08 | Electrocardiograph Report ---
Test Date: 2018-10-06 Pat Name: Juan Canada Department: [id number] Room: 2N14 Gender: M Implementation Services Analyst: : 1945 Requested By: Henry Cummins Order Number: [id number] Reading MD: Nick Nino Measurements Intervals [place] Rate: 68 P: 83 TN: 103 QRS: 54 QRSD: 126 T: -21 QT: 408 QTc: 434 Interpretive Statements Sinus rhythm Short TN interval Right bundle branch block Repol abnrm suggests ischemia, diffuse leads Electronically Signed On 10-06-2018 14:07:00 EST by Nick Nino
[2018-10-06] MEDS ORDERED: Acetaminophen 325 MG TABLET PO PRN (17:11)
[2018-10-06] MEDS ORDERED: 0.9 % Sodium Chloride 1,000 ML ONE (17:56)
--- NOTE | 2018-10-06 19:08 | Discharge Summary ---
- NOTES TO OUTPATIENT PROVIDER Notes to Outpatient Provider: Monitor fluid status. He required gentle fluid hydration for hypotension. Fluids are now held. Baseline BP is 80s/40s per and daughter. He takes Lasix at home. Patient's case was discussed with Pulm/Crit care Dr. Kaplan with the ED physician at [facility]. Should have consult with on-call Interventional Radiologist. Orders not resulted at time of discharge: Pending orders 10/06/18 06:19 Culture,Blood [BC] Stat 10/06/18 11:00 Troponin I Routine 10/06/18 20:00 Heparin anti-factor XA UFH [COAG] Routine 10/07/18 04:00 Complete Blood Count [HEME] AM 0400 Date of Encounter: 10/06/18 Time of Encounter: 19:03 - Discharge Diagnosis (1) Acute and chronic respiratory failure with hypoxia Priority: Primary Status: Acute (2) Acute massive pulmonary embolism Priority: Secondary Status: Acute (3) COPD (chronic obstructive pulmonary disease) Priority: Secondary Status: Acute Qualifiers: COPD type: unspecified COPD Qualified Code(s): J44.9 - Chronic obstructive pulmonary disease, unspecified (4) Elevated troponin Priority: Secondary Status: Acute (5) (HFpEF) heart failure with preserved ejection fraction Priority: Secondary Status: Chronic (6) Anxiety Priority: Secondary Status: Chronic (7) Pulmonary fibrosis Priority: Secondary Status: Chronic (8) GERD (gastroesophageal reflux disease) Priority: Secondary Status: Chronic Qualifiers: Esophagitis presence: esophagitis presence not specified Qualified Code(s): K21.9 - Gastro-esophageal reflux disease without esophagitis (9) HLD (hyperlipidemia) Priority: Secondary Status: Chronic Qualifiers: Hyperlipidemia type: unspecified Qualified Code(s): E78.5 - Hyperlipidemia, unspecified (10) History of CVA (cerebrovascular accident) Priority: Secondary Status: Resolved (11) DVT prophylaxis Priority: Secondary Status: Acute Hospital course: 73-year-old male with past medical history of pulmonary fibrosis and COPD severe oxygen dependence with 10 L/m patient was apparently was at his baseline for few days he has been having worsening shortness of breath with desaturated patient to 60s to 70s with his baseline oxygen so the family increased oxygen to 15 m still he was desaturating. Patient denies any chest pain, chest tightness denies any palpitation or syncope. Patient denies any dizziness denies any headache patient denies any active neuro symptoms and workup showed massive right-sided pulmonary embolism since patient developed pulmonary hypertension that lead to worsening hypoxic respiratory failure stat echo showed right ventricular pressure overload with septal bounce with severe pulmonary hypertension. Patient had severe lactic acidosis but responded to fluid resuscitation. Pulmonary was consult that for management of acute on chronic hypoxic and hypercapnic respiratory failure. There is acute pulmonary hyperte nsion on an echo that was not seen on the most recent echo that patient had. Heparin drip was continued. Based on patient presentation, it was suggested by Pulmonology he would benefit from catheter directed thrombolysis. [facility] ED physician discussed case with Pulmonology. Patient will be transferred to [facility] and likely will need consult to the on-call Interventional Radiologist. Heparin drip will be continued on transfer. - Time Spent with Patient Total time spent providing and/or coordinating discharge services: - Discharge Medications Home Medications: Mv-Mn/FA/Vit K/Lycop/Lut/Coq10 [Daily Multivitamin Capsule] 1 tab PO DAILY 05/23/17 [History] Esomeprazole Magnesium [Nexium] 20 mg PO DAILY 11/29/17 [History] Lidocaine Jelly 2% 1 appl TP TID PRN 11/29/17 [History] Pirfenidone [Esbriet] 801 mg PO TID 11/29/17 [History] Oxygen 6 l NS AD #0 03/27/18 [Rx] Aspirin Enteric Coated [Aspirin EC] 81 mg PO DAILY 04/24/18 [History] Docusate [Colace] 100 mg PO HS 06/30/18 [History] Escitalopram [Lexapro] 20 mg PO DAILY 06/30/18 [History] Famotidine [Pepcid] 40 mg PO DAILY 06/30/18 [History] Fluticasone/Umeclidin/Vilanter [Trelegy Ellipta 100-62.5-25] 1 puff IH DAILY 06/30/18 [History] Folic Acid 0.8 mg PO DAILY 06/30/18 [History] LORazepam [Ativan] 0.5 mg PO BID PRN 06/30/18 [History] LORazepam [Ativan] 0.5 mg PO HS 06/30/18 [History] Chloraseptic [place] [Chloraseptic] 2 spray MM QID PRN bottle 07/04/18 [Rx] predniSONE [PredniSONE] 40 mg PO DAILY #30 tablet 07/04/18 [Rx] Acetaminophen [Tylenol] 650 mg PO Q6HR PRN tablet 10/06/18 [Rx] Heparin 2,600 unit IVP Q6H PRN vial 10/06/18 [Rx] Heparin 5,100 unit IVP Q6HR PRN vial 10/06/18 [Rx] Ipratropium/Albuterol Neb [Duoneb] 3 ml IH [id number] inhsol 10/06/18 [Rx] LORazepam [Ativan] 0.5 mg IVP Q6HR PRN vial 10/06/18 [Rx] Allergies/Adverse Reactions: Allergy/AdvReac Type Severity Reaction Status Date / Time amiodarone Allergy See Verified 06/30/18 16:07 Comments Date of admission: 10/06/18 06:48 Primary care physician: PCP NONE Consults: 10/06/18 16:54 Consult to Pulmonology [CONS] Routine Consulting Provider: [facility]m [facility] [place] Reason for Consult: Acute PE, Resp failure Call Completed: Yes Discharging clinician: Kim Manriquez - Constitutional Vitals: Temp Pulse Resp BP Pulse Ox 99.5 F 75 24 80/54 91 10/06/18 16:51 10/06/18 16:51 10/06/18 16:51 10/06/18 16:51 10/06/18 16:51 Exam: General appearance: Present: cachectic, cooperative, A&O X 3, answers questions appropriately Exam: Moderate resp distress - Head Head exam: Present: atraumatic, normocephalic - ENT ENT exam: Present: mucous membranes moist - Neck Neck exam general surgery: Absent: lymphadenopathy, tenderness, nuchal rigidity - Respiratory Respiratory exam: Present: decreased breath sounds. Absent: wheezes Additional comments: Course breath sounds at both lung bases. - Cardiovascular Cardiovascular exam: Present: RRR, +S1, +S2. Absent: diastolic murmur, gallop, rubs, systolic murmur - GI/Abdominal GI/Abdominal exam: Present: normal bowel sounds, soft, no peritoneal signs. Absent: distended, tenderness - Extremities Exam Extremities exam: Present: normal inspection, warm, radial pulses palpable and symmetrical. Absent: calf tenderness, cyanotic, pedal edema - Skin Skin exam: Present: dry, warm - Patient Status Disposition: Transfer Critical Access Hosp Condition: Critical Functional capacity at discharge: independent ambulation Overall status at discharge: patient is not back to baseline - Discharge Instructions Follow Up With: NONE,PCP [Primary Care Provider] - - Diet and Activity Activity: wear oxygen at all times Diet: advance to your usual diet
[2018-10-06 19:32] VITALS: BP 85/53
== END 2018-10-06 22:30 | disposition critical access hospital (66) | DRG 175 ==
LOC: EMEROOARM 04:46 → ICNU 06:48 → 2NNU 09:43
PROVIDERS: ADMIT Internal Medicine; ATTEND Internal Medicine